=== PATIENT | female | born 1985 | race Caucasian/White ===

== ENCOUNTER 2017-09-06 09:52 | Emergency (ER) | payer MEDICAID, SELFPAY | END 2017-09-06 12:12 | disposition home or self-care (01) | PROVIDERS: Emergency Provider Emergency Medicine; Family Provider Family Medicine; Visit Provider Emergency Medicine | DX: O20.9 Hemorrhage in early pregnancy, unspecified (principal); Z3A.00 Weeks of gestation of pregnancy not specified; O99.330 Smoking (tobacco) complicating pregnancy, unspecified trimester; F17.210 Nicotine dependence, cigarettes, uncomplicated | CPT/HCPCS: 76830; 81001; 84702; 84703; 85025; 87086; 99283 ==

== ENCOUNTER → 2017-11-26 16:13 | Outpatient (CLI) | payer MEDICAID, SELFPAY ==
[2017-11-26 16:40] LABS: Basophils % 0.2 % (0.1-2.0); Eosinophils % 0.2 % (0.1-12.0); Hematocrit 43.4 % (37.0-47.0); Hemoglobin 14.2 g/dL (12.2-16.2); Lymphocytes # 3.7 K/mm3 (0.7-4.5); Lymphocytes % 37.9 K/mm3 (10-50); Mean Corpuscular HGB Conc 32.6 g/dL (31.8-35.4); Mean Corpuscular Hemoglobin 33.1 pg (27.0-31.2); Mean Corpuscular Volume 101.5 fl (81-99); Mean Platelet Volume 7.9 fl (7.4-10.4); Monocytes # 0.4 K/mm3 (0.1-1.0); Monocytes % 3.8 % (1.7-9.3); Neutrophils # 5.7 K/mm3 (1.8-7.8); Neutrophils % 57.8 % (37.0-80.0); Platelet Count 247 K/mm3 (142-424); Red Blood Count 4.28 M/mm3 (4.20-5.40); Red Cell Distribution Width 11.9 % (11.5-17.5); White Blood Count 9.9 K/mm3 (4.8-10.8)
[2017-11-26 17:52] LABS: Alanine Aminotransferase 24 U/L (12-78); Albumin Level 3.9 gm/dL (3.4-5.0); Alkaline Phosphatase 76 U/L (46-116); Aspartate Amino Transferase 12 U/L (15-37); Bilirubin,Direct 0.1 mg/dL (0.0-0.2); Bilirubin,Total 0.2 mg/dL (0.2-1.0); Total Protein,Serum 7.2 gm/dL (6.4-8.2)
[2017-11-28 12:17] LABS: Rapid Plasma Reagin Ab Titer Non Reactive (NonRea<1:1)
[2017-11-28 12:18] LABS: HIV Screen 4th Generation wRfx Non Reactive (Non Reactive); Hepatitis B Surface Antigen Negative (Negative); Hepatitis C Antibody <0.1 s/co ratio (0.0-0.9); Rubella Antibodies, IgG 1.82 index (Immune >0.99)
== END ==
PROVIDERS: Family Provider Family Medicine; PCP Family Medicine; Visit Provider Nurse Practitioner Obstetrics & Gynecology
DX: Z34.90 Encounter for supervision of normal pregnancy, unspecified, unspecified trimester (principal)
CPT/HCPCS: 36415; 80076; 85025; 86592; 86703; 86762; 86850; 87340; 87380; G0432

== ENCOUNTER 2017-12-05 06:30 | Emergency (ER) | payer MEDICAID, SELFPAY ==
[2017-12-05 06:39] VITALS: BP 104/59; PULSE 85; RESP 17; TEMP 36.6; O2SAT 98; BMI 29.7
[2017-12-05 07:02] LABS: Strep Scrn Group A (Rapid) Negative (Negative)
--- NOTE | 2017-12-05 07:30 | HMH.EDEAR ---
ED Disposition Clinical Impression: Otitis media Qualifiers: Otitis media type: unspecified Chronicity: acute Qualified Code(s): H66.90 - Otitis media, unspecified, unspecified ear Qualifiers: Weeks of gestation: less than 8 weeks Qualified Code(s): Z3A.01 - Less than 8 weeks gestation of Disposition: Home, Self-Care Condition on Discharge: Good Instructions: DI for Ear Pain-Adult Additional Instructions: see pcp for meds Prescriptions: cephALEXin [Keflex 500mg Cap] 500 mg PO TID #21 cap Referrals: Abilio Muniz [Primary Care Provider] - - Critical Care Critical Care Time: No Attestation: On 12/05/17, the high probability of a clinically significant, sudden or life threatening deterioration of the following system(s) required my full and direct attention, intervention and personal management. The time I documented below is in addition to time spent performing reported procedures but includes the following listed in this critical care notation. Medical Decision Making - Medical Records Medical records reviewed: Yes: I reviewed the patient's medical records. - Ron Inquiry Pt receiving controlled substance: No Vital Signs: 12/05/17 06:39 Temperature 98 F Temperature Source Oral Pulse Rate [Right Brachial] 85 Respiratory Rate 17 Blood Pressure [Right Arm] 104/59 Blood Pressure Mean [Right Arm] 74 Blood Pressure Source [Right Arm] Automatic Cuff Blood Pressure Position [Right Arm] Sitting 02 Sat by Pulse Oximetry 98 Oxygen Delivery Method Room Air - Lab Data Lab Results 12/05/17 06:45: Influenza Type A Ag Negative, Influenza Type B Ag Negative, Group A Strep Rapid Negative Orders (Tests/Meds): ORDERS Category Date Time Status Strep Screen Confirmation Stat Micro 12/05/17 06:45 Received Ear HPI - General Chief complaint: Ear Stated complaint: Pain in both ears Time Seen by Provider: 12/05/17 07:30 Mode of Arrival: Ambulatory Source of Information: Patient, Spouse, Medical Record Limitations: No Limitations Description of Symptoms (Recalled from ER Triage Doc. by RN): reports bilateral ear pain, throat pain, and neck pain. denies any fevers or vomiting. - History of Present Illness HPI Narrative: rt sided ear pain with sore throat - no rash or other c/o MD Complaint: ear pain Location: right ear Duration: intermittent Severity: moderate Discharge from ear: no Treatment prior to arrival: none - Related Data Home Medications Medication Instructions Recorded Confirmed 1 tab PO QHS 10/07/17 12/05/17 vitamin,calcium,xofzfwnb-onvf-jjefd acid tablet Previous Rx's Medication Instructions Recorded cephALEXin [Keflex 500mg Cap] 500 mg PO TID #21 cap 12/05/17 Allergies Allergy/AdvReac Type Severity Reaction Status Date / Time No Known Allergies Allergy Verified 11/26/17 15:31 [facility] History I have reviewed the patient's past medical history: Yes Medical History: Denies:: Cancer, Diabetes Mellitus Type 1, Diabetes Mellitus Type 2, MRSA Laterality Cases: Bilateral: Tonsillectomy, Other Other Surgeries: Yes: Amputation: No Fractures: Yes (right wrist) - Social History Educational Level: Completed High School Smoking Status: Current every day smoker Tobacco Type: cigarettes Alcohol Intake: never - Psychiatric History Expresses thoughts of harming self/others: None Suicide Plan Description: No Plan Family Hx:: Asthma, Heart Attack, Hypertension 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 #2-Oligo. #3-Miscarriage 09/09/17 ROS Obtained: Yes All systems reviewed & no additional complaints - Constitutional Constitutional: Denies fever(s) - Eyes Eyes: Denies change in vision - ENT Ears, Nose, Mouth, and Throat: Reports as per HPI, Denies ear discharge, Reports otalgia, Reports sore throat - [facility]
--- NOTE | 2017-12-05 07:34 | ED_ITS ---
ED Disposition Clinical Impression: Otitis media Qualifiers: Otitis media type: unspecified Chronicity: acute Qualified Code(s): H66.90 - Otitis media, unspecified, unspecified ear Qualifiers: Weeks of gestation: less than 8 weeks Qualified Code(s): Z3A.01 - Less than 8 weeks gestation of Disposition: Home, Self-Care Condition on Discharge: Good Instructions: DI for Ear Pain-Adult Additional Instructions: see pcp for meds Prescriptions: cephALEXin [Keflex 500mg Cap] 500 mg PO TID #21 cap Referrals: Abilio Muniz [Primary Care Provider] - - Critical Care Critical Care Time: No Attestation: On 12/05/17, the high probability of a clinically significant, sudden or life threatening deterioration of the following system(s) required my full and direct attention, intervention and personal management. The time I documented below is in addition to time spent performing reported procedures but includes the following listed in this critical care notation. Medical Decision Making - Medical Records Medical records reviewed: Yes: I reviewed the patient's medical records. - Ron Inquiry Pt receiving controlled substance: No Vital Signs: 12/05/17 06:39 Temperature 98 F Temperature Source Oral Pulse Rate [Right Brachial] 85 Respiratory Rate 17 Blood Pressure [Right Arm] 104/59 Blood Pressure Mean [Right Arm] 74 Blood Pressure Source [Right Arm] Automatic Cuff Blood Pressure Position [Right Arm] Sitting 02 Sat by Pulse Oximetry 98 Oxygen Delivery Method Room Air - Lab Data Lab Results 12/05/17 06:45: Influenza Type A Ag Negative, Influenza Type B Ag Negative, Group A Strep Rapid Negative Orders (Tests/Meds): ORDERS Category Date Time Status Strep Screen Confirmation Stat Micro 12/05/17 06:45 Received Ear HPI - General Chief complaint: Ear Stated complaint: Pain in both ears Time Seen by Provider: 12/05/17 07:30 Mode of Arrival: Ambulatory Source of Information: Patient, Spouse, Medical Record Limitations: No Limitations Description of Symptoms (Recalled from ER Triage Doc. by RN): reports bilateral ear pain, throat pain, and neck pain. denies any fevers or vomiting. - History of Present Illness HPI Narrative: rt sided ear pain with sore throat - no rash or other c/o MD Complaint: ear pain Location: right ear Duration: intermittent Severity: moderate Discharge from ear: no Treatment prior to arrival: none - Related Data Home Medications Medication Instructions Recorded Confirmed 1 tab PO QHS 10/07/17 12/05/17 vitamin,calcium,hukuqqed-nvxp-qymal acid tablet Previous Rx's Medication Instructions Recorded cephALEXin [Keflex 500mg Cap] 500 mg PO TID #21 cap 12/05/17 Allergies Allergy/AdvReac Type Severity Reaction Status Date / Time No Known Allergies Allergy Verified 11/26/17 15:31 [facility] History I have reviewed the patient's past medical history: Yes Medical History: Denies:: Cancer, Diabetes Mellitus Type 1, Diabetes Mellitus Type 2, MRSA Laterality Cases: Bilateral: Tonsillectomy, Other Other Surgeries: Yes: Amputation: No Fractures: Yes (right wrist) - 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
[2017-12-05 07:45] VITALS: BP 99/70; PULSE 82; RESP 18; TEMP 36.9; O2SAT 97
== END 2017-12-05 07:46 | disposition home or self-care (01) ==
PROVIDERS: Emergency Provider Emergency Medicine; Family Provider Family Medicine; PCP Family Medicine
DX: H66.93 Otitis media, unspecified, bilateral (principal); Z3A.01 Less than 8 weeks gestation of pregnancy; F17.210 Nicotine dependence, cigarettes, uncomplicated
CPT/HCPCS: 87275; 87276; 87430; 99282

== ENCOUNTER → 2017-12-06 14:49 | Outpatient (CLI) | payer MEDICAID, SELFPAY ==
--- NOTE | 2017-12-06 14:50 | US_ITS ---
US OB transvaginal COMPARISON: Transvaginal ultrasound pelvis 09/06/2017 HISTORY: Suspected early evaluation for dates TECHNIQUE: Transvaginal imaging FINDINGS: There is a gestational sac present. The yolk sac is identified. The crown-rump length is 0.29 cm equaling 6 weeks 0 days. No cardiac flicker is identified. The size of the gestational sac is somewhat out of proportion to the size of the echoes. There is a small amount of fluid adjacent to the uterus. There is a small corpus luteum cyst left ovary, the right ovary appears normal. IMPRESSION: Possible very early intrauterine gestation too early to characterize and to assess viability, consider follow-up study in 7-9 days for continuing evaluation
== END ==
PROVIDERS: Family Provider Family Medicine; PCP Family Medicine; Visit Provider Nurse Practitioner Obstetrics & Gynecology
DX: O26.841 Uterine size-date discrepancy, first trimester (principal)
CPT/HCPCS: 76830

== ENCOUNTER → 2017-12-13 15:23 | Outpatient (CLI) | payer MEDICAID, SELFPAY ==
--- NOTE | 2017-12-13 15:25 | US_ITS ---
US OB transvaginal HISTORY: ITS.REASON: US OB- Dates ORDERING PHYSICIAN: Jayson Mckay MD PATIENT AGE: 32 years COMPARISON: 12/06/2017 FINDINGS: An intrauterine gestational sac is once again noted. The yolk sac appears thicker with some increased echoes centrally. No obvious pole. No heart flicker. There is some fluid developing within the endometrium subchorionic area. There remains a 1.7 cm corpus luteum on the left. IMPRESSION: Apparent regression of the yolk sac with no obvious pole and small amount of fluid now within the endometrial area. These findings are concerning for nonviability.
[2017-12-13 18:14] LABS: HCG Qualitative, Serum Positive (Negative)
== END ==
PROVIDERS: Family Provider Family Medicine; PCP Family Medicine; Visit Provider Nurse Practitioner Obstetrics & Gynecology
DX: O26.841 Uterine size-date discrepancy, first trimester (principal)
CPT/HCPCS: 36415; 76830; 84703

== ENCOUNTER → 2017-12-16 10:10 | Outpatient (CLI) | payer MEDICAID, SELFPAY | PROVIDERS: Visit Provider Nurse Practitioner Obstetrics & Gynecology | DX: Z34.90 Encounter for supervision of normal pregnancy, unspecified, unspecified trimester (principal) ==

== ENCOUNTER 2017-12-18 09:22 | Day surgery (SDC) | payer MEDICAID, SELFPAY ==
[2017-12-18] VITALS (10 sets, daily range): BP systolic 91–109; BP diastolic 52–70; PULSE 62–92; RESP 16–18; TEMP 36.4–43; O2SAT 95–100
[2017-12-18 11:27] LABS: Urine Pregnancy, HCG Qual. Positive (Negative)
[2017-12-18 11:50] LABS: Anion Gap 13.8 mEq/L (5-15); Blood Urea Nitrogen 11 mg/dL (7-18); Carbon Dioxide 20 mmol/L (21.0-32.0); Chloride 104 mmol/L (98-107); Creatinine Clearance Estimated 227 mL/min (0-300); Creatinine,Serum 0.49 mg/dL (0.55-1.02); Estimated Glomerular Filt Rate 146 ml/min (>60); GFR (African American) 177 ML/MIN (>60); Glucose 77 mg/dL (74-106); Sodium 133 mmol/L (136-145)
[2017-12-18 11:57] LABS: Potassium 4.8 mmoL/L (3.5-5.1)
--- NOTE | 2017-12-18 12:55 | P.PN_ITS ---
[facility] Anesthesia Checklist - Structural Data Admitted From: Home Planned Operative Procedure/s: d/e Consent for Planned Operative Procedure(s) Verified: Yes Verified Documents: Surgical Consent - Airway Assessment C-Spine Mobility Assessed: Yes TMJ Mobility Assessed: Yes Dentition: Good Dentition - Neurological Assessment Level of Consciousness: Awake, Alert - Anesthesia Plan Anesthesia Risk discussed: Yes Anesthesia Plan: Verified ASA Class: II Anesthesia Type: General [facility] Anesthesia HX I have reviewed the patient's past medical history: Yes Medical History: Denies:: Cancer, Diabetes Mellitus Type 1, Diabetes Mellitus Type 2, MRSA, Seizures Other Medical History: Denies: Blood Transfusion Reaction Laterality Cases: Bilateral: Tonsillectomy, Other Other Surgeries: Yes: Amputation: No Fractures: Yes (right wrist) *Family Hx:: Asthma, Heart Attack, Hypertension
--- NOTE | 2017-12-18 15:57 | HMH.ANESI ---
[facility] Anesthesia Record Part I Intake, IV Amount: 800 Estimated blood loss (mL): 100 Urine output (mL): 100 Blood Pressure: 108/70 SaO2: 95 Pulse Rate: 92 Respiratory Rate: 16 Temperature: 98.5 F Patient is:: Drowsy, Stable Stable to PACU at:: 15:50
--- NOTE | 2017-12-18 15:58 | P.PN_ITS ---
[facility] Anesthesia Record Part II Discharge Time: 16:20 Destination: [facility] PACU nurse assessment reviewed?: Yes Patient Condition:: Good Anesthesia Complications:: None
--- NOTE | 2017-12-18 15:58 | HMH.ANESII ---
[facility] Anesthesia Record Part II Discharge Time: 16:20 Destination: [facility] PACU nurse assessment reviewed?: Yes Patient Condition:: Good Anesthesia Complications:: None
--- NOTE | 2017-12-18 16:39 | P.OP_ITS ---
Date of procedure: 12/18/17 Pre-op Diagnosis:: Missed Post-op Diagnosis:: Missed Procedure performed:: Dilation and evacuation with [place] suction Surgeon:: Jayson Mckay MD CYBER SECURITY MANAGER:: Odell Caro Anesthesia: LMA Estimated blood loss (mL): 100 Clinical Note:: The 32-year-old lady who has been followed with serial beta hCGs and ultrasounds. Beta hCGs have been dropping and serial ultrasounds showed no fetus within the uterine cavity but a gestational sac. As result of that she was offered dilation and evacuation. Operative findings:: She had an anteverted bulky uterus that was approximately 8 weeks in size. Operative note:: She was taken to the operating room where LMA anesthesia was found to be adequate. She was prepped and draped in the normal sterile fashion in the lithotomy position. A weighted speculum was placed in the vagina and the anterior lip of the cervix was grasped with a tenaculum. Mckee dilators were then used to dilate the cervix to approximately 9 mm. Using a 9 mL curved Bobby suction curette I evacuated the uterine contents. This is followed by a gentle curettage. She tolerated the procedure well and was taken to the recovery room in excellent condition. All sponge and instrument counts were correct. The estimated blood loss was approximately 100 cc. Condition: stable Disposition: PACU Specimens:: Products of conception Complications:: None
--- NOTE | 2017-12-18 17:00 | PC.NURSE ---
1557-oral airway removed at this time
--- NOTE | 2017-12-18 17:02 | PC.NURSE ---
1610-pt drinking ice water at this time w/out difficulty
--- NOTE | 2017-12-18 17:04 | PC.NURSE ---
1618-detailed report called to BEAR Bermudez 1620-Pt transported to post op via stretcher w/rails up and left in care of BEAR Mccollum w/bed locked in lowest position. Detailed report given to BEAR Mccollum at bedside. VSS. Pt stable.
== END 2017-12-18 16:51 | disposition home or self-care (01) ==
LOC: OR 09:23
PROVIDERS: Family Provider Family Medicine; PCP Family Medicine; Visit Provider Nurse Practitioner Obstetrics & Gynecology
PROC: (CPT 59820; principal; 2017-12-18 11:45)
DX: O02.1 Missed abortion (principal)
CPT/HCPCS: 59820; 80048; 81025; 96374; J0131; J2405

== ENCOUNTER → 2018-04-03 11:04 | Outpatient (CLI) | payer MEDICAID, SELFPAY ==
[2018-04-03 11:29] LABS: Basophils % 0.3 % (0.1-2.0); Eosinophils # 0.1 K/mm3 (0.0-0.4); Eosinophils % 0.5 % (0.1-12.0); Hematocrit 46.7 % (37.0-47.0); Hemoglobin 15.1 g/dL (12.2-16.2); Lymphocytes % 20.3 K/mm3 (10-50); Mean Corpuscular HGB Conc 32.3 g/dL (31.8-35.4); Mean Corpuscular Hemoglobin 32.5 pg (27.0-31.2); Mean Corpuscular Volume 100.6 fl (81-99); Mean Platelet Volume 7.7 fl (7.4-10.4); Monocytes # 0.6 K/mm3 (0.1-1.0); Monocytes % 4.2 % (1.7-9.3); Neutrophils # 11.2 K/mm3 (1.8-7.8); Neutrophils % 74.7 % (37.0-80.0); Platelet Count 269 K/mm3 (142-424); Red Blood Count 4.65 M/mm3 (4.20-5.40); White Blood Count 14.9 K/mm3 (4.8-10.8)
[2018-04-04 17:59] LABS: HIV Screen 4th Generation wRfx Non Reactive (Non Reactive)
[2018-04-04 18:00] LABS: Hepatitis B Surface Antigen Negative (Negative); Hepatitis C Antibody <0.1 s/co ratio (0.0-0.9); Rapid Plasma Reagin Ab Titer Non Reactive (NonRea<1:1); Rubella Antibodies, IgG 1.69 index (Immune >0.99)
== END ==
PROVIDERS: Family Provider Family Medicine; PCP Family Medicine; Visit Provider Obstetrics & Gynecology
DX: Z34.90 Encounter for supervision of normal pregnancy, unspecified, unspecified trimester (principal)
CPT/HCPCS: 36415; 85025; 86592; 86703; 86762; 86850; 87340; 87380; G0432

== ENCOUNTER → 2018-07-10 09:42 | Outpatient (CLI) | payer MEDICAID, SELFPAY ==
--- NOTE | 2018-07-10 09:43 | US_ITS ---
US OB /maternal detail: INDICATION: ITS.REASON: US OB Complete ORDERING PHYSICIAN: Jayson Mckay MD PATIENT AGE: 33 years TECHNIQUE: ultrasound transabdominal scanning. COMPARISON: No previous relevant studies. FINDINGS: Single viable intrauterine gestation. Cephalic position. Placenta: Posterior placenta grade 1. There is average amount fluid. The cervix appears satisfactory. Closed and measuring 4 cm in length. Complete survey performed and was unremarkable on the submitted images as in PACS. No discrete anomalies identified on survey imaging by technologist. Active fetus. Three-vessel cord with satisfactory umbilical cord insertion. 4- chamber heart noted. Survey of brain & ventricles unremarkable. Face and neck survey unremarkable. Diaphragm and chest views unremarkable. Abdomen: Both kidneys noted and unremarkable. Stomach noted and satisfactory. Spine: Survey of the spine satisfactory with no anomalies identified nor imaged. Both arms and legs noted. Amniotic Fluid: Adequate. Maternal adnexa: No significant findings. Measurements: Average ultrasound age 21w1d. Gestational Age 21w0d. Estimated due date by ultrasound age 0211/19/2017. Estimated weight 399 grams. BPD = 21w1d OFD = 21w2d HC = 20w4d AC = 21w1d FL = 21w3d Growth Percentile= 50% Heart Rate = 153 Cerebellum = 21w2d Humerus = 21w4d HC/AC is 1.13 (1.06-1.25). CI is 78% (70-86%). FL/BPD is 71%. FL/AC is 22% (20-24%). IMPRESSION: There is a single live intrauterine gestation which is in cephalic presentation with an average ultrasound age 21 weeks 1 day. No obvious anomalies. Posterior grade 1 placenta. Please see above for detail.
== END ==
PROVIDERS: Family Provider Family Medicine; PCP Family Medicine; Visit Provider Nurse Practitioner Obstetrics & Gynecology
DX: Z36.0 Encounter for antenatal screening for chromosomal anomalies (principal)
CPT/HCPCS: 76811

== ENCOUNTER → 2018-08-29 09:31 | Outpatient (CLI) | payer MEDICAID, SELFPAY ==
[2018-08-29 10:20] LABS: Glucose,Fasting 74 mg/dL (60-105)
[2018-08-29 11:12] LABS: Glucose 1 Hour 116 mg/dL (74-106)
== END ==
PROVIDERS: Visit Provider Nurse Practitioner Obstetrics & Gynecology
DX: Z34.90 Encounter for supervision of normal pregnancy, unspecified, unspecified trimester (principal)
CPT/HCPCS: 36415; 82951

== ENCOUNTER 2018-09-02 18:34 | Outpatient (CLI) | payer MEDICAID, SELFPAY ==
[2018-09-02 19:05] VITALS: BMI 32.8
[2018-09-02 19:06] VITALS: BP 148/86; PULSE 91; RESP 20; O2SAT 99; BMI 32.8
[2018-09-02 19:30] LABS: Fetal Membrane Rupture (Rapid) Negative (Negative)
[2018-09-02 20:02] LABS: Fetal Fibronectin (Rapid) Negative (Negative)
== END 2018-09-02 19:51 | disposition home or self-care (01) ==
LOC: OBOUT 18:36 → OB 18:36
PROVIDERS: Visit Provider Obstetrics & Gynecology
DX: O26.892 Other specified pregnancy related conditions, second trimester (principal); Z3A.28 28 weeks gestation of pregnancy
CPT/HCPCS: 59025; 82731; 84112

== ENCOUNTER → 2018-10-22 17:37 | Outpatient (CLI) | payer MEDICAID, SELFPAY | LOC: LAB 17:38 → LAB.DROPOF 17:38 | PROVIDERS: Visit Provider Nurse Practitioner Obstetrics & Gynecology | DX: Z34.90 Encounter for supervision of normal pregnancy, unspecified, unspecified trimester (principal) | CPT/HCPCS: 86403 ==

== ENCOUNTER → 2018-10-24 12:46 | Outpatient (CLI) | payer MEDICAID, SELFPAY ==
--- NOTE | 2018-10-24 12:49 | US_ITS ---
US OB BPP w/Fet-Mat S/D: INDICATION: Large for gestational age ITS.REASON: US OB- BPP Growth- LGA ORDERING PHYSICIAN: Jayson Mckay MD PATIENT AGE: 33 years TECHNIQUE: ultrasound transabdominal scanning. COMPARISON: No previous relevant studies. FINDINGS: Single viable intrauterine gestation. Cephalic position. Placenta: Lat/Post placenta grade 2-3. There is average amount fluid. The cervix appears satisfactory. Closed and measuring 3 cm in length. Measurements: Average ultrasound age 34w6d. Gestational Age 36w2d. Estimated due date by ultrasound age 0311/29/2018. Estimated weight 2545 grams. BPD = 33w6d OFD = HC = 35w6d AC = 35w4d FL = 33w5d Growth Percentile= 18th percentile Heart Rate = 125 HC/AC is 1.01 (0.93-1.11). CI is 72% (70-86%). FL/BPD is 78% (71-87%). FL/AC is 21% (20-24%). Average amniotic fluid volume with an NANCY of 15 cm. Biophysical profile is 8 of 8. SD ratio is 3.8 and resistive index of the umbilical artery 0.73. Both of these are above 95th percentile. IMPRESSION: IMPRESSION: 1. Live IUP with an average ultrasound age of 34 weeks and 6 days. All parameters correlate. Estimated weight is 2545 g which is 18th percentile. 2. Grade 2-3 placenta with elevated SD ratio and resistive index of an umbilical artery suggesting placental insufficiency
== END ==
PROVIDERS: PCP Family Medicine; Visit Provider Nurse Practitioner Obstetrics & Gynecology
DX: O36.60X0 Maternal care for excessive fetal growth, unspecified trimester, not applicable or unspecified (principal)
CPT/HCPCS: 76811; 76819; 76820

== ENCOUNTER → 2018-10-29 16:53 | Outpatient (CLI) | payer MEDICAID, SELFPAY ==
[2018-10-29 17:34] LABS: Fibrinogen 442 mg/dL (204-500); Prothrombin Time 9.3 seconds (9.4-11.8)
[2018-10-29 17:35] LABS: Basophils % 0.2 % (0.1-2.0); Eosinophils # 0.1 K/mm3 (0.0-0.4); Eosinophils % 0.6 % (0.1-12.0); Hematocrit 36.4 % (37.0-47.0); Lymphocytes # 3.8 K/mm3 (0.7-4.5); Lymphocytes % 28.2 % (10-50); Mean Corpuscular Hemoglobin 32.8 pg (27.0-31.2); Mean Corpuscular Volume 99.4 fl (81-99); Mean Platelet Volume 8.3 fl (7.4-10.4); Monocytes # 0.7 K/mm3 (0.1-1.0); Monocytes % 4.8 % (1.7-9.3); Neutrophils % 66.2 % (37.0-80.0); Platelet Count 210 K/mm3 (142-424); Red Blood Count 3.67 M/mm3 (4.20-5.40); White Blood Count 13.5 K/mm3 (4.8-10.8)
[2018-10-29 18:14] LABS: D-Dimer 1550 ng/mL (0-400)
[2018-10-29 19:12] LABS: Alanine Aminotransferase 20 U/L (12-78); Anion Gap 13.6 mEq/L (5-15); Aspartate Amino Transferase 9 U/L (15-37); Blood Urea Nitrogen 12 mg/dL (7-18); Calcium 9.4 mg/dL (8.5-10.1); Carbon Dioxide 24 mmol/L (21.0-32.0); Chloride 103 mmol/L (98-107); Creatinine,Serum 0.59 mg/dL (0.55-1.02); Estimated Glomerular Filt Rate 117 ml/min (>60); GFR (African American) 142 ML/MIN (>60); Glucose 84 mg/dL (74-106); Potassium 3.6 mmoL/L (3.5-5.1); Sodium 137 mmol/L (136-145); Uric Acid 4.3 mg/dL (2.6-7.2)
== END ==
PROVIDERS: Visit Provider Nurse Practitioner Obstetrics & Gynecology
DX: Z34.90 Encounter for supervision of normal pregnancy, unspecified, unspecified trimester (principal); Z3A.36 36 weeks gestation of pregnancy
CPT/HCPCS: 36415; 80048; 84450; 84460; 84550; 85025; 85378; 85384; 85610; 85730

== ENCOUNTER 2018-10-30 17:21 | Outpatient (CLI) | payer MEDICAID, SELFPAY ==
[2018-10-30 17:32] VITALS: BMI 33.5
[2018-10-30 17:41] LABS: Microscopic, Urine URINE MICROSCOPIC (MICROSCOPIC)
[2018-10-30 17:43] VITALS: BP 121/87; PULSE 92; RESP 20; TEMP 36.8; O2SAT 99; BMI 33.5
[2018-10-30 17:52] LABS: Appearance,Urine SL CLOUDY (Clear); Bilirubin,Urine Negative (Negative); Blood, Urine 2+ (Negative); Color,Urine YELLOW (Yellow); Glucose,Urine (UA) Negative (Negative); Ketones,Urine Negative (Negative); Leukocyte Esterase,Urine TRACE (Negative); Nitrate,Urine Negative (Negative); Protein,Urine 2+ (Negative); Urobilinogen,Urine 0.2 EU/dl (0.2)
[2018-10-30 18:18] LABS: Bacteria,Urine Trace /lpf; RBC,Urine Occasional #/hpf (0-3)
== END 2018-10-30 18:41 | disposition home or self-care (01) ==
LOC: OBOUT 17:24 → OB 17:25
PROVIDERS: PCP Nurse Practitioner Obstetrics & Gynecology; Visit Provider Obstetrics & Gynecology
DX: O13.3 Gestational [pregnancy-induced] hypertension without significant proteinuria, third trimester (principal); Z3A.37 37 weeks gestation of pregnancy
CPT/HCPCS: 59025; 81001

== ENCOUNTER → 2018-10-31 09:21 | Outpatient (CLI) | payer MEDICAID, SELFPAY ==
[2018-10-31 11:30] LABS: Creatinine,Urine Random 100 mg/dL (20-320); Total Protein,Urine Random 84.5 mg/dL (0.0-11.9)
[2018-10-31 11:34] LABS: Collection Time,Urine 24 hours; Creatinine 24 Hour,Urine 1350 mg/24hr (630-2500); Total Protein 24 Hour,Urine 1141 mg/24 hr (40-90); Total Volume,Urine 1350 mL (600-1600)
== END ==
PROVIDERS: Visit Provider Nurse Practitioner Obstetrics & Gynecology
DX: Z34.90 Encounter for supervision of normal pregnancy, unspecified, unspecified trimester (principal); Z3A.36 36 weeks gestation of pregnancy
CPT/HCPCS: 82570; 84155

== ENCOUNTER 2018-11-01 13:45 | Outpatient (CLI) | payer MEDICAID, SELFPAY ==
[2018-11-01 14:00] VITALS: BP 138/78; PULSE 90; RESP 20; TEMP 36.6; O2SAT 100; BMI 34.1; BMI 34.2
[2018-11-01 14:10] LABS: Microscopic, Urine URINE MICROSCOPIC (MICROSCOPIC)
[2018-11-01 14:12] LABS: Appearance,Urine CLEAR (Clear); Bilirubin,Urine Negative (Negative); Blood, Urine 3+ (Negative); Color,Urine YELLOW (Yellow); Glucose,Urine (UA) Negative (Negative); Ketones,Urine Negative (Negative); Leukocyte Esterase,Urine Negative (Negative); Nitrate,Urine Negative (Negative); PH,Urine 6.5 (5.0-8.5); Protein,Urine 2+ (Negative); Specific Gravity, Urine >= 1.030 (1.005-1.030)
[2018-11-01 14:27] LABS: Bacteria,Urine Trace /lpf
== END 2018-11-01 14:55 | disposition home or self-care (01) ==
LOC: OBOUT 13:47 → OB 13:48
PROVIDERS: PCP Family Medicine; Visit Provider Obstetrics & Gynecology
DX: O13.3 Gestational [pregnancy-induced] hypertension without significant proteinuria, third trimester (principal); Z3A.37 37 weeks gestation of pregnancy
CPT/HCPCS: 59025; 81001

== ENCOUNTER 2018-11-02 11:22 | Outpatient (CLI) | payer MEDICAID, SELFPAY ==
[2018-11-02 11:28] VITALS: BP 119/86; PULSE 103; RESP 18; TEMP 36.7; O2SAT 98; BMI 34.1
== END 2018-11-02 12:15 | disposition home or self-care (01) ==
LOC: OBOUT 11:23 → OB 11:24
PROVIDERS: PCP Family Medicine; Visit Provider Obstetrics & Gynecology
DX: O13.3 Gestational [pregnancy-induced] hypertension without significant proteinuria, third trimester (principal); Z3A.37 37 weeks gestation of pregnancy
CPT/HCPCS: 59025

== ENCOUNTER 2018-11-04 05:30 | Inpatient (IN) ==
[2018-11-04 06:05] LABS: Basophils % 0.2 % (0.1-2.0); Eosinophils # 0.1 K/mm3 (0.0-0.4); Eosinophils % 0.6 % (0.1-12.0); Hematocrit 37.9 % (37.0-47.0); Hemoglobin 12.8 g/dL (12.2-16.2); Lymphocytes # 3.4 K/mm3 (0.7-4.5); Lymphocytes % 22.9 % (10-50); Mean Corpuscular HGB Conc 33.7 g/dL (31.8-35.4); Mean Corpuscular Hemoglobin 33.4 pg (27.0-31.2); Mean Corpuscular Volume 99.1 fl (81-99); Mean Platelet Volume 8.4 fl (7.4-10.4); Monocytes # 0.6 K/mm3 (0.1-1.0); Monocytes % 4.3 % (1.7-9.3); Neutrophils # 10.6 K/mm3 (1.8-7.8); Platelet Count 215 K/mm3 (142-424); Red Blood Count 3.82 M/mm3 (4.20-5.40); White Blood Count 14.7 K/mm3 (4.8-10.8)
[2018-11-04 06:15] LABS: Anion Gap 15.4 mEq/L (5-15); Calcium 8.8 mg/dL (8.5-10.1); Potassium 3.4 mmoL/L (3.5-5.1)
[2018-11-04 06:52] LABS: Microscopic, Urine URINE MICROSCOPIC (MICROSCOPIC)
[2018-11-04 06:54] LABS: Appearance,Urine SL CLOUDY (Clear); Bilirubin,Urine Negative (Negative); Blood, Urine 2+ (Negative); Color,Urine YELLOW (Yellow); Glucose,Urine (UA) Negative (Negative); Ketones,Urine Negative (Negative); Leukocyte Esterase,Urine TRACE (Negative); PH,Urine 6.5 (5.0-8.5); Protein,Urine 1+ (Negative); Specific Gravity, Urine 1.025 (1.005-1.030); Urobilinogen,Urine 0.2 EU/dl (0.2)
[2018-11-04 07:08] LABS: Bacteria,Urine 1+ /lpf; Squamous Epithelial Cell,Urine 50-100 #/hpf (0-5); WBC,Urine Occasional #/hpf (0-3)
--- NOTE | 2018-11-04 08:32 | Progress Note ---
[facility] Anesthesia Checklist - Patient Identification Patient Identification: Arm Band - Structural Data Admitted From: Home Planned Operative Procedure/s: repeat c/s, btl Consent for Planned Operative Procedure(s) Verified: Yes Verified Documents: Surgical Consent, History and Physical - NPO Status Verified Time NPO: 00:00 - Additional verifications Anesthesia Reactions: No - Airway Assessment C-Spine Mobility Assessed: Yes (mp2) TMJ Mobility Assessed: Yes Dentition: Good Dentition - Neurological Assessment Level of Consciousness: Awake, Alert - Anesthesia Plan Anesthesia Risk discussed: Yes Anesthesia Plan: Verified ASA Class: II Anesthesia Type: Spinal [facility] History I have reviewed the patient's past medical history: Yes Medical History: Reports:: Gastroesophageal Reflux Disease(GERD), Hypertension ( induced) Denies:: Cancer, Diabetes Mellitus Type 1, Diabetes Mellitus Type 2, MRSA, Seizures Have you ever received a pneumonia vaccine?: No Have you received a flu vaccine this season?: Yes Other Medical History: Denies: Blood Transfusion Reaction Laterality Cases: Bilateral: Tonsillectomy, Other Other Surgeries: Yes: (x2) Amputation: No Fractures: Yes (right wrist) - *Social History Smoking Status: Current every day smoker Tobacco Type: cigarettes # Packs/Day (cigarettes): 1 Alcohol Intake: never Substance Use Type: denies use Occupational Status: employed Housing: house Household Members: spouse, family Family Hx:: Asthma, Heart Attack, Hypertension 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
--- NOTE | 2018-11-04 08:32 | Operative Note ---
Date of procedure: 11/04/18 Pre-op Diagnosis:: Term , previous section, -induced hypertension, proteinuria, desire for sterilization Post-op Diagnosis:: Term , previous section, -induced hypertension, proteinuria, desire for sterilization Procedure performed:: Repeat lower segment transverse section, bilateral salpingectomy Surgeon:: Jayson Mckay MD Transport Engineer(s):: Lisa Baxter BAGGAGE HANDLING SUPERVISOR:: Odell Caro Anesthesia: spinal Estimated blood loss (mL): 600 Clinical Note:: She is a 33-year-old 3 para 2 at 37 and 6 weeks gestational age. She began having increased blood pressure over the last couple of weeks and was started on labetalol. Her blood pressure stabilized on the labetalol and we did a 24-hour urine that showed 1100 mg of protein. As result of the proteinuria and increased blood pressure we elected to perform a repeat lower segment quevedo sverse section about 10 days early. She also expressed desire for sterilization. Operative findings:: She delivered a liveborn female child at 7:43 AM on the morning of November 04, 2018. The baby had Apgars of 9 at 1 minute and 10 at 5 minutes. Ovaries and tubes appeared normal. PH was 7.36. Operative note:: She was taken to the operating room where spinal anesthesia was found be adequate. She was prepped and draped in normal sterile fashion in the supine position with a leftward tilt. A Bravo catheter was in the bladder. A Pfannenstiel skin incision was made with knife then carried through to the underlying layer of fascia with cautery. The fascia was opened in the midline with cautery and extended laterally using Segura scissors. Cast[place] clamps were applied to the superior aspect of the fascial incision which was tented up and the underlying rectus muscles dissected off using cautery. The [place] clamps were then applied to the inferior aspect of the fascial incision which in a similar fashion was tented up and the underlying rectus muscles dissected off using cautery. The rectus muscles were then in the midline, the peritoneum identified, and entered sharply with Metzenbaum scissors. This incision was then extended superiorly and inferiorly with cautery. We had good visualization of the bladder inferiorly. The Awais device was then placed within the abdominal cavity. The bladder peritoneum was then opened in the midline and extended laterally using Metzenbaum scissors. A bladder flap was created digitally. Transverse incision was made through the uterine muscle to the amnion. This incision was then extended laterally using fingers traction. The amnion was entered sharply with knife. There was clear amniotic fluid. The 's head was then delivered atraumatically. This was followed by the anterior shoulder and the rest of the 's body atraumatically. The oropharynx and nasopharynx were bulb suctioned. We allowed the cord to continue to pulsate for approximately 1 minute. The cord was then doubly clamped and cut. The infant was then handed off to Dr. Johnson who assigned Apgars of 9 at 1 minute and 10 at 5 minutes. We then obtained cord blood as well as cord pH. The pH was 7.36. Using gentle traction on the cord and countertraction on the fundus I was able to easily deliver the placenta intact. It had a normal three-vessel cord. The uterus was then cleared of clots and debris . The uterine incision was then closed using running 0 Vicryl suture in a locked fashion. A second layer of the same suture was used to imbricate the first layer. There was an area of bleeding in the medial aspect of the incision and uxgqfw-ce-lantc sutures were used here to obtain excellent hemostasis. The bladder peritoneum was then closed using running 2-0 Vicryl suture in a locked fashion. Before completely closing the bladder peritoneum I elected to place a large piece of Surgicel underneath the bladder peritoneum. The gutters and cul-de-sac were then cleared of clots and debris . Once again hemostasis was assured. I then performed a bilateral salpingectomy by first exteriorizing the uterus from the abdominal cavity. The distal end of the right tube was grasped with a Jacky and using cautery along the mesosalpinx I dissected the tube off. At the proximal end of the tube I cauterized across the tube near the cornua. There was a small amount of bleeding on the right side and I grasped the bleeder with a hemostat and placed a surgical tie here. On the left side I similarly removed the left tube. There were 2 areas were applied hemostats 2 small bleeders and these were tied off with 2-0 Vicryl suture. Once again assured hemostasis. The uterus was returned to the abdominal cavity. The Awais device was then removed from the abdominal cavity. The peritoneum was grasped with Hyun clamps and closed using running 2-0 Vicryl suture. The rectus muscles were then reapproximated using running 0 Vicryl suture. The fascia was closed using running #1 Vicryl suture. The subcutaneous tissues were then irrigated with warm water followed by closure Adrian's fascia using running 2-0 Monocryl suture. The skin was closed with amarjit. I then cleaned the skin with Hibiclens. Sterile dressings were applied. She tolerated the procedure well and was taken to the recovery room in excellent condition. All sponges minute and needle counts were correct. Estimate a blood loss was approximately 600 mL. Condition: stable Disposition: PACU Specimens:: Products of conception and bilateral fallopian tubes. Complications:: None
--- NOTE | 2018-11-04 08:33 | Progress Note ---
[facility] Anesthesia Record Part I Intake, IV Amount: 1,000 Estimated blood loss (mL): 600 Urine output (mL): 300 Blood Pressure: 123/73 SaO2: 100 Pulse Rate: 72 Respiratory Rate: 16 Temperature: 97 F Patient is:: Awake, Stable Stable to PACU at:: 08:30
--- NOTE | 2018-11-04 08:34 | Progress Note ---
[facility] Anesthesia Record Part II Discharge Time: 09:00 Destination: Obstetric PACU nurse assessment reviewed?: Yes Patient Condition:: Good Anesthesia Complications:: None Swallowing reflex intact?: Yes Cyanosis?: No
[2018-11-05 07:22] LABS: Basophils % 0.2 % (0.1-2.0); Eosinophils # 0.1 K/mm3 (0.0-0.4); Eosinophils % 0.5 % (0.1-12.0); Hemoglobin 10.8 g/dL (12.2-16.2); Lymphocytes # 3.8 K/mm3 (0.7-4.5); Lymphocytes % 25.8 % (10-50); Mean Corpuscular HGB Conc 33.6 g/dL (31.8-35.4); Mean Corpuscular Hemoglobin 34.1 pg (27.0-31.2); Mean Corpuscular Volume 101.3 fl (81-99); Mean Platelet Volume 8.3 fl (7.4-10.4); Monocytes # 0.7 K/mm3 (0.1-1.0); Neutrophils # 10.1 K/mm3 (1.8-7.8); Neutrophils % 68.5 % (37.0-80.0); Platelet Count 210 K/mm3 (142-424); Red Blood Count 3.16 M/mm3 (4.20-5.40); Red Cell Distribution Width 14.3 % (11.5-17.5); White Blood Count 14.8 K/mm3 (4.8-10.8)
--- NOTE | 2018-11-05 10:12 | Progress Note ---
Internal Medicine - PN: Subj *Date: 11/05/18 *Time: 10:11 Interval history: She continues to do well. Her pain is well controlled. Her lochia is normal. She is bottlefeeding. Exam Vital signs and Labs for Last 24 Hours: Temp Pulse Resp BP Pulse Ox 97.8 F 86 18 126/75 96 11/04/18 20:07 11/04/18 20:07 11/04/18 20:07 11/04/18 20:07 11/04/18 20:07 Laboratory Results - last 24 hr 11/05/18 06:18: WBC 14.8 H, RBC 3.16 L, Hgb 10.8 L, Hct 32.0 L, MCV 101.3 H, MCH 34.1 H, MCHC 33.6, RDW 14.3, Plt Count 210, MPV 8.3, Neut % (Auto) 68.5, Lymph % (Auto) 25.8, Catron % (Auto) 5.0, Eos % (Auto) 0.5, Baso % (Auto) 0.2, Neut # (Auto) 10.1 H, Lymph # (Auto) 3.8, Catron # (Auto) 0.7, Eos # (Auto) 0.1, Baso # (Auto) 0.0 I & O for Last 24 hours: Intake & Output 11/02/18 11/03/18 11/04/18 11/05/18 11:59 11:59 11:59 11:59 Intake Total 1000 / 1000 321 / 321 Output Total 550 / 550 Balance 1000 / 1000 -229 / -229 Weight 214 lb - Constitutional no acute distress Assessment and Plan (1) delivery delivered Current visit: Yes Status: Acute Category: Medical Code(s): O82 - Encounter for delivery without indication - Assessment and plan all Dx Assessment and Plan for all problems:: She can use to do well. We will plan to send her home in 48 hours.
--- NOTE | 2018-11-05 10:38 | Pharmacy Consult Notes ---
[facility] Pharmacy VTE Monitoring - Patient Demographics Admission date: 11/04/18 Report Date: 11/05/18 Time: 10:37 Allergies/Adverse Reactions: Patient Allergies No Known Allergies Allergy (Verified 11/03/18 10:16) Height: 1.7 m Weight: 97.069 kg Patient Problems: Current Active Problems delivery delivered (Acute) - VTE Risk Labs: VTE Related Lab Results Hgb 10.8 g/dL (12.2-16.2) L 11/05/18 06:18 Hct 32.0 % (37.0-47.0) L 11/05/18 06:18 Plt Count 210 K/mm3 (142-424) 11/05/18 06:18 BUN 10 mg/dL (7-18) 11/04/18 05:50 Creatinine 0.70 mg/dL (0.55-1.02) 11/04/18 05:50 Estimated Creat Clear 175 mL/min (50-200) 11/04/18 05:50 - Prophylaxis VTE Prophylaxis Ordered?: Yes Types of VTE Prophylaxis: IPCS Thigh High Location of Applied Device: Bilateral Lower Extremeties - VTE Diagnosis Confirmed Treatment or plan recommended: Continue Current Treatment
--- NOTE | 2018-11-06 08:18 | Progress Note ---
Internal Medicine - PN: Subj *Date: 11/06/18 *Time: 08:16 Interval history: She continues to do well. She is bottlefeeding. Her lochia is normal. Her pain is well controlled. Exam Vital signs and Labs for Last 24 Hours: Temp Pulse Resp BP Pulse Ox 98.1 F 95 H 18 145/65 H 98 11/05/18 20:08 11/05/18 20:08 11/05/18 20:08 11/05/18 20:08 11/05/18 20:08 I & O for Last 24 hours: Intake & Output 11/03/18 11/04/18 11/05/18 11/06/18 11:59 11:59 11:59 11:59 Intake Total 1000 / 1000 321 / 321 Output Total 550 / 550 Balance 1000 / 1000 -229 / -229 Weight 214 lb 214 lb - Constitutional no acute distress - *Routine Abdominal Exam Present: soft, normoactive bowel sounds. Absent: tenderness, rebound, guarding, mass Comments: Her incision is clean and dry. Assessment and Plan (1) delivery delivered Current visit: Yes Status: Acute Category: Medical Code(s): O82 - Encounter for delivery without indication (2) Sterilization Current visit: Yes Status: Acute Category: Medical Code(s): Z30.2 - Encou nter for sterilization - Assessment and plan all Dx Assessment and Plan for all problems:: She continues to do well. We will plan to send her home tomorrow.
[2018-11-06 20:07] VITALS: BP 132/78
--- NOTE | 2018-11-07 09:29 | Discharge Summary ---
General - General Admission date:: 11/04/18 Discharge date: 11/07/18 HPI HPI: She is a 33-year-old 5 now para 3 aborta 2 who was 37 and 5 weeks gestational age. She had increase in her blood pressure and as a result of that we elected to perform her repeat early. She also had over thousand milligrams of protein in her urine. She also expressed desire for sterilization. Hospital Course Hospital Course: On October to repeat lower segment transverse section and bilateral salpingectomy. She has done well postoperatively and has remained afebrile throughout her hospitalization. She delivered a liveborn female child at 7:43 AM. Apgars of 9 at 1 and 10 at 5 minutes. She has a positive blood, she is rubella immune and was group B strep negative. She is bottlefeeding. Her director of publications is Dr. Johnson. She is discharged home to follow-up with me in approximately 2 weeks time.. She will continue with her vitamins and iron. She was given a prescription for Percocet 5/325, 30 tablets as well as ibuprofen 400 mg. Her condition on discharge is stable. Objective Vital signs: Temp Pulse Resp BP Pulse Ox 97.9 F 80 16 132/78 96 11/06/18 19:48 11/06/18 19:48 11/06/18 19:48 11/06/18 19:48 11/06/18 19:48 no acute distress DS: Diagnosis - Discharge Diagnosis (1) delivery delivered Status: Acute (2) Sterilization Status: Acute Discharge Plan - Patient Discharge Instructions ACTIVITY: No heavy lifting DIET: continue same diet Patient Instructions: How to Care for a Surgical Wound, Depression, DI for , [facility] Post Discharge Instructions - Follow up Plan Disposition: Home, Self-[facility] Medications: Home Medications Medication Instructions Recorded Confirmed Type 1 tab PO HS 04/03/18 11/04/18 History vitamin,calcium,wisuaaet-favt-btzdl acid tablet Labetalol HCl 200 mg PO BID 11/01/18 11/04/18 History Ibuprofen [Motrin 400mg 400 mg PO Q4HP PRN #40 tab 11/07/18 Rx tablet] Oxycodone HCl/Acetaminophen 1 - 2 tab PO Q4-6H PRN #30 tab 11/07/18 Rx [Percocet 5/325mg tablet] Prescriptions/Medication Reconciliation: New Oxycodone HCl/Acetaminophen [Percocet 5/325mg tablet] 1 - 2 tab PO Q4-6H PRN #30 tab PRN Reason: Severe Pain Ibuprofen [Motrin 400mg tablet] 400 mg PO Q4HP PRN #40 tab PRN Reason: Moderate Pain Continue vitamin,calcium,qylikxrc-ssuy-hpxve acid tablet 1 tab PO HS Labetalol HCl 200 mg PO BID
== END 2018-11-07 10:19 | disposition home or self-care (01) | DRG 785 ==
LOC: OB 05:30
PROVIDERS: ADMIT Obstetrics & Gynecology; ATTEND Nurse Practitioner Obstetrics & Gynecology
CPT/HCPCS: J2405

== ENCOUNTER → 2021-04-03 15:50 | Outpatient (CLI) | payer OTHER, SELFPAY ==
[2021-04-03 16:11] LABS: Basophils % 0.6 % (0.1-2.0); Eosinophils # 0.1 K/mm3 (0.0-0.4); Eosinophils % 1.1 % (0.1-12.0); Lymphocytes # 2.9 K/mm3 (0.7-4.5); Mean Corpuscular HGB Conc 34.8 g/dL (31.8-35.4); Mean Corpuscular Hemoglobin 34.6 pg (27.0-31.2); Mean Corpuscular Volume 99.4 fl (81-99); Mean Platelet Volume 8.2 fl (7.4-10.4); Monocytes # 0.4 K/mm3 (0.1-1.0); Monocytes % 5.1 % (1.7-9.3); Neutrophils # 4.2 K/mm3 (1.8-7.8); Neutrophils % 55.3 % (37.0-80.0); Platelet Count 196 K/mm3 (142-424); Red Blood Count 4.33 M/mm3 (4.20-5.40); White Blood Count 7.6 K/mm3 (4.8-10.8)
[2021-04-03 17:42] LABS: Alanine Aminotransferase 13 U/L (12-78); Albumin Level 4.3 g/dl (3.5-5.0); Albumin/Globulin Ratio 1.6 (1.1-1.8); Alkaline Phosphatase 64 U/L (38-126); Anion Gap 15.3 mEq/L (5-15); Aspartate Amino Transferase 21 U/L (14-36); Bilirubin,Total 0.3 mg/dl (0.2-1.3); Blood Urea Nitrogen 17 mg/dl (7-17); Calcium 9.1 mg/dl (8.4-10.2); Carbon Dioxide 23 mmol/L (22.0-30.0); Chloride 106 mmol/L (98-107); Estimated Glomerular Filt Rate 63 ml/min (>60); GFR (African American) 76 ML/MIN (>60); Globulin 2.7 g/dL (1.3-3.2); Glucose 87 mg/dl (74-100); Potassium 4.3 mmoL/L (3.5-5.1); Sodium 140 mmol/L (136-145)
== END ==
PROVIDERS: Visit Provider Nurse Practitioner Family
DX: R10.32 Left lower quadrant pain (principal); R35.0 Frequency of micturition
CPT/HCPCS: 36415; 80053; 85025

== ENCOUNTER → 2021-04-06 08:44 | Outpatient (CLI) | payer OTHER, SELFPAY ==
--- NOTE | 2021-04-06 08:49 | CT_ITS ---
PROCEDURE: CT ABDOMEN PELVIS W CON CLINICAL INDICATION: LLQ ABD PAIN, URINARY FREQUENCY COMPARISON: US PTV US PELVIS-TRANSVAGINAL ONLY from 09/06/2017 US OBTV US OB transvaginal from 12/06/2017 TECHNIQUE: IV Contrast: 75ML Isovue 370 Oral Contrast 450ml Redicat Axial images obtained with sagittal and coronal reformats. All CT scans at the facility use one or more dose reduction, viz: automated exposure control, ma/kV adjustment per patient size (including targeted exams where dose is matched to indication, i.e. head), or iterative reconstruction technique. FINDINGS: LOWER THORAX: No acute finding ABDOMEN & PELVIS: Incidental 4 mm hypodensity right hepatic lobe posteriorly at the hepatic dome, segment 7 too small to categorize. The spleen, adrenal glands, pancreas, and kidneys have an unremarkable appearance. No intestinal obstruction or free air is evident. There is a moderate amount of retained colonic feces throughout the colon. Unremarkable appearing appendix. There are few colonic diverticula but no evidence of diverticulitis. The uterus is canted toward the right. There is some asymmetric slight increased density along the anterior aspect of the body of the uterus. The uterus is anteflexed. The hypodense endometrium appears slightly prominent. Ultrasound of the pelvis is suggested for further evaluation. There may be a uterine fibroid inferiorly. Left ovary cystic lesion is present with some irregular peripheral enhancement suggesting a corpus luteum cyst. This measures 2 cm. No acute bony anomalies. There is a tiny umbilical hernia containing fat IMPRESSION: 1. Moderate amount of retained colonic feces throughout the colon. There is mild colonic diverticulosis but no evidence of diverticulitis. 2. Uterus is canted toward the right and is anteflexed with some fullness along the anterior body of the uterus. There is a 2 cm left corpus luteum cyst. Pelvic ultrasound may provide further evaluation for further evaluation for possible fibroid involvement of the uterus. Dictated by: Ko Luna MD 04/06/2021 10:14 Ko Luna MD in [place] 04/06/2021 10:14
== END ==
PROVIDERS: PCP Nurse Practitioner Family; Visit Provider Nurse Practitioner Family
DX: R10.32 Left lower quadrant pain (principal); R35.0 Frequency of micturition
CPT/HCPCS: 74177; Q9967

== ENCOUNTER → 2021-04-21 15:26 | Outpatient (CLI) | payer OTHER, SELFPAY ==
[2021-04-21 17:31] LABS: HCG Qualitative, Serum Negative (Negative)
== END ==
PROVIDERS: Visit Provider Internal Medicine Gastroenterology
DX: Z01.812 Encounter for preprocedural laboratory examination (principal); Z11.52 Encounter for screening for COVID-19; Z13.810 Encounter for screening for upper gastrointestinal disorder
CPT/HCPCS: 36415; 84703; U0003

== ENCOUNTER 2021-04-24 10:20 | Day surgery (SDC) | payer OTHER, SELFPAY ==
[2021-04-20 12:59] VITALS: BMI 28.2
[2021-04-24] VITALS (7 sets, daily range): BP systolic 109–137; BP diastolic 67–86; PULSE 57–80; RESP 18; TEMP 36.5–36.6; O2SAT 69–100
--- NOTE | 2021-04-24 12:18 | HMH.PROC ---
[facility] Procedure Note Procedure Note:: Upper Endoscopy Procedure Report: Esophagogastroduodenoscopy with cold biopsies Endoscopost: Howard Mcdaniel II, MD Referring Physician: FRANC Jackson Date of Procedure: April 24, 2021 Equipment: Olympus GIF 190 standard upper endoscope Sedation: MAC sedation Indications: Mrs. Herrera is a 36-year-old female who is here for diagnostic upper endoscopy secondary to a prior stomach infection. She states that she was diagnosed with a gastric infection in [place] (? H. pylori). She states that when this was treated her fatigue and malaise improved. She reports no abdominal pain, weight loss, epigastric discomfort, dyspepsia, heartburn, reflux or dysphagia. She has had no melena or hematochezia. She reports no nausea or early satiety. Procedure: Prior to the procedure, a history and physical exam was performed, and patient's medications and allergies were reviewed. The risks, benefits and alternatives of the sedation and procedure were discussed with the patient. All questions were answered and informed consent was obtained. The patient was brought to the procedure room. Patient identification and proposed procedure were verified by the physician and the nurse. The patient was placed in a left lateral decubitus position and the scope was passed under direct vision. Throughout the procedure, the patient's blood pressure, pulse, and oxygen saturations were monitored continuously. The upper GI endoscopy was accomplished without difficulty. The patient tolerated the procedure well. Findings: The scope was passed directly into the upper esophagus and advanced to the third portion of the duodenum. The post bulbar duodenum and duodenal bulb were normal with normal mucosa and conniventes. Cold biopsies were taken from the duodenum to rule out celiac disease. The scope was withdrawn through a normal duodenal bulb and pylorus into the stomach. The antrum, body and fundus of the stomach are grossly normal. Upon retroflexion there was no hiatal hernia. 2 biopsies were taken in the antrum and along the lesser curvature for histology to rule out gastritis and/or H pylori. The scope was then withdrawn into the esophagus. There was no evidence of reflux esophagitis or Chi's. The remainder of the esophageal mucosa was normal. Impression: 1. Normal upper endoscopy Plan: Next time, would not recommend open ended endoscopy but rather H. pylori stool panel or PCR or gastrointestinal stool panel. I do not see any clear cause of her fatigue and malaise. I will check the biopsies.
--- NOTE | 2021-04-24 12:38 | HMH.ANESCL ---
[facility] Anesthesia Checklist - Structural Data Admitted From: Home Planned Operative Procedure/s: egd Consent for Planned Operative Procedure(s) Verified: Yes - Additional verifications Anesthesia Reactions: No Hx Blood Transfusions: No Blood Transfusion Reaction: No - Airway Assessment C-Spine Mobility Assessed: Yes TMJ Mobility Assessed: Yes Dentition: Good Dentition - Neurological Assessment Level of Consciousness: Awake, Alert, Appropriate - Anesthesia Plan Anesthesia Risk discussed: Yes Anesthesia Plan: Verified ASA Class: III Anesthesia Type: MAC [facility] History Medical History: Reports:: Gastroesophageal Reflux Disease(GERD), Hypertension Denies:: Anxiety, Asthma, Cancer, Depression, Diabetes Mellitus Type 1, Diabetes Mellitus Type 2, Hyperlipidemia, Internal Pacemaker, Migraine, MRSA, Seizures *Have you ever received a pneumonia vaccine?: No *Have you received a flu vaccine this season?: Yes Other Medical History: Denies: Blood Transfusion Reaction Anesthesia experience/problems:: none Laterality Cases: Bilateral: Tonsillectomy, Other Other Surgeries: Yes: , Tubal Ligation. No: Pacemaker Amputation: No Fractures: Yes (right wrist) - *Social History Last grade of school completed: High school graduate Smoking Status: Current every day smoker Tobacco Type: cigarettes # Packs/Day (cigarettes): 1 Alcohol Intake: never Substance Use Type: denies use *Occupational Status:: employed Housing: house Household Members: spouse, family *Travel in the last 8 weeks: None - Psychiatric History Pschychiatric History:: Denies:: Anxiety, Depression Family Hx:: Cancer, Diabetes, Heart Attack, Hypertension [employer] history: Spontaneous
[2021-04-24 13:50] LABS: Iron 93 ug/dL (37-170)
[2021-04-24 13:51] LABS: Basophils # 0.1 K/mm3 (0-0.2); Basophils % 0.8 % (0.1-2.0); Eosinophils # 0.1 K/mm3 (0.0-0.4); Eosinophils % 0.5 % (0.1-12.0); Hematocrit 43.7 % (37.0-47.0); Hemoglobin 14.5 g/dL (12.2-16.2); Lymphocytes # 3.3 K/mm3 (0.7-4.5); Lymphocytes % 37.4 % (10-50); Mean Corpuscular HGB Conc 33.2 g/dL (31.8-35.4); Mean Corpuscular Hemoglobin 33.3 pg (27.0-31.2); Mean Corpuscular Volume 100.4 fl (81-99); Mean Platelet Volume 8.2 fl (7.4-10.4); Monocytes # 0.3 K/mm3 (0.1-1.0); Monocytes % 3.8 % (1.7-9.3); Neutrophils # 5.1 K/mm3 (1.8-7.8); Neutrophils % 57.5 % (37.0-80.0); Platelet Count 188 K/mm3 (142-424); Red Blood Count 4.35 M/mm3 (4.20-5.40); Red Cell Distribution Width 13.2 % (11.5-17.5); White Blood Count 8.9 K/mm3 (4.8-10.8)
[2021-04-24 13:59] LABS: Total Iron Binding Capacity 263 ug/dL (265-497)
[2021-04-24 14:22] LABS: Thyroid Stimulating Hormone 1.06 uIU/mL (0.465-4.68)
[2021-04-24 14:27] LABS: Ferritin 29.7 ng/ml (6.24-137)
[2021-04-24 14:40] LABS: Vitamin B12 239 pg/mL (239-931)
== END 2021-04-24 13:45 | disposition home or self-care (01) ==
LOC: OUTP 10:22
PROVIDERS: PCP Nurse Practitioner Family; Visit Provider Internal Medicine Gastroenterology
PROC: 0DJ08ZZ Inspection of Upper Intestinal Tract, Via Natural or Artificial Opening Endoscopic (ICD-10-PCS; CPT 43235; principal; 2021-04-24 11:30)
DX: Z09 Encounter for follow-up examination after completed treatment for conditions other than malignant neoplasm (principal); A09 Infectious gastroenteritis and colitis, unspecified; G43.909 Migraine, unspecified, not intractable, without status migrainosus; F41.9 Anxiety disorder, unspecified; Z72.0 Tobacco use; Z79.899 Other long term (current) drug therapy
CPT/HCPCS: 43235; 36415; 82607; 82728; 83540; 83550; 84443; 85025

== ENCOUNTER → 2021-04-26 14:43 | Outpatient (CLI) | payer OTHER, SELFPAY ==
--- NOTE | 2021-04-26 14:56 | US_ITS ---
PROCEDURE: US TRANSVAGINAL CLINICAL INDICATION: CYST OF OVARY, UNSPECIFIED LATERALITY COMPARISON: US OBTV US OB transvaginal from 12/13/[address] ABDOMEN PELVIS W CON from 04/06/2021 FINDINGS: UTERUS: 8cm x 5cmx 4cm with a combined endometrial thickness of 10.3mm LEFT OVARY: [id number] with a volume of 13.7ml. RIGHT OVARY: [id number] with a volume of 8.4ml. 1.5 cm left ovarian cyst. There is a 2.3 cm right ovarian cyst. Both have benign features IMPRESSION: Small bilateral ovarian cyst. The uterus has an unremarkable appearance. No fibroid involvement apparent. Endometrial thickness is upper limits of normal Dictated by: Ko Luna MD 04/26/2021 16:35 Ko Luna MD in [place] 04/26/2021 16:35
== END ==
PROVIDERS: PCP Nurse Practitioner Family; Visit Provider Nurse Practitioner Family
DX: N83.209 Unspecified ovarian cyst, unspecified side (principal)
CPT/HCPCS: 76830

== ENCOUNTER → 2021-06-09 15:29 | Outpatient (CLI) | payer OTHER, SELFPAY ==
[2021-06-09 20:29] LABS: Vitamin B12 633 pg/mL (239-931)
== END ==
PROVIDERS: Visit Provider Nurse Practitioner Family
DX: E53.8 Deficiency of other specified B group vitamins (principal)
CPT/HCPCS: 36415; 82607

== ENCOUNTER → 2022-02-13 15:31 | Outpatient (CLI) | payer OTHER, SELFPAY | PROVIDERS: PCP Nurse Practitioner Family; Visit Provider Nurse Practitioner Family | DX: G47.33 Obstructive sleep apnea (adult) (pediatric) (principal); R06.83 Snoring; R53.83 Other fatigue | CPT/HCPCS: 95806 ==

== ENCOUNTER 2023-05-29 21:09 | Emergency (ER) | payer OTHER, SELFPAY ==
--- NOTE | 2023-05-29 21:11 | ECG_ITS ---
APPROVED REPORT Exam: Resting ECG HR:84 bpm ECG Measurements Heart Rate 84 AXES DC 155 P 64 QRSd 96 QRS 49 QT 355 T 39 QTc 395 Conclusion SINUS RHYTHM NONSPECIFIC T-WAVE ABNORMALITY BORDERLINE ECG UNCONFIRMED REPORT Electronically signed by : Triston Garcia MD 05/30/2023 19:57:47
[2023-05-29 21:12] VITALS: BP 116/75; PULSE 87; RESP 21; TEMP 36.8; O2SAT 100; BMI 30.7
--- NOTE | 2023-05-29 21:19 | XR_ITS ---
PROCEDURE INFORMATION: Exam: XR Chest Exam date and time: 05/29/2023 9:27 PM Age: 38 years old Clinical indication: Pain; Chest pressure; Patient HX: Covid exposure; Additional info: Inspiratory cp TECHNIQUE: Imaging protocol: Radiologic exam of the chest. Views: 2 views. COMPARISON: CT ABDOMEN PELVIS W CON 04/06/2021 9:31 AM FINDINGS: Lungs: Unremarkable. No consolidation. Pleural spaces: Unremarkable. No pleural effusion. No pneumothorax. Heart/Mediastinum: Unremarkable. No cardiomegaly. Bones/joints: Unremarkable. IMPRESSION: No acute pulmonary findings.
[2023-05-29 21:29] LABS: Influenza A, PCR Not Detected (NotDetected); Influenza B, PCR Not Detected (NotDetected)
[2023-05-29 21:30] VITALS: BP 111/63; PULSE 84; RESP 16; O2SAT 98
[2023-05-29 21:36] LABS: Basophils # 0.1 K/mm3 (0-0.2); Basophils % 0.6 % (0.1-2.0); Chloride 105 mmol/L (98-107); Eosinophils # 0.1 K/mm3 (0.0-0.4); Hematocrit 47.4 % (37.0-47.0); Hemoglobin 15.7 g/dL (12.2-16.2); Lymphocytes # 2.5 K/mm3 (0.7-4.5); Lymphocytes % 30.5 % (10-50); Mean Corpuscular HGB Conc 33.2 g/dL (31.8-35.4); Mean Corpuscular Hemoglobin 34.2 pg (27.0-31.2); Mean Platelet Volume 7.9 fl (7.4-10.4); Monocytes # 0.5 K/mm3 (0.1-1.0); Monocytes % 5.6 % (1.7-9.3); Neutrophils # 5.1 K/mm3 (1.8-7.8); Neutrophils % 62.3 % (37.0-80.0); Platelet Count 182 K/mm3 (142-424); Red Blood Count 4.61 M/mm3 (4.20-5.40); Red Cell Distribution Width 12.8 % (11.5-17.5); Sodium 139 mmol/L (136-145); White Blood Count 8.2 K/mm3 (4.8-10.8)
[2023-05-29 21:37] LABS: Potassium 3.9 mmoL/L (3.5-5.1)
[2023-05-29 21:39] LABS: Alanine Aminotransferase 29 U/L (12-78); Albumin Level 3.7 g/dl (3.5-5.0); Albumin/Globulin Ratio 1.1 (1.1-1.8); Alkaline Phosphatase 52 U/L (38-126); Anion Gap 11.9 mEq/L (5-15); Aspartate Amino Transferase 40 U/L (14-36); Bilirubin,Total 0.5 mg/dl (0.2-1.3); Blood Urea Nitrogen 18 mg/dl (7-17); Carbon Dioxide 26 mmol/L (22.0-30.0); Creatinine Clearance Estimated 148 mL/min (50-200); Estimated Glomerular Filt Rate 94 ml/min (>60); GFR (African American) 113 ML/MIN (>60); Globulin 3.5 g/dL (1.3-3.2); Total Protein,Serum 7.2 g/dl (6.3-8.2)
[2023-05-29 21:40] LABS: Calcium 9.1 mg/dl (8.4-10.2); Glucose 99 mg/dl (74-100)
--- NOTE | 2023-05-29 21:58 | PC.NURSE ---
pt resting quietly and continued to monitor, awaiting covid test results
--- NOTE | 2023-05-29 22:00 | HMH.EDGENADL ---
Discharge Plan Disposition Patient Disposition: Home, Self-Care Prescriptions Prescriptions: New doxycycline hyclate 100 mg capsule 100 mg PO BID 10 Days Qty: 20 0RF albuterol sulfate 90 mcg/actuation HFA aerosol inhaler 4 inh inhalation Q4H PRN (Reason: shortness of breath or wheezing) Qty: 8.5 0RF Rx Instructions: 4 puffs every 4 hours for 48 hours then as needed for shortness of breath or wheezing following Paxlovid 300 mg (150 mg x 2)-100 mg tablets,dose pack See Rx Instructions .ROUTE .COMPLEX Qty: 30 0RF Rx Instructions: take TWO 150 mg tablets of nirmatrelvir with ONE 100 mg tablet of ritonavir twice daily for 5 days No Action clonazepam 0.5 MG tablet 0.5 mg PO DAILY Referrals Follow up/Referrals: Delaney Ochoa APRN [Primary Care Provider] - See instructions Activity Restrictions/Add. Instructions Additional Instructions/Restrictions: Return with worsening symptoms. Please smoking Clinical Impressions Clinical Impression: COVID-19, URI (upper respiratory infection), Reactive airway disease, Encounter for smoking cessation counseling Discharge ED Provider: Aiden Mack General Adult HPI General Chief complaint: Chest Pain Stated complaint: chest pain Time Seen by Provider: 05/29/23 21:47 Mode of Arrival: Family Vehicle Source of Information: Patient Limitations: No Limitations Description of Symptoms (Recalled from ER Triage Doc. by RN): 38 yo female presents with CC of midsternal chest discomfort that worsens with inspiration and began after awakening this morning. According to the patient she felt fatigued 48 hours ago, and began having some bilateral ear pressure. Denies dyspnea, denies nasal congestion, denies cough/congestion. Smoke 1 ppd cigs. PMH: negative per her report. NKA. Patient states her niece had COVID+ 2 weeks ago, but denies other positive contacts. Afebrile at time of presentation. History of Present Illness HPI narrative: Patient is a 38-year-old female who has been smoking for 23 years presenting today with several days of cough and chest tightness. Does not have a known diagnosis of asthma or COPD. She also states has been very fatigued and has some positive COVID contacts recently. She states she has been having wheezing for last few days as well. Has had multiple episodes of viral infection in the past with wheezing. She continues to smoke. Denies any significant chest pain no radiation no diaphoresis no history of pulmonary embolism or DVT no asymmetric lower extremity swelling no hemoptysis. Related Data Home Medications Medication Instructions Recorded Confirmed clonazepam 0.5 mg tablet 0.5 mg PO DAILY anxiety 04/20/21 04/20/21 Previous Rx's Medication Instructions Recorded albuterol sulfate 90 mcg/actuation 4 inh inhalation Q4H PRN shortness 05/29/23 aerosol inhaler of breath or wheezing #8.5 grams doxycycline hyclate 100 mg capsule 100 mg PO BID 10 days #20 caps 05/29/23 nirmatrelvir 300 mg (150 mg See Rx Instructions PO .COMPLEX 05/29/23 x2)-ritonavir 100 mg tablet,dose #30 tabs pack (Paxlovid) Allergies Allergy/AdvReac Type Severity Reaction Status Date / Time No Known Allergies Allergy Verified 04/20/21 13:00 [facility] Disclaimer: The information contained in this section may have been updated after the patient was seen, as this information can be updated by other users. 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
[2023-05-29 22:10] LABS: Troponin I < 0.01 ng/ml (0.00-0.034)
[2023-05-29 22:29] LABS: Coronavirus 19, PCR Detected (NotDetected)
[2023-05-29 23:00] VITALS: BP 106/61; PULSE 87; RESP 17; TEMP 36.6; O2SAT 97
[2023-05-29 23:01] VITALS: PULSE 85
== END 2023-05-29 23:02 | disposition home or self-care (01) ==
PROVIDERS: Emergency Provider Student in an Organized Health Care Education/Training Program; PCP Nurse Practitioner Family
DX: R07.89 Other chest pain (principal); U07.1 COVID-19; J45.909 Unspecified asthma, uncomplicated; F17.210 Nicotine dependence, cigarettes, uncomplicated
CPT/HCPCS: 71046; 80053; 84484; 85025; 87636; 93005; 96374; 99285

== ENCOUNTER → 2023-08-20 12:08 | Outpatient (CLI) | payer OTHER, SELFPAY ==
--- NOTE | 2023-08-20 12:11 | XR_ITS ---
FINAL REPORT CLINICAL HISTORY: right foot pain COMPARISON: None FINDINGS: RIGHT FOOT: Three views show no evidence of acute displaced fracture or dislocation of the visualized bony architecture. The joint spaces appear normal. Minimal calcaneal spurring is present. IMPRESSION: Unremarkable exam. Reviewed, Interpreted and Dictated by Bradley Chávez MD Transcribed by Tisha Flores Authenticated and [facility]
== END ==
PROVIDERS: PCP Nurse Practitioner Family; Visit Provider Nurse Practitioner Family
DX: M79.671 Pain in right foot (principal)
CPT/HCPCS: 73630

== ENCOUNTER 2023-08-23 15:44 | Outpatient (RCR) | payer OTHER, SELFPAY | END 2023-08-23 16:45 | disposition home or self-care (01) | LOC: PT 15:44 | PROVIDERS: Visit Provider Nurse Practitioner Family | DX: M79.671 Pain in right foot (principal); M77.31 Calcaneal spur, right foot; M72.2 Plantar fascial fibromatosis | CPT/HCPCS: 97760 ==

== ENCOUNTER → 2023-09-02 15:24 | Outpatient (CLI) | payer OTHER, SELFPAY ==
--- NOTE | 2023-09-02 15:29 | XR_ITS ---
FINAL REPORT CLINICAL HISTORY: Right foot Pain COMPARISON: None FINDINGS: RIGHT FOOT 3 views of the right foot were obtained. There is no acute fracture or dislocation. Visualized joint spaces are normally aligned. There is a small plantar spur best seen on the lateral view. Soft tissues are unremarkable. IMPRESSION: No acute bony abnormality. Small plantar spur. Reviewed, Interpreted and Dictated by Bora Goldstein MD Transcribed by Erika Avila Authenticated and [facility]
--- NOTE | 2023-09-02 15:29 | XR_ITS ---
FINAL REPORT CLINICAL HISTORY: Left foot pain COMPARISON: None FINDINGS: LEFT FOOT Three views of the left foot demonstrate no acute fracture or dislocation. The visualized joint spaces are normally aligned. There is a small to moderate plantar spur. The soft tissues are unremarkable. IMPRESSION: No acute bony abnormality. Small to moderate plantar spur. Reviewed, Interpreted and Dictated by Bora Goldstein MD Transcribed by Erika Avila Authenticated and [facility]
== END ==
PROVIDERS: PCP Nurse Practitioner Family; Visit Provider Podiatrist
DX: M79.671 Pain in right foot (principal); M79.672 Pain in left foot
CPT/HCPCS: 73630

== ENCOUNTER 2023-09-25 16:00 | Outpatient (RCR) | payer OTHER, SELFPAY ==
--- NOTE | 2023-09-09 09:51 | HMH.PTOPEV ---
PT Outpatient Evaluation Rehab PT Outpatient Evaluation Start: 09/09/23 09:37 Freq: Status: Active Protocol: Document 09/09/23 09:38 MARICHUY (Rec: 09/09/23 09:50 MARICHUY [id number]) E-signed By Kaz Mckeon, PT Outpatient Therapy Subjective History Subjective History Pt reports h/o chronic right heel pain beginning w/ insidious onset ~6 weeks. Pt reports recent Xray of right foot has revealed calcaneal bone spur, and reports recent diagnosis of plantar fasciitis as well. Pt reports localized medial aspect right heel pain and medial arch pain, irvin. w/ wt. bearing activities. Pt reports recent cortizone injection of the right heel ' didn't help, and my toes have been numb too since that injection'. New diagnosis of cancer in past 12 No months? Chief Complaint Pain,Swelling,Paresthesia, Weakness Symptom Type Ache,Throb,Dull,Stabbing, Numbness Symptoms Relieved By Rest/Positioning,Heat Symptoms Aggravated By Standing,Walking Prior Functional Limitations None Current Functional Limitations Housework,Standing,Walking Symptom Description Constant but Variable Level of pain today (0-10) 6 Pain scale - at its best (0-10) 5 Pain scale - at its worst (0-10) 10 Ankle/Foot Eval Gait Observation General Gait Pattern Observation Antalgic Gait Palpation Tenderness left Ankle/Foot Palpation Findings Tenderness Ankle/Foot Palpation Overall Comment 3/4 calcaneal insertion of plantar fascia, 3/4 plantar fascia ROM right Ankle/Foot Dorsiflexion w/Knee Extended 0-2 Active Range Motion (degrees) Ankle/Foot Plantar Flexion Active Range 0-40 of Motion (degrees) Ankle/Foot Eversion Active Range of 0-27 Motion (degrees) Ankle/Foot Inversion Active Range of 0-50 Motion (degrees) MMT Ankle Dorsiflexion Strength Grade 4 Good Ankle Plantarflexion Strength Grade 4 Good Foot Eversion Strength Grade 4 Good Foot Inversion Strength Grade 4 Good Special Tests Talar Tilt Test Negative Right Ankle Inversion (supination) Test Negative Right Ankle Posterior Drawer Test Negative Right Foot Compression Test Negative Right Foot/Heel Tap/Percussion Test Positive Right Lower Extremity Functional Index Activities Today, do you or would you have any difficulty at all with: a.Any of your usual work, housework or A little bit of difficulty school activities b. Your usual hobbies, recreational or A little bit of difficulty sporting activities c. Getting into or out of the bath A little bit of difficulty d. Walking between rooms No difficulty e. Putting on your shoes or socks A little bit of difficulty f. Squatting No difficulty g. Lifting an object, like a bag of No difficulty groceries from the floor h. Performing light activities around A little bit of difficulty your home i. Performing heavy activities around No difficulty your home j. Getting into or out of a car No difficulty k. Walking 2 blocks Quite a bit of difficulty l. Walking a mile Quite a bit of difficulty m. Going up or down 10 stairs (about 1 Quite a bit of difficulty flight of stairs) n. Standing for 1 hour Quite a bit of difficulty o. Sitting for 1 hour No difficulty p. Running on even ground A little bit of difficulty q. Running on uneven ground A little bit of difficulty r. Making sharp turns while running fast No difficulty s. Hopping A little bit of difficulty t. Rolling over in bed No difficulty LEFI Score Lower Extremity Functional Index Score 60 Outpatient Therapy Assessment Impairments Problems/Impairmments Palpation Tenderness,Impaired Range of Motion,Impaired Strength,Impaired Gait Pattern ,Impaired Walking,Impaired Standing,Impaired Household Care,Subjective C/O Pain, Impaired Self Care/Self Management Prognosis Rehab Potential Good Clinical Impression Consistent with Diagnosis Yes Consistent with plantar fasciitis Short Term Goals Number of Weeks 4 Decreased Palpation Tenderness Yes: 1-2/4 right heel/plantar fascia Increase Range of Motion Yes: RIGHT DF 0-5 Increase Strength Yes: 4+/5 RIGHT FOOT/ANKLE Improve Gait Pattern with Assistive Yes: WFL W/WALKING BOOT Device Increase Ability to Walk Yes: 30MIN Increase Ability to Stand Yes: 30MIN Improve Ability For Household Care Yes: 30MIN Decrease Subjective C/O Pain Yes: 3-4/10 W/ABOVE ACTIVITIES Patient to be Ind w/ HEP Yes Snf Goals Number of Weeks 6-8 Decreased Palpation Tenderness Yes: 0-1/4 RIGHT HEEL/PLANTAR FASCIA Increase Range of Motion Yes: R DF 0-10 AROM Increase Strength Yes: 5/5 RIGHT FOOT/ANKLE Improve Gait Pattern without Assistive Yes: WFL Device Increase Ability to Walk Yes: 60MIN Increase Ability to Stand Yes: 60MIN Improve Ability For Household Care Yes: 60MIN Improve LEFI Score Yes: 70-75 Decrease Subjective C/O Pain Yes: 0-2/10 W/ABOVE ACTIVITIES Patient to be Ind w/ Advanced HEP Yes Outpatient Therapy Plan of Care Treatment Plan May Include Therapeutic Exercise Including Home Yes Exercise Program Manual Therapy Techniques Yes Neuromuscular Re-education Yes Therapeutic Activities to Return to Yes Previous Functional/Work Level Gait Training Yes ADL/Self Care Education Yes Dry Needling Yes Thermal Modalities Yes Electrical Stimulation Yes Ultrasound/Phonophoresis Yes Iontophoresis Yes Orthotics/Bracing/Splinting Yes Vasopneumatic Compression Pump Yes Eval/Re-Eval Yes Frequency Times per week 2-3 Duration Number of Weeks 6-8 Addendums This patient is a candidate for social No or vocational rehab? Patient/Guardian verbally acknowledges Yes understanding of treatment program and consents to further treatment? Patient/Guardian verbally acknowledges Yes understanding of diagnosis, prognosis and goals for treatment? Eval Complexity PT Charges 25108 - Low Complexity Shoulder/Elbow Eval Shoulder Objective Measurements Elbow Objective Measurements PHYSICIAN CERTIFICATION: I certify the specified therapy services for Laila Herrera are required, authorized, and reviewed every 30 days.
== END 2023-09-25 17:00 | disposition home or self-care (01) ==
LOC: PT 16:00
PROVIDERS: PCP Nurse Practitioner Family; Visit Provider Nurse Practitioner Family
DX: M79.671 Pain in right foot (principal); M77.31 Calcaneal spur, right foot; M72.2 Plantar fascial fibromatosis
CPT/HCPCS: 97010; 97014; 97035; 97110; 97140; 97163; G0283

== ENCOUNTER 2023-12-30 10:56 | Outpatient (CLI) | payer OTHER, SELFPAY ==
--- NOTE | 2023-12-30 11:36 | XR_ITS ---
FINAL REPORT CLINICAL HISTORY: SURGERY preop right knee 01/10/24 FINDINGS: Two views of the chest were obtained. The heart size and pulmonary vascularity are within normal limits. The mediastinum is normal. No acute pulmonary abnormality is identified. There is no pneumothorax. The bony thorax is intact. IMPRESSION: No active cardiopulmonary disease. Reviewed, Interpreted and Dictated by Jose Murillo III, MD Transcribed by Angelica Rodriges Authenticated and [facility]
--- NOTE | 2023-12-30 12:42 | ECG_ITS ---
APPROVED REPORT Exam: Resting ECG HR:74 bpm ECG Measurements Heart Rate 74 AXES VA 157 P 55 QRSd 93 QRS 16 QT 374 T 3 QTc 401 Conclusion SINUS RHYTHM POSSIBLE RIGHT VENTRICULAR CONDUCTION DELAY [RSR (QR) IN V1/V2] NONSPECIFIC T-WAVE ABNORMALITY BORDERLINE ECG UNCONFIRMED REPORT Electronically signed by : Triston Garcia MD 12/30/2023 14:06:25
[2023-12-30 12:58] LABS: Basophils # 0.1 K/mm3 (0-0.2); Basophils % 0.7 % (0.1-2.0); Eosinophils # 0.1 K/mm3 (0.0-0.4); Eosinophils % 0.7 % (0.1-12.0); Hematocrit 44.7 % (37.0-47.0); Hemoglobin 14.8 g/dL (12.2-16.2); Lymphocytes # 3.3 K/mm3 (0.7-4.5); Lymphocytes % 28.9 % (10-50); Mean Corpuscular Hemoglobin 35.2 pg (27.0-31.2); Mean Corpuscular Volume 106.4 fl (81-99); Mean Platelet Volume 8.6 fl (7.4-10.4); Monocytes # 0.5 K/mm3 (0.1-1.0); Monocytes % 4.5 % (1.7-9.3); Neutrophils # 7.4 K/mm3 (1.8-7.8); Neutrophils % 65.2 % (37.0-80.0); Platelet Count 200 K/mm3 (142-424); Red Cell Distribution Width 13.1 % (11.5-17.5); White Blood Count 11.3 K/mm3 (4.8-10.8)
[2023-12-30 13:26] LABS: Chloride 108 mmol/L (98-107); Potassium 4.2 mmoL/L (3.5-5.1); Sodium 138 mmol/L (136-145)
[2023-12-30 13:29] LABS: Alanine Aminotransferase 23 U/L (12-78); Albumin Level 3.7 g/dl (3.5-5.0); Albumin/Globulin Ratio 1.5 (1.1-1.8); Alkaline Phosphatase 68 U/L (38-126); Anion Gap 8.2 mEq/L (5-15); Aspartate Amino Transferase 25 U/L (14-36); Bilirubin,Total 0.3 mg/dl (0.2-1.3); Blood Urea Nitrogen 13 mg/dl (7-17); Calcium 9.3 mg/dl (8.4-10.2); Carbon Dioxide 26 mmol/L (22.0-30.0); Estimated Glomerular Filt Rate 80 ml/min (>60); GFR (African American) 97 ML/MIN (>60); Globulin 2.4 g/dL (1.3-3.2); Glucose 95 mg/dl (74-100); Total Protein,Serum 6.1 g/dl (6.3-8.2)
--- NOTE | 2023-12-30 13:30 | US_ITS ---
PROCEDURE: US TRANSVAGINAL CLINICAL INDICATION: abnormal uterine bleeding and heavy periods COMPARISON: No exams were available for comparison FINDINGS: Transvaginal sonographic images of the pelvis were obtained. UTERUS: 8.9 cm x 5.0cmx 4.2cm anteverted with a combined endometrial thickness of 11mm. There is a small amount of fluid within the endometrium. There are multiple small calcifications within the myometrium of the anterior uterus near the lower uterine segment. LEFT OVARY: 5.9 cmx3.8 cmx2.2cm with a volume of 26.2ml. There are 2 follicles in the left ovary. The largest follicle measures 3.8 cm x 2.0 cm x 3.5 cm RIGHT OVARY: 3.9 cmx 3.7 cmx4.4cm with a volume of 33.4ml. There is a follicle in the right ovary measuring 3.8 cm x 4.2 cm x 3.4 cm. Both ovaries are seen and appear normal. Doppler flow to both ovaries are seen. There is no fluid in the cul-de-sac. IMPRESSION: 1. Anteverted uterus normal in shape and size. The endometrium appears normal. There is trace fluid within the endometrium. 2. Both left and right ovaries are somewhat enlarged. Within the left ovary there is a follicle measuring 3.8 cm. The right ovary is enlarged with a follicle measuring 4.2 cm. 3. No fluid in the cul-de-sac. Dictated by: Jayson Mckay MD 12/30/2023 15:03 Jayson Mckay MD in [place] 12/30/2023 15:03
== END 2023-12-30 23:59 ==
PROVIDERS: Podiatrist; PCP Nurse Practitioner Family; Visit Provider Nurse Practitioner Obstetrics & Gynecology
DX: N93.9 Abnormal uterine and vaginal bleeding, unspecified (principal); Z87.42 Personal history of other diseases of the female genital tract
CPT/HCPCS: 36415; 71046; 76830; 80053; 85025; 93005

== ENCOUNTER 2024-01-10 05:57 | Day surgery (SDC) | payer OTHER, SELFPAY ==
[2024-01-08 12:34] VITALS: BMI 30.7
[2024-01-10] VITALS (10 sets, daily range): BP systolic 109–141; BP diastolic 62–89; PULSE 83–102; RESP 16–21; TEMP 36.1–36.6; O2SAT 96–100
[2024-01-10] MEDS: LACTATED RINGERS 1000ML 1,000 ML 25 ML IV (06:42)
[2024-01-10 07:00] LABS: Urine Pregnancy, HCG Qual. Negative (Negative)
--- NOTE | 2024-01-10 07:05 | P.PNANES_ITS ---
[facility] Disclaimer: The information contained in this section may have been updated after the patient was seen, as this information can be updated by other users. Medical History Sleep apnea No significant past medical history Surgical History Hx of dilation and curettage Hx of tonsillectomy Previous section Family History Father No problems noted. 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 current occupational exposures/hazards: No caffeine: Yes [facility] Anesthesia Checklist Patient Identification Patient Identification: Arm Band and Family Structural Data Admitted From: Home Planned Operative Procedure/s: Plantar fascia release/4th metatarsal osteotomy Consent for Planned Operative Procedure(s) Verified: Yes Verified Documents: Surgical Consent NPO Status Verified Time NPO: 00:00 Additional verifications Patient : No Anesthesia Reactions: No Hx Blood Transfusions: No Blood Transfusion Reaction: No Cephalosporin Allergy: No Previous Colonoscopy: Yes Airway Assessment Mallampati Score:: Class I C-Spine Mobility Assessed: Yes TMJ Mobility Assessed: Yes Dentition: Good Dentition Neurological Assessment Level of Consciousness: Awake, Alert, Appropriate and Follows Commands Anesthesia Plan Anesthesia Risk discussed: Yes ASA Class: II Anesthesia Type: General w/block
--- NOTE | 2024-01-10 09:25 | P.OP_ITS ---
Date of procedure: 01/10/24 Pre-op Diagnosis:: Right foot plantar fasciitis Right foot fourth metatarsalgia/prominent Post-op Diagnosis:: Same Procedure performed:: Right foot plantar fascia release; Right foot fourth metatarsal osteotomy and fixation with cannulated screw 2.0x10mm Surgeon:: Alli Flynn DPM HANDBAG OPERATOR:: Kiran Berry Anesthesia: GETA Estimated blood loss (mL): 2 Operative findings:: Expected Operative note:: Patient seen in preoperative area, accompanied by her mother, who has been with her during appointments. Consent is reviewed and signed again, as is patient's surgical foot right side. All questions and concerns are answered to patient understanding and satisfaction. No guarantees were given; and risks were explained and understood. Patient elects to proceed with planned procedures. Refreshed H&P; no changes noted. Anesthesia performs popliteal nerve block. Patient wheeled to operating room and transferred to OR Table; general anesthesia is administered. Foot is scrubbed, prepped, draped in usual aseptic manner. Attention directed to patient's right foot. Esmarch bandage used to exsanguinate the foot; tourniquet above malleoli 250mmHg inflated. Incision made medial foot in line with plantar fascia at heel attachment; cautery as needed. Disected blunt and sharp to identify and free medial and central bands of plantar fascia from calcaneus; resected with scissors; then filed spurring with bone spur. Irrigated with saline; closed layers with 2-0 vicry, 2-0 and 3-0 nylon suture. Attention then to fourth metatarsal head region of foot. Plantar callus debrided with scalpel. Linear incision made with scalpel to dorsal fourth metatarsal head. Disected blunt and sharp, with care taken to preserve vital structures and tendons. Head of fourth metatarsal freed with McGlamry elevator; then sagittal bone saw to perform osteotomy and head of fourth metatarsal floats into more proximal position and is secured with 2-0 x 10mm cannulated screw system [employer]. Irrigated with saline; then sutured with 3-0 vicryl, 3-0 nylon. Dressed wounds with Xeroform, gauze, ABD, Kerlix. Tourniquet released; and hyperemic response noted to all digits right foot. Well padded posterior splint then applied. Patient wheeled to Recovery with vital signs stable. Understands four weeks Non weight bearing Right foot, unless to preserve herself from a Fall/injury. Prescriptions are sent to clinic pharmacy. Will follow in my office within 5-7 days. RTC sooner; or call as needed. Has access to my cell [phone] as well. Tourniquet time (min): 60 Condition: stable Disposition: PACU Complications:: Negative
--- NOTE | 2024-01-10 09:25 | EXP.ANES.I ---
[facility] Anesthesia Record Part I Anesthesia Record I Intake, IV Amount: 1,700 Hydration: Adequate Estimated blood loss (mL): 0 Urine output (mL): 0 Blood Products used (#): none Blood Pressure: 141/77 SaO2: 97 Pulse Rate: 102 Airway Patency: Patent Respiratory Rate: 21 Temperature: 97.3 F Patient is:: Drowsy and Stable Stable to PACU at:: 09:14
--- NOTE | 2024-01-10 10:49 | P.PNANES_ITS ---
[facility] Anesthesia Record Part II Anesthesia Record Part II Discharge Time: 09:44 Destination: Surgical Day Care (OP Surgery) PACU nurse assessment reviewed?: Yes Patient Condition:: Good Anesthesia Complications:: None Swallowing reflex intact?: Yes Airway Patency: Patent Cyanosis?: No Blood Pressure: 128/76 SaO2: 100 Respiratory Rate: 19 Pulse Rate: 100 Temperature: 97.8 F Mental Status: Alert & Oriented Pain level:: 0 Nausea and/or vomitting:: None Intake, IV Amount: 0 Hydration: Adequate
== END 2024-01-10 10:15 | disposition home or self-care (01) ==
PROVIDERS: PCP Nurse Practitioner Family; Visit Provider Podiatrist
PROC: (CPT 28119; principal; 2024-01-10 07:30)
DX: M79.671 Pain in right foot (principal); M72.2 Plantar fascial fibromatosis; M77.41 Metatarsalgia, right foot; M77.31 Calcaneal spur, right foot; Z79.899 Other long term (current) drug therapy; F17.210 Nicotine dependence, cigarettes, uncomplicated
CPT/HCPCS: 28119; 28308; 81025; C1713; J2405

== ENCOUNTER 2024-06-22 17:35 | Emergency (ER) | payer OTHER, SELFPAY ==
[2024-06-22 17:36] VITALS: BP 110/54; PULSE 82; RESP 20; TEMP 36.9; O2SAT 100; BMI 32.8
[2024-06-22 17:45] VITALS: BP 110/54; PULSE 84; RESP 18; O2SAT 99
[2024-06-22 17:54] LABS: Microscopic, Urine URINE MICROSCOPIC (MICROSCOPIC)
[2024-06-22] MEDS: ACETAMINOPHEN 500MG TAB 1000 MG PO (17:57)
[2024-06-22] MEDS: KETOROLAC 30MG/ML VIAL 15 MG IV (17:58)
[2024-06-22 18:01] VITALS: BP 119/76; PULSE 82; RESP 20; O2SAT 99
[2024-06-22 18:02] LABS: Appearance,Urine CLEAR (Clear); Bilirubin,Urine Negative (Negative); Blood, Urine 2+ (Negative); Color,Urine YELLOW (Yellow); Glucose,Urine (UA) Negative (Negative); Ketones,Urine Negative (Negative); Leukocyte Esterase,Urine Negative (Negative); Nitrate,Urine Negative (Negative); Protein,Urine Negative (Negative); Specific Gravity, Urine 1.015 (1.005-1.030); Urobilinogen,Urine 0.2 EU/dl (0.2)
--- NOTE | 2024-06-22 18:05 | HMH.EDGENADL ---
Discharge Plan Disposition Patient Disposition: Home, Self-Care Prescriptions Prescriptions: New amoxicillin-pot clavulanate 875-125 mg tablet 1 tab PO BID 10 Days Qty: 20 0RF No Action clonazepam 0.5 MG tablet 0.5 mg PO DAILY albuterol sulfate 90 mcg/actuation HFA aerosol inhaler 4 inh inhalation Q4H PRN (Reason: shortness of breath or wheezing) Qty: 8.5 0RF Rx Instructions: 4 puffs every 4 hours for 48 hours then as needed for shortness of breath or wheezing following Referrals Follow up/Referrals: Adrien Machado APRN [Primary Care Provider] - See instructions Activity Restrictions/Add. Instructions Additional Instructions/Restrictions: Call your family doctor to establish care for this visit to the emergency department and schedule follow-up within 48 hours to ensure improvement. If you have any worsening of your condition or any other concerning signs or symptoms, return to the emergency department or your primary care doctor for further evaluation. Augmentin twice daily for 10 days Clinical Impressions Clinical Impression: Diverticulitis Instructions Patient Instructions: DI for Acute Abdominal Pain Print Language Print Language: Tamazight Discharge ED Provider: [facility] HPI General Chief complaint: Abdominal Pain Stated complaint: Left side pain,? kidney stone Time Seen by Provider: 06/22/24 17:41 Mode of Arrival: Ambulatory Source of Information: Patient Limitations: No Limitations Description of Symptoms (Recalled from ER Triage Doc. by RN): pt was sent by pcp due to left flank pain since yesterday at 1600 that is sharp, stabbing, spasms in nature. per office patient has blood in urine but no infection, pt has no hx of kidney stones denies any burning or odors History of Present Illness HPI narrative: Please note that above description of symptoms, in this electronic medical record under categorization of recalled from ER triage doctor by RN are reflective of an initial nursing assessment, however, is not reflective of my full history and physical exam that was personally taken and clarified. Consequentially, this preceding description of symptoms, which may include the patient's categorized chief complaint in the EMR, do not reflect my personal clinical impression, and the ultimate description of history of present illness and patient stated complaints should be deferred to this section of the note. Unless stated otherwise or congruent with this section of the note, additional signs, symptoms, or incongruence should be interpreted as inaccurate with my clinical impression. Related Data Home Medications ?Medication ?Instructions ?Recorded ?Confirmed clonazepam 0.5 mg tablet 0.5 mg PO DAILY anxiety 04/20/21 06/19/24 Previous Rx's ?Medication ?Instructions ?Recorded albuterol sulfate 90 mcg/actuation 4 inh inhalation Q4H PRN shortness 05/29/23 aerosol inhaler of breath or wheezing #8.5 grams amoxicillin 875 mg-potassium 1 tab PO BID 10 days #20 tabs 06/22/24 clavulanate 125 mg tablet Allergies Allergy/AdvReac Type Severity Reaction Status Date / Time No Known Allergies Allergy Verified 06/19/24 10:32 [facility] Disclaimer: The information contained in this section may have been updated after the patient was seen, as this information can be updated by other users. Medical History Sleep apnea No significant past medical history Surgical History Hx of dilation and curettage Hx of tonsillectomy Previous section Family History Father No problems noted. 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 current occupational exposures/hazards: No caffeine: Yes ROS Obtained: Yes All systems reviewed & no additional complaints except as documented Physical Exam General General appearance: alert Head Head exam: atraumatic and normocephalic Eye Eye exam: Present normal appearance, PERRL and EOMI Neck Neck exam: Present normal inspection, full ROM and trachea midline Respiratory Respiratory exam: Absent respiratory distress, wheezes, stridor, accessory muscle use or prolonged expiratory phase Cardiovascular Cardiovascular exam: Present other (Pulses equal symmetric in upper and lower extremities) Abdominal Exam Abdominal exam: Present soft; Absent distention, tenderness or pulsatile mass Extremities Exam Extremities exam: Absent edema Neurological Exam Neurological exam: Present alert, oriented X3 and CN II-XII intact; Absent motor sensory deficit Skin Skin exam: Present warm and dry; Absent diaphoresis or erythema Medical Decision Making Medical Records Medical records reviewed: Yes I reviewed the patient's medical records. Screening: Per USPSTF and CDC recommendations, given the prevalence of disease in our region, it is our hospital?s policy to screen for HIV and viral Hepatitis for all patients aged 18 and over and those with ongoing risk factors. Ron Inquiry Pt receiving controlled substance: No Ron was queried for this patient: No Vital Signs: 06/22/24 17:36 06/22/24 17:45 06/22/24 18:01 Temperature 98.4 F Temperature Source Oral Pulse Rate 84 82 Pulse Rate [Right Radial] 82 Respiratory Rate 20 18 20 Blood Pressure 110/54 L 119/76 Blood Pressure [Right Arm] 110/54 L Blood Pressure Mean 86 Blood Pressure Mean [Right Arm] 72 02 Sat by Pulse Oximetry 100 99 99 Oxygen Delivery Method Room Air Room Air Room Air 06/22/24 18:30 06/22/24 19:00 Temperature Temperature Source Pulse Rate 79 70 Pulse Rate [Right Radial] Respiratory Rate 18 20 Blood Pressure 120/81 118/66 Blood Pressure [Right Arm] Blood Pressure Mean Blood Pressure Mean [Right Arm] 02 Sat by Pulse Oximetry 99 100 Oxygen Delivery Method Room Air Room Air Lab Data Lab Results 06/22/24 17:44: WBC 10.0, RBC 4.47, Hgb 15.8, Hct 47.3 H, MCV 105.9 H, MCH 35.4 H, MCHC 33.4, RDW 13.5, Plt Count 245, MPV 8.9, Neut % (Auto) 58.6, Lymph % (Auto) 31.1, [facility] % (Auto) 7.2, Eos % (Auto) 0.9, Baso % (Auto) 0.9, Neut # (Auto) 5.9, Lymph # (Auto) 3.1, [facility] # (Auto) 0.7, Eos # (Auto) 0.1, Baso # (Auto) 0.1, Sodium 137, Potassium 4.2, Chloride 102, Carbon Dioxide 27, Anion Gap 12.2, BUN 11, Creatinine 0.70, Estimated Creat Clear 162, Estimated GFR 93, Est GFR ( Amer) 113, Glucose 87, Calcium 9.6, Total Bilirubin 0.6, AST 34, ALT 34, Alkaline Phosphatase 68, Total Protein 7.7 D, Albumin 4.5, Globulin 3.2, Albumin/Globulin Ratio 1.4, Urine Color Yellow, Urine Appearance Clear, Urine pH 6.0, Ur Specific [place] 1.015, Urine Protein Negative, Urine Glucose (UA) Negative, Urine Ketones Negative, Urine Blood 2+ A, Urine Nitrate Negative, Urine Bilirubin Negative, Urine Urobilinogen 0.2, Ur Leukocyte Esterase Negative, Urine RBC 5-10, Urine WBC None, Ur Squamous Epith Cells 10-20, Urine Bacteria Trace, Urine HCG, Qual Negative, HIV 1&2 Antibody Rapid Nonreactive 06/22/24 17:44 06/22/24 17:44 Orders (Tests/Meds): ED MEDICATIONS Discontinued Medications Generic Name Dose Route Start Last Admin Trade Name Freq PRN Reason Stop Dose Admin Acetaminophen 1,000 mg 06/22/24 17:44 06/22/24 17:57 Acetaminophen 500mg Tab PO 06/22/24 17:45 1,000 mg ONCE ONE Administration Ampicillin Sodium/Sulbactam 100 mls @ 200 mls/hr 06/22/24 18:56 06/22/24 19:58 Sodium 3 gm/ Sodium Chloride IV 06/22/24 18:57 Not Given ONCE ONE Ampicillin Sodium/Sulbactam 100 mls @ 200 mls/hr 06/22/24 19:57 06/22/24 19:58 Sodium 3 gm/ Sodium Chloride IV 06/22/24 19:58 200 mls/hr ONCE ONE Administration Iopamidol 75 ml 06/22/24 18:37 06/22/24 18:38 Iopamidol-370 (76%);100ml Bottle IV 06/22/24 18:38 75 ml ONCE ONE Administration Ketorolac Tromethamine 15 mg 06/22/24 17:44 06/22/24 17:58 Ketorolac 30mg/Ml Vial IV 06/22/24 17:45 15 mg ONCE ONE Administration Sodium Chloride 10 ml 06/22/24 18:37 06/22/24 18:38 Sodium Chloride 0.9% 10ml Syr (Rad Only) IV 06/22/24 18:38 10 ml ONCE ONE Administration ORDERS Category Date Time Status CT abdomen pelvis w con Stat Cat Scan 06/22/24 18:10 Completed CBC w/Auto Diff [Complete Blood Count Auto Diff] Stat Lab 06/22/24 17:44 Completed CMP [Comprehensive Metabolic Panel] Stat Lab 06/22/24 17:44 Completed HIV (1&2) Antibody Rapid Stat Lab 06/22/24 17:44 Completed Hep C Ab with Reflex to RNA Stat Lab 06/22/24 17:44 Received UA [Urinalysis and Microscopic] Stat Lab 06/22/24 17:44 Completed Urine , HCG Qual. Stat Lab 06/22/24 17:44 Completed Medical Decision Narrative: 39-year-old female no relevant medical history presenting left flank pain and hematuria. Patient states that she was seen by her family physician today for flank pain and urinalysis showed blood without infection. Patient was sent to the emergency department for further evaluation for kidney stone. States she is never had a kidney stone in the past. Left flank pain is 8 out of 10, does not radiate. No gross hematuria. Denies fevers or chills, dysuria, changes in bowel, vomiting, or any other concerns. History was obtained via conversation with patient. On arrival, patient hemodynamically stable, alert, oriented x4, appropriate, GCS 15, moving all extremities spontaneously, pupils equal and reactive to light. Full physical exam performed and significant for very well-appearing female who is in no acute distress. Abdomen soft, nontender, nondistended. No flank tenderness on my exam. No obvious ecchymoses. Differential includes pyelonephritis, UTI, nephrolithiasis, perinephric abscess, among others. Patient placed on continuous cardiac monitoring and continuous pulse ox with initial blood pressure 110/54, heart rate 82, saturation 100% on room air. Independent interpretation of workup demonstrates nonactionable CBC or chemistry. Negative urine other than hematuria. CT abdomen pelvis was ordered with contrast, patient has uncomplicated sigmoid diverticulitis on independent interpretation. Patient was given 3 g of Unasyn. Because patient at baseline without signs or symptoms of clinical decompensation, deemed appropriate for discharge. Results were relayed to patient who voiced understanding and were agreeable to outpatient management and follow up. I discussed my clinical impression with patient and answered all questions. At this time, the evidence for any other entities in the differential is insufficient to warrant any further testing or ED observation. This was explained as well. Advisory was given that persistent or worsening symptoms require further evaluation. I confirmed the understanding of this discussion. Barrel Turner disclaimer Much of this encounter note is an electronic production assembly supervisor spoken language to printed text. Electronic production assembly supervisor of the spoken language may permit errors. Although I have reviewed the note, some errors may still exist. Critical Care Critical Care Time Critical Care Time: No
--- NOTE | 2024-06-22 18:10 | CT_ITS ---
PROCEDURE INFORMATION: Exam: CT Abdomen And Pelvis With Contrast Exam date and time: 06/22/2024 6:38 PM Age: 39 years old Clinical indication: Abdominal pain; Flank; Left; Additional info: L flank pain and hematuria, rule out stone vs mass TECHNIQUE: Imaging protocol: Computed tomography of the abdomen and pelvis with contrast. Radiation optimization: All CT scans at this facility use at least one of these dose optimization techniques: automated exposure control; mA and/or kV adjustment per patient size (includes targeted exams where dose is matched to clinical indication); or iterative reconstruction. Contrast material: ISOVUE; Contrast volume: 75 ml; Contrast route: IV; COMPARISON: CT ABDOMEN PELVIS W CON 06/04/2021 09:31 FINDINGS: Liver: Hepatic steatosis. Gallbladder and biliary ducts: Normal. No calcified stones. No ductal dilation. Pancreas: Normal. No ductal dilation. Spleen: Normal. No splenomegaly. Adrenal glands: Normal. No mass. Kidneys and ureters: Normal. No hydronephrosis. Stomach and bowel: Moderate sigmoid diverticulosis. There is a diverticulum with surrounding edema. Appendix: Unremarkable appendix. Intraperitoneal space: Trace free fluid in the pelvis. Vasculature: The arteries demonstrate mild atherosclerotic disease. Lymph nodes: Unremarkable. No enlarged lymph nodes. Urinary bladder: Unremarkable as visualized. Reproductive: Unremarkable as visualized. Bones/joints: Unremarkable. No acute fracture. Soft tissues: Tiny fat containing umbilical hernia. IMPRESSION: 1. Acute sigmoid diverticulitis without abscess. 2. Hepatic steatosis.
[2024-06-22 18:26] LABS: Albumin Level 4.5 g/dl (3.5-5.0); Chloride 102 mmol/L (98-107); Potassium 4.2 mmoL/L (3.5-5.1); Sodium 137 mmol/L (136-145)
[2024-06-22 18:29] LABS: Alanine Aminotransferase 34 U/L (12-78); Albumin/Globulin Ratio 1.4 (1.1-1.8); Alkaline Phosphatase 68 U/L (38-126); Anion Gap 12.2 mEq/L (5-15); Aspartate Amino Transferase 34 U/L (14-36); Bilirubin,Total 0.6 mg/dl (0.2-1.3); Blood Urea Nitrogen 11 mg/dl (7-17); Calcium 9.6 mg/dl (8.4-10.2); Carbon Dioxide 27 mmol/L (22.0-30.0); Creatinine Clearance Estimated 162 mL/min (50-200); Estimated Glomerular Filt Rate 93 ml/min (>60); GFR (African American) 113 ML/MIN (>60); Globulin 3.2 g/dL (1.3-3.2); Glucose 87 mg/dl (74-100); Total Protein,Serum 7.7 g/dl (6.3-8.2); Urine Pregnancy, HCG Qual. Negative (Negative)
[2024-06-22 18:30] VITALS: BP 120/81; PULSE 79; RESP 18; O2SAT 99
[2024-06-22 18:32] LABS: Bacteria,Urine Trace /lpf
[2024-06-22] MEDS: IOPAMIDOL-370 (76%);100ML BOTTLE 75 ML IV (18:38)
[2024-06-22] MEDS: SODIUM CHLORIDE 0.9% 10ML SYR (RAD ONLY) 10 ML IV (18:38)
[2024-06-22 18:44] LABS: Hematocrit 47.3 % (37.0-47.0); Hemoglobin 15.8 g/dL (12.2-16.2); Lymphocytes % 31.1 % (10-50); Mean Corpuscular HGB Conc 33.4 g/dL (31.8-35.4); Mean Corpuscular Hemoglobin 35.4 pg (27.0-31.2); Mean Corpuscular Volume 105.9 fl (81-99); Mean Platelet Volume 8.9 fl (7.4-10.4); Monocytes % 7.2 % (1.7-9.3); Neutrophils % 58.6 % (37.0-80.0); Platelet Count 245 K/mm3 (142-424); Red Blood Count 4.47 M/mm3 (4.20-5.40); Red Cell Distribution Width 13.5 % (11.5-17.5)
[2024-06-22 18:45] LABS: Basophils # 0.1 K/mm3 (0-0.2); Basophils % 0.9 % (0.1-2.0); Eosinophils # 0.1 K/mm3 (0.0-0.4); Eosinophils % 0.9 % (0.1-12.0); Lymphocytes # 3.1 K/mm3 (0.7-4.5); Monocytes # 0.7 K/mm3 (0.1-1.0); Neutrophils # 5.9 K/mm3 (1.8-7.8)
[2024-06-22 19:00] VITALS: BP 118/66; PULSE 70; RESP 20; O2SAT 100
[2024-06-22 19:31] LABS: HIV (1&2) Antibody Rapid NONREACTIVE (NONREACTIVE)
[2024-06-22] MEDS: AMPICILLIN SODIUM/SULBACTAM 3 GM in 0.9 % SODIUM CHLORIDE 100 ML IV (19:58)
[2024-06-22 20:36] VITALS: BP 118/66; PULSE 81; RESP 16; TEMP 36.6; O2SAT 99
[2024-06-24 08:22] LABS: HCV Ab Non Reactive (Non Reactive)
== END 2024-06-22 20:38 | disposition home or self-care (01) ==
PROVIDERS: Emergency Provider Emergency Medicine; PCP Nurse Practitioner Family
DX: R10.32 Left lower quadrant pain (principal); K57.32 Diverticulitis of large intestine without perforation or abscess without bleeding; M54.59 Other low back pain
CPT/HCPCS: 74177; 80053; 81001; 81025; 85025; 86803; 87389; 96374; 96375; 99284; J0295; J1885; Q9967

== ENCOUNTER 2024-06-29 14:33 | Outpatient (CLI) | payer OTHER, SELFPAY ==
[2024-06-29 12:53] LABS: Basophils # 0.1 K/mm3 (0-0.2); Basophils % 0.9 % (0.1-2.0); Eosinophils # 0.1 K/mm3 (0.0-0.4); Eosinophils % 1.3 % (0.1-12.0); Hematocrit 48.7 % (37.0-47.0); Hemoglobin 16.4 g/dL (12.2-16.2); Lymphocytes # 2.4 K/mm3 (0.7-4.5); Lymphocytes % 33.4 % (10-50); Mean Corpuscular HGB Conc 33.7 g/dL (31.8-35.4); Mean Corpuscular Hemoglobin 34.8 pg (27.0-31.2); Mean Corpuscular Volume 103.2 fl (81-99); Mean Platelet Volume 9.1 fl (7.4-10.4); Monocytes # 0.5 K/mm3 (0.1-1.0); Monocytes % 7.4 % (1.7-9.3); Neutrophils # 4.2 K/mm3 (1.8-7.8); Platelet Count 223 K/mm3 (142-424); Red Blood Count 4.72 M/mm3 (4.20-5.40); Red Cell Distribution Width 13.1 % (11.5-17.5); White Blood Count 7.3 K/mm3 (4.8-10.8)
[2024-06-29 13:34] LABS: Chloride 104 mmol/L (98-107)
[2024-06-29 13:35] LABS: Albumin Level 4.6 g/dl (3.5-5.0); Potassium 4.7 mmoL/L (3.5-5.1); Sodium 136 mmol/L (136-145)
[2024-06-29 13:37] LABS: Blood Urea Nitrogen 12 mg/dl (7-17); Estimated Glomerular Filt Rate 93 ml/min (>60); GFR (African American) 113 ML/MIN (>60)
[2024-06-29 13:38] LABS: Alanine Aminotransferase 41 U/L (12-78); Albumin/Globulin Ratio 1.5 (1.1-1.8); Alkaline Phosphatase 70 U/L (38-126); Anion Gap 12.7 mEq/L (5-15); Aspartate Amino Transferase 41 U/L (14-36); Bilirubin,Total 0.5 mg/dl (0.2-1.3); Calcium 9.7 mg/dl (8.4-10.2); Carbon Dioxide 24 mmol/L (22.0-30.0); Globulin 3.1 g/dL (1.3-3.2); Glucose 77 mg/dl (74-100); Total Protein,Serum 7.7 g/dl (6.3-8.2)
== END 2024-06-29 23:59 | disposition home or self-care (01) ==
LOC: LAB.DROPOF 14:33
PROVIDERS: PCP Nurse Practitioner Family; Visit Provider Nurse Practitioner Family
DX: R10.32 Left lower quadrant pain (principal); K57.92 Diverticulitis of intestine, part unspecified, without perforation or abscess without bleeding
CPT/HCPCS: 80053; 85025; 87086; 87088; 87186

== ENCOUNTER 2024-07-02 08:23 | Outpatient (CLI) | payer OTHER, SELFPAY ==
--- NOTE | 2024-07-02 08:23 | CT_ITS ---
FINAL REPORT CLINICAL HISTORY: left lower abd pain worsening over past 1 week COMPARISON: 06/22/2024 FINDINGS: CT OF THE ABDOMEN AND PELVIS WITH CONTRAST Axial CT images of the abdomen and pelvis were obtained after the administration of IV contrast. Coronal and sagittal reformatted images were also obtained and reviewed. This study was performed with techniques to keep radiation doses as low as reasonably achievable (ALARA). Individualized dose reduction techniques using automated exposure control or adjustment of mA and/or kV according to the patient's size were employed. Abdomen: The lung bases are clear. The heart is normal in size. There is a small hypodense focus in the liver dome, most compatible in appearance with a hepatic cyst. The spleen is unremarkable. No adrenal mass is present. The pancreas has an unremarkable appearance. The kidneys are normal, without evidence of mass or hydronephrosis. The aorta is normal in caliber. Mild vascular calcifications are noted. There is no free fluid or adenopathy. No mass or abnormal fluid collection is seen. Note is made of a small umbilical hernia containing fat. Pelvis: Multiple diverticula of the descending and sigmoid colon again noted. There has been interval improvement since the prior exam of June 22 and the distal descending and the proximal sigmoid diverticulitis. No evidence of bowel obstruction or abscess is seen. The appendix is not well-visualized. The urinary bladder is unremarkable. There are small hemorrhagic cyst versus corpus luteum cysts in the ovaries bilaterally. There is a 27 mm left ovarian cyst. There is no evidence of bowel obstruction. IMPRESSION: There has been interval improvement in the distal descending and sigmoid diverticulitis compared to the prior exam of June 22. No evidence of bowel obstruction or abscess is seen. There are small hemorrhagic cysts versus corpus luteum cysts in the ovaries bilaterally, with a separate 27 mm left ovarian cyst. Reviewed, Interpreted and Dictated by Jose Murillo III, MD Transcribed by Tisha Flores Authenticated and [facility][1]
[2024-07-02] MEDS: SODIUM CHLORIDE 0.9% 10ML SYR (RAD ONLY) 10 ML IV (08:44)
[2024-07-02] MEDS: IOPAMIDOL-370 (76%);100ML BOTTLE 75 ML IV (08:44)
== END 2024-07-02 23:59 | disposition home or self-care (01) ==
LOC: RAD 08:23
PROVIDERS: PCP Nurse Practitioner Family; Visit Provider Nurse Practitioner Family
DX: R10.32 Left lower quadrant pain (principal); K57.92 Diverticulitis of intestine, part unspecified, without perforation or abscess without bleeding
CPT/HCPCS: 74177; Q9967

== ENCOUNTER 2024-07-10 10:57 | Outpatient (CLI) | payer OTHER, SELFPAY ==
[2024-07-10 11:28] LABS: Basophils # 0.1 K/mm3 (0-0.2); Eosinophils # 0.1 K/mm3 (0.0-0.4); Eosinophils % 1.7 % (0.1-12.0); Hematocrit 44.9 % (37.0-47.0); Hemoglobin 15.2 g/dL (12.2-16.2); Lymphocytes # 2.7 K/mm3 (0.7-4.5); Mean Corpuscular HGB Conc 33.9 g/dL (31.8-35.4); Mean Corpuscular Hemoglobin 34.3 pg (27.0-31.2); Mean Corpuscular Volume 101.3 fl (81-99); Mean Platelet Volume 8.1 fl (7.4-10.4); Monocytes # 0.4 K/mm3 (0.1-1.0); Monocytes % 5.6 % (1.7-9.3); Neutrophils # 3.6 K/mm3 (1.8-7.8); Neutrophils % 52.7 % (37.0-80.0); Platelet Count 216 K/mm3 (142-424); Red Blood Count 4.44 M/mm3 (4.20-5.40); Red Cell Distribution Width 13.2 % (11.5-17.5); White Blood Count 6.9 K/mm3 (4.8-10.8)
[2024-07-10 11:36] LABS: Alanine Aminotransferase 42 U/L (12-78); Albumin Level 3.8 g/dl (3.5-5.0); Albumin/Globulin Ratio 1.4 (1.1-1.8); Alkaline Phosphatase 53 U/L (38-126); Anion Gap 6.8 mEq/L (5-15); Aspartate Amino Transferase 36 U/L (14-36); Bilirubin,Total 0.5 mg/dl (0.2-1.3); Blood Urea Nitrogen 12 mg/dl (7-17); Calcium 9.3 mg/dl (8.4-10.2); Carbon Dioxide 28 mmol/L (22.0-30.0); Chloride 109 mmol/L (98-107); Estimated Glomerular Filt Rate 93 ml/min (>60); GFR (African American) 113 ML/MIN (>60); Globulin 2.7 g/dL (1.3-3.2); Glucose 107 mg/dl (74-100); Potassium 3.8 mmoL/L (3.5-5.1); Sodium 140 mmol/L (136-145); Total Protein,Serum 6.5 g/dl (6.3-8.2)
[2024-07-10 12:24] LABS: Vitamin B12 317 pg/mL (239-931)
== END 2024-07-10 23:59 | disposition home or self-care (01) ==
LOC: LAB 10:58
PROVIDERS: PCP Nurse Practitioner Family; Visit Provider Nurse Practitioner Family
DX: R10.32 Left lower quadrant pain (principal); K57.92 Diverticulitis of intestine, part unspecified, without perforation or abscess without bleeding; E53.8 Deficiency of other specified B group vitamins
CPT/HCPCS: 36415; 80053; 82607; 85025; 86340

== ENCOUNTER 2024-07-15 11:09 | Outpatient (CLI) | payer OTHER, SELFPAY | END 2024-07-15 23:59 | disposition home or self-care (01) | LOC: PREOP 11:10 | PROVIDERS: PCP Nurse Practitioner Family; Visit Provider Nurse Practitioner Obstetrics & Gynecology | DX: R69 Illness, unspecified (principal) ==

== ENCOUNTER 2024-07-16 06:50 | Outpatient (CLI) | payer OTHER, SELFPAY ==
--- NOTE | 2024-07-16 | CA_ITS ---
APPROVED REPORT Exam: Pharmacologic Technologist: Toshia Palomino, Ht: 5 ft 7 in Wt: 210 lbs BSA: 2.07 m2 HR: 78 bpm BP: 135/81 mmHg Rhythm: NSR, nonspecific T wave abns Medical History Medications: ClonAZEPAM,,,,, Albuterol,,,,, MiraLAX,,,,, Cardiac Risk Factors: FHX of CAD, Smoking Stress Test Details Test: LEXISCAN HR Resting HR: 77 bpm Max Heart Rate (APMHR): 181 bpm Max HR Achieved: 113 bpm Target HR (85% APMHR): 154 bpm % of APMHR: 62 Recovery HR: 95 bpm BP Resting BP: 135.0/81.0 mmHg Max BP: 135.0/81.0 mmHg Recovery BP: 132.0/66.0 mmHg ECG Resting ECG: NSR, nonspecific T wave abns Stress ECG: No significant ST changes Arrhythmia: None Clinical Exercise duration: 04:00 min Highest Stage Achieved: Exercise capacity: 1.0 METs Stress ECG Conclusion During lexiscan pt experinced brief chest pressure, mild SOA. No arrhythmias noted. No signficant ST changes noted. Conclusion: Unremarkable lexiscan stress. Myoview images are reported separately. Test Summary REST . . . . . . . Sitting REST 03:56 . . 77 . 135/ 81 . . Stage 1 01:00 . . 102 . . . . Stage 2 01:00 . . 109 . 121/ 81 . . Stage 3 01:00 . . 96 . 121/ 71 . . Stage 4 01:00 . . 95 . 127/ 71 . Stop exercise at 04:00 RECOVERY 01:00 . . 99 . . . . RECOVERY 02:00 . . 88 . . . . RECOVERY 02:26 . . 90 . 132/ 66 . . Electronically signed by : Sandra Frausto MD 07/16/2024 12:31:54
--- NOTE | 2024-07-16 07:02 | NM_ITS ---
APPROVED REPORT Exam: Nuclear Stress Test Indication: chest pain..fatigue Patient Location: Outpatient Stress Tech: Toshia ROWLAND Tech:LIANA Modi RT(R)(N) Ht: 5 ft 6 in Wt: 211 lbs Bra Size: 42dd HR: 77 bpm BP: 135/81 mmHg BSA: 2.05 m2 TID: 1.22 BMI: 34.0 History: chest pain..fatigue Procedure: Patient received 0.4 mg of intravenous Lexiscan, resting heart rate 77 bpm, resting blood pressure 135/81 mmHg, with Lexiscan maximum heart rate achieved was 113 bpm which is 85 % of the maximum predicted heart rate and blood pressure was 135/81 mmHg. With Lexiscan, patient denied any complaint of chest pain. Cardiac Stress and Resting SPECT Images: Cardiac Stress and Resting SPECT images were obtained using technetium 99m Myoview 25.8 mCi stress and 7.95 mCi at rest. Raw images demonstrate significant soft tissue overlap with the cardiac borders. This may affect the diagnostic interpretation of the study findings. Resting and stress imaging in supine and prone positions demonstrate a medium sized, moderate, partially reversible perfusion in the mid to distal anterior LV wall. There is increase in transit ischemic dilatation ratio (TID 1.22), suggestive of possible multivessel disease or balanced ischemia. Gated imaging demonstrates normal global and regional LV systolic function. LVEF is calculated at 53%. Conclusion: Technically difficult study due to significant soft tissue overlap with the cardiac borders. This may affect the diagnostic interpretation of the study findings. Medium sized, moderate, partially reversible perfusion in the mid to distal anterior LV wall. Findings are suggestive of partial reversible ischemia. There is increase in transit ischemic dilatation ratio (TID 1.22), suggestive of possible multivessel disease or balanced ischemia. Gated imaging demonstrates normal global and regional LV systolic function. LVEF is calculated at 53%. In the setting of technically difficult study, young age, normal LV systolic function, and presence of TID 1.22, further evaluation noninvasively with CCTA suggested prior to proceeding with invasive coronary angiography. Electronically signed by : Sandra Frausto MD 07/16/2024 12:34:43
--- NOTE | 2024-07-16 07:56 | CA_ITS ---
APPROVED REPORT EXAM: Comprehensive 2D, Doppler, and color-flow Echocardiogram Processing Analyst: Sandra Hodges, RT(R) Ht: 5 ft 7 in Wt: 211lbs BSA: 2.07 BP: 111/61 mmHg Indications: fatigue, CP, smoker, family history HD, cardiomegaly Echo Enhancing Agent Indication: Rule out Shunt Agent(s) / Amount(s) Used: Agitated Saline 10 cc 2D Dimensions Left Atrium 2.33 cm F: 2.7 - 3.8 LVEF (Mobley's) 44.00 % F: 54 - 74 LVOT 2.00 cm (M/F) 1.5-2.5 LV Volume 89.70 mL F: 46 - 106 LV Volume Index 43.3 mL/m2 F: 29 - 61 LA Volume 25.40 mL LA Volume Index 12.27 mL/m2 (M/F) 16-34 EF AP4 54.10 % EF AP2 27.8 % EF BP 44.0 % GL Strain -15.4 % M-Mode Dimensions RVDd 2.50 cm (0.9-2.6) LVDd 4.76 cm (3.5-5.7) Ao Diam 2.30 cm (2.0-3.7) LVDs 3.54 cm (3.5-5.7) IVSd 0.82 cm (0.6-1.1) PWd 0.75 cm (0.6-1.1) EF (Teich) 50.40% FS 25.60% EDV (Teich) 105.40 mL ESV (Teich) 52.30 mL LV Diastology E Decel Time 231 (160-240 msec) E/A Ratio 1.4 MED E' 6.5 (>= 7 cm/sec) E'/MED E' Ratio 11.55 (<= 14) LAT E' 10.2 (>= 10 cm/sec) E/LAT E' Ratio 7.36 (<= 14) Mitral Valve MV E Max Kayden. 75.0 (40-130 cm/s) MV A Velocity 55.0 (40-130 cm/s) E/A Ratio 1.37 MV Decel. Time 231 (160-240 ms) Tricuspid Valve TR P. Velocity 234.00 cm/s RAP Estimate 10.00 mmHg RVSP 32.00 mmHg Left Ventricle The left ventricle is normal size. The left ventricular systolic function is normal. The left ventricular ejection fraction is within the normal range. There is normal left ventricular wall thickness. There is normal LV segmental wall motion. The left ventricular diastolic function is normal. LVEF is 55%. Right Ventricle The right ventricle is normal size. The right ventricular systolic function is normal. Atria The left atrium size is normal. The right atrium size is normal. Agitated saline administration is positive for the presence of interatrial shunt. Aortic Valve The aortic valve opens well. There is no aortic valvular stenosis. Trace aortic regurgitation. Mitral Valve The mitral valve is normal in structure. No evidence of mitral valve stenosis. Trace mitral regurgitation. Tricuspid Valve The tricuspid valve leaflets are thin and pliable. Mild tricuspid regurgitation. RVSP is normal. Pulmonic Valve The pulmonary valve is normal in structure. Mild pulmonic regurgitation. Great Vessels The aortic root is normal in size. The ascending aorta is not well-visualized. IVC is normal in size and collapses >50% with inspiration. Pericardium There is no pericardial effusion. Other Information Study Quality: Fair Conclusion Normal biventricular size and systolic function. Mild TR, mild PI. Agitated saline administration is positive for the presence of interatrial shunt. In the setting of presence of symptoms and interatrial shunt, further evaluation with cardiac MRI to evaluate QP: QS ratio is suggested, if clinically feasible. SANDRA may also be considered for evaluation of location and sizing of the interatrial shunt. Electronically signed by : Sandra Frausto MD 07/19/2024 00:42:05
[2024-07-16] MEDS: ISOTOPE MYOVIEW (PER STUDY) 1 DOSE IV (10:06)
[2024-07-16] MEDS: REGADENOSON 0.4MG/5ML SYRINGE 0.4 MG IV (10:06)
[2024-07-16] MEDS: SODIUM CHLORIDE 0.9% 10ML SYR (RAD ONLY) 10 ML IV ×2 (10:06)
== END 2024-07-16 23:59 | disposition home or self-care (01) ==
LOC: RAD 06:50
PROVIDERS: PCP Nurse Practitioner Family; Visit Provider Physician Assistant
DX: R07.9 Chest pain, unspecified (principal); R53.83 Other fatigue; Z82.49 Family history of ischemic heart disease and other diseases of the circulatory system
CPT/HCPCS: 78452; 93017; 93018; 93306; A9502; J2785

== ENCOUNTER 2024-07-17 16:47 | Outpatient (CLI) | payer OTHER, SELFPAY ==
[2024-07-17 16:45] LABS: Microscopic, Urine URINE MICROSCOPIC (MICROSCOPIC)
[2024-07-17 17:05] LABS: Appearance,Urine CLEAR (Clear); Bilirubin,Urine Negative (Negative); Blood, Urine 3+ (Negative); Color,Urine YELLOW (Yellow); Glucose,Urine (UA) Negative (Negative); Ketones,Urine Negative (Negative); Leukocyte Esterase,Urine Negative (Negative); Nitrate,Urine Negative (Negative); Protein,Urine Negative (Negative); Specific Gravity, Urine >= 1.030 (1.005-1.030); Urobilinogen,Urine 0.2 EU/dl (0.2)
[2024-07-17 17:23] LABS: RBC,Urine 20-50 #/hpf (0-3); WBC,Urine 50-100 #/hpf (0-3)
[2024-07-17 17:24] LABS: Bacteria,Urine 4+ /lpf
== END 2024-07-17 23:59 | disposition home or self-care (01) ==
LOC: LAB.DROPOF 16:47
PROVIDERS: PCP Nurse Practitioner Family; Visit Provider Nurse Practitioner Family
DX: N13.9 Obstructive and reflux uropathy, unspecified (principal); N39.0 Urinary tract infection, site not specified
CPT/HCPCS: 81001; 87086

== ENCOUNTER 2024-07-21 06:38 | Day surgery (SDC) | payer OTHER, SELFPAY ==
[2024-07-15 11:27] VITALS: BMI 34.0
[2024-07-21] VITALS (10 sets, daily range): BP systolic 118–149; BP diastolic 69–102; PULSE 68–78; RESP 17–20; TEMP 36.2–36.5; O2SAT 96–100
[2024-07-21 07:35] LABS: Urine Pregnancy, HCG Qual. Negative (Negative)
[2024-07-21] MEDS: 0.9 % SODIUM CHLORIDE 1000ML 1,000 ML 25 ML IV (07:47)
[2024-07-21] MEDS: CEFAZOLIN SODIUM 2 GM in 0.9 % SODIUM CHLORIDE 100 ML IV (08:24)
[2024-07-21] MEDS: ROPIVACAINE 0.5% 30ML VIAL 150 MG (08:41)
[2024-07-21] MEDS: SODIUM CHLORIDE IRRIG SOLUTION 3,000 ML 200 ML IR (08:42)
--- NOTE | 2024-07-21 09:02 | P.PNANES_ITS ---
[facility] Disclaimer: The information contained in this section may have been updated after the patient was seen, as this information can be updated by other users. Medical History (Updated 07/21/24 @ 07:39 by Krystyna Conley RN) History of COVID-19 Family history of early CAD Fatigue Chest pain Sleep apnea Surgical History (Updated 07/21/24 @ 07:39 by Krystyna Conley RN) Hx of foot surgery Hx of dilation and curettage Hx of tonsillectomy Previous section Family History Father No problems noted. 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 Myosure. Hysteroscopy. Consent for Planned Operative Procedure(s) Verified: Yes Verified Documents: Surgical Consent and History and Physical NPO Status Verified Time NPO: 00:00 Additional verifications Patient : No Anesthesia Reactions: No Hx Blood Transfusions: No Blood Transfusion Reaction: No Cephalosporin Allergy: No Previous Colonoscopy: No Airway Assessment Mallampati Score:: Class II C-Spine Mobility Assessed: Yes TMJ Mobility Assessed: Yes Dentition: Good Dentition Neurological Assessment Level of Consciousness: Awake, Alert, Appropriate and Follows Commands Hx Seizures: No Numbness or tingling in extremities: No Anesthesia Plan Anesthesia Risk discussed: Yes ASA Class: I Anesthesia Type: General
--- NOTE | 2024-07-21 09:05 | P.PNANES_ITS ---
[facility] Anesthesia Record Part I Anesthesia Record I Intake, IV Amount: 800 Hydration: Adequate Estimated blood loss (mL): 49 Urine output (mL): 0 Blood Pressure: 128/100 SaO2: 96 Pulse Rate: 78 Airway Patency: Patent Respiratory Rate: 20 Temperature: 97.2 F Patient is:: Drowsy and Stable Stable to PACU at:: 09:00
--- NOTE | 2024-07-21 09:17 | PC.NURSE ---
oral airway removed @ 0912. Pt spo2 is 98% on room air
--- NOTE | 2024-07-21 10:10 | EXP.OP.NOTE ---
Date of procedure: 07/21/24 Pre-op Diagnosis:: Menorrhagia Post-op Diagnosis:: Menorrhagia Procedure performed:: Hysteroscopy, dilation curettage, NovaSure Surgeon:: Jayson Mckay MD COST CONTROL SUPERVISOR:: Kiran Berry Anesthesia: LMA Estimated blood loss (mL): 50 Clinical Note:: She is a 39-year-old lady who complains of extremely heavy periods. Ultrasound was essentially normal. After having discussed the risks and benefits she elected to have a hysteroscopy, D&C and ablation. Operative findings:: She had an anteverted bulky uterus that sounded to 9 cm. The endometrium appeared lush but otherwise normal in Operative note:: She was taken to the operating room where LMA anesthesia was found be adequate. She was prepped and draped in the normal sterile fashion in the lithotomy position. A weighted speculum was placed in the vagina and the anterior lip of the cervix was grasped with a tenaculum. The cervix was then dilated to approximately 6 mm. I then inserted a hysteroscope into the uterine cavity and the findings were as previously dictated. I then performed a gentle curettage with a medium curette. I then sounded the uterus and determine the length of the uterus. I then inserted the NovaSure device and determine the width of the endometrial cavity. The length was 6.5 cm and the width was 4.4 cm. This was placed into the NovaSure device. I then ran the device through its program. I further inspected the endometrial cavity and was found to be completely charred. I then injected 30 cc of 0.5% ropivacaine at the 3:00, 5:00, 7:00, and 9:00 positions of the cervix. There was a small tear on the anterior cervix and I placed a [id number] 3-0 Vicryl suture here. She tolerated procedure well and was taken to the recovery room in excellent condition. All sponge and instrument counts were correct. The estimated blood loss was less than 50 cc. Condition: stable Disposition: PACU Specimens:: Endometrial curettings Complications:: None
--- NOTE | 2024-07-21 14:38 | P.PNANES_ITS ---
[facility] Anesthesia Record Part II Anesthesia Record Part II Discharge Time: 09:30 Destination: Surgical Day Care (OP Surgery) PACU nurse assessment reviewed?: Yes Patient Condition:: Good Anesthesia Complications:: None Swallowing reflex intact?: Yes Airway Patency: Patent Cyanosis?: No Blood Pressure: 149/69 SaO2: 100 Respiratory Rate: 17 Pulse Rate: 72 Temperature: 97.2 F Mental Status: Alert & Oriented Pain level:: 0 Nausea and/or vomitting:: None Intake, IV Amount: 0 Hydration: Adequate
== END 2024-07-21 10:04 | disposition home or self-care (01) ==
PROVIDERS: PCP Nurse Practitioner Family; Visit Provider Nurse Practitioner Obstetrics & Gynecology
PROC: 0U5B8ZZ Destruction of Endometrium, Via Natural or Artificial Opening Endoscopic (ICD-10-PCS; CPT 58563; principal; 2024-07-21 08:15)
DX: N92.0 Excessive and frequent menstruation with regular cycle (principal)
CPT/HCPCS: 58563; 81025; 96374; J0690; J1100; J2250; J2405; J3010; J7030

== ENCOUNTER 2024-07-28 11:28 | Outpatient (CLI) | payer OTHER, SELFPAY ==
--- NOTE | 2024-07-28 11:30 | CT_ITS ---
APPROVED REPORT Bladder Blower: CLINICAL INDICATION Chest Pain TECHNIQUE Image Acquisition: A 128 slice MDCT scanner ([employer] Profite[employer] View) was used for data acquisition. A noncontrast coronary calcium scan was performed. A CT attenuation threshold of 130 Hounsfield units (HU) was used for the detection of calcium in contiguous voxels of 1 sq mm in area to be counted as individual lesions. Bolus tracking in the ascending aorta with a threshold of 180 HU was performed. Immediately afterwards, ECG synchronized cardiac CT was then performed from the cardiac base to apex using retrospective gating with ECG tube current modulation. A total of 85 mL of Isovue 370 mg/mL contrast medium was administered at 5 mL/sec followed by a saline flush using a biphasic injection protocol. A tube voltage of 120 KVp was used. The patient received the following medications prior to the cardiac CT. 150 mg of oral metoprolol 15 mg of oral ivabradine The average heart rate at the time of acquisition was 66 bpm and regular. Image Reconstruction Transaxial images were reconstructed at 0.67 mm slide thickness. Data was reviewed interactively on an advanced workstation capable of 2 and 3-dimensional displays in all conventional reconstruction formats, including multiplanar reformations, maximum intensity projections, curved multiplanar reformations, and volume rendered reconstructions. When applicable, selected routine images describing the relevant coronary anatomy and pathology were saved and sent to PACS. Complications None Technical Quality Overall image quality was good. Coronary artery opacification was adequate. Total DLP (Dose-Length Product) is 1506.8 mGy-cm. The reported value represents the total of one or more individual components during the CT acquisition of this date and at this time, and as such, the same value may appear in more than one CT report depending on the interpreting/reporting physicians. COMPARISON None FINDINGS CT Coronary Calcium Scoring LMA (Left Main Artery) = 0 LAD (Left Anterior Descending) = 0 LCX (Left Coronary Circumflex) = 0 RCA (Right Coronary Artery) = 0 Total Calcium Score = 0 using the AJ-130 method. The interpretation of the calcium heart score is based on the following continuum*: 0 = no calcified plaque detected (risk of coronary artery disease is very low ??? less than 5%) 1-10 = calcium detected in extremely minimal levels (risk of coronary diseases is still low ??? less than 10%) 11-100 = mild levels of plaque detected with certainty (mild or minimal narrowing of heart arteries is likely) 101-400 = definite,at least moderate levels of plaque detected (relatively high risk of a heart attack within 3-5 years) >401-999 = extensive levels of plaque detected (high risk of heart attack, high levels of vascular disease are present, high likelihood of at least one significant coronary narrowing) *The calcium heart score quantifies the burden of coronary calcification/plaque in the coronary arteries. The calcium heart score is not able to evaluate the presence or burden of non-calcified (i.e. soft) plaque. There is no identifiable calcification in the aortic valve, mitral annulus or mitral valve, pericardium, or myocardium. Coronary CT Angiography The coronary arterial system is right dominant. Quantitative Stenosis Grading: Left Main (LM): The left main originates normally from the left sinus of Valsalva. The LM bifurcates into the left anterior descending artery and left circumflex artery. The LM is patent with no evidence of atherosclerosis. Left Anterior Descending (LAD) and Diagonal Branches: The LAD gives off 2 diagonal branch(es). The LAD and its branches are patent with no evidence of atherosclerosis. There is no evidence of LAD-myocardial bridge. Left Circumflex (LCX) and Obtuse Marginals (OM): The LCX gives off 1 Obtuse Marginal (OM) branch(es). The LCX and its branches are patent with no evidence of atherosclerosis. Right Coronary Artery (RCA): The RCA originates normally from the right sinus of Valsalva. The RCA gives off a posterior descending artery (PDA) and posterolateral (PL) branches. The RCA and its branches are patent with no evidence of atherosclerosis. Non-Coronary Cardiac Findings: Analysis of the left ventricular (LV) structure and function was performed after 3-D reconstruction of the LV from axial images, with user-corrected automatic contouring for assessment of LV volumes and user-defined reconstruction from oblique planes for measurement of 3-D cardiac structure and function. -The left ventricle systolic function is normal. -There is incomplete opacification of the distal LA appendage. This most likely represents early image acquisition after IV contrast administration, but true perfusion defect cannot be entirely ruled out. Two right pulmonary veins and two left pulmonary veins drain normally into the left atrium. -No pericardial thickening or calcification. -Central and branch pulmonary arteries in the uayce-fo-laeh are unremarkable. -Thoracic aorta within the visualized thoracic aortic-branches in the yjvss-br-aohc is unremarkable. Extracardiac Structures No significant extra-cardiac findings. Note, however, that this study is focused on the cardiac findings. IMPRESSION -Absence of coronary calcification with an Agatston score = 0 using the AJ-130 method. -No evidence of significant flow-limiting atherosclerosis of the coronary arteries. -No evidence of coronary anomalies or myocardial bridges. -CAD-RADS 0. Management recommendations per ACC/AHA guidelines*, as clinically appropriate. *Recommendations: CAD RADS 0: Reassurance. Consider non-atherosclerotic causes of chest pain. CAD RADS 1: Consider non-atherosclerotic causes of chest pain. Consider preventive therapy and risk factor modification. CAD RADS 2: Consider non-atherosclerotic causes of chest pain. Consider preventive therapy and risk factor modification, particularly for patients with nonobstructive plaque in multiple segments. CAD RADS 3: Consider further functional testing. Consider symptom-guided anti-ischemic and preventive pharmacotherapy as well as risk factor modification per published guideline statements. CAD RADS 4A: Consider further functional testing or invasive coronary angiography with revascularization per published guideline statements. Consider symptom-guided anti-ischemic and preventive pharmacotherapy as well as risk factor modification per published guideline statements. CAD RADS 4B: Invasive coronary angiography recommended with revascularization per published guideline statements. Consider symptom-guided anti-ischemic and preventive pharmacotherapy as well as risk factor modification per published guideline statements. CAD RADS 5: Consider invasive angiography and/or viability assessment with revascularization per published guideline statements. Consider symptom-guided anti-ischemic and preventive pharmacotherapy as well as risk factor modification per published guideline statements. CRITICAL RESULT None COMMUNICATION Per this written report The coronary and cardiac findings of this CCTA were reviewed, reported, and signed by Lukas Frausto MD (Application Architect) Conclusion Electronically signed by : Sandra Frausto MD 07/30/2024 10:05:59
[2024-07-28 11:47] VITALS: BMI 33.0
[2024-07-28 11:54] VITALS: BP 107/67; PULSE 98; RESP 18; O2SAT 98
[2024-07-28] MEDS: IVABRADINE HCL 7.5MG TABLET PO (12:03)
[2024-07-28] MEDS: METOPROLOL TARTRATE 50MG TABLET PO ×2 (12:03→12:48)
[2024-07-28 13:55] VITALS: BP 112/59; PULSE 75; RESP 18; O2SAT 98
[2024-07-28 13:58] VITALS: BP 101/50; PULSE 69; RESP 18; O2SAT 99
[2024-07-28 14:02] VITALS: BP 92/59; PULSE 67; RESP 18; O2SAT 99
[2024-07-28] MEDS: SODIUM CHLORIDE 0.9% 10ML SYR (RAD ONLY) 10 ML IV (14:05)
[2024-07-28] MEDS: IOPAMIDOL-370 (76%);100ML BOTTLE 85 ML IV (14:05)
[2024-07-28] MEDS: 0.9 % SODIUM CHLORIDE 50 ML VIAL IV (14:05)
[2024-07-28 14:12] VITALS: BP 124/77; PULSE 77; RESP 18; O2SAT 100
== END 2024-07-28 14:12 | disposition home or self-care (01) ==
PROVIDERS: PCP Nurse Practitioner Family; Visit Provider Physician Assistant
DX: R94.39 Abnormal result of other cardiovascular function study (principal); Q21.12 Patent foramen ovale
CPT/HCPCS: 75574; Q9967

== ENCOUNTER 2024-08-06 09:47 | Outpatient (CLI) | payer OTHER, SELFPAY ==
--- NOTE | 2024-08-06 09:47 | MR_ITS ---
APPROVED REPORT Wool Buyer: CLINICAL INDICATION Evaluation for interatrial shunt TECHNIQUE Image Acquisition: Cardiac magnetic resonance (CMR) was performed on Siemens Espree MRI 1.5T scanner. Software platform sequences were performed using the Siemens IMRSV MR B19 platform. A set of three-plane, low-resolution, large jcxjz-lz-rohr localizers were initially acquired. Then axial, coronal, sagittal TrueFISP, as well as axial HASTE images, were obtained. These were followed by gated TrueFISP breathold cinematic sequences obtained in the short axis with 8 mm slices and 2 mm gaps, 2-chamber (vertical long axis), 3-chamber, 4-chamber (horizontal long axis). A bolus of contrast was injected intravenously with first-pass sequences obtained in the short axis and four-chamber planes. After approximately 10 minutes, a TI desizing machine operator head end sequence was performed to determine the optimal TI time. Using the optimized TI time, delayed contrast enhancement segmented inversion???recovery TurboFLASH sequences were obtained in the short axis, 2-chamber, 3-chamber, and 4-chamber projections. 2D-velocity phase mapping was performed. Functional parameters were calculated by offline analysis on an independent workstation ([employer] Platform, [employer]). Contrast: ProHance??? (Gadoteridol) FINDINGS MORPHOLOGY AND FUNCTION Left ventricle: The left ventricle is normal in size. The indexed left ventricular end-diastolic volume (LVEDVi) is 58 ml/m2 (reference range 57-105 ml/m2 in males, 56-96 ml/m2 in females). Low-normal lleft ventricular systolic function is present. There is normal left ventricular wall thickness. There are no regional wall motion abnormalities noted. LVEF is calculated at 54.0% (reference range 57-77%). Right ventricle: The right ventricle is normal in size. The indexed right ventricular end-diastolic volume (RVEDVi) is 61 ml/m2 (reference range 61-121 ml/m2 in males, 48-112 ml/m2 in females). Normal right ventricular systolic function is present. RVEF is calculated at 51.6% (reference range 52-72% in males, 51-71% in females). Atria: The left atrium is normal in size. The maximum indexed left atrial volume is 26 ml/m2 (reference range 26-52 ml/m2 in males, 27-53 ml/m2 in females). The right atrium is normal in size. The maximum indexed right atrial volume is 18 ml/m2 (reference range 18-90 ml/m2). Aorta: The diameter of the aortic annulus is normal, measuring 19 mm (coronal view reference range 21-30 mm in males, 19-27 mm in females). The diameter of the aortic sinus is normal, measuring 26 mm (coronal view reference range 25-42 mm in males, 24-36 mm in females). The diameter of the sinotubular junction is normal, measuring 20 mm (coronal view reference range 18-32 mm in males, 18-28 mm in females). The diameters of the ascending and descending thoracic aorta are normal. Main pulmonary artery: The main pulmonary artery diameter is normal. Pericardium: The pericardial thickness is normal. The pericardial thickness measures 1.7 mm (normal < 4.0 mm). There is no pericardial effusion. VALVES The valvular morphologies in the visualized sequences appear normal. There is no significant valvular stenosis or regurgitation of the mitral, aortic, tricuspid, or pulmonic valve noted visually. Systolic anterior motion of the mitral valve is not visualized. Ratio of pulmonary to systemic flow, Qp:Qs ratio = 1.27 (normal < or = 1.2, hemodynamically significant shunt > 1.5), demonstrating no evidence of hemodynamically significant shunt. TISSUE CHARACTERIZATION Resting Perfusion: Normal myocardial blood flow at rest. No evidence of resting hypoperfusion. Myocardial Fibrosis and/or edema: Normal gadolinium kinetics are present. No evidence of late gadolinium enhancement is noted, consistent with absence of myocardial scarring, infarction, or necrosis. T2-weighted imaging demonstrates no evidence of myocardial edema or inflammation. OTHER No other significant findings are noted. However, this exam is focused on the cardiac structure and function. IMPRESSION Normal LV size with normal LV systolic function. LVEDVi= 58 ml/m2 and LVEF= 54.0%. Normal RV size with normal RV systolic function. RVEDVi= 61 ml/m2 and RVEF= 51.6%. No atrial enlargement. No CMR evidence of myocardial scarring, infarction, or necrosis. No evidence of myocardial edema or inflammation. Perfusion analysis demonstrates normal blood flow at rest with no evidence of resting hypoperfusion. Ratio of pulmonary to systemic flow, Qp:Qs ratio = 1.27 (normal < or = 1.2, hemodynamically significant shunt > 1.5), demonstrating no evidence of hemodynamically significant shunt. This CMR demonstrates normal biventricular size and systolic function with no evidence of RV dysfunction or dilation. The Qp/Qs ratio of < 1.5 suggests the absence of a hemodynamically significant interatrial shunt. Serial follow-up is recommended. Clinical correlation is suggested. COMPARISON None CRITICAL RESULT None COMMUNICATION The above findings were communicated with the patient at the time of her routine outpatient cardiology clinic visit prior to dictation of this report. The findings of this cardiac MR were reviewed, reported, and signed by Lukas Frausto MD (Gas Roller Operator). Conclusion Electronically signed by : Sandra Frausto MD 08/18/2024 12:47:08
[2024-08-06] MEDS: 0.9 % SODIUM CHLORIDE 50 ML VIAL IV (10:55)
[2024-08-06] MEDS: GADOTERIDOL INJ 20ML SYRINGE 20 ML IV (10:55)
[2024-08-06] MEDS: SODIUM CHLORIDE 0.9% 10ML SYR (RAD ONLY) 10 ML IV (10:55)
== END 2024-08-06 23:59 | disposition home or self-care (01) ==
LOC: RAD 09:47
PROVIDERS: PCP Nurse Practitioner Family; Visit Provider Physician Assistant
DX: R94.30 Abnormal result of cardiovascular function study, unspecified (principal); Q21.12 Patent foramen ovale
CPT/HCPCS: 75561; A9576

== ENCOUNTER 2024-08-17 09:03 | Outpatient (CLI) | payer OTHER, SELFPAY ==
--- NOTE | 2024-08-17 09:06 | XR_ITS ---
FINAL REPORT CLINICAL HISTORY: cough, shortness of breath on exertion COMPARISON: 12/30/2023 FINDINGS: PA and lateral views of the chest were obtained. The cardiac and mediastinal silhouettes are within normal limits. The lungs are clear. There is no pleural effusion or pneumothorax. No acute osseous abnormality is identified. IMPRESSION: No radiographic evidence of acute cardiac or pulmonary disease. Reviewed, Interpreted and Dictated by Kathleen Jara MD Transcribed by Erika Avila Authenticated and . [facility]
== END 2024-08-17 23:59 | disposition home or self-care (01) ==
LOC: RAD 09:04
PROVIDERS: PCP Nurse Practitioner Family; Visit Provider Nurse Practitioner Family
DX: J20.9 Acute bronchitis, unspecified (principal); R06.09 Other forms of dyspnea
CPT/HCPCS: 71046

== ENCOUNTER 2024-08-24 15:00 | Outpatient (CLI) | payer OTHER, SELFPAY ==
[2024-08-24] MEDS: ALBUTEROL 0.083% 2.5 MG/3 ML NEB IH (15:20)
--- NOTE | 2024-08-24 15:20 | PC.NURSE ---
Pre and Post Spirometry completed without incident. Albuterol 0.083% given via HHN, per written protocol, Pt tolerated tx well.
== END 2024-08-24 23:59 | disposition home or self-care (01) ==
LOC: RT 15:01
PROVIDERS: PCP Nurse Practitioner Family; Visit Provider Nurse Practitioner Family
DX: R06.09 Other forms of dyspnea (principal)
CPT/HCPCS: 94060; J7613

== ENCOUNTER 2024-09-03 09:18 | Outpatient (CLI) | payer OTHER, SELFPAY ==
[2024-09-03 10:30] LABS: Alanine Aminotransferase 54 U/L (12-78); Albumin Level 3.9 g/dl (3.5-5.0); Alkaline Phosphatase 60 U/L (38-126); Aspartate Amino Transferase 44 U/L (14-36); Bilirubin,Direct 0.4 mg/dl (0.0-0.4); Bilirubin,Total 0.4 mg/dl (0.2-1.3); Total Protein,Serum 6.4 g/dl (6.3-8.2)
[2024-09-08 06:10] LABS: ALT (SGPT) P5P 50 IU/L (0-40); AST (SGOT) P5P 38 IU/L (0-40); Alpha 2-Macroglobulins, Qn 227 mg/dL (110-276); Apolipoprotein A-1 95 mg/dL (116-209); Bilirubin, Total 0.1 mg/dL (0.0-1.2); Cholesterol, Total 205 mg/dL (100-199); Fibrosis Score 0.07 (0.00-0.21); GGT 19 IU/L (0-60); Glucose 85 mg/dL (70-99); Haptoglobin 165 mg/dL (33-278); NASH Score 0.32 (0.00-0.25); Steatosis Score 0.57 (0.00-0.40); Triglycerides 238 mg/dL (0-149)
== END 2024-09-03 23:59 | disposition home or self-care (01) ==
LOC: LAB 09:19
PROVIDERS: PCP Nurse Practitioner Family; Visit Provider Nurse Practitioner
DX: K76.0 Fatty (change of) liver, not elsewhere classified (principal)
CPT/HCPCS: 36415; 80076

== ENCOUNTER 2024-10-15 20:12 | Emergency (ER) | payer OTHER, SELFPAY ==
[2024-10-15 20:13] VITALS: BP 140/77; PULSE 55; RESP 20; TEMP 36.8; O2SAT 98; BMI 34.3
--- NOTE | 2024-10-15 20:28 | ED_ITS ---
Discharge Plan Disposition Patient Disposition: Home, Self-Care Prescriptions Prescriptions: New ibuprofen 600 mg tablet 600 mg PO Q8H Qty: 20 0RF No Action calcium polycarbophil [Fiber-Tabs] 625 mg tablet 625 mg PO BID Patient Comments: TAKE TWO TABLETS BY MOUTH EVERY DAY DIRECTED FOR constipation Linzess 145 mcg capsule 145 mcg PO ONCE Patient Comments: TAKE ONE CAPSULE BY MOUTH EVERY DAY BEFORE MEAL FOR CONSTIPATION Airsupra 90-80 mcg/actuation HFA aerosol inhaler 2 inh inhalation 6XD PRN (Reason: wheezing, cough) Qty: 10.7 0RF levofloxacin 500 mg tablet 500 mg PO DAILY 10 Days Qty: 10 0RF methylprednisolone [Medrol (Shorty)] 4 mg tablets,dose pack See Rx Instructions PO PER PKG DIR Qty: 21 0RF Rx Instructions: PO PER PKG DIR for 6 days clonazepam [Klonopin] 0.5 MG tablet 0.5 mg PO DAILY dicyclomine 10 mg Capsule 10 mg PO QID Citrucel Fiber Laxative Powder In Packet 1 ea PO DAILY albuterol sulfate 90 mcg/actuation HFA aerosol inhaler 4 inh inhalation Q4H PRN (Reason: shortness of breath or wheezing) Qty: 8.5 0RF Rx Instructions: 4 puffs every 4 hours for 48 hours then as needed for shortness of breath or wheezing following vitamin [id number] acid 0.5-1 mg Tablet 0 tab PO DAILY Rx Instructions: UNKNOWN DOSE Referrals Follow up/Referrals: Delaney Ochoa APRN [Primary Care Provider] - See instructions Activity Restrictions/Add. Instructions Additional Instructions/Restrictions: Call your family doctor to establish care for this visit to the emergency department and schedule follow-up within 48 hours to ensure improvement. If you have any worsening of your condition or any other concerning signs or symptoms, return to the emergency department or your primary care doctor for further evaluation. Take Tylenol 1000 mg every 6 hours (4 times daily) and ibuprofen 400 mg every 6 hours (4 times daily) as needed with food and water to prevent GI upset and kidney damage. Talk to family doctor about following up with nephrology regarding the blood in your urine. Clinical Impressions Clinical Impression: Epiploic appendagitis, Cyst of left ovary Instructions Patient Instructions: DI for Acute Abdominal Pain Print Language Print Language: Ukrainian Discharge ED Provider: Adan Bay [facility] Adult HPI <SHEFALI Amin - Last Filed: 10/15/24 21:16> General Chief complaint: Abdominal Pain Stated complaint: Abdominal Pain Time Seen by Provider: 10/15/24 20:28 History of Present Illness HPI narrative: Patient presents for evaluation of left-sided abdominal pain. Patient states that she had a outpatient colonoscopy on Saturday in [place]. Patient began having left-sided abdominal pain after the procedure and has since. She says that she was told come the Emergency Department for evaluation. It was not completed as she had an inadequate prep and this is the second time that she has had an adequate prep. Patient currently denies fever chills hemoptysis hematochezia melena hematemesis hematuria. Patient is having bowel movements and passing flatus and can tolerate oral intake however it makes her pain increase. Related Data Home Medications ?Medication ?Instructions ?Recorded ?Confirmed clonazepam 0.5 mg tablet (Klonopin) 0.5 mg PO DAILY anxiety 04/20/21 08/17/24 vitamin B12 0.5 mg-folic acid 1 mg 0 tab PO DAILY 07/21/24 08/17/24 tablet dicyclomine 10 mg capsule 10 mg PO QID 07/28/24 08/17/24 methylcellulose (with sugar) oral 1 ea PO DAILY 07/28/24 08/17/24 powder packet calcium polycarbophil 625 mg 625 mg PO BID 08/04/24 08/17/24 tablet (Fiber-Tabs) linaclotide 145 mcg capsule 145 mcg PO ONCE 08/04/24 08/17/24 (Linzess) Previous Rx's ?Medication ?Instructions ?Recorded albuterol sulfate 90 mcg/actuation 4 inh inhalation Q4H PRN shortness 05/29/23 aerosol inhaler of breath or wheezing #8.5 grams albuterol 90 mcg-budesonide 80 2 inh inhalation 6XD PRN wheezing, 08/17/24 mcg/actuation HFA aerosol inhaler cough #10.7 grams (Airsupra) levofloxacin 500 mg tablet 500 mg PO DAILY 10 days #10 tabs 08/17/24 methylprednisolone 4 mg tablets in See Rx Instructions PO PER PKG DIR 08/17/24 a dose pack (Medrol (Shorty)) #21 tabs ibuprofen 600 mg tablet 600 mg PO Q8H #20 tabs 10/15/24 Allergies Allergy/AdvReac Type Severity Reaction Status Date / Time No Known Allergies Allergy Verified 08/17/24 08:25 [facility] <SHEFALI Amin - Last Filed: 10/15/24 21:16> [facility] Disclaimer: The information contained in this section may have been updated after the patient was seen, as this information can be updated by other users. Medical History (Updated 10/15/24 @ 23:05 by Adan Bay MD) Shortness of breath History of COVID-19 Family history of early CAD Fatigue Chest pain Sleep apnea Surgical History History of hysteroscopy Hx of foot surgery Hx of dilation and curettage Hx of tonsillectomy Previous section Family History Father No problems noted. 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 current occupational exposures/hazards: No caffeine: Yes Have you lived/traveled outside [place] in past 30 days?: No Contact w/someone who lives/traveled outside US past 30 days?: No Exposure to someone with infectious disease in past 14 days?: No Do you have a fever (greater than 100.4 F or 38 C)?: No Have you tested positive for COVID-19: No Exposed to someone with COVID-19 in past 14 days?: No Do you have a sore throat?: No Do you have a cough?: No Do you have any weakness?: No Do you have any diarrhea?: No Are you experiencing any unusual bleeding?: No Do you have any muscle aches/pain?: No Do you have any abdominal pain?: Yes Are you experiencing loss of taste or smell?: No Other Medical History Have you received the Flu Vaccine for this season: No Have you received the Pneumonia Vaccine: No <SHEFALI Amin - Last Filed: 10/15/24 21:16> ROS Obtained: Yes Systems reviewed as appropriate & no additional complaints except as documented Physical Exam <SHEFALI Amin - Last Filed: 10/15/24 21:16> General General appearance: alert Respiratory Respiratory exam: Present normal lung sounds bilaterally Cardiovascular Cardiovascular exam: Present regular rate Neurological Exam Neurological exam: Present alert and oriented X3 Medical Decision Making <SHEFALI Amin - Last Filed: 10/15/24 21:16> Medical Records Medical records reviewed: Yes I reviewed the patient's medical records. Screening: Per USPSTF and CDC recommendations, given the prevalence of disease in our region, it is our hospital?s policy to screen for HIV and viral Hepatitis for all patients aged 18 and over and those with ongoing risk factors. Ron Inquiry Pt receiving controlled substance: No Vital Signs: 10/15/24 20:13 Temperature 98.3 F Temperature Source Oral Pulse Rate [Right] 55 L Respiratory Rate 20 Blood Pressure [Right Arm] 140/77 Blood Pressure Mean [Right Arm] 98 02 Sat by Pulse Oximetry 98 Oxygen Delivery Method Room Air Lab Data Lab results reviewed: Yes I reviewed the patient's lab results. Lab Results 10/15/24 20:23: WBC 10.4, RBC 4.34, Hgb 14.9, Hct 43.5, MCV 100.2 H, MCH 34.3 H, MCHC 34.3, RDW 11.9, Plt Count 221, MPV 9.8, Neut % (Auto) 53.6, Lymph % (Auto) 37.7, Grimes % (Auto) 7.2, Eos % (Auto) 0.8, Baso % (Auto) 0.4, Neut # (Auto) 5.6, Lymph # (Auto) 3.9, Grimes # (Auto) 0.8, Eos # (Auto) 0.1, Baso # (Auto) 0.0, Sodium 139, Potassium 3.5, Chloride 104, Carbon Dioxide 26, Anion Gap 12.5, BUN 13, Creatinine 0.70, Estimated Creat Clear 165, Estimated GFR 93, Est GFR ( Amer) 113, Glucose 117 H, Calcium 9.4, Total Bilirubin 0.3, AST 47 H, ALT 59, Alkaline Phosphatase 76, Total Protein 7.0, Albumin 4.1, Globulin 2.9, Albumin/Globulin Ratio 1.4, Procalcitonin 0.060, Serum HCG, Qual Negative, Urine Color Yellow, Urine Appearance Clear, Urine pH 6.0, Ur Specific [place] >= 1.030, Urine Protein Negative, Urine Glucose (UA) Negative, Urine Ketones Negative, Urine Blood 2+ A, Urine Nitrate Negative, Urine Bilirubin Negative, Urine Urobilinogen 1.0, Ur Leukocyte Esterase Trace, Urine RBC Tntc, Urine WBC 20-50, Ur Squamous Epith Cells 20-50, Urine Bacteria 2+ 10/15/24 20:23 10/15/24 20:23 Orders (Tests/Meds): ED MEDICATIONS Generic Name Dose Route Start Last Admin Trade Name Freq PRN Reason Stop Dose Admin Sodium Chloride 10 ml 10/15/24 21:20 10/15/24 21:23 Sodium Chloride 0.9% 10ml Syr (Rad Only) IV 11/14/24 21:19 10 ml NEEDED PRN Administration Maintain IV Site Discontinued Medications Generic Name Dose Route Start Last Admin Trade Name Freq PRN Reason Stop Dose Admin Acetaminophen 1,000 mg 10/15/24 20:28 10/15/24 20:40 Acetaminophen 1,000mg/100ml Vial IV 10/15/24 20:29 1,000 mg ONCE ONE Administration Lactated Ringer's 1,000 mls @ 999 mls/hr 10/15/24 20:28 10/15/24 20:40 Lactated Ringer's 1000 Ml Bag IV 10/15/24 21:28 999 mls/hr .Q1H1M ONE Administration Iopamidol 75 ml 10/15/24 21:20 10/15/24 21:24 Iopamidol-370 (76%);100ml Bottle IV 10/15/24 21:21 75 ml ONCE ONE Administration Ondansetron HCl 4 mg 10/15/24 20:28 10/15/24 20:40 Ondansetron 4mg/2ml Vial IV 10/15/24 20:29 4 mg ONCE ONE Administration ORDERS Category Date Time Status CT abdomen pelvis w con Stat Cat Scan 10/15/24 20:29 Completed CBC w/Auto Diff [Complete Blood Count Auto Diff] Stat Lab 10/15/24 20:23 Completed CMP [Comprehensive Metabolic Panel] Stat Lab 10/15/24 20:23 Completed HCG Qualitative, Serum Stat Lab 10/15/24 20:23 Completed HIV Combo Stat Lab 10/15/24 20:23 Received Hepatitis C Ab Qual. W/ RFX Stat Lab 10/15/24 20:23 Received Procalcitonin Stat Lab 10/15/24 20:23 Completed UA [Urinalysis and Microscopic] Stat Lab 10/15/24 20:23 Completed Urine Culture Stat Micro 10/15/24 20:23 Received Medical Decision Narrative: In summary patient is a 39-year-old female who presents to the emergency department for evaluation of sided abdominal pain. Patient is hemodynamically stable upon arrival, febrile. Physical exam is remarkable for mild left-sided abdominal tenderness but no rebound no guarding or rigidity. Abdomen is soft normal bowel sounds. Differential diagnosis includes constipation versus diverticulitis versus urinary tract infection versus kidney stone etc. Initial workup will be conducted with hematologic labs urinalysis CT scan abdomen pelvis. Initial interventions include Toradol Tylenol crystalloid bolus. Initial workup ordered and pending at the time of handoff to Dr. Bay at 2100 hrs. <Adan Bay MD - Last Filed: 10/15/24 23:05> Vital Signs: 10/15/24 20:13 Temperature 98.3 F Temperature Source Oral Pulse Rate [Right] 55 L Respiratory Rate 20 Blood Pressure [Right Arm] 140/77 Blood Pressure Mean [Right Arm] 98 02 Sat by Pulse Oximetry 98 Oxygen Delivery Method Room Air Lab Data Lab Results 10/15/24 20:23: WBC 10.4, RBC 4.34, Hgb 14.9, Hct 43.5, MCV 100.2 H, MCH 34.3 H, MCHC 34.3, RDW 11.9, Plt Count 221, MPV 9.8, Neut % (Auto) 53.6, Lymph % (Auto) 37.7, Grimes % (Auto) 7.2, Eos % (Auto) 0.8, Baso % (Auto) 0.4, Neut # (Auto) 5.6, Lymph # (Auto) 3.9, [place] # (Auto) 0.8, Eos # (Auto) 0.1, Baso # (Auto) 0.0, Sodium 139, Potassium 3.5, Chloride 104, Carbon Dioxide 26, Anion Gap 12.5, BUN 13, Creatinine 0.70, Estimated Creat Clear 165, Estimated GFR 93, Est GFR ( Amer) 113, Glucose 117 H, Calcium 9.4, Total Bilirubin 0.3, AST 47 H, ALT 59, Alkaline Phosphatase 76, Total Protein 7.0, Albumin 4.1, Globulin 2.9, Albumin/Globulin Ratio 1.4, Procalcitonin 0.060, Serum HCG, Qual Negative, Urine Color Yellow, Urine Appearance Clear, Urine pH 6.0, Ur Specific [place] >= 1.030, Urine Protein Negative, Urine Glucose (UA) Negative, Urine Ketones Negative, Urine Blood 2+ A, Urine Nitrate Negative, Urine Bilirubin Negative, Urine Urobilinogen 1.0, Ur Leukocyte Esterase Trace, Urine RBC Tntc, Urine WBC 20-50, Ur Squamous Epith Cells 20-50, Urine Bacteria 2+ Orders (Tests/Meds): ED MEDICATIONS Generic Name Dose Route Start Last Admin Trade Name Freq PRN Reason Stop Dose Admin Sodium Chloride 10 ml 10/15/24 21:20 10/15/24 21:23 Sodium Chloride 0.9% 10ml Syr (Rad Only) IV 11/14/24 21:19 10 ml NEEDED PRN Administration Maintain IV Site Discontinued Medications Generic Name Dose Route Start Last Admin Trade Name Freq PRN Reason Stop Dose Admin Acetaminophen 1,000 mg 10/15/24 20:28 10/15/24 20:40 Acetaminophen 1,000mg/100ml Vial IV 10/15/24 20:29 1,000 mg ONCE ONE Administration Lactated Ringer's 1,000 mls @ 999 mls/hr 10/15/24 20:28 10/15/24 20:40 Lactated Ringer's 1000 Ml Bag IV 10/15/24 21:28 999 mls/hr .Q1H1M ONE Administration Iopamidol 75 ml 10/15/24 21:20 10/15/24 21:24 Iopamidol-370 (76%);100ml Bottle IV 10/15/24 21:21 75 ml ONCE ONE Administration Ondansetron HCl 4 mg 10/15/24 20:28 10/15/24 20:40 Ondansetron 4mg/2ml Vial IV 10/15/24 20:29 4 mg ONCE ONE Administration ORDERS Category Date Time Status CT abdomen pelvis w con Stat Cat Scan 10/15/24 20:29 Completed CBC w/Auto Diff [Complete Blood Count Auto Diff] Stat Lab 10/15/24 20:23 Completed CMP [Comprehensive Metabolic Panel] Stat Lab 10/15/24 20:23 Completed HCG Qualitative, Serum Stat Lab 10/15/24 20:23 Completed HIV Combo Stat Lab 10/15/24 20:23 Received Hepatitis C Ab Qual. W/ RFX Stat Lab 10/15/24 20:23 Received Procalcitonin Stat Lab 10/15/24 20:23 Completed UA [Urinalysis and Microscopic] Stat Lab 10/15/24 20:23 Completed Urine Culture Stat Micro 10/15/24 20:23 Received Medical Decision Narrative: In summary patient is a 39-year-old female who presents to the emergency department for evaluation of sided abdominal pain. Patient is hemodynamically stable upon arrival, febrile. Physical exam is remarkable for mild left-sided abdominal tenderness but no rebound no guarding or rigidity. Abdomen is soft normal bowel sounds. Differential diagnosis includes constipation versus diverticulitis versus urinary tract infection versus kidney stone etc. Initial workup will be conducted with hematologic labs urinalysis CT scan abdomen pelvis. Initial interventions include Toradol Tylenol crystalloid bolus. Initial workup ordered and pending at the time of handoff to Dr. Bay at 2100 hrs. Phu: I assumed primary responsibility for this patient after signout from SKYLER. On my evaluation, patient very well-appearing. She states that her pain is still moderate in intensity. I pressed on her abdomen, she does have tenderness in left lower quadrant, but she is not rebound, rigidity or guarding. Nondistended. No overlying skin changes. Dependent interpretation of workup with nonactionable CBC or chemistry, kidney function normal. CT scan with free fluid in the left lower quadrant with edema. Left ovarian cyst. I feel this is consistent with epiploic appendagitis versus recently ruptured ovarian cyst. Regarding urine, patient has red blood cells without protein. She states that she has had blood in her urine for as long as she can remember, showed evidence from previous labs regarding this. I recommended she follow-up with her family doctor regarding this visit to the emergency department, consistent hematuria, and nephrology follow-up. She voiced her understanding. Ibuprofen sent into pharmacy. Because patient at baseline without signs or symptoms of clinical decompensation, deemed appropriate for discharge. Results were relayed to patient who voiced understanding and were agreeable to outpatient management and follow up. I discussed my clinical impression with patient and answered all questions. At this time, the evidence for any other entities in the differential is insufficient to warrant any further testing or ED observation. This was explained as well. Advisory was given that persistent or worsening symptoms require further evaluation. I confirmed the understanding of this discussion. Critical Care <SHEFALI Amin - Last Filed: 10/15/24 21:16> Critical Care Time Critical Care Time: No
--- NOTE | 2024-10-15 20:29 | CT_ITS ---
PROCEDURE INFORMATION: Exam: CT Abdomen And Pelvis With Contrast Exam date and time: 10/15/2024 9:22 PM Age: 39 years old Clinical indication: Abdominal pain; Additional info: Left-sided abdominal pain, recent colonoscopy TECHNIQUE: Imaging protocol: Computed tomography of the abdomen and pelvis with contrast. Radiation optimization: All CT scans at this facility use at least one of these dose optimization techniques: automated exposure control; mA and/or kV adjustment per patient size (includes targeted exams where dose is matched to clinical indication); or iterative reconstruction. Contrast material: ISOVUE; Contrast volume: 75 ml; Contrast route: IV; COMPARISON: CT ABDOMEN PELVIS W CON 07/02/2024 8:32 AM FINDINGS: Liver: Mild hepatic steatosis with mild hepatomegaly. No liver lesions. Gallbladder and biliary ducts: Decompressed gallbladder. No biliary ductal dilatation. Pancreas: Normal. No ductal dilation. Spleen: Normal. No splenomegaly. Adrenal glands: Normal. No mass. Kidneys and ureters: Normal. No hydronephrosis. Stomach and bowel: Distal colonic diverticulosis without diverticulitis. No dilated or thickened bowel loops. Appendix: No evidence of appendicitis. Intraperitoneal space: Unremarkable. No free air. No significant fluid collection. Vasculature: Mild abdominal aortic atherosclerotic disease. No aneurysm or dissection. Lymph nodes: Unremarkable. No enlarged lymph nodes. Urinary bladder: Unremarkable as visualized. Reproductive: 3.1 cm left ovarian cyst with mild adjacent free fluid. Edematous appearing fat density structure at the inferior aspect of the sigmoid colon adjacent to the left ovary. Bones/joints: Unremarkable. No acute fracture. Soft tissues: Unremarkable. IMPRESSION: 1. 3.1 cm left ovarian cyst with mild adjacent free fluid. 2. Edematous appearing fat density structure at the inferior aspect of the sigmoid colon adjacent to the left ovary. This could represent reactive change in an epiploic appendage from the adjacent ovarian cyst and free fluid or this could represent epiploic appendagitis.
[2024-10-15 20:33] LABS: Microscopic, Urine URINE MICROSCOPIC (MICROSCOPIC)
[2024-10-15 20:35] LABS: Appearance,Urine CLEAR (Clear); Bilirubin,Urine Negative (Negative); Blood, Urine 2+ (Negative); Color,Urine YELLOW (Yellow); Glucose,Urine (UA) Negative (Negative); Ketones,Urine Negative (Negative); Leukocyte Esterase,Urine TRACE (Negative); Nitrate,Urine Negative (Negative); Protein,Urine Negative (Negative); Specific Gravity, Urine >= 1.030 (1.005-1.030)
[2024-10-15 20:37] LABS: Basophils % 0.4 % (0.1-2.0); Eosinophils # 0.1 K/mm3 (0.0-0.4); Eosinophils % 0.8 % (0.1-12.0); Hematocrit 43.5 % (37.0-47.0); Hemoglobin 14.9 g/dL (12.2-16.2); Lymphocytes # 3.9 K/mm3 (0.7-4.5); Lymphocytes % 37.7 % (10-50); Mean Corpuscular HGB Conc 34.3 g/dL (31.8-35.4); Mean Corpuscular Hemoglobin 34.3 pg (27.0-31.2); Mean Corpuscular Volume 100.2 fl (81-99); Mean Platelet Volume 9.8 fl (7.4-10.4); Monocytes # 0.8 K/mm3 (0.1-1.0); Monocytes % 7.2 % (1.7-9.3); Neutrophils # 5.6 K/mm3 (1.8-7.8); Neutrophils % 53.6 % (37.0-80.0); Platelet Count 221 K/mm3 (142-424); Red Blood Count 4.34 M/mm3 (4.20-5.40); Red Cell Distribution Width 11.9 % (11.5-17.5); White Blood Count 10.4 K/mm3 (4.8-10.8)
[2024-10-15 20:39] LABS: Chloride 104 mmol/L (98-107)
[2024-10-15 20:40] LABS: Albumin Level 4.1 g/dl (3.5-5.0); Potassium 3.5 mmoL/L (3.5-5.1); Sodium 139 mmol/L (136-145)
[2024-10-15] MEDS: ONDANSETRON 4MG/2ML VIAL 4 MG IV (20:40)
[2024-10-15] MEDS: LACTATED RINGERS 1000ML 1,000 ML 999 ML IV (20:40)
[2024-10-15] MEDS: ACETAMINOPHEN 1,000MG/100ML VIAL 1000 MG IV (20:40)
[2024-10-15 20:42] LABS: Blood Urea Nitrogen 13 mg/dl (7-17); Creatinine Clearance Estimated 165 mL/min (50-200); Estimated Glomerular Filt Rate 93 ml/min (>60); GFR (African American) 113 ML/MIN (>60)
[2024-10-15 20:43] LABS: Alanine Aminotransferase 59 U/L (12-78); Albumin/Globulin Ratio 1.4 (1.1-1.8); Alkaline Phosphatase 76 U/L (38-126); Anion Gap 12.5 mEq/L (5-15); Aspartate Amino Transferase 47 U/L (14-36); Bilirubin,Total 0.3 mg/dl (0.2-1.3); Calcium 9.4 mg/dl (8.4-10.2); Carbon Dioxide 26 mmol/L (22.0-30.0); Globulin 2.9 g/dL (1.3-3.2); Glucose 117 mg/dl (74-100)
[2024-10-15 20:50] LABS: Bacteria,Urine 2+ /lpf; RBC,Urine TNTC #/hpf (0-3); Squamous Epithelial Cell,Urine 20-50 #/hpf (0-5); WBC,Urine 20-50 #/hpf (0-3)
[2024-10-15 20:59] LABS: HCG Qualitative, Serum Negative (Negative)
[2024-10-15] MEDS: SODIUM CHLORIDE 0.9% 10ML SYR (RAD ONLY) 10 ML IV (21:23)
[2024-10-15] MEDS: IOPAMIDOL-370 (76%);100ML BOTTLE 75 ML IV (21:24)
[2024-10-15 23:05] VITALS: BP 121/84; PULSE 84; RESP 16; TEMP 36.6; O2SAT 98
--- NOTE | 2024-10-15 23:07 | PC.NURSE ---
IV removed. Catheter tip intact. Bleeding controlled.
[2024-10-16 00:17] LABS: HIV Combo NEGATIVE (Negative); Hepatitis C Ab Qual. W/ RFX NEGATIVE (Negative)
== END 2024-10-15 23:10 | disposition home or self-care (01) ==
PROVIDERS: Physician Assistant; Emergency Provider Emergency Medicine; PCP Nurse Practitioner Family
DX: N83.202 Unspecified ovarian cyst, left side (principal); K63.89 Other specified diseases of intestine; R10.32 Left lower quadrant pain
CPT/HCPCS: 74177; 80053; 81001; 84145; 84703; 85025; 86803; 87086; 87389; 96361; 96374; 96375; 99285; J0131; J2405; J7120; Q9967

== ENCOUNTER 2024-10-23 13:33 | Outpatient (CLI) | payer OTHER, SELFPAY ==
--- NOTE | 2024-10-23 13:33 | US_ITS ---
PROCEDURE: US TRANSVAGINAL CLINICAL INDICATION: hemorrhagic cyst of left ovary COMPARISON: CT CT ABDOMEN PELVIS W CON from 10/15/2024 FINDINGS: Transvaginal sonographic images of the pelvis were obtained. UTERUS: 8.3cm x 4.4cmx 3.9 anteverted with a combined endometrial thickness of 8.7mm. LEFT OVARY: 4.2cmx3.3cmx3.6cm with a volume of 25.2ml. There is a follicle in the left ovary measuring 2.5 cm x 2.7 cm x 2.5 cm RIGHT OVARY: 3.0cmx 2.8 cmx2.6 cm with a volume of 11.2ml. There are several small follicles in the right ovary. Both ovaries are seen and appear normal. Doppler flow to both ovaries are seen. There is no fluid in the cul-de-sac. IMPRESSION: 1. Anteverted uterus normal in shape and size. The endometrium measures 8.7 mm. 2. Both ovaries are seen and appear normal. The left ovary has a 2.7 cm simple appearing follicle and there are several small follicles in the right ovary. 3. No fluid in the cul-de-sac. Dictated by: Jayson Mckay MD 10/23/2024 17:25 Jayson Mckay MD in [facility] 10/23/2024 17:25
== END 2024-10-23 23:59 | disposition home or self-care (01) ==
LOC: RAD 13:33
PROVIDERS: PCP Nurse Practitioner Family; Visit Provider Nurse Practitioner Obstetrics & Gynecology
DX: N83.202 Unspecified ovarian cyst, left side (principal)
CPT/HCPCS: 76830

== ENCOUNTER 2024-10-28 14:32 | Outpatient (CLI) | payer OTHER, SELFPAY ==
[2024-10-28] MEDS: ALBUTEROL 0.083% 2.5 MG/3 ML NEB IH (15:14)
--- NOTE | 2024-10-28 15:43 | PC.NURSE ---
PFT and 6 Minute Walk Test completed on Pt without incident. Pt given Albuterol 0.083%, via HHN, per written protocol, Pt tolerated tx well. Pt instructed and encouraged to give good strong effort on PFT maneuvers, Pt did not give a strong effort.
== END 2024-10-28 23:59 | disposition home or self-care (01) ==
LOC: RT 14:32
PROVIDERS: PCP Nurse Practitioner Family; Visit Provider Internal Medicine Pulmonary Disease
DX: R06.09 Other forms of dyspnea (principal)
CPT/HCPCS: 94060; 94618; 94726; 94729; J7613

== ENCOUNTER 2024-11-02 13:00 | Outpatient (CLI) | payer OTHER, SELFPAY ==
[2024-11-02 15:12] LABS: Microscopic,Cath URINE MICROSCOPIC (MICROSCOPIC)
[2024-11-02 15:28] LABS: Appearance,Urine/Cath CLEAR (Clear); Bilirubin,Cath Negative (Negative); Blood, Urine/Cath 2+ (Negative); Color,Urine/Cath YELLOW (Yellow); Glucose,Urine/Cath (UA) Negative (Negative); Ketones,Urine/Cath Negative (Negative); Leukocyte Esterase,Cath Negative (Negative); Nitrate,Cath Negative (Negative); Protein,Urine/Cath Negative (Negative); Specific Gravity, Urine/Cath >= 1.030 (1.005-1.030)
[2024-11-02 16:39] LABS: Bacteria,Urine/Cath 1+ /lpf; CA Oxalate Crystals,Ur/Cath Trace /lpf; WBC,Urine/Cath Occasional #/hpf (0-3)
[2024-11-02 16:40] LABS: Mucus,Urine/Cath 1+ /lpf
== END 2024-11-02 23:59 | disposition home or self-care (01) ==
LOC: LAB.DROPOF 11-03 10:33
PROVIDERS: PCP Urology; Visit Provider Urology
DX: R31.9 Hematuria, unspecified (principal)
CPT/HCPCS: 81001; 87086

== ENCOUNTER 2024-11-08 19:41 | Emergency (ER) | payer OTHER, SELFPAY ==
[2024-11-08 19:42] VITALS: BP 129/78; PULSE 64; RESP 20; TEMP 36.8; O2SAT 100; BMI 33.9
--- NOTE | 2024-11-08 19:45 | XR_ITS ---
PROCEDURE INFORMATION: Exam: XR Chest Exam date and time: 11/08/2024 7:57 PM Age: 39 years old Clinical indication: Pain; Chest pressure; Additional info: Cp SOA TECHNIQUE: Imaging protocol: Radiologic exam of the chest. Views: 1 view. COMPARISON: CR XR CHEST 2V 08/17/2024 9:10 AM FINDINGS: Lungs: Normal. Pleural spaces: Normal. No pleural effusion. No pneumothorax. Heart/Mediastinum: Normal. No cardiomegaly. Bones/joints: Unremarkable. IMPRESSION: No acute findings.
--- NOTE | 2024-11-08 19:46 | ED_ITS ---
Discharge Plan Disposition Patient Disposition: Home, Self-Care Prescriptions Prescriptions: No Action calcium polycarbophil [Fiber-Tabs] 625 mg tablet 625 mg PO BID Patient Comments: TAKE TWO TABLETS BY MOUTH EVERY DAY DIRECTED FOR constipation Linzess 145 mcg capsule 145 mcg PO ONCE Patient Comments: TAKE ONE CAPSULE BY MOUTH EVERY DAY BEFORE MEAL FOR CONSTIPATION Airsupra 90-80 mcg/actuation HFA aerosol inhaler 2 inh inhalation 6XD PRN (Reason: wheezing, cough) Qty: 10.7 0RF budesonide-formoterol [Symbicort] 160-4.5 mcg/actuation HFA aerosol inhaler 2 puff inhalation BID 90 Days Qty: 10.2 2RF oxybutynin chloride 10 mg tablet extended release 24hr 10 mg PO DAILY 30 Days Qty: 30 3RF estradiol [Estrace] 0.01 % (0.1 mg/gram) cream 1 appful vaginal DAILY Qty: 42.5 2RF Rx Instructions: Finger technique for 14 days and thereafter 3 times weekly clonazepam [Klonopin] 0.5 MG tablet 0.5 mg PO DAILY dicyclomine 10 mg Capsule 10 mg PO QID ibuprofen 600 mg tablet 600 mg PO Q8H Qty: 20 0RF albuterol sulfate 90 mcg/actuation HFA aerosol inhaler 4 inh inhalation Q4H PRN (Reason: shortness of breath or wheezing) Qty: 8.5 0RF Rx Instructions: 4 puffs every 4 hours for 48 hours then as needed for shortness of breath or wheezing following vitamin [id number] acid 0.5-1 mg Tablet 0 tab PO DAILY Rx Instructions: UNKNOWN DOSE Referrals Follow up/Referrals: Otis Torres MD [Staff Physician] - See instructions Provider,MD Mirtha [Primary Care Provider] - See instructions Activity Restrictions/Add. Instructions Additional Instructions/Restrictions: At this time it was felt you are safe to be discharged home. If new or worsening symptoms please do not hesitate to return the emergency department. Please follow-up with Dr. Torres soon as you are able. Clinical Impressions Clinical Impression: Chest pain Print Language Print Language: Telugu Discharge ED Provider: Gage Montgomery [facility] <Shey Saleem APRN - Last Filed: 11/08/24 22:00> General Chief Complaint: Chest Pain Stated Complaint: Chest Pain Time Seen by Provider: 11/08/24 19:45 History of Present Illness HPI narrative: Patient is a 39-year-old female who presents to the ED for complaints of centrally located chest pressure that started yesterday. She denies any radiation of pain. She denies any history of NH. She states that her father of a heart attack under the age of 50. She has not taken any medication prior to arrival. She denies fever, chills, headache, visual disturbances, shortness of breath, abdominal pain, nausea, vomiting, dysuria. Upon initial evaluation she is alert, oriented and cooperative. She is hemodynamically stable. Her physical exam is remarkable for chest wall tenderness. Differential diagnosis include ACS, dissection, pulmonary embolism, pneumonia, pneumothorax, infectious process, cardiac arrhythmia, among others Initial workup will be conducted with hematologic labs, imaging, EKG, chest x- ray. Initial workup reviewed by me. Hematologic labs remarkable for I considered additional testing but deferred due to I informally interpreted the imaging as Upon repeat evaluation, patient had an acceptable resolution of symptoms. They were ambulatory in the ED. Able to tolerate p.o. Given this [patient is appropriate for discharge at this time will be discharged with a prescription for? The case was discussed with hospital medicine regarding management and they will admit the patient to their service for continued evaluation at this time? Etc.] Related Data Home Medications ?Medication ?Instructions ?Recorded ?Confirmed clonazepam 0.5 mg tablet (Klonopin) 0.5 mg PO DAILY anxiety 04/20/21 11/02/24 vitamin B12 0.5 mg-folic acid 1 mg 0 tab PO DAILY 07/21/24 11/02/24 tablet dicyclomine 10 mg capsule 10 mg PO QID 07/28/24 11/02/24 calcium polycarbophil 625 mg 625 mg PO BID 08/04/24 11/02/24 tablet (Fiber-Tabs) linaclotide 145 mcg capsule 145 mcg PO ONCE 08/04/24 11/02/24 (Linzess) Previous Rx's ?Medication ?Instructions ?Recorded albuterol sulfate 90 mcg/actuation 4 inh inhalation Q4H PRN shortness 05/29/23 aerosol inhaler of breath or wheezing #8.5 grams albuterol 90 mcg-budesonide 80 2 inh inhalation 6XD PRN wheezing, 08/17/24 mcg/actuation HFA aerosol inhaler cough #10.7 grams (Airsupra) ibuprofen 600 mg tablet 600 mg PO Q8H #20 tabs 10/15/24 budesonide-formoterol HFA 160 2 puff inhalation BID 90 days 10/21/24 mcg-4.5 mcg/actuation aerosol #10.2 grams inhaler (Symbicort) estradiol 0.01% (0.1 mg/gram) 1 appful vaginal DAILY #42.5 grams 11/02/24 vaginal cream (Estrace) oxybutynin chloride 10 mg 10 mg PO DAILY 30 days #30 tabs 11/02/24 tablet,extended release 24 hr Allergies Allergy/AdvReac Type Severity Reaction Status Date / Time No Known Allergies Allergy Verified 11/02/24 13:14 [facility] <Shey Saleem APRN - Last Filed: 11/08/24 22:00> [facility] Disclaimer: The information contained in this section may have been updated after the patient was seen, as this information can be updated by other users. Medical History History of smoking 10-25 pack years Dyspnea on exertion Asthma Shortness of breath History of COVID-19 Family history of early CAD Fatigue Chest pain Sleep apnea Surgical History History of hysteroscopy Hx of foot surgery RIGHT Hx of dilation and curettage Hx of tonsillectomy Previous section x3 Family History Father No problems noted. 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 current occupational exposures/hazards: No caffeine: Yes Have you lived/traveled outside [place] in past 30 days?: No Contact w/someone who lives/traveled outside [place] past 30 days?: No Exposure to someone with infectious disease in past 14 days?: No Do you have a fever (greater than 100.4 F or 38 C)?: No Have you tested positive for COVID-19: No Exposed to someone with COVID-19 in past 14 days?: No Do you have a sore throat?: No Do you have a cough?: No Do you have any weakness?: No Do you have any diarrhea?: No Are you experiencing any unusual bleeding?: No Do you have any muscle aches/pain?: No Do you have any abdominal pain?: No Are you experiencing loss of taste or smell?: No Other Medical History Have you received the Flu Vaccine for this season: No Have you received the Pneumonia Vaccine: No <Shey Saleem APRN - Last Filed: 11/08/24 22:00> ROS Obtained: Yes Systems reviewed as appropriate & no additional complaints except as documented Physical Exam <Shey Saleem APRN - Last Filed: 11/08/24 22:00> General General appearance: alert and in no apparent distress Head Head exam: atraumatic and normocephalic Eye Eye exam: Present normal appearance and PERRL; Absent nystagmus ENT ENT exam: Present normal exam Neck Neck exam: Present normal inspection Chest Chest inspection: Present normal inspection, symmetric chest wall rise and tenderness (Centrally located) Respiratory Respiratory exam: Present normal lung sounds bilaterally; Absent respiratory distress Cardiovascular Cardiovascular exam: Present regular rate Abdominal Exam Abdominal exam: Present soft and normal bowel sounds; Absent tenderness Extremities Exam Extremities exam: Present normal inspection and full ROM Back Exam Back exam: Present normal inspection and full ROM; Absent tenderness Neurological Exam Neurological exam: Present alert and oriented X3 Psychiatric Psychiatric exam: Present normal affect and normal mood Skin Skin exam: Present warm and dry HEART Score <Shey Saleem APRN - Last Filed: 11/08/24 22:00> HEART Score HEART Score assessment performed?: Yes History (anamnesis): Slightly suspicious ECG: Normal Age: <45 years Risk factors: No known risk factors Troponin: </= normal limit HEART Score: 0 <Gage Montgomery MD - Last Filed: 11/08/24 22:31> HEART Score HEART Score: 0 Critical Care <Shey Saleem APRN - Last Filed: 11/08/24 22:00> Critical Care Time Critical Care Time: No Medical Decision Making <Shey Saleem APRN - Last Filed: 11/08/24 22:00> Ron Inquiry Pt receiving controlled substance: No Ron was queried for this patient: No Vital Signs Vital Signs: 11/08/24 19:42 11/08/24 20:08 Temperature 98.2 F Temperature Source Oral Pulse Rate 52 L Pulse Rate [Left] 64 Respiratory Rate 20 14 Blood Pressure 124/84 Blood Pressure [Right Arm] 129/78 Blood Pressure Mean [Right Arm] 95 02 Sat by Pulse Oximetry 100 100 Oxygen Delivery Method Room Air Room Air Lab Data Labs: Lab Results 11/08/24 19:47: WBC 7.8, RBC 4.18 L, Hgb 14.3, Hct 43.3, MCV 103.6 H, MCH 34.2 H , MCHC 33.0, RDW 12.4, Plt Count 189, MPV 9.8, Neut % (Auto) 46.3, Lymph % (Auto) 44.2, Mckinley % (Auto) 7.7, Eos % (Auto) 1.2, Baso % (Auto) 0.5, Neut # (Auto) 3.6, Lymph # (Auto) 3.4, Mckinley # (Auto) 0.6, Eos # (Auto) 0.1, Baso # (Auto) 0.0, Sodium 137, Potassium 3.4 L, Chloride 108 H, Carbon Dioxide 24, Anion Gap 8.4, BUN 14, Creatinine 0.70, Estimated GFR 93, Est GFR ( Amer) 113, Glucose 109 H, Calcium 9.1, Total Bilirubin 0.2, AST 52 H, ALT 68, Alkaline Phosphatase 70, Troponin I < 0.01, Total Protein 6.9, Albumin 4.1, Globulin 2.8, Albumin/Globulin Ratio 1.5, Lipase 98 11/08/24 21:45: Troponin I < 0.01 11/08/24 19:47 11/08/24 19:47 Response Orders (Tests/Meds): ED MEDICATIONS Discontinued Medications Generic Name Dose Route Start Last Admin Trade Name Freq PRN Reason Stop Dose Admin Aspirin 324 mg 11/08/24 19:48 11/08/24 19:55 Aspirin 81mg Chewable Tablet PO 11/08/24 19:49 324 mg ONCE ONE Administration Morphine Sulfate 4 mg 11/08/24 21:13 11/08/24 21:30 Morphine 4mg/Ml Syringe IV 11/08/24 21:14 4 mg ONCE ONE Administration ORDERS Category Date Time Status CXR --portable [XR chest portable] Stat Exams 11/08/24 19:45 Completed POCUS Point of Care (ER Only) Stat Exams 11/08/24 21:15 Ordered CBC w/Auto Diff [Complete Blood Count Auto Diff] Stat Lab 11/08/24 19:47 Completed CMP [Comprehensive Metabolic Panel] Stat Lab 11/08/24 19:47 Completed Lipase Stat Lab 11/08/24 19:47 Completed Trop I [Troponin I] Stat Lab 11/08/24 19:47 Completed Troponin I Q3H Lab 11/08/24 21:45 Completed Troponin I Q3H Lab 11/09/24 01:45 Ordered EKG Request [ECG Request] Stat Y 11/08/24 19:45 Ordered MDM Narrative Medical Decision Narrative: In summary, patient is a 39-year-old female PMHx PFO who presents to the ED for centrally located chest pressure that started last night. She states she has had chest pain in the past, unsure of the cause. Patient states she has been evaluated for chest pain in the past. She has not taken any medication for symptomatic relief. Upon initial exam, patient is alert, oriented and cooperative. Patient is hemodynamically stable. Physical exam remarkable for centrally located chest wall tenderness. Denies fever, chills, body aches, headache, visual disturbances, posterior neck pain, shortness of breath, abdominal pain, nausea, vomiting, dysuria. Differential diagnosis includes ACS, dissection, pneumonia, pneumothorax, infectious process, musculoskeletal chest pain, among others Initial workup will be conducted with hematologic labs, EKG, chest x-ray imaging. Initial inventions include aspirin administration. Records reviewed, patient had a CT of the abdomen and pelvis which was unremarkable for any acute changes other than ovarian cyst. She had a chest x- ray on 08/17/2024 that was unremarkable for any acute cardiac or pulmonary disease. Reviewed cardiac MRI from 08/06/2024 which shows a normal LV, normal RV LVEF of 54%. No atrial enlargement. Coronary angiography CT from 07/28/2024 shows a total calcium score of 0. Initial workup reviewed by me. Hematologic labs remarkable for CBC unremarkable for any leukocytosis, stable H&H. CMP overall unremarkable for any actual abnormalities. First troponin <0.01. I informally interpreted the imaging as no acute cardiopulmonary findings. See final read. Upon repeat evaluation, patient had an acceptable resolution of symptoms. They were ambulatory in the ED. Able to tolerate p.o. Pending second troponin. Chest pain has resolved. She remains hemodynamically stable. Care transferred to David Montgomery MD. Procedure: Procedure performed was cardiac ultrasound. Procedure performed by Gage Montgomery. Using the phased array probe parasternal long and parasternal short axis were obtained. Views were technically adequate. Images were saved to permanent archive. Patient has a grossly normal ejection fraction, no large pericardial effusion. Normal EPSS. This did not necessitate further imaging. <Gage Montgomery MD - Last Filed: 11/08/24 22:31> Vital Signs Vital Signs: 11/08/24 19:42 11/08/24 20:08 Temperature 98.2 F Temperature Source Oral Pulse Rate 52 L Pulse Rate [Left] 64 Respiratory Rate 20 14 Blood Pressure 124/84 Blood Pressure [Right Arm] 129/78 Blood Pressure Mean [Right Arm] 95 02 Sat by Pulse Oximetry 100 100 Oxygen Delivery Method Room Air Room Air Lab Data Labs: Lab Results 11/08/24 19:47: WBC 7.8, RBC 4.18 L, Hgb 14.3, Hct 43.3, MCV 103.6 H, MCH 34.2 H , MCHC 33.0, RDW 12.4, Plt Count 189, MPV 9.8, Neut % (Auto) 46.3, Lymph % (Auto) 44.2, Mckinley % (Auto) 7.7, Eos % (Auto) 1.2, Baso % (Auto) 0.5, Neut # (Auto) 3.6, Lymph # (Auto) 3.4, Mckinley # (Auto) 0.6, Eos # (Auto) 0.1, Baso # (Auto) 0.0, Sodium 137, Potassium 3.4 L, Chloride 108 H, Carbon Dioxide 24, Anion Gap 8.4, BUN 14, Creatinine 0.70, Estimated GFR 93, Est GFR ( Amer) 113, Glucose 109 H, Calcium 9.1, Total Bilirubin 0.2, AST 52 H, ALT 68, Alkaline Phosphatase 70, Troponin I < 0.01, Total Protein 6.9, Albumin 4.1, Globulin 2.8, Albumin/Globulin Ratio 1.5, Lipase 98 11/08/24 21:45: Troponin I < 0.01 Response Orders (Tests/Meds): ED MEDICATIONS Discontinued Medications Generic Name Dose Route Start Last Admin Trade Name Gregory PRN Reason Stop Dose Admin Aspirin 324 mg 11/08/24 19:48 11/08/24 19:55 Aspirin 81mg Chewable Tablet PO 11/08/24 19:49 324 mg ONCE ONE Administration Morphine Sulfate 4 mg 11/08/24 21:13 11/08/24 21:30 Morphine 4mg/Ml Syringe IV 11/08/24 21:14 4 mg ONCE ONE Administration ORDERS Category Date Time Status CXR --portable [XR chest portable] Stat Exams 11/08/24 19:45 Completed POCUS Point of Care (ER Only) Stat Exams 11/08/24 21:15 Ordered CBC w/Auto Diff [Complete Blood Count Auto Diff] Stat Lab 11/08/24 19:47 Completed CMP [Comprehensive Metabolic Panel] Stat Lab 11/08/24 19:47 Completed Lipase Stat Lab 11/08/24 19:47 Completed Trop I [Troponin I] Stat Lab 11/08/24 19:47 Completed Troponin I Q3H Lab 11/08/24 21:45 Completed Troponin I Q3H Lab 11/09/24 01:45 Ordered EKG Request [ECG Request] Stat Y 11/08/24 19:45 Ordered ECG Data Tracing #1: ECG Narrative: Independently interpreted by me rate is 61, rhythm is regular, axis is normal, no ST elevation in anatomical contiguous leads, QTc 398. MDM Narrative Medical Decision Narrative: In summary, patient is a 39-year-old female PMHx PFO who presents to the ED for centrally located chest pressure that started last night. She states she has had chest pain in the past, unsure of the cause. Patient states she has been evaluated for chest pain in the past. She has not taken any medication for symptomatic relief. Upon initial exam, patient is alert, oriented and cooperative. Patient is hemodynamically stable. Physical exam remarkable for centrally located chest wall tenderness. Denies fever, chills, body aches, headache, visual disturbances, posterior neck pain, shortness of breath, abdominal pain, nausea, vomiting, dysuria. Differential diagnosis includes ACS, dissection, pneumonia, pneumothorax, infectious process, musculoskeletal chest pain, among others Initial workup will be conducted with hematologic labs, EKG, chest x-ray imaging. Initial inventions include aspirin administration. Records reviewed, patient had a CT of the abdomen and pelvis which was unremarkable for any acute changes other than ovarian cyst. She had a chest x- ray on 08/17/2024 that was unremarkable for any acute cardiac or pulmonary disease. Reviewed cardiac MRI from 08/06/2024 which shows a normal LV, normal RV LVEF of 54%. No atrial enlargement. Coronary angiography CT from 07/28/2024 shows a total calcium score of 0. Initial workup reviewed by me. Hematologic labs remarkable for CBC unremarkable for any leukocytosis, stable H&H. CMP overall unremarkable for any actual abnormalities. First troponin <0.01. I informally interpreted the imaging as no acute cardiopulmonary findings. See final read. Upon repeat evaluation, patient had an acceptable resolution of symptoms. They were ambulatory in the ED. Able to tolerate p.o. Pending second troponin. Chest pain has resolved. She remains hemodynamically stable. Care transferred to David Montgomery MD. Gage Montgomery: Upon assumption of care patient was hemodynamically stable. Workup reviewed by me, hematologic labs are nonactionable, no significant leukocytosis, no anemia. No HOWARD or critical electrolyte abnormality. Serial troponins undetectably low. Patient is not on estrogen containing oral contraceptives and is PERC negative. Upon repeat evaluation patient continued to be well-appearing resting bed. Given this patient is appropriate for outpatient management at this time we will follow-up with Dr. Torres later this week was given return precautions. Procedure: Procedure performed was cardiac ultrasound. Procedure performed by Gage Montgomery. Using the phased array probe parasternal long and parasternal short axis were obtained. Views were technically adequate. Images were saved to permanent archive. Patient has a grossly normal ejection fraction, no large pericardial effusion. Normal EPSS. This did not necessitate further imaging.
[2024-11-08 19:55] LABS: Basophils % 0.5 % (0.1-2.0); Eosinophils # 0.1 K/mm3 (0.0-0.4); Eosinophils % 1.2 % (0.1-12.0); Hematocrit 43.3 % (37.0-47.0); Hemoglobin 14.3 g/dL (12.2-16.2); Lymphocytes # 3.4 K/mm3 (0.7-4.5); Lymphocytes % 44.2 % (10-50); Mean Corpuscular Hemoglobin 34.2 pg (27.0-31.2); Mean Corpuscular Volume 103.6 fl (81-99); Mean Platelet Volume 9.8 fl (7.4-10.4); Monocytes # 0.6 K/mm3 (0.1-1.0); Monocytes % 7.7 % (1.7-9.3); Neutrophils # 3.6 K/mm3 (1.8-7.8); Neutrophils % 46.3 % (37.0-80.0); Platelet Count 189 K/mm3 (142-424); Red Blood Count 4.18 M/mm3 (4.20-5.40); Red Cell Distribution Width 12.4 % (11.5-17.5); White Blood Count 7.8 K/mm3 (4.8-10.8)
[2024-11-08] MEDS: ASPIRIN 81MG CHEWABLE TABLET 324 MG PO (19:55)
[2024-11-08 20:00] LABS: Chloride 108 mmol/L (98-107)
--- NOTE | 2024-11-08 20:00 | ECG_ITS ---
APPROVED REPORT Exam: Resting ECG HR:61 bpm ECG Measurements Heart Rate 61 AXES NM 150 P 45 QRSd 91 QRS 29 QT 396 T 0 QTc 398 Conclusion SINUS RHYTHM WITH SINUS ARRHYTHMIA NONSPECIFIC T-WAVE ABNORMALITY BORDERLINE ECG UNCONFIRMED REPORT Electronically signed by : SHIRLENE DRAKE, 11/13/2024 00:01:55
[2024-11-08 20:01] LABS: Albumin Level 4.1 g/dl (3.5-5.0); Potassium 3.4 mmoL/L (3.5-5.1); Sodium 137 mmol/L (136-145)
[2024-11-08 20:04] LABS: Alanine Aminotransferase 68 U/L (12-78); Albumin/Globulin Ratio 1.5 (1.1-1.8); Alkaline Phosphatase 70 U/L (38-126); Anion Gap 8.4 mEq/L (5-15); Aspartate Amino Transferase 52 U/L (14-36); Bilirubin,Total 0.2 mg/dl (0.2-1.3); Blood Urea Nitrogen 14 mg/dl (7-17); Calcium 9.1 mg/dl (8.4-10.2); Carbon Dioxide 24 mmol/L (22.0-30.0); Estimated Glomerular Filt Rate 93 ml/min (>60); GFR (African American) 113 ML/MIN (>60); Globulin 2.8 g/dL (1.3-3.2); Glucose 109 mg/dl (74-100); Lipase 98 U/L (23-300); Total Protein,Serum 6.9 g/dl (6.3-8.2)
[2024-11-08 20:08] VITALS: BP 124/84; PULSE 52; RESP 14; O2SAT 100
[2024-11-08 20:19] LABS: Troponin I < 0.01 ng/ml (0.00-0.034)
[2024-11-08] MEDS: MORPHINE 4MG/ML SYRINGE 4 MG IV (21:30)
[2024-11-08 22:20] LABS: Troponin I < 0.01 ng/ml (0.00-0.034)
--- NOTE | 2024-11-08 22:22 | PC.NURSE ---
provider at the bedside updating pt on POC
[2024-11-08 22:37] VITALS: BP 124/84; PULSE 58; RESP 14; TEMP 36.6; O2SAT 100
== END 2024-11-08 22:38 | disposition home or self-care (01) ==
PROVIDERS: Nurse Practitioner; Emergency Provider Emergency Medicine
DX: R07.9 Chest pain, unspecified (principal); F17.210 Nicotine dependence, cigarettes, uncomplicated
CPT/HCPCS: 71045; 80053; 83690; 84484; 85025; 93005; 96374; 99283; J2270

== ENCOUNTER 2024-11-28 14:42 | Emergency (ER) | payer OTHER, SELFPAY ==
[2024-11-28 14:43] VITALS: BP 129/95; PULSE 96; RESP 18; TEMP 37.3; O2SAT 98; BMI 33.9
--- NOTE | 2024-11-28 14:57 | ED_ITS ---
Discharge Plan Disposition Patient Disposition: Home, Self-Care Prescriptions Prescriptions: New methocarbamol 750 mg tablet 1,500 mg PO TID Qty: 90 0RF lidocaine 5 % adhesive patch,medicated 1 patch topical DAILY Qty: 15 0RF Rx Instructions: leave on most painful area for up to 12 hrs No Action clotrimazole 10 mg danny 10 mg mucous membrane 5XD 14 Days Qty: 70 0RF fluconazole 100 mg tablet 100 mg PO DAILY 14 Days Qty: 14 0RF calcium polycarbophil [Fiber-Tabs] 625 mg tablet 625 mg PO BID Patient Comments: TAKE TWO TABLETS BY MOUTH EVERY DAY DIRECTED FOR constipation Linzess 145 mcg capsule 145 mcg PO ONCE Patient Comments: TAKE ONE CAPSULE BY MOUTH EVERY DAY BEFORE MEAL FOR CONSTIPATION Airsupra 90-80 mcg/actuation HFA aerosol inhaler 2 inh inhalation 6XD PRN (Reason: wheezing, cough) Qty: 10.7 0RF budesonide-formoterol [Symbicort] 160-4.5 mcg/actuation HFA aerosol inhaler 2 puff inhalation BID 90 Days Qty: 10.2 2RF oxybutynin chloride 10 mg tablet extended release 24hr 10 mg PO DAILY 30 Days Qty: 30 3RF estradiol [Estrace] 0.01 % (0.1 mg/gram) cream 1 appful vaginal DAILY Qty: 42.5 2RF Rx Instructions: Finger technique for 14 days and thereafter 3 times weekly clonazepam [Klonopin] 0.5 MG tablet 0.5 mg PO DAILY dicyclomine 10 mg Capsule 10 mg PO QID ibuprofen 600 mg tablet 600 mg PO Q8H Qty: 20 0RF albuterol sulfate 90 mcg/actuation HFA aerosol inhaler 4 inh inhalation Q4H PRN (Reason: shortness of breath or wheezing) Qty: 8.5 0RF Rx Instructions: 4 puffs every 4 hours for 48 hours then as needed for shortness of breath or wheezing following vitamin [id number] acid 0.5-1 mg tablet 1 tab PO BID Referrals Follow up/Referrals: Delaney Ochoa APRN [Primary Care Provider] - See instructions Activity Restrictions/Add. Instructions Additional Instructions/Restrictions: Take Tylenol 1000 mg and ibuprofen 400 mg every 6 hours as needed for pain. Use lidocaine patches and Robaxin as needed as well. Follow-up with primary care doctor. Recommend asking about physical therapy. Please return the emerged part with any new, concerning, worsening symptoms including but not limited to intolerable pain, inability to walk, numbness in your groin, difficulty going to the bathroom. Clinical Impressions Clinical Impression: Low back pain radiating to left leg Instructions Patient Instructions: DI for Low Back Pain Print Language Print Language: Vietnamese Discharge ED Provider: Jose Obando General Adult HPI General Chief complaint: Back Pain/Injury Stated complaint: back pain-no accident Time Seen by Provider: 11/28/24 14:57 Mode of Arrival: Ambulatory Source of Information: Patient Description of Symptoms (Recalled from ER Triage Doc. by RN): Patient presents ambulatory to triage. Reports back pain. States that 30 minutes prior to arrival, she stood up from the couch and her back started hurting. Denies hearing or feeling a pop. Denies any trauma to her back. States it is hurting in her lower back and radiates down her left leg. States she took 600mg of Motrin prior to arrival. History of Present Illness HPI narrative: This is a 39-year-old female with a history of obstructive sleep apnea, UTIs who presents with left lower back pain shooting down her left lower extremity. Patient provides history. States that about 30 minutes prior to arrival, she stood up from her couch and began to experience this pain. States that she has had similar pain before in the past whenever she had a UTI, however she also had suprapubic pain at that time. States that it is a shooting pain down her knee. Denies any numbness/tingling of her left lower extremity otherwise. Has been ambulatory. Denies IV drug use or fever. Denies any saddle anesthesia, urinary retention or incontinence, or fecal incontinence. Related Data Home Medications ?Medication ?Instructions ?Recorded ?Confirmed clonazepam 0.5 mg tablet (Klonopin) 0.5 mg PO DAILY anxiety 04/20/21 11/13/24 dicyclomine 10 mg capsule 10 mg PO QID 07/28/24 11/13/24 calcium polycarbophil 625 mg 625 mg PO BID 08/04/24 11/13/24 tablet (Fiber-Tabs) linaclotide 145 mcg capsule 145 mcg PO ONCE 08/04/24 11/13/24 (Linzess) vitamin B12 0.5 mg-folic acid 1 mg 1 tab PO BID 11/13/24 11/13/24 tablet Previous Rx's ?Medication ?Instructions ?Recorded albuterol sulfate 90 mcg/actuation 4 inh inhalation Q4H PRN shortness 05/29/23 aerosol inhaler of breath or wheezing #8.5 grams albuterol 90 mcg-budesonide 80 2 inh inhalation 6XD PRN wheezing, 08/17/24 mcg/actuation HFA aerosol inhaler cough #10.7 grams (Airsupra) ibuprofen 600 mg tablet 600 mg PO Q8H #20 tabs 10/15/24 budesonide-formoterol HFA 160 2 puff inhalation BID 90 days 10/21/24 mcg-4.5 mcg/actuation aerosol #10.2 grams inhaler (Symbicort) estradiol 0.01% (0.1 mg/gram) 1 appful vaginal DAILY #42.5 grams 11/02/24 vaginal cream (Estrace) oxybutynin chloride 10 mg 10 mg PO DAILY 30 days #30 tabs 11/02/24 tablet,extended release 24 hr clotrimazole 10 mg danny 10 mg mucous membrane 5XD 14 days 11/13/24 #70 tabs fluconazole 100 mg tablet 100 mg PO DAILY 14 days #14 tabs 11/13/24 lidocaine 5 % topical patch 1 patch topical DAILY #15 ea 11/28/24 methocarbamol 750 mg tablet 1,500 mg (2 x 750 mg) PO TID #90 11/28/24 tabs Allergies Allergy/AdvReac Type Severity Reaction Status Date / Time No Known Allergies Allergy Verified 11/28/24 14:49 [facility] Disclaimer: The information contained in this section may have been updated after the patient was seen, as this information can be updated by other users. Medical History History of smoking 10-25 pack years Dyspnea on exertion Asthma Shortness of breath History of COVID-19 Family history of early CAD Fatigue Chest pain Sleep apnea Surgical History History of hysteroscopy Hx of foot surgery RIGHT Hx of dilation and curettage Hx of tonsillectomy Previous section x3 Family History Father No problems noted. 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 current occupational exposures/hazards: No caffeine: Yes Have you lived/traveled outside [place] in past 30 days?: No Contact w/someone who lives/traveled outside [place] past 30 days?: No Exposure to someone with infectious disease in past 14 days?: No Do you have a fever (greater than 100.4 F or 38 C)?: No Have you tested positive for COVID-19: No Exposed to someone with COVID-19 in past 14 days?: No Do you have a sore throat?: No Do you have a cough?: No Do you have any weakness?: No Do you have any diarrhea?: No Are you experiencing any unusual bleeding?: No Do you have any muscle aches/pain?: Yes Do you have any abdominal pain?: No Are you experiencing loss of taste or smell?: No Other Medical History Have you received the Flu Vaccine for this season: No Have you received the Pneumonia Vaccine: No ROS Obtained: Yes All systems reviewed & no additional complaints except as documented Physical Exam General General appearance: alert and in no apparent distress Eye Eye exam: Present normal appearance, PERRL and EOMI Respiratory Respiratory exam: Present normal lung sounds bilaterally; Absent respiratory distress Cardiovascular Cardiovascular exam: Present regular rate and normal rhythm Abdominal Exam Abdominal exam: Present soft and distention; Absent tenderness, guarding or rebound Extremities Exam Extremities exam: Present normal inspection Back Exam Back exam: Present normal inspection Comment: No midline tenderness. Tenderness to the left lower paraspinal lumbar muscles. Neurological Exam Neurological exam: Present alert, oriented X3 and normal gait; Absent motor sensory deficit (Full strength and sensation intact in bilateral lower extremities.) Skin Skin exam: Present warm and dry Medical Decision Making Medical Records Medical records reviewed: Yes I reviewed the patient's medical records. Screening: Per USPSTF and CDC recommendations, given the prevalence of disease in our region, it is our hospital?s policy to screen for HIV and viral Hepatitis for all patients aged 18 and over and those with ongoing risk factors. Ron Inquiry Pt receiving controlled substance: No Vital Signs: 11/28/24 14:43 11/28/24 16:19 Temperature 99.2 F 99.2 F Temperature Source Oral Oral Pulse Rate 90 Pulse Rate [Radial] 96 H Respiratory Rate 18 18 Blood Pressure 130/65 Blood Pressure [R Arm] 129/95 H Blood Pressure Mean [R Arm] 106 Blood Pressure Source Automatic Cuff Blood Pressure Source [R Arm] Automatic Cuff Blood Pressure Position Sitting 02 Sat by Pulse Oximetry 98 Oxygen Delivery Method Room Air Room Air Lab Data Lab Results 11/28/24 15:12: Urine Color Yellow, Urine Appearance Clear, Urine pH 6.0, Ur Specific [place] >= 1.030, Urine Protein Negative, Urine Glucose (UA) Negative, Urine Ketones Negative, Urine Blood 2+ A, Urine Nitrate Negative, Urine Bilirubin Negative, Urine Urobilinogen 0.2, Ur Leukocyte Esterase Negative, Urine RBC 5-10, Urine WBC 5-10, Ur Squamous Epith Cells 10-20, Urine Bacteria 2+, Urine HCG, Qual Negative Orders (Tests/Meds): ED MEDICATIONS Discontinued Medications Generic Name Dose Route Start Last Admin Trade Name Freq PRN Reason Stop Dose Admin Acetaminophen 1,000 mg 11/28/24 15:04 11/28/24 15:14 Acetaminophen 500mg Tab PO 11/28/24 15:05 1,000 mg ONCE ONE Administration Ibuprofen 400 mg 11/28/24 15:04 11/28/24 15:13 Ibuprofen 400 Mg Tablet PO 11/28/24 15:05 400 mg ONCE ONE Administration Methocarbamol 1,500 mg 11/28/24 15:06 11/28/24 15:14 Methocarbamol 500mg Tablet PO 11/28/24 15:07 1,500 mg ONCE ONE Administration ORDERS Category Date Time Status Urinalysis and Microscopic Stat Lab 11/28/24 15:12 Completed Urine , HCG Qual. Stat Lab 11/28/24 15:12 Completed Urine Culture Stat Micro 11/28/24 15:12 Received Medical Decision Narrative: In summary, this 39-year-old female with a history of obstructive sleep apnea and UTIs presents to the emergency department today with left lower back pain shooting down her left lower extremity. On initial evaluation patient is afebrile, hemodynamically stable, nontoxic-appearing, neurologically intact with no other red flag symptoms for cord compression syndrome. Differential diagnosis includes but is not limited to degenerative disc disease, sciatica, disc herniation, cord compression syndrome, UTI, pyelonephritis. Based on these concerns, I ordered urinalysis. Suspect sciatica is the primary etiology of patient's symptoms. She may also have a herniated disc, however is neurologically intact with no indication for CT imaging at this time, though was considered. Patient received Tylenol, ibuprofen, Robaxin for treatment. Labs personally reviewed demonstrate negative and UA for UTI. On reassessment in stable condition and remains neurologically intact and ambulatory. She has to follow-up with primary care physician and pursue physical therapy. If symptoms persist after several weeks of physical therapy, she can consider MRI imaging however is not indicated at this time. Ultimately discharged in stable condition. Critical Care Critical Care Time Critical Care Time: No
--- NOTE | 2024-11-28 14:59 | PC.NURSE ---
DR GUZMÁN AT BEDSIDE
[2024-11-28] MEDS: IBUPROFEN 400 MG TABLET PO (15:13)
[2024-11-28] MEDS: METHOCARBAMOL 500MG TABLET 1500 MG PO (15:14)
[2024-11-28] MEDS: ACETAMINOPHEN 500MG TAB 1000 MG PO (15:14)
[2024-11-28 15:24] LABS: Microscopic, Urine URINE MICROSCOPIC (MICROSCOPIC)
[2024-11-28 15:32] LABS: Appearance,Urine CLEAR (Clear); Bilirubin,Urine Negative (Negative); Blood, Urine 2+ (Negative); Color,Urine YELLOW (Yellow); Glucose,Urine (UA) Negative (Negative); Ketones,Urine Negative (Negative); Leukocyte Esterase,Urine Negative (Negative); Nitrate,Urine Negative (Negative); Protein,Urine Negative (Negative); Specific Gravity, Urine >= 1.030 (1.005-1.030); Urobilinogen,Urine 0.2 EU/dl (0.2)
[2024-11-28 15:33] LABS: Urine Pregnancy, HCG Qual. Negative (Negative)
[2024-11-28 16:09] LABS: Bacteria,Urine 2+ /lpf
[2024-11-28 16:19] VITALS: BP 130/65; PULSE 90; RESP 18; TEMP 37.3; O2SAT 99
== END 2024-11-28 16:21 | disposition home or self-care (01) ==
PROVIDERS: Emergency Provider Student in an Organized Health Care Education/Training Program; PCP Nurse Practitioner Family
DX: M54.50 Low back pain, unspecified (principal); M79.605 Pain in left leg; R10.2 Pelvic and perineal pain; F17.210 Nicotine dependence, cigarettes, uncomplicated
CPT/HCPCS: 81001; 81025; 87086; 99283

== ENCOUNTER 2024-12-08 16:07 | Outpatient (CLI) | payer OTHER, SELFPAY ==
--- NOTE | 2024-12-08 16:10 | XR_ITS ---
FINAL REPORT TECHNIQUE: Lumbar spine 3 views CLINICAL HISTORY: scoliosis COMPARISON: None FINDINGS: LUMBAR SPINE: No fracture is identified. Minimal levoscoliosis is present. There is mild degenerative narrowing of the L4-5 disc space. IMPRESSION: Mild degenerative change without acute bony abnormality.. Reviewed, Interpreted and Dictated by Bradley Chávez MD Transcribed by Tisha Flores Authenticated and [facility]
[2024-12-08 19:01] LABS: Microscopic, Urine URINE MICROSCOPIC (MICROSCOPIC)
[2024-12-08 19:49] LABS: Appearance,Urine CLEAR (Clear); Bilirubin,Urine Negative (Negative); Blood, Urine MODERATE (Negative); Color,Urine YELLOW (Yellow); Glucose,Urine (UA) Negative (Negative); Ketones,Urine TRACE (Negative); Leukocyte Esterase,Urine Negative (Negative); Nitrate,Urine Negative (Negative); PH,Urine 6.5 (5.0-8.5); Protein,Urine Negative (Negative); Specific Gravity, Urine 1.025 (1.005-1.030); Urobilinogen,Urine 0.2 EU/dl (0.2)
[2024-12-08 19:57] LABS: Basophils % 0.3 % (0.1-2.0); Eosinophils # 0.1 K/mm3 (0.0-0.4); Hematocrit 42.9 % (37.0-47.0); Hemoglobin 14.7 g/dL (12.2-16.2); Lymphocytes # 3.2 K/mm3 (0.7-4.5); Lymphocytes % 36.8 % (10-50); Mean Corpuscular HGB Conc 34.3 g/dL (31.8-35.4); Mean Corpuscular Hemoglobin 34.9 pg (27.0-31.2); Mean Corpuscular Volume 101.9 fl (81-99); Mean Platelet Volume 10.8 fl (7.4-10.4); Monocytes # 0.6 K/mm3 (0.1-1.0); Monocytes % 6.6 % (1.7-9.3); Neutrophils # 4.7 K/mm3 (1.8-7.8); Neutrophils % 55.1 % (37.0-80.0); Platelet Count 216 K/mm3 (142-424); Red Blood Count 4.21 M/mm3 (4.20-5.40); Red Cell Distribution Width 12.3 % (11.5-17.5); White Blood Count 8.6 K/mm3 (4.8-10.8)
[2024-12-08 20:50] LABS: Bacteria,Urine 1+ /lpf
[2024-12-08 22:18] LABS: Vitamin B12 371 pg/mL (239-931)
== END 2024-12-08 23:59 | disposition home or self-care (01) ==
LOC: RAD 16:08
PROVIDERS: PCP Nurse Practitioner Family; Visit Provider Nurse Practitioner Family
DX: M41.9 Scoliosis, unspecified (principal); M54.50 Low back pain, unspecified; M79.605 Pain in left leg; E53.8 Deficiency of other specified B group vitamins; R31.9 Hematuria, unspecified
CPT/HCPCS: 72100; 81001; 82607; 85025; 86340; 87086

== ENCOUNTER 2024-12-11 08:37 | Day surgery (SDC) | payer OTHER, SELFPAY ==
[2024-12-10 14:42] VITALS: BMI 35.5
[2024-12-11 08:45] VITALS: BP 128/72; PULSE 72; RESP 16; TEMP 36.1; O2SAT 97
--- NOTE | 2024-12-11 09:05 | P.PCN_ITS ---
[facility] Procedure Note Date: 12/11/24 Time: 09:05 Procedure Note:: Chart review: The patient is here to be evaluated for 5-10 red cells per high- powered field. She has symptoms of urge incontinence and stress urinary incontinence the patient CT scan with infusion the urologic was negative on 10/17. The patient had to stop Ditropan because of mouth issues. However, Ditropan did show efficacy with her overactive bladder. She has been on Estrace vaginal cream. Preop diagnosis: Hematuria Postop diagnosis: Hematuria; urethritis Cystoscopy: The patient was brought to the cystoscopy suite. She is prepped and draped in the standard fashion. She underwent catheterized urine for urinalysis and urine culture. Patient then underwent flexible cystoscopy. The patient has significant urethritis. This very well may be the source of the hematuria. She also has some pseudomembranous trigonitis noted. The bladder itself is free of stone tumor hemorrhage or infection. The ureteral orifice ease are normal bilaterally with clear E flux of urine. The patient tolerated the procedure wel pauly
[2024-12-11] MEDS: 0.9 % SODIUM CHLORIDE 500 ML 25 ML IV (09:13)
[2024-12-11 09:16] VITALS: BP 115/78; PULSE 70; RESP 16; TEMP 36.5; O2SAT 97
[2024-12-11 13:39] LABS: Microscopic,Cath URINE MICROSCOPIC (MICROSCOPIC)
[2024-12-11 14:15] LABS: Appearance,Urine/Cath CLEAR (Clear); Bilirubin,Cath Negative (Negative); Blood, Urine/Cath MODERATE (Negative); Color,Urine/Cath YELLOW (Yellow); Glucose,Urine/Cath (UA) Negative (Negative); Ketones,Urine/Cath Negative (Negative); Leukocyte Esterase,Cath Negative (Negative); Nitrate,Cath Negative (Negative); Protein,Urine/Cath Negative (Negative); Specific Gravity, Urine/Cath 1.025 (1.005-1.030); Urobilinogen,Cath 0.2 EU/dl (0.2)
[2024-12-11 14:30] LABS: Squamous Epithelial Ur./Cath Occasional #/hpf (0-5)
== END 2024-12-11 09:30 | disposition home or self-care (01) ==
PROVIDERS: PCP Nurse Practitioner Family; Visit Provider Urology
PROC: 0TJB8ZZ Inspection of Bladder, Via Natural or Artificial Opening Endoscopic (ICD-10-PCS; CPT 52000; principal; 2024-12-11 09:45)
DX: N34.2 Other urethritis (principal); N30.31 Trigonitis with hematuria; R31.9 Hematuria, unspecified; N39.46 Mixed incontinence; N32.81 Overactive bladder
CPT/HCPCS: 52000; 81001

== ENCOUNTER 2024-12-22 09:33 | Outpatient (CLI) | payer OTHER, SELFPAY ==
--- NOTE | 2024-12-22 09:45 | MR_ITS ---
FINAL REPORT TECHNIQUE: Multiplanar MR without contrast CLINICAL HISTORY: lower back pain WORSE ON LEFT SIDE. LEFT LEG PAIN, NUMBNESS AND TINGLING. NO INJURY OR TRAUMA FINDINGS: Sagittal images show normal vertebral height. Alignment is normal. Marrow signal pattern is unremarkable. T12-L1: Unremarkable. L1-2: No disc protrusion or canal stenosis. 2 cysts are seen within the right paraspinal musculature which could represent synovial cyst from the right facet joint. There is no involvement of the spinal canal or nerve root compression. L2-3: Unremarkable L3-4: Unremarkable L4-5: Minimal annular disc bulge with mild facet arthropathy. L5-S1: Mild annular disc bulge with mild facet arthropathy. IMPRESSION: Mild degenerative changes without canal stenosis or nerve root compression. Reviewed, Interpreted and Dictated by Bradley Chávez MD Transcribed by Ladan Hooks Authenticated and [facility]
== END 2024-12-22 23:59 | disposition home or self-care (01) ==
LOC: RAD 09:34
PROVIDERS: PCP Nurse Practitioner Family; Visit Provider Nurse Practitioner Family
DX: M41.9 Scoliosis, unspecified (principal); M54.50 Low back pain, unspecified; M79.605 Pain in left leg
CPT/HCPCS: 72148

== ENCOUNTER 2025-01-11 09:34 | Outpatient (CLI) | payer OTHER, SELFPAY ==
[2025-01-11 15:30] LABS: Microscopic, Urine URINE MICROSCOPIC (MICROSCOPIC)
[2025-01-11 16:05] LABS: Appearance,Urine CLEAR (Clear); Bilirubin,Urine Negative (Negative); Blood, Urine 2+ (Negative); Color,Urine YELLOW (Yellow); Glucose,Urine (UA) Negative (Negative); Ketones,Urine Negative (Negative); Leukocyte Esterase,Urine Negative (Negative); Nitrate,Urine Negative (Negative); Protein,Urine Negative (Negative); Urobilinogen,Urine 0.2 EU/dl (0.2)
[2025-01-11 16:12] LABS: Specific Gravity, Urine 1.025 (1.005-1.030)
[2025-01-11 18:19] LABS: Squamous Epithelial Cell,Urine Occasional #/hpf (0-5)
[2025-01-11 18:20] LABS: Amorphous Sediment,Urine 4+ /lpf
--- OUTSIDE RECORDS SUMMARY | 2025-01-12 14:07 | XMS_ITS | Data Portability ---
Author Organization [facility] [place] [facility] AD[facility] Address [address] [place] [address] Care Team Providers Care Executive Officer Special Warfare Team Name Role Phone CHATO BERMUDEZ Primary Care Provider Assessment Encounter Date Assessment Date Assessment LastModified by Organization Details LastModified Time 07/22/2024 07/22/2024 Ms. Pelletier is a 39-year-old female here for: 1)Left lower quadrant 2)Acute diverticulitis 3)Chronic Idiopathic constipation -Finished Cipro and Flagyl x 10 days -Will schedule colonoscopy in 6 weeks for further evaluation of diverticulitis. -Patient instructed to start fiber supplement once daily such as Metamucil or Citrucel as it has a protective effect to help prevent worsening disease and can reduce recurrent episodes -Patient educated that looser stools are permissive. - Start Linzess 145 mcg (samples given) - Bentyl prescribed for abdominal pain - Recent endometrial ablation could also cause pelvic pain. I instructed patient it was okay to take ibuprofen short term for that pain. I recommended no more than 400 mg every 6 hours for 3 days and then switch to Tylenol if still needed pain relief - work excuse given for the next week off given ongoing symptoms 4)Hepatic Steatosis - counseled on diet and exercise - plan to check LFTs at next visit [email or web address] Not available 07/22/2024 12:57:05 11/18/2024 11/18/2024 Follow up after colonoscopy. Patient to complete extended bowel prep. [email or web address] Not available 11/19/2024 13:13:53 Plan of Treatment Reminders Order Date Submit Date Provider Last Modified By Organization Details Last Modified Time Details Appointments None recorded. Lab nonalcoholi c steatohepat itis + fibrosis panel, serum or plasma 2023 024 [facility] 64 [facility], [address], [address], [place], [address], 5 12:42:21 hepatic function panel, serum 2023 024 [facility], [address], [address], [place], [address], 4 11:06:17 Referral None recorded. Procedures None recorded. Surgeries None recorded. Imaging XR, kidney + ureter + bladder - constipatio n 2024 025 [facility] 64 [facility] (Registration ), [address] [facility], [place], [address], 5 15:02:44 Medication Orders Fiber-Tabs 625 mg tablet 2024 025 [facility], [address] [place] [address] [address], [place], [place], [id number], 5 13:56:27 Linzess 72 mcg capsule 2023 024 [facility], [address] [place] [address] [address], [place], [place], [id number], 4 15:42:23 Linzess 145 mcg capsule 2023 025 [facility], [address] [place] [address] [address], [place], [place], [id number], 5 12:18:11 dicyclomine 10 mg capsule 2023 024 [facility], [address] [place] [address] [address] [place], [place], [id number], 5 15:13:51 methylcellu lose (laxative) 500 mg tablet 2023 024 [facility], [address] [place] [address] [address] [place], [id number], 4 13:08:14 Patient TargetsNo targets recorded. Patient InstructionsNo instructions recorded. Reason for Referral None Reported. Results Created Date Observation Date Name Description Value Unit Range Abnormal Flag Note LastModifiedBy Organization Detail LastModifiedTime 11/18/1911/18/2024 XR, abdom en, [facility] [address] [place] [address] Phone: Fax: Name: ANTONIO Colon MARIE PALOMINO Exam Date: : 985 Age 39 years Gender : F Access ion: [id number] Physic juan manuel: SERENE PATEL Facili ty: [facility] Facili ty HSV: Outpat ient Exam: ABD KUB 1V PROCED URE: XR ABDOME N 1 VIEW (KUB) Techni que: 1 view abdome n Compar lesly: No simila r prior study HX: CHRONI C IDIOPA THIC CONSTI PATION Findin gs:The bowel gas patter n is unrema rkable . Nonspe cific quanti ty of coloni c stool. Grossl y, No free air is identi fied. No bowel obstru ction is seen. This is a limite d single view. IMPRES GIL: Nonspe cific bowel gas patter n. Electr onical ly signed by: Obed Stewart MD 2024 02:40 PM EST RP Workst ation: [id number] Dictat ed By: Obed Stewart Transc ribed By: Transc ribed On: 12:36 PM Electr onical ly signed by: Obed Stewart Thank you for referr edda MARIE RENYA to [facility]. Legall y authen ticate d by ANGEL KHAN 11-18 12:36: 27 CC'ed Logic: Orderi ng Provid er: AMANDA CAST Attend ing Provid er: AMANDA CAST Admitt ing Provid er: AMANDA CAST [id number] [facility] [address], [place], [address], 11/25/2024 14:39:03 Result Notes None recorded. Procedures Surgical History None recorded. Imaging Results Imaging Date Name Status LastModified by Organiz ation Details LastModified Time 11/18/2024 XR, abdomen, 1 view completed [email or web address] [facility] [address] [place] [address], [place], [address], 11/25/2024 14:39:03 Procedure Notes None recorded. Medical Equipment None Reported. Allergies No known drug allergies Medications Name Sig Start Date Stop Date Status Note LastModified by Organization Details LastModified Time fluconazole 100 mg tablet TAKE ONE TABLET BY MOUTH ONCE DAILY FOR FOURTEEN DAYS -- FINISH ALL MEDICINE -- active Not Available Not Available No t Available clotrimazol e 10 mg danny DISSOLVE ONE TABLET in affected AREA of MOUTH FIVE TIMES DAILY FOR FOURTEEN DAYS 11/18 completed Not Available Not Available Not Available oxybutynin chloride ER 10 mg tablet,exte nded release 24 hr TAKE ONE TABLET BY MOUTH EVERY DAY active Not Available Not Available No t Available azithromyci n 250 mg tablet TAKE 2 TABLETS BY MOUTH ON DAY 1, THEN TAKE 1 TABLET DAILY ON DAYS 2-5 active Not Available Not Available No t Available fluconazole 150 mg tablet TAKE ONE TABLET BY MOUTH ONCE DAILY FOR 5 DAYS active Not Available Not Available No t Available clindamycin HCl 150 mg capsule TAKE ONE CAPSULE BY MOUTH THREE TIMES DAILY UNTIL GONE active Not Available Not Available No t Available metronidazo le 500 mg tablet TAKE ONE TABLET BY MOUTH TWICE DAILY FOR 10 DAYS --AVOID ANY PRODUCT(S ) CONTAININ G ALCOHOL WHILE TAKING THIS MEDICATIO N-- active Not Available Not Available No t Available ciprofloxac in 500 mg tablet TAKE ONE TABLET BY MOUTH TWICE DAILY FOR 10 DAYS active Not Available Not Available No t Available tramadol 50 mg tablet TAKE ONE TABLET BY MOUTH EVERY 8 HOURS NEEDED FOR pain MAY CAUSE DROWSINES S 11/18 completed Not Available Not Available Not Available oxycodone-a cetaminophe n 5 mg-325 mg tablet 12/02 /2024 completed Not Available Not Available Not Available methocarbam ol 750 mg tablet TAKE TWO TABLETS BY MOUTH THREE TIMES DAILY MAY CAUSE DROWSINES S active Not Available Not Available No t Available oxycodone-a cetaminophe n 10 mg-325 mg tablet TAKE ONE TABLET BY MOUTH EVERY 8 HOURS NEEDED FOR PAIN MAY CAUSE DROWSINES S 11/18 completed Not Available Not Available Not Available methylcellu lose (laxative) 500 mg tablet Take 2 tablets every day by oral route as directed for 30 days, for constipat ion. 2023 active Not Available Not Available Not Avai lable lidocaine 5 % topical patch APPLY 1 PATCH TOPICALLY TO THE AFFECTED AREA ONCE DAILY AND LEAVE IN PLACE FOR 12 HOURS, THEN REMOVE AND LEAVE OFF FOR 12 HOURS active Not Available Not Available No t Available promethazin e 25 mg tablet TAKE ONE TABLET BY MOUTH EVERY 4 TO 6 HOURS NEEDED FOR NAUSEA active Not Available Not Available No t Available ibuprofen 600 mg tablet TAKE ONE TABLET BY MOUTH EVERY 8 HOURS --TAKE WITH FOOD-- active Not Available Not Available No t Available polyethylen e glycol 3350 17 gram/dose oral powder DISSOLVE 17 GRAMS OF POWDER INTO 4 TO 8 OUNCES OF WATER, JUICE, SODA, COFFEE, OR TEA THEN DRINK TWICE DAILY active Not Available Not Available No t Available levofloxaci n 500 mg tablet active Not Available Not Available Not Available estradiol 0.01% (0.1 mg/gram) vaginal cream USE 1 APPLICATO RFUL VAGINALLY EVERY DAY, USE FINGER TECHNIQUE FOR 14 DAYS AND THEREAFTE R 3 TIMES WEEKLY 11/18 completed Not Available Not Available Not Available methylpredn isolone 4 mg tablets in a dose pack TAKE ACCORDING TO PACKAGE INSTRUCTI ONS --TAKE WITH FOOD-- -- FINISH ALL MEDICINE -- active Not Available Not Available No t Available Fiber-Tabs 625 mg tablet Take 2 tablets every day by oral route as directed for 30 days, for constipat ion. 2024 active Not Available Not Available Not Avai lable doxycycline hyclate 100 mg tablet TAKE ONE TABLET BY MOUTH TWICE DAILY FOR FOURTEEN DAYS -- FINISH ALL MEDICINE -- active Not Available Not Available No t Available dicyclomine 10 mg capsule TAKE ONE CAPSULE BY MOUTH THREE TIMES DAILY NEEDED FOR ABDOMINAL PAIN active Not Available Not Available No t Available amoxicillin 875 mg-potassiu m clavulanate 125 mg tablet TAKE ONE TABLET BY MOUTH TWICE DAILY FOR 10 DAYS -- FINISH ALL MEDICINE -- 11/18 completed Not Available Not Available Not Available Symbicort 160 mcg-4.5 mcg/actuati on HFA aerosol inhaler INHALE TWO PUFFS BY MOUTH TWICE DAILY active Not Available Not Available No t Available sodium,pota ssium,mag sulfates 17.5 gram-3.13 gram-1.6 gram oral soln DILUTE AND USE DIRECTED; DRINK FULL AMOUNT BY MOUTH EARLY EVENING BEFORE AND NEXT MORNING AT LEAST 4-5 HOURS BEFORE PROCEDURE ; FOLLOW WITH 32 OUNCES OF WATER DIRECTED 11/18 completed Not Available Not Available Not Available Linzess 145 mcg capsule TAKE ONE CAPSULE BY MOUTH EVERY DAY BEFORE MEAL FOR CONSTIPAT ION 11/18 completed Not Available Not Available Not Available Linzess 72 mcg capsule Take 1 capsule every day by oral route in the morning for 30 days. active Not Available Not Available No t Available Gemtesa 75 mg tablet TAKE ONE TABLET BY MOUTH EVERY DAY active Not Available Not Available No t Available Airsupra 90 mcg-80 mcg/actuati on HFA aerosol inhaler active Not Available Not Available Not Available Vitals Date Recorded Body weight Body mass index (BMI) Body height Body temperature Heart rate Heart rate Systolic blood pressure Diastolic blood pressure Provider Name and Address Organization Details Last Updated DateTime 4 73692.5 g 34.2 kg/m2 167.64 cm 97.9 [degF] 89 /min 87 /min 123 mm[Hg] 78 mm[Hg] [facility] 4 11:02:16 Date Recorded Body height Body mass index (BMI) Body weight Oxygen saturation Oxygen saturation in Arterial blood by Pulse oximetry Heart rate Heart rate Body temperature Systolic blood pressure Diastolic blood pressure Provider Name and Address Organization Details Last Updated DateTime 4 167.64 cm 34.9 kg/m2 43159.3 1 g 98 % 98 % 92 /min 86 /min 98.1 [degF] 108 mm[Hg] 72 mm[Hg] Letty Mckeon [place] [facility] 4 09:57:28 Date Recorded Body height Body mass index (BMI) Body weight Oxygen saturation Oxygen saturation in Arterial blood by Pulse oximetry Heart rate Body temperature Heart rate Systolic blood pressure Diastolic blood pressure Provider Name and Address Organization Details Last Updated DateTime 167.64 cm 34.8 kg/m2 00071.8 g 98 % 98 % 80 /min 97.8 [degF] 78 /min 110 mm[Hg] 79 mm[Hg] Letty Mckeon [place] - [facility] - [place] & [place] 11:22:19 Social History None recorded. Functional Status None recorded. Mental Status None recorded. Family History Relationship Description Onset Age of this Age Resolved Age Notes LastModified by Organization Details LastModified Time Father Chronic obstructive pulmonary disease pt. added direct ly (07/21) [email or web address] Not available 07/21/2024 17:20:26 Father Anemia pt. added direct ly (07/21) [email or web address] Not available 07/21/2024 17:20:38 Father Myocardial infarction pt. added direct ly (07/21) [email or web address] Not available 07/21/2024 17:20:48 Father Heart disease pt. added direct ly (07/21) [email or web address] Not available 07/21/2024 17:21:05 Mother Cerebrovascu lar accident pt. added direct ly (07/21) [email or web address] Not available 07/21/2024 17:21:22 Medical History No medical history recorded. Gynecological HistoryNo gynecological history recorded. Obstetrics History GPAL:G 0 P 0 0 0 0 Past Encounters Encounter ID Performer Location Encounter Start Date Encounter Closed Date Diagnosis/Indication Diagnosis SNOMED-CT Code Diagnosis ICD10 Code Diagnosis Note [id number] ALEXSANDRA MONGE NP [facility] [address] [address] 07/22/2024 10:55:33 07/22/2024 11:57:15 Chronic idiopathic constipation 79990674 K59.04 Abdominal pain 43882602 R10.9 Diverticul itis of colon 150978378 K57.32 Steatosis of liver 1007 K76.0 [id number] SERENE PATEL NP [facility] [address] [address] 08/27/2024 09:41:08 08/27/2024 10:54:31 Chronic idiopathic constipation 15857598 K59.04 Decrease Linzess dose, advised to take daily.Cont inue 1 capsule Citrucel and discontinu e fiber-tab. Adjust dose as needed. Steatosis of liver 1007 K76.0 History of hepatic steatosis. Labs today. History of diverticulitis 0360475543 06522 Z87.19 Colonoscop y recommende d, schedule today. Abdominal pain 78007933 R10.9 Okay to continue dicyclomin e. Discussed that constipati on is a side effect. [id number] SERENE PATEL NP [facility] [address] [facility] [address] [place] [address] 11/18/2024 11:08:09 11/18/2024 12:07:53 Chronic idiopathic constipation 41112114 K59.04 Advised to take Linzess every day consistent ly. Okay to restart fiber, but dose and frequency can be adjusted if needed. Obtain KUB today to assess for constipati on. Consider motegrity if no improvemen t. Steatosis of liver 1007 K76.0 History of hepatic steatosis. Slight elevation in AST on most recent labs. History of diverticulitis [id number] 76037 Z87.19 Repeat colonoscop y scheduled. Health Concerns Section Related Observation LastModified by Organization Detai ls LastModified Time None Recorded Concern Status LastModified by Organization Details LastModified Time None Recorded Advance Directives Directive None Recorded Payers Encounter Date Sequence Insurance Name Policy Number Policy Garcia Covered Member ID Garcia Member ID Guarantor Name 07/22/2024 1 [employer] [facility] (MEDICAID HMO) Laila Herrera [id number] Laila Headleymarlen 08/27/2024 1 [employer] [facility] (MEDICAID HMO) Laila Sharon [id number] Laila Herrera 11/18/2024 1 [employer] [facility] (MEDICAID HMO) Laila Sharon [id number] Laila Sharon Notes Date Note Type Note Provider Name and Address Organization Details Recorded Time 07/22/2024 text/html Ms. Herrera in h is 39-year-old female referred to us by Chato Bermudez APRN for left lower quadrant pain and recent diverticulitis. a josue was seen at [facility] on July 11 for left upper quadrant pain. CT abdomen at that time showed acute sigmoid diverticulitis and hepatic steatosis. She was treated with metronidazole and ciprofloxacin. Today continues to report left lower quadrant pain. She has been taking MiraLax 3 times a day and reports stools appear softer , but she does not feel like it is truly helping. She does occasionally have to strain or have hard stools. Of note she also had endometrial ablation today and his prescribed narcotics for pain. she denies any unintentional weight loss, nausea / vomiting Or bloody stools. ALEXSANDRA MONGE, ELECTRIC FURNACE OPERATOR [address] [facility], [place], [address], [place] - [place] & [place] 07/22/2024 12:57:49 08/27/2024 text/html PREVIOUS ( Deysi Monge): Ms. Herrera in his 39-year-old female referred to us by Chato Bermudez APRN for left lower quadrant pain and recent diverticulitis. a josue was seen at [facility] on July 11 for left upper quadrant pain. CT abdomen at that time showed acute sigmoid diverticulitis and hepatic steatosis. She was treated with metronidazole and ciprofloxacin. Today continues to report left lower quadrant pain. She has been taking MiraLax 3 times a day and reports stools appear softer , but she does not feel like it is truly helping. She does occasionally have to strain or have hard stools. Of note she also had endometrial ablation today and his prescribed narcotics for pain. she denies any unintentional weight loss, nausea / vomiting Or bloody stools. CURRENT: Ms. Herrera is a 39 yr old female here today for follow up.She has been taking Linzess 145 mcg every 3 days, 1 capsule Citrucel daily, and 1 fiber-tab BID for 6 weeks. Linzess daily causes severe diarrhea. Her bowels are moving more regularly, but evacuation is incomplete. She is also taking dicyclomine BID, which is not very effective for abdominal pain. She continues to complain of LLQ pain. She is due for colonoscopy for follow up of diverticulitis. She says Dr. Darling attempted colonoscopy years ago, but it was incomplete due to poor prep. She was diagnosed with fatty liver disease [address] showed steatosis. SERENE PATEL, COLT [address], [place], [address], [place] - [facility] - [place] & [place] 08/28/2024 14:23:17 11/18/2024 text/html PREVIOUS: Ms. Herrera is a 39 yr old female here today for follow up.She has been taking Linzess 145 mcg every 3 days, 1 capsule Citrucel daily, and 1 fiber-tab BID for 6 weeks. Linzess daily causes severe diarrhea. Her bowels are moving more regularly, but evacuation is incomplete. She is also taking dicyclomine BID, which is not very effective for abdominal pain. She continues to complain of LLQ pain. She is due for colonoscopy for follow up of diverticulitis. She says Dr. Darling attempted colonoscopy years ago, but it was incomplete due to poor prep. She was diagnosed with fatty liver disease [address] showed steatosis. CURRENT: Laila Herrera is a 39-year-old female here today for procedure follow-up.A colonoscopy was performed on 10/13/[address] Darling for follow-up of diverticulitis. The scope was aborted due to findings of stool throughout the colon. She states she completed the split bowel prep and that her stool was clear when she arrived for colonoscopy. This is the second colonoscopy aborted due to poor prep. She is rescheduled for November. She has continued Linzess 72 mcg, but is taking the medication every 3 days. The medication does produce BM, but is generally loose and she goes multiple times that day. She is out of her fiber supplement. Abdominal pain has resolved. SERENE PATEL NP [address], [place], [address], [place] [facility] - [place] 11/19/2024 13:22:20 OBGyn Episode No OBEpisode recorded.
--- OUTSIDE RECORDS SUMMARY | 2025-01-12 14:07 | XMS_ITS ---
Care Plan - [facility], [facility] Created on: January 12, 2025 Laila Herrera : 1985 Sex: Female Author Organization [facility] Address [address] [place] [address] Phone Care Team Providers Care Flotation Operator Name Role Phone Dm LOPEZ, Arnulfo Baker Unavailable [phone]
--- OUTSIDE RECORDS SUMMARY | 2025-01-12 14:07 | XMS_ITS ---
Author Organization [facility] , [facility] Address [address] [place] [address] Phone Care Team Providers Care Biodiesel Plant Superintendent Name Role Phone Dm LOPEZ, Arnulfo Jenkins [phone] Plan of Treatment Future Appointments Date Time Location Provi cleve Physician Specified 01/21/2025 9:30AM [facility] Arnulfo Chaidez MD Last Documented On 9:06AM ; [facility] Assessments Includes: Assessments for all patient encounters No Assessments Recorded Medical Equipment - Implanted Devices Includes: Current and historical Devices No Medical Equipment Recorded Medications Administered Includes: Administered Medications in patient's chart No Administered Medications Recorded Results Includes: Results from 01/13/2024 through 01/12/2025 No Results Recorded For Specified Dates History of Present Illness History of Present Illness not supported for this document type No History of Present Illness Recorded Social History No Social History Recorded - Smoking Status Unknown Medical History Includes: Medical History in patient's chart No Medical History Recorded Family History Includes: Family History in patient's chart No Family History Recorded Review of Systems Review of Systems not supported for this document type No Review of Systems Recorded Mental Status No Mental Status Recorded Functional Status No Functional Status Recorded Physical Exam Physical Exam not supported for this document type No Physical Exam Recorded Insurance Includes: Active Insurance Policies Plan Name Member ID Group # Subscriber Relationship Effect anya Dates 1 - [employer] [facility] [id number] Laila Herrera Self Clinical Notes Includes: Signed Clinical Notes starting from 09/06/2022 No Clinical Notes Recorded
== END 2025-01-11 23:59 | disposition home or self-care (01) ==
LOC: LAB.DROPOF 01-12 14:05
PROVIDERS: PCP Urology; Visit Provider Urology
DX: N39.41 Urge incontinence (principal)
CPT/HCPCS: 81001

== ENCOUNTER 2025-02-01 13:56 | Outpatient (CLI) | payer OTHER, SELFPAY ==
[2025-02-01 17:00] LABS: Coronavirus 19, PCR Not Detected (NotDetected); Influenza A, PCR Not Detected (NotDetected); Influenza B, PCR Not Detected (NotDetected); Respiratory Syncytial Virus Not Detected (NotDetected)
[2025-02-01 20:32] LABS: Human Rhinovirus Detected (NotDetected)
[2025-02-01 20:52] LABS: Vitamin B12 915 pg/mL (239-931)
--- OUTSIDE RECORDS SUMMARY | 2025-02-02 14:10 | XMS_ITS | Data Portability ---
Author Organization [facility] [place] & GUS Roberts ADMIN Address [address] [place] [id number] Care Team Providers Care Routing Equipment Tender Name Role Phone CHATO BERMUDEZ Primary Care [...] colonoscopy. Patient to complete extended bowel prep. [email or web address] Not available 11/19/2024 13:13:53 Plan of Treatment Reminders Order Date Submit Date Provider Last Modified By Organization Details Last Modified Time Details Appointments None recorded. Lab nonalcoholi c steatohepat itis + fibrosis panel, serum or plasma 2023 024 [facility] 64 [facility], [address], [address], [place], [address], 5 12:42:21 hepatic function panel, serum 2023 024 [facility], [address], [address], [place], [address], 4 11:06:17 Referral None recorded. Procedures None recorded. Surgeries None recorded. Imaging XR, kidney + ureter + bladder - constipatio n 2024 025 [facility] 64 [facility] (Registration ), [address] [facility], [place], [address], 5 15:02:44 Medication Orders Fiber-Tabs 625 mg tablet 2024 025 [facility], [address] [place] [address] [address], [place], [place], [id number], 5 08:42:28 Linzess 72 mcg capsule 2023 024 [facility], [address] [place] [address] [address], [place], [place], [id number], 5 08:42:30 Linzess 145 mcg capsule 2023 025 [facility], [address] [place] [address] [address], [place], [place], [id number], 5 12:18:11 dicyclomine 10 mg capsule 2023 024 [facility], [address] [place] [address] [address] [place], [place], [id number], 5 15:13:51 methylcellu lose (laxative) 500 mg tablet 2023 024 [facility], [address] [place] [address] [address] [place], [id number], 4 13:08:14 Patient TargetsNo targets recorded. Patient InstructionsNo instructions recorded. Reason for Referral None Reported. Results Created Date Observation Date Name Description Value Unit Range Abnormal Flag Note LastModifiedBy Organization Detail LastModifiedTime 11/18/1911/18/2024 XR, abdom en, [facility] [address] [place] [address] Phone: Fax: Name: ANTONIO Colon MARIE PALOMINO Exam Date: : 985 Age 39 years Gender : F Access ion: [id number] Physic juan manuel: SERENE PATEL Facili ty: [facility] Facili ty HSV: Outpat ient Exam: ABD [...] Stewart Thank you for referr edda MARIE REYNA to [facility]. Legall y authen ticate d by ANGEL KHAN 11-18 12:36: 27 CC'ed Logic: Orderi ng Provid er: AMANDA CAST Attend ing Provid er: AMANDA CAST Admitt ing Provid er: AMANDA CAST [email or web address] [facility] - Physical Therapy [address], [place], [address], 11/25/2024 14:39:03 Result Notes None recorded. Procedures Surgical History None recorded. Imaging Results Imaging Date Name Status LastModified by Organiz ation Details LastModified Time 11/18/2024 XR, abdomen, 1 view completed [email or web address] [facility] [address] [place], [place], [address], 11/25/2024 14:39:03 Procedure Notes None recorded. Medical [...] Address Organization Details Last Updated DateTime 4 05069.5 g 34.2 kg/m2 167.64 cm 97.9 [degF] 89 /min 87 /min 123 mm[Hg] 78 mm[Hg] [facility] 4 11:02:16 Date Recorded Body height Body mass index (BMI) Body weight Oxygen saturation Oxygen saturation in Arterial blood by Pulse oximetry Heart rate Heart rate Body temperature Systolic blood pressure Diastolic blood pressure Provider Name and Address Organization Details Last Updated DateTime 4 167.64 cm 34.9 kg/m2 72516.3 1 g 98 % 98 % 92 /min 86 /min 98.1 [degF] 108 mm[Hg] 72 mm[Hg] Letty Mckeon [place] - [facility] 4 09:57:28 Date Recorded Body height Body mass index (BMI) Body weight Oxygen saturation Oxygen saturation in Arterial blood by Pulse oximetry Heart rate Body temperature Heart rate Systolic blood pressure Diastolic blood pressure Provider Name and Address Organization Details Last Updated DateTime 167.64 cm 34.8 kg/m2 92645.8 g 98 % 98 % 80 /min 97.8 [degF] 78 /min 110 mm[Hg] 79 mm[Hg] Letty Mckeon [place] - [facility] - [place] & [place] 11:22:19 Social History None recorded. Functional Status [...] SNOMED-CT Code Diagnosis ICD10 Code Diagnosis Note [id number] ALEXSANDRA MONGE NP [facility] [address] [address] 07/22/2024 10:55:33 07/22/2024 11:57:15 Chronic idiopathic constipation 51975496 K59.04 Abdominal pain 94590782 R10.9 Diverticul itis of colon 785196129 K57.32 Steatotic liver disease 629392065 K76.0 [id number] SERENE PATEL NP [facility] [address] [address] 08/27/2024 09:41:08 08/27/2024 10:54:31 Chronic idiopathic constipation 78710958 K59.04 Decrease Linzess dose, advised to take daily.Cont inue 1 capsule Citrucel and discontinu e fiber-tab. Adjust dose as needed. Steatotic liver disease 960682414 K76.0 History of hepatic steatosis. Labs today. History of diverticulitis [id number] 22766 Z87.19 Colonoscop y recommende d, schedule today. Abdominal pain 48302555 R10.9 Okay to continue dicyclomin e. Discussed that constipati on is a side effect. [id number] SERENE PATEL NP [facility] [address] [facility] [address] [place] [address] 11/18/2024 11:08:09 11/18/2024 12:07:53 Chronic idiopathic constipation 98203395 K59.04 Advised to take Linzess every day consistent ly. Okay to restart fiber, but dose and frequency can be adjusted if needed. Obtain KUB today to assess for constipati on. Consider motegrity if no improvemen t. Steatotic liver disease 153674562 K76.0 History of hepatic steatosis. Slight elevation in AST on most recent labs. History of diverticulitis [id number] 75829 Z87.19 Repeat colonoscop y scheduled. Health Concerns Section Related Observation LastModified by Organization Detai ls LastModified Time None Recorded Concern Status LastModified by Organization Details LastModified Time None Recorded Advance Directives Directive None Recorded Payers Insurance Date Sequence Insurance Name Policy Number Policy Garcia Covered Member ID Garcia Member ID Guarantor Name 12/12/[address] [facility] (MEDICAID HMO) Laila Herrera [id number] Laila Herrera Notes Date Note Type Note Provider Name and Address Organization Details Recorded Time 07/22/2024 text/html Ms. Herrera in h is 39-year-old female referred to us by Chato Bermudez APRN for left lower quadrant pain and recent diverticulitis. cortney salas was seen at [facility] on July 11 for left upper [...] nausea / vomiting Or bloody stools. ALEXSANDRA MONGE NP [address], [place], [address], [facility] & [place] 07/22/2024 12:57:49 08/27/2024 text/html PREVIOUS ( Deysi Monge): Ms. Herrera in his 39-year-old female referred to us by Chato Bermudez APRN for left lower quadrant pain and recent diverticulitis. a shell was seen at [facility] on July 11 for left upper [...] years ago. Recent CT showed steatosis. SERENE PATEL NP [address], [place], [address], [facility] & [place] 08/28/2024 14:23:17 11/18/2024 text/html PREVIOUS: Ms. Herrera [...] fiber supplement. Abdominal pain has resolved. SERENE PATEL, COL[address], [place], [address], [facility] - [place] - [place] & [place] 11/19/2024 13:22:20 OBGyn Episode No OBEpisode recorded.
== END 2025-02-01 23:59 | disposition home or self-care (01) ==
LOC: LAB.DROPOF 02-02 14:09
PROVIDERS: PCP Nurse Practitioner Family; Visit Provider Nurse Practitioner Family
DX: E53.8 Deficiency of other specified B group vitamins (principal); R05.9 Cough, unspecified; R52 Pain, unspecified
CPT/HCPCS: 82607; 87631

== ENCOUNTER 2025-04-05 13:30 | Outpatient (CLI) | payer OTHER, SELFPAY ==
[2025-04-05 14:41] LABS: Microscopic, Urine URINE MICROSCOPIC (MICROSCOPIC)
[2025-04-05 15:36] LABS: Bilirubin,Urine Negative (Negative); Color,Urine YELLOW (Yellow); Glucose,Urine (UA) Negative (Negative); Ketones,Urine Negative (Negative); Leukocyte Esterase,Urine Negative (Negative); PH,Urine 6.5 (5.0-8.5); Protein,Urine Negative (Negative); Specific Gravity, Urine 1.020 (1.005-1.030); Urobilinogen,Urine 0.2 EU/dl (0.2)
[2025-04-05 15:53] LABS: Bacteria,Urine 2+ /lpf
--- OUTSIDE RECORDS SUMMARY | 2025-04-06 13:21 | XMS_ITS | Encounter Summary ---
Author Organization Address [address] [place] [address] Care Team Providers Care Print Journalist Name Role Phone Unavailable Primary Care Provider Unavailabl e Reason for Referral * Consultation (Routine) - Authorized Specialty Diagnoses / Procedures Referred By Contac t Referred To Contact Oral Surgery Diagnoses Extraction of tooth needed Prem Hackett DMD [address] [place] [address] Phone: tel: fax: [facility] [address] [facility] [address] [place] [address] Phone: tel: Referral ID Status Reason Start Date Expiration Date Visits Requested Visits Authorized [id number] Authorized Specialty Services Required 12/08/2024 06/09/2026 1 1 Encounter Details Date Type Department Care Team (Late st Contact Info) Description 12/08/2024 [facility] [address] [place] [address] Prem Hackett DMD [address] [place] [address] [address] Extraction of tooth needed (Primary Dx) Social History Tobacco Use Types Packs/Day Years Used Date Smoking Tobacco: Never Assessed Comments Unknown Sex and Gender Information Value Date Recorded Sex Assigned at Not on file Legal Sex Female 8:41 PM EDT Gender Identity Not on file Sexual Orientation Not on file documented as of this encounter Plan of Treatment Scheduled Referrals Name Type Priority Associated Diagnoses Order Schedule Ambulatory referral to Oral Maxillofacial Surgery Outpatient Referral Routine Extraction of tooth needed Ordered: 12/08/2024 documented as of this encounter Visit Diagnoses Diagnosis Extraction of tooth needed- Primary documented in this encounter
--- OUTSIDE RECORDS SUMMARY | 2025-04-06 13:21 | XMS_ITS | Clinical Summary ---
Author Organization [facility] Address [address] [place] [address] Care Team Providers Care Digestion Operator Name Role Phone Unavailable Primary Care Provider Unavailabl e Social History Tobacco Use Types Packs/Day Years Used Date Smoking Tobacco: Never Assessed Comments Unknown Sex and Gender Information Value Date Recorded Sex Assigned at Not on file Legal Sex Female 8:41 PM EDT Gender Identity Not on file Sexual Orientation Not on file Plan of Treatment Not on file
--- OUTSIDE RECORDS SUMMARY | 2025-04-06 13:21 | XMS_ITS | Data Portability ---
Author Organization [facility] Address [address] [place] [address] Assessment No assessment recorded. Plan of Treatment Reminders Order Date Submit Date Provider Last Modified By Organization Details Last Modified Time Details Appointments None recorded. Lab urinalysis , dipstick 2023 024 [facility], [address] [facility], [place], [address], 4 16:34:38 culture, urine 2023 024 [facility], [address], Omar [address], [place], [address], 4 09:47:26 urinalysis , dipstick 2019 020 [email or web address], [address] [place] [address], [place], [address], 0 13:42:28 unlisted lab - compliance drug analysis, ur 2017 018 MAYRA [facility], [address], [address], [place], [address], 8 14:09:[address] referral 2023 024 MAYRA Torres MD, [address] [place] [address] [address], [place], [address], 4 10:58:43 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 Surgeries None recorded. Imaging electrocar diogram 2023 024 [facility], [address] [facility], [place], [address], 4 16:55:26 Medication Orders erythromyc in 5 mg/gram (0.5 %) eye ointment 2019 020 [facility], [address] [place], [address], 4 15:56:23 Macrobid 100 mg capsule 2019 [email or web address], [address], 0 16:23:50 fluconazol e 150 mg tablet 2019 [email or web address], [address], 0 16:23:42 Patient TargetsNo targets recorded. Patient Instructions Encounter Date Encounter Id Patient Instructions Last Modified By Organization Details Last Modified Time 05/04/2019 [id number] hip bursitis: care instructions Not available 05/04/2019 16:36:37 Refer to podiart y for permament toenail removal. Discussed stretching exercises and ice packs for the L GTB, if not improving then may refer to ortho for evaluation and possible injection. Not available 05/04/2019 16:39:39 05/02/2020 [id number] Plan: - RTC if s/sx persist or worsen. [email or web address] Not available 05/02/2020 14:02:09 06/17/2020 [id number] use warm compresses 4 x daily, baby shampoo eye lash wash, ibuprofen for pain, abx ointment. f/u if no improvement [email or web address] Not available 06/17/2020 16:40:53 Reason for Referral [facility]n [facility] Referral for Onyc hogryphosis Referring Physician: Abilio Muniz, Family Medicine, Encounter Date: 05/04/2019 [facility] Referral for Ch est pain Referring Physician: Adrien Machado [facility], Encounter Date: 06/22/2024 Results Created Date Observation Date Name Description Value Unit Range Abnormal Flag Note LastModifiedBy Organization Detail LastModifiedTime 05/02/2005/02/2020 urina lysis , dipst ick Leukocytes Small Not Available [facility] [place] [address] [facility], [place], [address], 05/02/2020 13:41:04 05/02/20 20 05/02/2020 urina lysis , dipst ick Nitrite negati ve Not Available [facility] [place] [address], [place], [address], 05/02/2020 13:41:04 05/02/2005/02/2020 urina lysis , dipst ick Urobilinogen .2 Not Available [facility] [place] [address], [place], [address], 05/02/2020 13:41:04 05/02/20 20 05/02/2020 urina lysis , dipst ick Protein Negati ve Not Available [facility] [place] [address], [place], [address], 05/02/2020 13:41:04 05/02/20 20 05/02/2020 urina lysis , dipst ick pH 7.0 Not Available [facility] [place] [address], [place], [address], 05/02/2020 13:41:04 05/02/20 20 05/02/2020 urina lysis , dipst ick Blood Modera te Not Available [facility] [address], [place], [address], 05/02/2020 13:41:04 05/02/20 20 05/02/2020 urina lysis , dipst ick Specific [place] 1.025 Not Available [facility] [address], [place], [address], 05/02/2020 13:41:04 05/02/20 20 05/02/2020 urina lysis , dipst ick Ketone Negati ve Not Available [facility] [address], [place], [address], 05/02/2020 13:41:04 05/02/20 20 05/02/2020 urina lysis , dipst ick Bilirubin Negati ve Not Available [facility] [address], [place], [address], 05/02/2020 13:41:04 05/02/20 20 05/02/2020 urina lysis , dipst ick Glucose Negati ve Not Available [facility] [address], [place], [address], 05/02/2020 13:41:04 05/02/2005/02/2020 urina lysis , dipst ick Appearance Slight ly Cloudy Not Available [facility] [address], [place], [address], 05/02/2020 13:41:04 05/02/2005/02/2020 urina lysis , dipst ick Color Dark Yellow Not Available [facility] [address], [place], [address], 05/02/2020 13:41:04 05/06/20 18 05/10/2018 drug scree n, urine summary FINAL ===== ===== ===== ===== ===== ===== ===== ===== ===== ===== ===== ===== ===== === TOXAS SURE COMP DRUG SCARLETT SIS,U R ===== ===== ===== ===== ===== ===== ===== ===== ===== ===== ===== ===== ===== === Test Resul t Flag Units NO DRUGS DETEC LUNA. ===== ===== ===== ===== ===== ===== ===== ===== ===== ===== ===== ===== ===== === Test Resul t Flag Units Ref Range Creat inine 95 mg/dL >=20 ===== ===== ===== ===== ===== ===== ===== ===== ===== ===== ===== ===== ===== === Decla red Medic ation s: Medic ation list was not provi ded. ===== ===== ===== ===== ===== ===== ===== ===== ===== ===== ===== ===== ===== === For clini ulysses consu ltati on, pleas e call . ===== ===== ===== ===== ===== ===== ===== ===== ===== ===== ===== ===== ===== === Not Available [facility] [address], [place], [address], 05/10/2018 14:09:31 05/06/20 18 05/10/2018 drug scree n, urine pdf . Not Available [facility] [address], [place], [address], 05/10/2018 14:09:31 06/22/20 24 06/22/2024 urina lysis , dipst ick Leukocytes Negati ve Not Available [address], [address], 06/22/2024 15:57:39 06/22/20 24 06/22/2024 urina lysis , dipst ick Nitrite negati ve Not Available [address], [address], 06/22/2024 15:57:39 06/22/20 24 06/22/2024 urina lysis , dipst ick Urobilinogen .2 Not Available [facility] [address], [address], 06/22/2024 15:57:39 06/22/20 24 06/22/2024 urina lysis , dipst ick Protein Negati ve Not Available [address], [address], 06/22/2024 15:57:39 06/22/20 24 06/22/2024 urina lysis , dipst ick pH 6.5 Not Available [address], [address], 06/22/2024 15:57:39 06/22/20 24 06/22/2024 urina lysis , dipst ick Blood Modera te Not Available [address], [address], 06/22/2024 15:57:39 06/22/20 24 06/22/2024 urina lysis , dipst ick Specific [place] 1.025 Not Available [address], [address], 06/22/2024 15:57:39 06/22/20 24 06/22/2024 urina lysis , dipst ick Ketone Negati ve Not Available [address], [address], 06/22/2024 15:57:39 06/22/20 24 06/22/2024 urina lysis , dipst ick Bilirubin Negati ve Not Available [address], [address], 06/22/2024 15:57:39 06/22/20 24 06/22/2024 urina lysis , dipst ick Glucose Negati ve Not Available [address], [address], 06/22/2024 15:57:39 06/22/20 24 06/22/2024 urina lysis , dipst ick Appearance Clear Not Available [address], [address], 06/22/2024 15:57:39 06/22/20 24 06/22/2024 urina lysis , dipst ick Color Yellow Not Available [address], [address], 06/22/2024 15:57:39 07/11/20 18 07/10/2018 [place], obste tric, 2nd or 3rd trime ster No observ ation record ed. [facility] [address] [facility] [place], [facility] [address], [place], [id number], 07/15/2018 08:45:20 10/25/19 19 10/24/2018 [place], obste tric No observ ation record ed. [email or web address] [facility] [address] [place], [id number], 10/25/2018 11:49:03 04/21/20 19 08/17/2016 pulmo nary funct ion test* No observ ation record ed. [facility] Not Available 2018 12:18:10 06/22/20 24 06/22/2024 elect rocar diogr am No observ ation record ed. [email or web address] [address], [place], [address], 06/22/2024 16:37:23 06/22/20 24 06/22/2024 CT, abdom en + pelvi s, w/ contr ast No observ ation record ed. [email or web address], [place], [address], 06/23/2024 08:31:13 06/23/20 24 06/22/2024 elect sandeep diogr am No observ ation record ed. [email or web address] [address], [place], [address], 07/01/2024 09:00:20 Result Notes None recorded. Problems Name Problem SNOMED Code Status Onset Date Resolution Date Notes Provider Name and Address Organization Details Recorded Time Anxiety 65568540 Active 2015 Michelle Berry null, [place] - [facility] 0 13:22:08 Non-alcoholic fatty liver 883975799 Active 2015 Michelle Berry null, [place] - [facility] 0 13:22:08 Obesity 920258603 Active 2015 Michelle Berry null, [place] - [facility] 0 13:22:08 Onychogryphosi s 83410022 Active 2015 Michelle Berry null, [place] - [facility] 0 13:22:08 Smoker 81223995 Active 2015 [place] - [facility] 0 13:22:08 Problem Notes None recorded. Procedures Surgical History Date Name Laterality Status Provider Name and Address Organization Details Recorded Time 06/17/20 20 Systolic B/P less than 130 mm Hg completed Chantel Emerson [place] - [facility] 06/17/2020 16:24:28 06/17/20 20 Diastolic B/P 80-89 mm Hg completed Chantel Emerson [facility] 06/17/2020 16:24:32 05/02/20 20 Systolic B/P less than 130 mm Hg completed Michelle Berry [facility] 05/02/2020 13:25:09 05/02/20 20 Diastolic B/P 80-89 mm Hg completed Michelle Berry [facility] 05/02/2020 13:25:11 11/04/19 19 delivery completed Shirley Nancy [facility] 05/04/2019 16:09:28 06/20/20 15 Date of Last Pap Smear completed Mercedez Chung [place] - [facility] 02/12/2017 13:24:04 09/23/19 06 delivery completed Enma Fletcher [facility] 08/13/2016 12:51:06 09/23/19 01 delivery completed Enma Fletcher [facility] 08/13/2016 12:51:12 Tonsillectomy completed Enma Fletcher [facility] 08/13/2016 12:51:25 foot repair completed Mis Doll [facility] 06/22/2024 16:05:10 Imaging Results None recorded. Procedure Notes None recorded. Medical Equipment None Reported. Allergies No known drug allergies Medications Name Sig Start Date Stop Date Status Note LastModified by Organization Details LastModified Time cyclobenz aprine 10 mg tablet Take 1 tablet 3 times a day by oral route as needed. 05/06 completed Not Available Not Available Not Available amoxicill in 500 mg capsule Take 1 capsule every 8 hours by oral route. 03/03 completed Not Available Not Available Not Available clindamyc in HCl 300 mg capsule TAKE (1) CAPSULE BY MOUTH THREE TIMES DAILY. 06/17 completed Not Available Not Available Not Available ibuprofen 800 mg tablet 06/17 completed Not Available Not Available Not Available fluconazo le 150 mg tablet take 1 tablet (150 mg) by oral route once, may repeat in 3 days 06/17 completed Not Available Not Available Not Available clarithro mycin 500 mg tablet take 1 tablet (500 mg) by oral route 2 times per day for 10 days 12/28 completed clarithr omycin 500 mg oral tablet;R ecorded Status: Recorded on: 12/19/19 16 4:24PM;U ser: [email or web address] ;Est. Completi on: 12/29/19 16;Print ed: 12/19/19 16 Not Available Not Available Not Available hydrocodo ne 5 mg-acetam inophen 325 mg tablet active Not Available Not Available Not Available phenazopy ridine 200 mg tablet TAKE 1 TABLET BY MOUTH EVERY 8 HOURS FOR 3 DAYS 06/17 completed Not Available Not Available Not Available isosorbid e mononitra te ER 30 mg tablet,ex tended release 24 hr 04/04 completed Not Available Not Available Not Available Prilosec 20 mg capsule,d elayed release Take 1 capsule every day by oral route. 08/13 completed Not Available Not Available Not Available penicilli n V potassium 500 mg tablet TAKE 1 TABLET BY MOUTH 4 TIMES DAILY UNTIL GONE active Not Available Not Available No t Available ciproflox acin 500 mg tablet Take 1 tablet every 12 hours by oral route for 10 days. 10/21 completed Not Available Not Available Not Available tramadol 50 mg tablet TAKE ONE TABLET BY MOUTH EVERY 8 HOURS NEEDED FOR pain MAY CAUSE DROWSINE SS 06/22 completed Not Available Not Available Not Available ketorolac 30 mg/mL (1 mL) injection solution Inject 1 mL every 6 hours by intramus cular route. 10/21 completed Not Available Not Available Not Available ceftriaxo ne 1 gram solution for injection Take 1 g by injectio n route. 03/03 completed Not Available Not Available Not Available Depo-Prov era 150 mg/mL intramusc ular suspensio n inject 1 millilit er (150 mg) by intramus cular route every 3 months 04/09 completed Depo-Pro vera 150 mg/mL intramus cular suspensi on;Recor ded Status: Recorded on: 06/20/20 15 9:23AM;U ser: [email or web address]; Printed: 06/20/20 15 Not Available Not Available Not Available Klonopin 0.5 mg tablet take 1 tablet (0.5 mg) by oral route 2 times per day 04/14 completed Klonopin 0.5 mg oral tablet;R ecorded Status: Recorded on: 04/14/20 13 1:45PM;D iscontin ued Status: Disconti nued on: 04/14/20 13 2:07PM;U ser: [email or web address] [email or web address] Not Available Not Available Not Available oxycodone -acetamin ophen 10 mg-325 mg tablet TAKE ONE TABLET BY MOUTH EVERY 8 HOURS NEEDED FOR PAIN MAY CAUSE DROWSINE SS 06/22 completed Not Available Not Available Not Available Celexa 20 mg tablet take 1 tablet (20 mg) by oral route once daily 06/08 completed Celexa 20 mg oral tablet;R ecorded Status: Recorded on: 04/14/20 13 2:34PM;D iscontin ued Status: Disconti nued on: 06/08/20 14 1:13PM;U ser: [email or web address];P rinted: 04/14/20 13 Not Available Not Available Not Available Flagyl 500 mg tablet take 1 tablet (500 mg) by oral route every 12 hours for 7 days 06/29 completed Flagyl 500 mg oral tablet;P rescribe Status: Prescrib ed on: 06/23/20 15 12:54PM; Disconti nued Status: Disconti nued on: 06/29/20 15 1:06PM;U ser: [email or web address]; Est. Completi on: 06/30/20 15;Pharm acyVerif ied: 06/23/20 15 12:54PM Not Available Not Available Not Available benzonata te 100 mg capsule take 1 capsule (100 mg) by oral route 3 times per day as needed for cough 03/03 completed Not Available Not Available Not Available cephalexi n 500 mg capsule take 1 capsule (500 mg) by oral route every 12 hours for 7 days 02/21 completed Not Available Not Available Not Available pantopraz ole 40 mg tablet,de layed release 04/04 completed Not Available Not Available Not Available erythromy mukul 5 mg/gram (0.5 %) eye ointment APPLY 1 CM RIBBON INTO THE LOWER CONJUNCT IVAL SAC(S) IN THE AFFECTED EYE(S) BY OPHTHALM IC ROUTE 3 TIMES PER DAY 06/22 completed Not Available Not Available Not Available ranitidin e 150 mg tablet take 1 tablet (150 mg) by oral route 2 times per day for 30 days 04/09 completed Not Available Not Available Not Available promethaz ine 25 mg tablet TAKE ONE TABLET BY MOUTH EVERY 4 TO 6 HOURS NEEDED FOR NAUSEA 06/22 completed Not Available Not Available Not Available aspirin 81 mg chewable tablet 04/09 completed Not Available Not Available Not Available diclofena c sodium 50 mg tablet,de layed release take 1 tablet (50 mg) by oral route 3 times per day for 30 days 11/04 completed diclofen ac sodium 50 mg oral tablet,d elayed release (/EC); Prescrib e Status: Prescrib ed on: 08/31/20 14 11:46AM; Disconti nued Status: Disconti nued on: 11/04/19 15 4:31PM;U ser: [email or web address];Est. Completi on: 11/30/19 15;Pharm acyVerif ied: 08/31/20 14 11:46AM Not Available Not Available Not Available metoprolo l succinate ER 25 mg tablet,ex tended release 24 hr 04/09 completed Not Available Not Available Not Available methylpre dnisolone 4 mg tablets in a dose pack TAKE DIRECTED BY MOUTH DAILY FOR 6 DAYS 06/22 completed Not Available Not Available Not Available ketoconaz ole 2 % topical cream 04/04 completed Not Available Not Available Not Available cefdinir 300 mg capsule 05/02 completed Not Available Not Available Not Available dexametha sone sodium phosphate 10 mg/mL injection solution Take 1 mL by injectio n route. 03/03 completed Not Available Not Available Not Available Fioricet 50 mg-325 mg-40 mg tablet take 1 tablet by oral route every 4 hours as needed not to exceed 6 tablets per 24hrs 06/08 completed Fioricet 50-325-4 0 mg oral tablet;R ecorded Status: Recorded on: 04/14/20 13 2:34PM;D iscontin ued Status: Disconti nued on: 06/08/20 14 1:13PM;U ser: [email or web address];P rinted: 04/14/20 13 Not Available Not Available Not Available fluticaso ne propionat e 50 mcg/actua tion nasal spray,ellen pension inhale 1 puff by nasal route daily 05/06 completed Not Available Not Available Not Available doxycycli ne hyclate 100 mg tablet TAKE ONE TABLET BY MOUTH TWICE DAILY FOR FOURTEEN DAYS -- FINISH ALL MEDICINE -- 06/22 completed Not Available Not Available Not Available loratadin e 10 mg tablet Take 1 tablet every day by oral route. 04/09 completed Not Available Not Available Not Available naproxen 500 mg tablet 06/17 completed Not Available Not Available Not Available amoxicill in 875 mg-potass ium clavulana te 125 mg tablet 02/21 completed Not Available Not Available Not Available Ventolin HFA 90 mcg/actua tion aerosol inhaler inhale 1 - 2 puffs (90 - 180 mcg) by inhalati on route every 6 hours as needed 04/09 completed Not Available Not Available Not Available nitrofura ntoin monohydra te/macroc rystals 100 mg capsule Take 1 capsule every 12 hours by oral route for 7 days. 06/17 completed Not Available Not Available Not Available 05/04 completed Not Available Not Available Not Available Depo-Prov era Contracep tive 03/28 completed Depo-Pro vera Contrace ptive Intramus cular;Re corded Status: Recorded on: 04/14/20 13 1:45PM;D iscontin ued Status: Disconti nued on: 03/28/20 15 3:43PM;U ser: [email or web address] [email or web address];Indica tion: - (-5) Not Available Not Available Not Available Calmosept ine 0.44 %-20.6 % topical ointment Apply 1 applicat ion twice a day by topical route. 05/06 completed Not Available Not Available Not Available Afluria Qd (36 mos up)(PF)60 mcg (15 mcg x4)/0.5 mL IM syringe ADM 0.5ML IM UTD active Not Available Not Available No t Available Vitals Date Recorded Body height Body mass index (BMI) Body weight Body temperature Heart rate Oxygen saturation Oxygen saturation in Arterial blood by Pulse oximetry Respiratory rate Systolic And Diastolic Provider Name and Address Organization Details Last Updated DateTime 0 170.18 cm 28.3 kg/m2 90929.7 3 g 98.5 [degF] 74 /min 98 % 98 % 17 /min 124/82 mm[Hg] Michelle Berry [facility] 0 13:25:08 Date Recorded Body height Body mass index (BMI) Body weight Heart rate Oxygen saturation Oxygen saturation in Arterial blood by Pulse oximetry Body temperature Respiratory rate Systolic And Diastolic Provider Name and Address Organization Details Last Updated DateTime 9 170.18 cm 29.4 kg/m2 38449.3 7 g 77 /min 99 % 99 % 98.3 [degF] 17 /min 116/74 mm[Hg] Shirley Nancy [facility] 9 16:10:22 Date Recorded Body height Body mass index (BMI) Body weight Body temperature Heart rate Oxygen saturation Oxygen saturation in Arterial blood by Pulse oximetry Respiratory rate Systolic And Diastolic Provider Name and Address Organization Details Last Updated DateTime 8 170.18 cm 30.5 kg/m2 82753.7 2 g 98.4 [degF] 91 /min 97 % 97 % 16 /min 122/74 mm[Hg] Chantel Emerson [facility] 8 16:41:42 Date Recorded Body height Body mass index (BMI) Body weight Heart rate Oxygen saturation Oxygen saturation in Arterial blood by Pulse oximetry Respiratory rate Systolic And Diastolic Provider Name and Address Organization Details Last Updated DateTime 0 170.18 cm 27.9 kg/m2 43205.5 4 g 76 /min 94 % 94 % 17 /min 124/84 mm[Hg] Chantel Emerson [facility] 0 16:23:21 Date Recorded Body weight Body mass index (BMI) Body height Body temperature Respiratory rate Oxygen saturation Oxygen saturation in Arterial blood by Pulse oximetry Heart rate Systolic And Diastolic Provider Name and Address Organization Details Last Updated DateTime 4 [address]6820.9 9 g 33 kg/m2 170.18 cm 98.4 [degF] 18 /min 96 % 96 % 88 /min 136/84 mm[Hg] Mis Doll [place] - [facility] 4 16:02:12 Social History Question Answer Notes LastModified by Organizat ion Details LastModified Time Tobacco Smoking Status Current Every Day Smoker Not Available [facility] 07/08/2020 03:13:31 Able To Swim? Yes [email or web address] Information not available 04/09/2017 Do You Have An Advance Directive? No [id number] Information not available 07/08/2020 Do You Wear A Helmet When Biking? Yes [id number] Information not available 07/08/2020 Are You Blind Or Do You Have Difficulty Seeing? No [id number] Information not available 07/08/2020 What Is Your Level Of Caffeine Consumption? Moderate Information not available 06/22/2024 How Much Tobacco Do You Chew? None [id number] Information not available 07/08/2020 Are You Deaf Or Do You Have Serious Difficulty Hearing? No [id number] Information not available 07/08/2020 What Type Of Diet Are You Following? REGULAR Information not available 06/22/2024 Which Illicit Or Recreational Drugs Have You Used? None [id number] Information not available 07/08/2020 What Is The Highest Grade Or Level Of School You Have Completed Or The Highest Degree You Have Received? [id number] Information not available 06/22/2024 Swimming/diving Yes [email or web address] Informati on not available 04/09/2017 Have There Been Any Changes To Your Family Or Social Situation? No Information no t available 06/22/2024 What Is The Fluoride Status Of Your Home? Unknown Information not available 06/22/2024 Hard Of Hearing Or Deaf In One Or Both Ears? No [email or web address] Information not available 04/09/2017 Legally Blind In One Or Both Eyes? No [email or web address] Information no t available 04/09/2017 Live Alone Or With Others? With Others Information not available 08/13/2016 Do You Have A Medical Power Of Hand Decorator? No Information not available 06/22/2024 What Was The Date Of Your Most Recent Tobacco Screening? 06/22/2024 Information not available 06/22/2024 How Many Children Do You Have? 3 Information not available 06/22/2024 What Is Your Current Pack Years? 10-19packyear s Information not available 06/22/2024 What Is Your Relationship Status? [id number] Information not available 07/08/2020 Seat Belts Used Routinely Yes [email or web address] Information not available 04/09/2017 Smoke Alarm In Home Yes [email or web address] Information not available 04/09/2017 Do You Have Smoke And Carbon Monoxide Detectors In Your Home? Yes Information not available 06/22/2024 At What Age Did You Start Smoking Tobacco? 13 Information not available 06/22/2024 Are You Passively Exposed To Smoke? Yes [id number] Information no t available 07/08/2020 How Much Tobacco Do You Smoke? 0.5 PPD [id number] Information not available 07/08/2020 General Stress Level Medium [email or web address] Information not available 04/09/2017 Do You Use Sunscreen Routinely? Yes [id number] Information not available 07/08/2020 Has Tobacco Cessation Counseling Been Provided? Yes [id number] Information not available 07/08/2020 On What Date Was Tobacco Cessation Counseling Provided? 06/22/2024 Information not available 06/22/2024 How Many Years Have You Smoked Tobacco? 26 Information not available 06/22/2024 Do You Have Difficulty Walking Or Climbing Stairs? No [id number] Information not available 07/08/2020 Sex: Female Functional Status Question Answer Note LastModified by Organizat ion Details LastModified Time Do you use any illicit or recreational drugs? No Information not available 06/22/2024 Do you or have you ever used any other forms of tobacco or nicotine? No Information not available 06/22/2024 What is your level of alcohol consumption? None [id number] Information not available 07/08/2020 Are you currently employed? Yes Information not available 06/22/2024 Do you have transportation difficulties? No Information not available 06/22/2024 Are you able to walk? YESWOREST [id number] Information not available 07/08/2020 Do you have difficulty doing errands alone? No [id number] Information not available 07/08/2020 Are you able to care for yourself? Yes [id number] Information n ot available 07/08/2020 What is your occupation? [employer] Information not available 06/22/2024 Do you have difficulty dressing or bathing? No [id number] Information not available 07/08/2020 Do you or have you ever used e-cigarettes or vape? Never used electronic cigarettes [id number] Information not available 07/08/2020 What is your exercise level? None [id number] Information not available 07/08/2020 Mental Status Question Answer Note LastModified by Organizat ion Details LastModified Time Do you feel stressed (tense, restless, nervous, or anxious, or unable to sleep at night)? [id number] Information not available 06/22/2024 Do you have difficulty concentrating, remembering or making decisions? No [id number] Information no t available 07/08/2020 Family History Relationship Description Onset Age of this Age Resolved Age Notes LastModified by Organization Details LastModified Time Father Asthma [email or web address] Not available 1 10/13/2015 12:51:59 Father Chronic obstructive pulmonary disease [email or web address] Not available 2015 12:52:06 Father Type 2 diabetes mellitus without complication [email or web address] Not available 12:52:29 Paternal Grandfather Asthma Not available 08/13 12:52:15 Maternal Grandmother Type 2 diabetes mellitus without complication [email or web address] Not available 12:53:06 Unspecified Relation Essential hypertension [email or web address] Not available 12:53:18 Medical History No medical history recorded. Gynecological History Statement/Question Response Last Annual Exam/Provider 06/20/15 w/DT Date of Last Mammogram Date of Last Colonoscopy Date of LMP 06/10/2024 Most Recent Bone Density Sexually Active? Y Menses Monthly N Date of Last Pap Smear 06/20/2015 Sexual Problems? 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 Approximate Obstetrics History GPAL:G 0 P 0 0 0 0 Type Value Living 0 Total 0 Immunizations Vaccine Type Date Status Note Provider Nam e and Address Organization Details Recorded Time influenza, unspecified formulation 5 completed Michelle Berry null, [place] - [facility] 05/02/2020 13:20:36 Tdap 8 completed Not Available [facility] 10/10/2019 03:54:55 Influenza, split virus, quadrivalent, preservative 6 completed Michelle Berry null, [place] - [facility] 05/02/2020 13:20:36 Influenza, split virus, quadrivalent, preservative 9 completed Michelle Berry null, [place] - [facility] 05/02/2020 13:20:36 Influenza, MDCK, quadrivalent, PF 0 completed Mis Stears null, [place] - [facility] 06/22/2024 15:56:08 COVID-19, mRNA, LNP-S, PF, 30 mcg/0.3 mL dose 1 completed Mis Stears null, [place] - [facility] 06/22/2024 15:56:08 COVID-19, mRNA, LNP-S, PF, 30 mcg/0.3 mL dose 1 completed Mis Stears null, [place] - [facility] 06/22/2024 15:56:08 Tdap 2 completed Mis Stears null, [place] - [facility] 06/22/2024 15:56:08 Influenza, split virus, trivalent, PF 7 completed Mis Stears null, [place] - [facility] 06/22/2024 15:56:08 Influenza, split virus, quadrivalent, PF 1 completed Mis Stears null, [place] - [facility] 06/22/2024 15:56:08 Past Encounters Encounter ID Performer Location Encounter Start Date Encounter Closed Date Diagnosis/Indication Diagnosis SNOMED-CT Code Diagnosis ICD10 Code Diagnosis Note [id number] Abilio Marcial [facility] [address] [place] [address] 08/13/2016 16:04:28 08/13/2016 17:51:41 Chest pain 42987057 R07.9 tightness, not pain Gastroesop hageal reflux disease without esophagitis 969877387 K21.9 Cough 93539909 R05 Dyspnea 798066396 R06.02 [id number] Abilio Muniz MD [facility] [address] [place] [address] 11/19/2016 16:23:51 11/19/2016 16:38:05 Uses depot contraception 794314886 Z30.42 Gynecologi c examination 33976815 Z01.394 [id number] Milton Carlson APRN [facility] [place] [address] [place] [address] 11/28/2016 09:59:23 11/28/2016 10:29:59 Acute urinary tract infection 195737905 N39.0 [id number] ADRIANA Zambranoacaciatiara [place] [address] [place] [place] [address] 02/21/2017 15:49:53 02/21/2017 16:46:10 Conjunctivitis 8230052 H10.9 [id number] Jaymie Ledezma APRN [facility] [place] [address] [place] [facility] [place] [address] 04/04/2017 15:46:43 04/04/2017 17:18:08 Body mass index 30+ - obesity 685878535 Z68.30 Tobacco us e cessation education 974623279 Z71.6 Acute urin francisco javier tract infection 194106019 N39.0 [id number] ADRIANA Zambranojamaltiara [place] [address] [place] [facility] [place] [address] 04/09/2017 15:46:13 04/09/2017 17:25:13 Dysuria 12326564 R30.0 Blood in urine 32438052 R31.9 Candidiasis of vagina 72 843404 B37.3 Low back pain 548208671 M54.5 Amenorrhea 14958377 N91. 2 [id number] ADRIANA Zambrano [place] [address] [place], [place] [address] 10/21/2017 08:17:32 10/21/2017 08:43:18 Body mass index 25-29 - overweight 843311320 Z68.29 Sinusitis 92541867 J32.9 [id number] Jaymie Ledezma APRN [facility] [address] [place], [place] [address] 10/25/2017 14:17:23 10/25/2017 15:24:08 Otalgia 03149868 H92.01 [id number] Abilio Ambrocioacaciamalik [facility] [address] [place], [place] [address] 03/03/2018 15:39:07 03/03/2018 17:32:52 Low back pain 708785529 M54.5 [id number] Jaymie Ledezma APRN Aggie [facility] [address] [place], [place] [address] 03/18/2018 16:03:51 03/18/2018 16:44:47 Amenorrhea 43891412 N91.2 Low back pain 411535263 M54.5 Pruritic rash 88122152 L 28.2 Acute urin francisco javier tract infection 718068872 N39.0 [id number] Jaymie Ledezma APRN [facility] [address] [place], [place] [address] 05/06/2018 16:09:09 05/06/2018 17:40:42 History and physical examination, pre-employment 972022020 Z02.1 [id number] Abilio Marcial [facility] [address] [place], [place] [address] 05/04/2019 16:00:38 05/04/2019 16:42:46 Onychogryphosis 73041883 L60.2 Greater tr ochanteric pain syndrome 8336200 M70.62 [id number] Milton Carlson APRN [facility] [address] [place], [place] [address] 05/02/2020 13:13:58 05/02/2020 13:44:45 Left flank pain 803534753 R10.9 [id number] ADRIANA Gonzalez [facility] [address] [place] [address] 06/17/2020 16:10:56 06/17/2020 16:39:05 Hordeolum externum of lower eyelid 663453175 H00.846 [id number] Adrien Machado APRN [facility] [address] [place] [address] 06/22/2024 15:47:20 06/22/2024 16:55:26 Chest pain 69102032 R07.9 Left flank pain 95040546 9 R10.9 sent to ed for eval Health Concerns Section Related Observation LastModified by Organization Detai ls LastModified Time None Recorded Concern Status LastModified by Organization Details LastModified Time None Recorded Advance Directives Directive N: Payers Insurance Date Sequence Insurance Name Policy Number Policy Garcia Covered Member ID Garcia Member ID Guarantor Name 01/11/2017 1 UNSPECIFIED REMIT PAYOR Laila Chad Workman 06/17/2020 MEDICAID-[facility] WRAP BILLING (MEDICAID) Laila Chad Workman [id number] Laila Chad Workman 10/21/2017 1 PASSPORT BY [employer] (MEDICAID REPLACEMENT - HMO) MEDICAID Laila Bonilla Workman [id number] Laila Chad Workman 06/22/2024 1 [facility]) [facility] Laila Bonilla Workman [id number] Laila Bonilla Workman 06/29/2024 1 [facility] (MEDICAID HMO) Laila Chad Workman [id number] Laila Bonilla Workman Notes Date Note Type Note Provider Name and Address Organization Details Recorded Time 05/06/2018 text/html Pt is here for a work physical Jaymie [place] Estrada - [facility] 05/11/2018 21:56:05 05/04/2019 text/html Patient is here today for three ingrown toe nails.Gustavo great toe and and left second toe. Reports she has had the gustavo great toe nails taken off before.x months.Reports they are painful. Occasional low back pain.x a couple of weeks.Left hip and leg pain x a couple of weeks.no injury was noted.some radiation to the left leg to the foot (top of foot), off and on.no weakness or numbness of the leg.some pain in the left lateral hip area (present all the time).No changes in bowel or bladder function.a history of a crooked spine No back surgeryShe has had remote XRs, no MRI. Abilio Muniz MD [address], [place], [address], [facility] 05/04/2019 16:42:13 05/02/2020 text/html Laila Herrera is in the office for ER f/u on 04/27/2020 for UTI s/sx. She went to [facility] ER, where keflex was given. Milton Carlson APRN [address], [place], [address], [facility] 05/02/2020 14:02:24 06/17/2020 text/html Eye PainReported bypatient.Location :right Quality:aching;thr obbing Severity:mild Associated Symptoms:no sensitivity to light; pain is not worse with eye movement; no diplopia; no photophobia; no headache; no blurred vision; no watery discharge; no mucous discharge; not seeing halos; no drooping eyelid(s);redness; itching;swelling around eyes Stacie Lara APRN [address], [place], [address], [facility] - [facility] 06/17/2020 16:41:06 06/22/2024 text/html 39 year old femcortney ling who presents to the office today with concerns ofleft side anterior/pelvic pain, lower back pain, urinary frequency, pain with urination, and pain in chest at night when laying down, after awhile pain stops. Adrien Machado APRN [address], [place], [address], [facility] 06/23/2024 09:34:05 OBGyn Episode No OBEpisode recorded.
--- OUTSIDE RECORDS SUMMARY | 2025-04-06 13:21 | XMS_ITS | Data Portability ---
Author Organization [place] - [facility] - [place] & [place] [facility] ADMIN Address [address] [place] [id number] Care Team Providers Care Senior Analyst Name Role Phone CHATO BERMUDEZ Primary Care [...] colonoscopy. Patient to complete extended bowel prep. [email or web address] Not available 11/19/2024 13:13:53 Plan of Treatment Reminders Order Date Submit Date Provider Last Modified By Organization Details Last Modified Time Details Appointments OV NEW 30 2024 10:45A Lamont Marroquin MD Not available Not available Not available Lab nonalcoho lic steatohep atitis + fibrosis panel, serum or plasma 2023 024 [email or web address] 4 [facility], [address], [address], [place], [address], 09/24/2024 12:42:21 hepatic function panel, serum 2023 024 MAYRA [facility], [address], [address], [place], [address], 09/03/2024 11:06:17 Referral None recorded. Procedures None recorded. Surgeries None recorded. Imaging XR, kidney + ureter + bladder - constipat ion 2024 025 [email or web address] 4 [facility] (Registration ), [address] [facility], [place], [address], 12/04/2024 15:02:44 Medication Orders Fiber-Tab s 625 mg tablet 2024 025 [facility], [address] [place] [address] [address] [place], [place], [id number], 01/22/2025 08:42:28 Linzess 72 mcg capsule 2023 024 [facility], [address] [place] [address] [address] [place], [id number], 01/22/2025 08:42:30 Linzess 145 mcg capsule 2023 025 [facility] [employer] [facility], [address] [place] [address] [address] [place], [place], [id number], 11/18/2024 12:18:11 dicyclomi ne 10 mg capsule 2023 024 [facility], [address] [place] [address] [address] [place], [place], [id number], 11/09/2024 15:13:51 methylcel lulose (laxative ) 500 mg tablet 2023 024 [facility], [facility] [place], [id number], 07/30/2024 13:08:14 Patient TargetsNo targets recorded. Patient InstructionsNo instructions recorded. Reason for Referral None Reported. Results Created Date Observation Date Name Description Value Unit Range Abnormal Flag Note LastModifiedBy Organization Detail LastModifiedTime 11/18/1911/18/2024 XR, abdom en, 1 view [facility] [address] [place] [address] Phone: Fax: Name: MARYMARIE GRECO Exam Date: : 985 Age 39 years Gender : F Access ion: [id number] Physic juan manuel: SERENE PATEL Facili ty: [facility] Facili ty HSV: Outpat ient Exam: [...] by: Obed Stewart Thank you for referr ing MARIE REYNA to [facility]. Legall y authen ticate d by ANGEL KHAN 11-18 12:36: 27 CC'ed Logic: Orderi ng Provid er: AMANDA CAST Attend ing Provid er: AMANDA CAST Admitt ing Provid er: AMANDA CAST [email or web address] [facility] - Physical Therapy [address] [place] [address], [place], [address], 11/25/2024 14:39:03 03/11/20 25 12/08/2024 XR, lumba r spine , 2 view No observ ation record ed. [email or web address] Not Available 2024 16:15:28 03/11/20 25 12/22/2024 MRI, lumba r spine , w/o contr ast No observ ation record ed. [email or web address] Not Available 2024 16:16:19 Result Notes Documentation Provider Name and Address Organization Details Recorded Time Xr, Abdomen, 1 View : [facility] [address] [place] [address] Name: LAILA SHARP Exam Date: 11/18/2024 : 1985 Age 39 years Gender: F Physician: SERENE PATEL Facility: [facility] Facility HSV: Outpatient Exam: ABD KUB 1V PROCEDURE: XR ABDOMEN 1 VIEW (KUB) Technique: 1 view abdomen Comparison: No similar prior study HX: CHRONIC IDIOPATHIC CONSTIPATION Findings:The bowel gas pattern is unremarkable. Nonspecific quantity of colonic stool. Grossly, No free air is identified. No bowel obstruction is seen. This is a limited single view. IMPRESSION: Nonspecific bowel gas pattern. Electronically signed by: Obed Stewart MD 11/18/2024 02:40 PM [facility] Dictated By: Obed Stewart Transcribed By: Transcribed On: 11/18/2024 12:36 PM Electronically signed by: Obed Stewart 11/18/2024 Thank you for referring LAILA SHARP to [facility]. Legally authenticated by ANGEL KHAN 2024-11-18 12:36:27 CC'ed Logic: Ordering Provider: AMANDA CAST Attending Provider: AMANDA CAST Admitting Provider: AMANDA Mckeon [facility], [place] - [facility] - [place] & [place] 11/25/2024 14:39:03 Medical Equipment None Reported. Allergies No known [...] completed Not Available Not Available Not Available promethazin e-DM 6.25 mg-15 mg/5 mL oral syrup TAKE 1 TEASPOONF UL (5 ML) BY MOUTH EVERY 4-6 HOURS NEEDED FOR COUGH active Not Available Not Available No t Available oxybutynin chloride ER 10 mg tablet,exte nded release 24 hr TAKE ONE TABLET BY MOUTH EVERY DAY active Not Available Not Available No t Available azithromyci n 250 mg tablet TAKE 2 TABLETS BY MOUTH ON DAY 1, THEN TAKE 1 TABLET DAILY ON DAYS 2-5 active Not Available Not Available No t Available ibuprofen 800 mg tablet TAKE ONE TABLET BY MOUTH [...] oxycodone-a cetaminophe n 5 mg-325 mg tablet TAKE ONE TABLET BY MOUTH EVERY 4 HOURS NEEDED FOR PAIN MAY CAUSE DROWSINES S active Not Available Not Available No t Available amoxicillin 875 mg tablet TAKE ONE TABLET BY MOUTH TWICE DAILY FOR 10 DAYS -- FINISH ALL MEDICINE -- 04/06 completed Not Available Not Available Not Available methocarbam ol 750 mg tablet TAKE TWO TABLETS BY MOUTH THREE TIMES DAILY MAY CAUSE DROWSINES S active Not Available Not Available No t Available oxycodone-a cetaminophe n 10 mg-325 mg tablet TAKE ONE TABLET BY MOUTH EVERY 8 HOURS NEEDED FOR PAIN MAY CAUSE DROWSINES S 11/18 completed Not Available Not Available Not Available benzonatate 100 mg capsule TAKE ONE CAPSULE BY MOUTH THREE TIMES DAILY NEEDED FOR COUGH -SWALLOW WHOLE. DO NOT CRUSH OR CHEW- active Not Available Not Available No t Available cyanocobala min (vit B-12) 1,000 mcg/mL injection solution INJECT 1000mcg (1ml) INTRAMUSC ULARLY ONCE a MONTH active Not Available Not Available No t Available methylcellu lose (laxative) 500 mg tablet [...] Not Available Not Available No t Available gabapentin 300 mg capsule TAKE ONE CAPSULE BY MOUTH TWICE DAILY active Not Available Not Available No t Available ibuprofen 600 mg tablet TAKE ONE TABLET BY MOUTH EVERY 6 HOURS NEEDED FOR PAIN --TAKE WITH FOOD-- active Not Available Not Available No t Available polyethylen e glycol 3350 17 gram/dose oral powder DISSOLVE 17 GRAMS OF POWDER INTO 4 TO 8 OUNCES OF WATER, JUICE, SODA, COFFEE, OR TEA THEN DRINK TWICE DAILY active Not Available Not Available No t Available levofloxaci n 500 mg tablet TAKE ONE TABLET BY MOUTH ONCE DAILY FOR 10 DAYS -- FINISH ALL MEDICINE -- 04/06 completed Not Available Not Available Not Available estradiol 0.01% (0.1 mg/gram) vaginal cream apply 1 GRAM using finger technique EVERY DAY FOR FOURTEEN DAYS THEN USE three times WEEKLY THEREAFTE R active Not Available Not Available No t Available methylpredn isolone 4 mg tablets in a dose pack TAKE ACCORDING TO PACKAGE INSTRUCTI ONS --TAKE WITH FOOD-- -- FINISH ALL MEDICINE -- active Not Available Not Available No t Available doxycycline hyclate 100 mg tablet TAKE ONE TABLET BY MOUTH TWICE DAILY FOR FOURTEEN DAYS -- FINISH ALL MEDICINE -- active Not Available Not Available No t Available dicyclomine 10 mg capsule TAKE ONE CAPSULE BY MOUTH THREE TIMES DAILY NEEDED FOR ABDOMINAL PAIN 2024 active Not Available Not Available Not Avai labanuradha amoxicillin 875 mg-yamila zafar clavulanate 125 mg tablet TAKE ONE TABLET BY MOUTH TWICE DAILY FOR 10 DAYS -- FINISH ALL MEDICINE -- 11/18 completed Not Available Not Available Not Available Fiber-Lax 625 mg tablet TAKE TWO TABLETS BY MOUTH EVERY DAY DIRECTED FOR constipat ion active Not Available Not Available No t Available Symbicort 160 mcg-4.5 mcg/actuati on HFA [...] Available Not Available Linzess 72 mcg capsule TAKE ONE CAPSULE BY MOUTH EVERY MORNING active Not Available Not Available No t Available Gemtesa 75 mg tablet TAKE ONE TABLET BY MOUTH EVERY DAY active Not Available Not Available No t Available Airsupra 90 mcg-80 mcg/actuati on HFA aerosol inhaler active Not Available Not Available Not Available Vitals Date Recorded Body height Body mass index (BMI) Body weight Oxygen saturation Oxygen saturation in Arterial blood by Pulse oximetry Heart rate Body temperature Heart rate Systolic And Diastolic Provider Name and Address Organization Details Last Updated DateTime 5 167.64 cm 34.8 kg/m2 42814.8 g 98 % 98 % 80 /min 97.8 [degF] 78 /min 110/79 mm[Hg] [facility] & [place] 5 11:22:19 Date Recorded Body weight Body mass index (BMI) Body height Body temperature Heart rate Heart rate Systolic And Diastolic Provider Name and Address Organization Details Last Updated DateTime 4 89079.5 g 34.2 kg/m2 167.64 cm 97.9 [degF] 89 /min 87 /min 123/78 mm[Hg] [facility] & [place] 4 11:02:16 Date Recorded Body height Body mass index (BMI) Body weight Oxygen saturation Oxygen saturation in Arterial blood by Pulse oximetry Heart rate Heart rate Body temperature Systolic And Diastolic Provider Name and Address Organization Details Last Updated DateTime 4 167.64 cm 34.9 kg/m2 13700.3 1 g 98 % 98 % 92 /min 86 /min 98.1 [degF] 108/72 mm[Hg] [facility] & [place] 09:57:28 Social History None recorded. Functional Status None recorded. Mental Status None recorded. Family History Relationship Description Onset Age of this Age Resolved Age Notes LastModified by Organization Details LastModified Time Father Chronic obstructive pulmonary disease pt. added direct ly (07/21) [email or web address] Not available 03/11/2025 16:07:37 Father Anemia pt. added direct ly (07/21) CHART_MERGE Not available 03/11/2025 16:07:37 Father Myocardial infarction pt. added direct ly (07/21) CHART_MERGE Not available 03/11/2025 16:07:37 Father Heart disease pt. added direct ly (07/21) CHART_MERGE Not available 03/11/2025 16:07:37 Mother Cerebrovascu lar accident pt. added direct ly (07/21) CHART_MERGE Not available 03/11/2025 16:07:37 Medical History No medical history recorded. Gynecological HistoryNo gynecological history recorded. Obstetrics History GPAL:G 0 P 0 0 0 0 Past Encounters Encounter ID Performer Location Encounter Start Date Encounter Closed Date Diagnosis/Indication Diagnosis SNOMED-CT Code Diagnosis ICD10 Code Diagnosis Note [id number] ALEXSANDRA MONGE NP [facility] [address] [place] [address] 07/22/2024 10:55:33 07/22/2024 11:57:15 Chronic idiopathic constipation 75191314 K59.04 Abdominal pain 82667630 R10.9 Diverticul itis of colon 633802110 K57.32 Steatotic liver disease 897929073 K76.0 [id number] SERENE PATEL NP [facility] [address] [address] 08/27/2024 09:41:08 08/27/2024 10:54:31 Chronic idiopathic constipation 73562809 K59.04 Decrease Linzess dose, advised to take daily.Cont inue 1 capsule Citrucel and discontinu e fiber-tab. Adjust dose as needed. Steatotic liver disease 523749406 K76.0 History of hepatic steatosis. Labs today. History of diverticulitis 4325742210 Z87.19 Colonoscop y recommende d, schedule today. Abdominal pain 13905519 R10.9 Okay to continue dicyclomin e. Discussed that constipati on is a side effect. [id number] SERENE PATEL NP [facility] [address] [address] 11/18/2024 11:08:09 11/18/2024 12:07:53 Chronic idiopathic constipation 39389132 K59.04 Advised to take Linzess every day consistent ly. Okay to restart fiber, but dose and frequency can be adjusted if needed. Obtain KUB today to assess for constipati on. Consider motegrity if no improvemen t. Steatotic liver disease 846922921 K76.0 History of hepatic steatosis. Slight elevation in AST on most recent labs. History of diverticulitis 2993798490 44169 Z87.19 Repeat colonoscop y scheduled. Health Concerns Section Related Observation LastModified by Organization Detai ls LastModified Time None Recorded Concern Status LastModified by Organization Details LastModified Time None Recorded Advance Directives Directive None Recorded Payers Insurance Date Sequence Insurance Name Policy Number Policy Garcia Covered Member ID Garcia Member ID Guarantor Name 04/06/2025 1 [employer] [facility] (MEDICAID HMO) Laila Sharp [id number] Laila Sharp Notes Date Note Type Note Provider Name and Address Organization Details Recorded Time 07/22/2024 text/html Ms. Sharp in h is 39-year-old female referred to us by Chato Bermudez APRN for left lower quadrant pain and recent diverticulitis. a josue was seen at [facility] on July 11 for left upper quadrant [...] / vomiting Or bloody stools. ALEXSANDRA MONGE, BANDSAW OPERATOR [address] [facility], [place], [address], [place] - [facility] - [place] & [place] 07/22/2024 12:57:49 08/27/2024 text/html PREVIOUS ( Deysi Monge): Ms. Sharp in his 39-year-old female referred to us by Chato Bermudez APRN for left lower quadrant pain and recent diverticulitis. a josue was seen at [facility] on July 11 for left upper quadrant [...] / vomiting Or bloody stools. CURRENT: Ms. Sharp is a 39 yr old female here [...] Recent CT showed steatosis. SERENE PATEL NP [address], [place], [address], [facility] & [place] 08/28/2024 14:23:17 11/18/2024 text/html PREVIOUS: Ms. Sharp is a 39 yr old female here [...] ago. Recent CT showed steatosis. CURRENT: Laila Sharp is a 39-year-old female here today for [...] Abdominal pain has resolved. SERENE PATEL NP [address], [place], [address], [place] - [facility] & [place] 11/19/2024 13:22:20 OBGyn Episode No OBEpisode recorded.
== END 2025-04-05 23:59 | disposition home or self-care (01) ==
LOC: LAB.DROPOF 04-06 13:11
PROVIDERS: PCP Urology; Visit Provider Urology
DX: N39.41 Urge incontinence (principal); R31.9 Hematuria, unspecified; N95.2 Postmenopausal atrophic vaginitis
CPT/HCPCS: 81001; 87086

== ENCOUNTER 2025-04-19 12:00 | Outpatient (CLI) | payer OTHER, SELFPAY ==
--- OUTSIDE RECORDS SUMMARY | 2025-03-10 12:45 | XMS_ITS | Encounter Summary ---
Author Organization [facility] Address [address] [place] [address] Care Team Providers Care Front End Architect Name Role Phone Delaney Ochoa APRN Primary Care Provider + [phone] Reason for Referral * Pain Management (Routine) - Pending Review Specialty Diagnoses / Procedures Referred By Ariane t Referred To Contact Pain Medicine Diagnoses Degeneration of intervertebral disc of lumbar region with discogenic back pain and lower extremity pain Synovial cyst of lumbar facet joint Procedures GA OFFICE/OUTPATIENT NEW MODERATE MDM 45 MINUTES Mendy Chaidez PA-C [address] [id number] Phone: tel: fax: [place] [address] Phone: tel: Referral ID Status Reason Start Date Expiration Date Visits Requested Visits Authorized [id number] Pending Review Patient Preference 03/10/2025 06/09/2026 1 1 Reason for Visit * Reason Comments Back Pain Leg Pain RLE Tingling RLE Numbness RLE Encounter Details Date Type Department Care Team (Late st Contact Info) Description 03/10/2025 12:45 PM EDT Office Visit [facility] [address] [phone] Mendy Chaidez PA-C [address] [place] [address] Degeneration of intervertebral disc of lumbar region with discogenic back pain and lower extremity pain (Primary Dx); Synovial cyst of lumbar facet joint Social History Tobacco Use Types Packs/Day Years Used Date Smoking Tobacco: Every Day Cigarettes Started: 2001 Smokeless Tobacco: Never Tobacco Cessation:Ready to Q uit: No; Counseling Given: Yes Alcohol Use Standard Drinks/Week Comments Never 0 (1 standard drink = 0.6 oz pur e alcohol) Comments Unknown Sex and Gender Information Value Date Recorded Sex Assigned at Not on file Legal Sex Female 12:37 PM EDT Gender Identity Not on file Sexual Orientation Not on file documented as of this encounter Last Filed Vital Signs Vital Sign Reading Time Taken Comments Blood Pressure - - Pulse - - Temperature 36.3 C (97.3 F) 03/10/2025 12:38 PM EDT Respiratory Rate - - Oxygen Saturation - - Inhaled Oxygen Concentration - - Weight 92.3 kg (203 lb 6.4 oz) 03/10/2025 12:38 PM EDT Height 167.6 cm (5' 6 ) 03/10/2025 12:38 PM EDT Body Mass Index 32.83 03/10/2025 12:38 PM EDT documented in this encounter Progress Notes * Mendy Chaidez PA-C - 03/10/2025 12:45 PM EDT Subjective Chief Complaint: back pain Right leg pain with sensory alteration Patient ID: Laila Herrera is a 39 y.o. female seen for consultation today at the request of Delaney Ochoa APRN Back Pain Associated symptoms: leg pain and numbness Associated symptoms: no abdominal pain, no chest pain, no dysuria, no fever, no headaches, no pelvic pain and no weakness Leg Pain Associated symptoms include numbness. History of Present Illness Ms Herrera is a39yo F with a 1 year history of back pain radiating into her right hip and posterolateral thigh. The pain typically stops at the knee the pain is worse in certain positions without anynoticeable pattern. It is consistently worse when riding in a car or getting out of bed. It tends to be slightly better when she is up and moving. Though any straining or lifting >10- 15lbs also makes it worse. She describes this as a burning/aching pain. She did go to physical therapy at [facility] in December/January of this year, but PT made it worse. She uses heat and ice with some relief. She is also taking ibuprofen 800mg up to 3x/day, and methocarbamol 750 BID. She has not had weakness or falls. She does not have saddle anesthesia or bowel/bladder dysfunction. She is here today with an MRI of the lumbar spine for our review She had been evaluated by Dr Chaidez and he did not recommend any surgery. They are here for a second opinion. The following portions of the patient's history were reviewed and updated as appropriate: allergies, current medications, past family history, past medical history, past social history, past surgicalhistory and problem list. No past medical history on file. No past surgical history on file. Family history: No family history on file. Social history: Social History Socioeconomic History Marital status: Tobacco Use Smoking status: Every Day Types: Cigarettes Start date: 2001 Smokeless tobacco: Never Vaping Use Vaping status: Never Used Substance and Sexual Activity Alcohol use: Never Drug use: Never Sexual activity: Defer Review of Systems Constitutional: Positive for activity change. Negative for appetite change, chills, diaphoresis, fatigue, fever and unexpected weight change. HENT: Negative for congestion, dental problem, drooling, ear discharge, ear pain, facial swelling, hearing loss, mouth sores, nosebleeds, postnasal drip, rhinorrhea, sinus pressure, sinus pain, sneezing, sore throat, tinnitus, trouble swallowing and voice change. Eyes: Negative for photophobia, pain, discharge, redness, itching and visual disturbance. Respiratory: Negative for apnea, cough, choking, chest tightness, shortness of breath, wheezing andstridor. Cardiovascular: Negative for chest pain, palpitations and leg swelling. Gastrointestinal: Negative for abdominal distention, abdominal pain, anal bleeding, blood in stool,constipation, diarrhea, nausea, rectal pain and vomiting. Endocrine: Negative for cold intolerance, heat intolerance, polydipsia, polyphagia and polyuria. Genitourinary: Negative for decreased urine volume, difficulty urinating, dyspareunia, dysuria, enuresis, flank pain, frequency, genital sores, hematuria, menstrual problem, pelvic pain, urgency, vaginal bleeding, vaginal discharge and vaginal pain. Musculoskeletal: Positive for back pain and myalgias. Negative for arthralgias, gait problem, jointswelling, neck pain and neck stiffness. Skin: Negative for color change, pallor, rash and wound. Allergic/Immunologic: Negative for environmental allergies, food allergies and immunocompromised state. Neurological: Positive for numbness. Negative for dizziness, tremors, seizures, syncope, facial asymmetry, speech difficulty, weakness, light-headedness and headaches. Hematological: Negative for adenopathy. Does not bruise/bleed easily. Psychiatric/Behavioral: Positive for sleep disturbance. Negative for agitation, behavioral problems, confusion, decreased concentration, dysphoric mood, hallucinations, self-injury and suicidal ideas. The patient is not nervous/anxious and is not hyperactive. Objective Temperature 97.3 ??F (36.3 ??C), temperature source Infrared, height 167.6 cm (66 ), weight 92.3 kg(203 lb 6.4 oz). Body mass index is 32.83 kg/m??. Physical Exam CONSTITUTIONAL: - Patient is well-nourished - Pleasant and appears stated age. PSYCHIATRIC: - Normal mood and affect - Behavior is normal. HENT: Head: Normocephalic and Atraumatic. Eyes: - Pupils are equal, round, and reactive to light. - EOM are normal. CV: - Regular rate and rhythm on palpable radial pulse PULMONARY: - Speaking in full sentences, breathing non labored - No wheezing SKIN: - Clean, dry and intact MUSCULOSKELETAL: - Neck/Back tenderness to palpation is not observed. - Strength is intact in the upper and lower extremities to direct testing. - Muscle tone is generally deconditioned throughout. - Station and gait are mildly antalgic - ROM in neck/back is normal. - Straight leg raise is negative NEUROLOGICAL: - A&Ox3 - Attention span, language function, and cognition are intact. - Sensation is intact to light touch testing throughout. - Deep tendon reflexes are 1+ and symmetrical. - Whitney's Sign is negative bilaterally. - Coordination is intact. Patient's Body mass index is 32.83 kg/m??. indicating that she meets the BMI criteria for obesity Assessment & Plan Independent Review of Radiographic Studies: MRI of the lumbar spine dated 12/22/2024 was reviewed. This shows moderate degenerative disc disease most advanced at L4-5 and L5-S1. There are disc bulges at these levels. At L4-5, disc is eccentric to the left without significant central or foraminal stenosis. There is a small disc bulge centrally at L5-S1 also without central or foraminal stenosis. There are joint effusions with synovial cysts which extend dorsally into the paraspinal muscles at L2-3 on the right, and at L3-4 and L4-5 on the left. These do not extend into the neuroforaminal space AP and lateral x-rays of the lumbar spine were also reviewed which shows very mild levoscoliosis Medical Decision Making: The MRI and x-rays were reviewed in detail with the patient. A lumbar spinal model was employed to help explain the findings. She does have degenerative changes, small disc bulges, and synovial cystsbut there does not appear to be any involvement of the spinal cord or nerve roots that would necessitate surgery.. . She has some radicular nerve pain and it would be reasonable to try some gabapentin 300 mg twice a day for this. I think most of her back pain is mechanical however and have referredher to pain management. She would prefer to be seen in [facility] where she lives. Will follow upwith her on an as-needed basis going forward Diagnoses and all orders for this visit: 1. Degeneration of intervertebral disc of lumbar region with discogenic back pain and lower extremity pain (Primary) - Ambulatory Referral to Pain Management - gabapentin (NEURONTIN) 300 MG capsule; Take 1 capsule by mouth 2 (Two) Times a Day. Dispense: 40 capsule; Refill: 0 2. Synovial cyst of lumbar facet joint - Ambulatory Referral to Pain Management Return if symptoms worsen or fail to improve. This document signed by Mendy Chaidez PA-C March 10, 2025 16:25 EDT documented in this encounter Plan of Treatment Scheduled Referrals Name Type Priority Associated Diagnoses Orde r Schedule Ambulatory Referral to Pain Management Outpatient Referral Routine Degeneration of intervertebral disc of lumbar region with discogenic back pain and lower extremity pain Synovial cyst of lumbar facet joint Ordered: 03/10/2025 documented as of this encounter Visit Diagnoses Diagnosis Degeneration of intervertebral disc of lumbar region with discogenic back pain and lower extremity pain- Primary Synovial cyst of lumbar facet joint documented in this encounter Care Teams Front End Architect Relationship Specialty Start Date End Date Delaney Ochoa APRN [address] [place] [address] [place] [address] PCP - General Internal Medicine 02/22/25 documented as of this encounter
[2025-04-19 14:47] LABS: Microscopic, Urine URINE MICROSCOPIC (MICROSCOPIC)
[2025-04-19 16:30] LABS: Bilirubin,Urine Negative (Negative); Color,Urine YELLOW (Yellow); Glucose,Urine (UA) Negative (Negative); Ketones,Urine Negative (Negative); Leukocyte Esterase,Urine Negative (Negative); PH,Urine 6.0 (5.0-8.5); Protein,Urine Negative (Negative); Specific Gravity, Urine 1.025 (1.005-1.030); Urobilinogen,Urine 1.0 EU/dl (0.2)
[2025-04-19 18:19] LABS: Bacteria,Urine Trace /lpf; Calcium Oxalate Crystals,Urine Trace /lpf; WBC,Urine Occasional #/hpf (0-3)
--- OUTSIDE RECORDS SUMMARY | 2025-04-20 14:43 | XMS_ITS | Clinical Summary ---
Author Organization [facility] Address [address] [place] [address] Care Team Providers Care Educational Resource Center Teacher Name Role Phone OchoaDelaney ADRIANA Primary Care Provider + [phone] Allergies Active Allergy Reactions Criticality Noted Date Comments Oxybutynin Other (See Comments) 03/10/2025 Thrush Medications Symbicort 160-4.5 MCG/ACT inhaler Inhale 2 puffs 2 (Two) Times a Day. 01/20/20 25 Active polycarbophil 625 MG tablet tablet Take 2 tablets every day by oral route as directed for 30 days, for constipation. 11/18/19 25 Active cyanocobalamin 1000 MCG/ML injection INJECT 1000mcg (1ml) INTRAMUSCULARLY ONCE a MONTH 02/10/20 25 Active dicyclomine (BENTYL) 10 MG capsule TAKE ONE CAPSULE BY MOUTH THREE TIMES DAILY NEEDED FOR ABDOMINAL PAIN 02/23/20 25 Active estradiol (ESTRACE) 0.1 MG/GM vaginal cream apply 1 GRAM using finger technique EVERY DAY FOR FOURTEEN DAYS THEN USE three times WEEKLY THEREAFTER 01/16/20 25 Active ibuprofen (ADVIL,MOTRIN) 800 MG tablet TAKE ONE TABLET BY MOUTH EVERY 8 HOURS --TAKE WITH FOOD-- 12/30/19 25 Active lidocaine (LIDODERM) 5 % APPLY 1 PATCH TOPICALLY TO THE AFFECTED AREA ONCE DAILY AND LEAVE IN PLACE FOR 12 HOURS, THEN REMOVE AND LEAVE OFF FOR 12 HOURS Active Linzess 72 MCG capsule capsule Take 1 capsule every day by oral route in the morning for 30 days. Active methocarbamol (ROBAXIN) 750 MG tablet TAKE TWO TABLETS BY MOUTH THREE TIMES DAILY MAY CAUSE DROWSINESS Active Gemtesa 75 MG tablet Take 1 tablet by mouth Daily. Active promethazine (PHENERGAN) 25 MG tablet TAKE ONE TABLET BY MOUTH EVERY 4 TO 6 HOURS NEEDED FOR NAUSEA Active gabapentin (NEURONTIN) 300 MG capsuleIndication s:Degeneration of intervertebral disc of lumbar region with discogenic back pain and lower extremity pain Take 1 capsule by mouth 2 (Two) Times a Day. 40 capsule 03/10/20 Active Active Problems Problem Noted Date Diagnosed Date Synovial cyst of lumbar facet joint 03/10/2025 Degeneration of intervertebr al disc of lumbar region with discogenic back pain and lower extremity pain 03/10/2025 Encounters Date Type Department Care Team Description 03/10/2025 12:45 PM EDT Office Visit [facility] [address] [facility] [address] [place] [address] Mendy Chaidez, OSIRIS Degeneration of intervertebral disc of lumbar region with discogenic back pain and lower extremity pain (Primary Dx); Synovial cyst of lumbar facet joint 03/10/2025 Travel from Last 3 Months Social History Tobacco Use Types Packs/Day Years [...] on file Sexual Orientation Not on file Last Filed Vital Signs Vital Sign Reading [...] Mass Index 32.83 03/10/2025 12:38 PM EDT Plan of Treatment Health Maintenance Due Date Last Done Comments Annual Gynecologic Pelvic an d Breast Exam 1985 Pneumococcal Vaccine 0-49 (1 of 2 - PCV) 2004 PAP SMEAR 2006 COVID-19 Vaccine (2023-2 5 season) 2024 02/11/2021, 01/20/2021 ANNUAL PHYSICAL 03/10/2025 HEPATITIS C SCREENING 03/10/2025 MAMMOGRAM 2025 INFLUENZA VACCINE 06/23/2025 07/20/2021, , 07/31/2019, Additional history exists TDAP/TD VACCINES (3 - Td or Tdap) 10/21/2027 018, 02/04/2012 Insurance [facility] Care Teams Educational Resource Center Teacher Relationship Specialty Start Date End Date Delaney Ochoa APRN [address] [place] [address] [facility] [id number] PCP - General Internal Medicine 02/22/25
--- OUTSIDE RECORDS SUMMARY | 2025-04-20 14:44 | XMS_ITS | Clinical Summary ---
Author Organization [facility] Address [address] [place] [address] Care Team Providers Care Wire Tinner Name Role Phone Unavailable Primary Care Provider [...]
--- OUTSIDE RECORDS SUMMARY | 2025-04-20 14:44 | XMS_ITS | Continuity of Care Document ---
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 Plan of Treatment Reminders Order Date Submit Date Provider Last Modified By Organization Details Last Modified Time Details Appointments OV EST 15 2024 11:15A Lamont Mckenzie MD Not available Not available Not available Lab CBC 2024 025 [facility] (Lab Registration) , [address] [place] [address] [place], [address], 04/09/2025 14:49:51 BMP, blood 2024 025 [email or web address] [facility] (Lab Registration) , [address] [place] [address] [place], [address], 04/09/2025 13:56:19 hepatic function panel, serum [email or web address] [facility] [address] [facility] (Lab Registration) , [address] [place] [address] [place], [address], 04/09/2025 13:56:19 ANDREY + rf (antinucl ear antibodie s + rheumatoi d factor), quantitat anya, serum 2024 025 tito [facility] (Lab Registration) , [address] [place] [address] [place], [address], 04/13/2025 08:28:15 C-reactiv e protein, quantitat anya, serum or plasma 2024 025 [facility] (Lab Registration) , [address] [place] [address] [place], [address], 04/09/2025 14:49:52 ESR (erythroc yte sedimenta tion rate), blood 2024 025 [facility] (Lab Registration) , [address] [place] [address] [place], [address], 04/09/2025 15:07:26 drug confirmat ion, urine 2024 025 [facility] (Lab Registration) , [address] [place] [address] [place], [address], 04/19/2025 10:02:30 Referral None recorded. Procedures None recorded. Surgeries None recorded. Imaging XR, sacroilia c joint(s) 2024 025 [facility] (Lab Registration) , [address] [place] [address] [place], [address], 04/12/2025 09:02:58 Medication Orders None recorded. Patient TargetsNo targets recorded. Patient InstructionsNo instructions recorded. Reason for Referral None Reported. Results Created Date Observation Date Name Description Value Unit Range Abnormal Flag Note LastModifiedBy Organization Detail LastModifiedTime 04/09/2004/09/2025 CBC NO DIFF (HEMO GRAM) WBC 7.00 K/uL 4.5-11 .5 Not Available [facility] (Pre-Op Clinic) [address] [place] [address] [place], [address], 04/09/2025 13:04:45 04/09/2004/09/2025 CBC NO DIFF (HEMO GRAM) RBC 4.39 M/uL 4.0-5. 4 Not Available [facility] (Pre-Op Clinic) [address] [place] [address] [place], [address], 04/09/2025 13:04:45 04/09/20 25 04/09/2025 CBC NO DIFF (HEMO GRAM) HGB 15.5 g/dL 12.0-1 5.0 high Not Available [facility] (Pre-Op Clinic) [address] [place] [address] [place], [address], 04/09/2025 13:04:45 04/09/20 25 04/09/2025 CBC NO DIFF (HEMO GRAM) HCT 45.0 % 35-49 Not Available [facility] (Pre-Op Clinic) [address] [place] [address] [place], [address], 04/09/2025 13:04:45 04/09/20 25 04/09/2025 CBC NO DIFF (HEMO GRAM) MCV 102.5 fL 80.0-1 00.0 high Not Available [facility] (Pre-Op Clinic) [address] [place] [address] [place], [address], 04/09/2025 13:04:45 04/09/20 25 04/09/2025 CBC NO DIFF (HEMO GRAM) MCH 35.3 pg 26.0-3 2.0 high Not Available [facility] (Pre-Op Clinic) [address] [place] [address] [place], [address], 04/09/2025 13:04:45 04/09/20 25 04/09/2025 CBC NO DIFF (HEMO GRAM) MCHC 34.4 g/dL 32.0-3 6.0 Not Available [facility] (Pre-Op Clinic) [address] [place] [address] [place], [address], 04/09/2025 13:04:45 04/09/20 25 04/09/2025 CBC NO DIFF (HEMO GRAM) RDW 12.0 % 11.5-1 4.5 Not Available [facility] (Pre-Op Clinic) [address] [place] [address] [place], [address], 04/09/2025 13:04:45 04/09/20 25 04/09/2025 CBC NO DIFF (HEMO GRAM) platelet count 163 K/uL 142-42 4 Not Available [facility] (Pre-Op Clinic) [address] [place] [address] [place], [address], 04/09/2025 13:04:45 04/09/20 25 04/09/2025 CBC NO DIFF (HEMO GRAM) MPV 9.5 fL 6.8-10 .2 Not Available [facility] (Pre-Op Clinic) [address] [place] [address] [place], [address], 04/09/2025 13:04:45 04/09/20 25 04/09/2025 CBC NO DIFF (HEMO GRAM) note Unles s other torres noted testi ng perfo [facility]med at: [facility] [address] [place] [address] Chino souza MD Not Available [facility] (Pre-Op Clinic) [address] [place] [address] [place], [address], 04/09/2025 13:04:45 04/09/20 25 04/09/2025 BASIC METAB OLIC PANEL sodium 137 mmol/ L 137-14 7 Not Available [facility] (Pre-Op Clinic) [address] [place] [address] [place], [address], 04/09/2025 13:31:06 04/09/20 25 04/09/2025 BASIC METAB OLIC PANEL potassium 4.2 mmol/ L 3.5-5. 1 Not Available [facility] (Pre-Op Clinic) [address] [place] [address] [place], [address], 04/09/2025 13:31:06 04/09/20 25 04/09/2025 BASIC METAB OLIC PANEL chloride 104 mmol/ L 98-110 Not Available [facility] (Pre-Op Clinic) [address] [place] [address] [place], [address], 04/09/2025 13:31:06 04/09/20 25 04/09/2025 BASIC METAB OLIC PANEL carbon dioxide 27 mmol/ L 21-30 Not Available [facility] (Pre-Op Clinic) [address] [facility] [place], [address], 04/09/2025 13:31:06 04/09/20 25 04/09/2025 BASIC METAB OLIC PANEL anion gap 6 mmol/ L 6-14 Not Available [facility] (Pre-Op Clinic) [address] [place] [address] [place], [address], 04/09/2025 13:31:06 04/09/20 25 04/09/2025 BASIC METAB OLIC PANEL glucose 78 mg/dL 70-115 Not Available [facility] (Pre-Op Clinic) [address] [place] [address] [place], [address], 04/09/2025 13:31:06 04/09/20 25 04/09/2025 BASIC METAB OLIC PANEL BUN 14 mg/dL 7-17 Not Available [facility] (Pre-Op Clinic) [address] [place] [address] [place], [address], 04/09/2025 13:31:06 04/09/20 25 04/09/2025 BASIC METAB OLIC PANEL creatinine 0.6 mg/dL 0.5-1. 5 Not Available [facility] (Pre-Op Clinic) [address] [place] [address] [place], [address], 04/09/2025 13:31:06 04/09/20 25 04/09/2025 BASIC METAB OLIC PANEL BUN/creatini ne ratio 23 10-20 high Not Available [facility] (Pre-Op Clinic) [address] [place] [address] [place], [address], 04/09/2025 13:31:06 04/09/20 25 04/09/2025 BASIC METAB OLIC PANEL glom filtration rate 116 mL/mi n >60- GFR LIMIT ATION : The eGFR equat ion CKD-E PI 2020 is not appli cable for pedia tric patie nts or great er than 90 years of age. The follo wing condi tions may alter the GFR resul t: extre mes in body size, malnu triti on or obesi ty, skele mary muscl e disea se, parap legia or quadr ipleg ia, veget debi diet or rapid ly frankel ing kiney funct ion. Not Available [facility] (Pre-Op Clinic) [address] [place] [address] [place], [address], 04/09/2025 13:31:06 04/09/20 25 04/09/2025 BASIC METAB OLIC PANEL osmolality (calculated) 284 mosmo l/kg 275-30 1 OSMOL ALITY IS A CALCU LATIO N UTILI ZING THE SERUM /PLAS MA SODIU M, GLUCO SE AND UREA NITRO GEN (BUN) LEVEL S. FOR THE MOST ACCUR ATE RESUL T A MEASU RED SERUM OSMOL ALITY IS SUGGE STED. Not Available [facility] (Pre-Op Clinic) [address] [place] [address] [place], [address], 04/09/2025 13:31:06 04/09/20 25 04/09/2025 BASIC METAB OLIC PANEL calcium 9.4 mg/dL 8.5-10 .8 Not Available [facility] (Pre-Op Clinic) [address] [place] [address] [place], [address], 04/09/2025 13:31:06 04/09/20 25 04/09/2025 BASIC METAB OLIC PANEL note Unles s other torres noted testi ng perfo rmed at: [facility] [address] [place] [address] Chino souza MD Not Available [facility] (Pre-Op Clinic) [address] [place] [address] [place], [address], 04/09/2025 13:31:06 04/09/20 25 04/09/2025 HEPAT IC FUNCT ION PANEL total protein 6.8 g/dL 6.2-8. 2 Not Available [facility] (Pre-Op Clinic) [address] [place] [address] [place], [address], 04/09/2025 13:32:15 04/09/20 25 04/09/2025 HEPAT IC FUNCT ION PANEL albumin 4.1 g/dL 3.5-5. 0 Not Available [facility] (Pre-Op Clinic) [address] [place] [address] [place], [address], 04/09/2025 13:32:15 04/09/20 25 04/09/2025 HEPAT IC FUNCT ION PANEL bilirubin total 0.6 mg/dL 0.2-1. 3 Not Available [facility] (Pre-Op Clinic) [address] [place] [address] [place], [address], 04/09/2025 13:32:15 04/09/20 25 04/09/2025 HEPAT IC FUNCT ION PANEL bilirubin direct 0.20 mg/dL 0.0-0. 3 Not Available [facility] (Pre-Op Clinic) [address] [place] [address] [place], [address], 04/09/2025 13:32:15 04/09/20 25 04/09/2025 HEPAT IC FUNCT ION PANEL bilirubin indirect 0.40 Not Available [facility] (Pre-Op Clinic) [address] [place] [address] [place], [address], 04/09/2025 13:32:15 04/09/20 25 04/09/2025 HEPAT IC FUNCT ION PANEL AST (SGOT) 67 IU/L 14-36 high Not Available [facility] (Pre-Op Clinic) [address] [place] [address] [place], [address], 04/09/2025 13:32:15 04/09/20 25 04/09/2025 HEPAT IC FUNCT ION PANEL ALT (SGPT) 104 IU/L 0-35 high Pleas e note new refer ence inter pradeep for ALT. Due to a recen t manuf actur er metho dolog y frankel e, the refer ence inter pradeep for ALT is lower effec tive January 12, 2021. Not Available [facility] (Pre-Op Clinic) [address] [place] [address] [place], [address], 04/09/2025 13:32:15 04/09/20 25 04/09/2025 HEPAT IC FUNCT ION PANEL alk phosphatase 79 IU/L 38-126 Not Available [facility] (Pre-Op Clinic) [address] [place] [address] [place], [address], 04/09/2025 13:32:15 04/09/20 25 04/09/2025 HEPAT IC FUNCT ION PANEL note Unles s other torres noted testi ng perfo rmed at: [facility] [address] [place] [address] Chino souza MD Not Available [facility] (Pre-Op Clinic) [address] [place] [address] [place], [address], 04/09/2025 13:32:15 04/09/20 25 04/09/2025 C-ALLI CTIVE PROTE IN (CRP) C-reactive protein <5.0 mg/L -10 Not Available [facility] (Pre-Op Clinic) [address] [place] [address] [place], [address], 04/09/2025 13:38:42 04/09/20 25 04/09/2025 C-ALLI CTIVE PROTE IN (CRP) note Unles s other torres noted testi ng perfo rmed at: [facility] [address] [place] [address] Chino souza MD Not Available [facility] (Pre-Op Clinic) [address] [place] [address] [place], [address], 04/09/2025 13:38:42 04/09/20 25 04/09/2025 SED RATE WESTE RGREN sed rate westergren 5 mm/HR 0-15 Not Available [facility] (Pre-Op Clinic) [address] [place] [address] [place], [address], 04/09/2025 13:56:12 04/09/20 25 04/09/2025 SED RATE WESTE RGREN note Unles s other torres noted testi ng perfo rmed at: [facility] [address] [facility] [place] [address] Chino souza MD Not Available [facility] (Pre-Op Clinic) [address] [facility] [place], [address], 04/09/2025 13:56:12 04/09/20 25 04/09/2025 RHEUM ATOID ARTHR ITIS FACTO R-RA note Unles s other torres noted testi ng perfo rmed at: [facility] [address] [place] [address] Chino souza MD Not Available [facility] (Pre-Op Clinic) [address] [place] [address] [place], [address], 04/10/2025 09:12:41 04/09/20 25 04/10/2025 RHEUM ATOID ARTHR ITIS FACTO R-RA RA latex turbid. <10.0 IU/mL <14.0 Perfo rmed at: [facility] [address] [place] [address] 1265 Lab Direc tor: Redd price PhD, Phone : [phone] Not Available [facility] (Pre-Op Clinic) [address] [place] [address] [place], [address], 04/10/2025 09:12:41 04/09/20 25 04/09/2025 ANDREY SCREE N W REFLE X note Unles s other torres noted testi ng perfo rmed at: [facility] [address] [place] [address] Chino souza MD Not Available [facility] (Pre-Op Clinic) [address] [place] [address] [place], [address], 04/12/2025 14:16:00 04/09/2004/12/2025 ANDREY SCREE N W REFLE X ANDREY direct Negati ve negati ve Perfo rmed at: [facility] [address] [facility], [place] [address] 1264 Lab Direc tor: Redd price PhD, Phone : [phone] Not Available [facility] (Pre-Op Clinic) [address] [facility] [place], [address], 04/12/2025 14:16:00 04/09/20 25 04/09/2025 COMPL IANCE DRUG SCARLETT SIS, UR note Unles s other torres noted testi ng perfo rmed at: [facility] [address] [place] [address] Chino souza MD Not Available [facility] (Pre-Op Clinic) [address] [place] [address] [place], [address], 04/18/2025 16:15:51 04/09/2004/18/2025 COMPL IANCE DRUG SCARLETT SIS, UR summary FINAL ===== ===== ===== ===== ===== ===== ===== ===== ===== ===== ===== ===== ===== === TOXAS SURE COMP DRUG SACRLETT SIS,U R ===== ===== ===== ===== ===== ===== ===== ===== ===== ===== ===== ===== ===== === Test Resul t Flag Uni ts NO DRUGS DETEC LUNA. ===== ===== ===== ===== ===== ===== ===== ===== ===== ===== ===== ===== ===== === Test Resul t Flag Units Ref Ra nge Creat inine 102 mg/dL >=20 ===== ===== ===== ===== ===== [...] ===== ===== ===== ===== === Not Available [facility] (Pre-Op Clinic) [address] [place] [address] [place], [address], 04/18/2025 16:15:51 04/09/20 25 04/18/2025 COMPL IANCE DRUG SCARLETT SIS, UR pdf . Perfo rmed at: [facility] [address] [place] [address] 804 Lab Direc tor: Lorena vogt [facility] , Phone : [phone] Not Available [facility] (Pre-Op Clinic) [address] [place] [address] [place], [address], 04/18/2025 16:15:51 03/11/20 25 12/08/2024 XR, lumba r spine , 2 view No observ ation record ed. [email or web address] Not Available 2024 16:15:28 03/11/20 25 12/22/2024 MRI, lumba r spine , w/o contr ast No observ ation record ed. [email or web address] Not Available 2024 16:16:19 04/09/20 25 04/09/2025 XR, sacro iliac joint (s), 3 or more view [facility] [address] [place] [address] [phone] (Phone ) KALYANI Parrish REPORT Name: MARIE REYNA : 1984 Accoun t #: [id number] Age: 40 Years Patien t Type: Outpat ient Sex: F Access ion#: [id number] Exam Descri ption: SACROI LIAC JOINTS 3V Exam Reason : M53.3 SACROC OCCYGE AL DISORD ERS NOT ELSEWH ERE CLASSI FIED Order Date/T tanner: 2024 12:34: 57 PM Dictat ed By: Ciaran Roberson MD Orderi ng Physic juan manuel: MICHELLE VILLAGOMEZ Attend ing Physic juan manuel: YAMINI KELLER MICHELLE Sacroi liac joints HISTOR Y: Chroni c pain TECHNI QUE: 3 views perfor med. FINDIN GS: Views of the sacroi liac joints are no fractu re or disloc ation. No signif icant arthri tic change s. No diasta ses or asymme try. No signif icant soft tissue calcif icatio ns. IMPRES GIL: Unrema rkable radiog raphs of the sacroi liac joints . Electr onical ly signed by: Ciaran Roberson MD 2024 04:55 PM EDT RP Workst ation: [id number] Princi pal Interp reter Name: Ciaran Roberson [facility] er ID: [id number] PAGE 1 OF 1 CC'ed Logic: Orderi ng Provid er: YAMINI BALDERASND CC Provid er: CAM REIS Attend ing Provid er: MODADNilam KELLER MICHELLE Referr ing Provid er: MODADU MICHELLE Admitt ing Provid er: YAMINI MARTINEZ [facility]cullip [facility] (Central Scheduling) [address] [place], [place] [address], [address], 04/12/2025 09:02:53 Result Notes Documentation Provider Name and Address Organization Details Recorded Time Xr, Sacroiliac Joint(s), 3 Or More View : [address] [place] [address] (Phone) IMAGING REPORT ___ Name: FEDERICO SHARP : 1985 Age: 40 Years Patient Type: Outpatient Sex: F Exam Description: SACROILIAC JOINTS 3V Exam Reason: M53.3 SACROCOCCYGEAL DISORDERS NOT ELSEWHERE CLASSIFIED Order Date/Time: 04/09/2025 12:34:57 PM Dictated By: Ciaran Roberson MD Ordering Physician: MICHELLE MCKENZIE Attending Physician: MICHELLE MCKENZIE ___ Sacroiliac joints HISTORY: Chronic pain TECHNIQUE: 3 views performed. FINDINGS: Views of the sacroiliac joints are no fracture or dislocation. No significant arthritic changes. No diastases or asymmetry. No significant soft tissue calcifications. IMPRESSION: Unremarkable radiographs of the sacroiliac joints. Electronically signed by: Ciaran Roberson MD 04/09/2025 04:55 PM EDT Principal Manager Scheduling Name: Ciaran Roberson Provider ID: [id number] PAGE 1 OF 1 CC'ed Logic: Ordering Provider: MAAGLY MARTINEZ CC Provider: LARA REIS Attending Provider: MAGALY MARTINEZ Referring Provider: MAGALY MARTINEZ Admitting Provider: MAGALY [place], [place] - [facility] - [place] & [place] 04/12/2025 09:02:53 Problems Name Problem SNOMED Code Status Onset Date Resolution Date Notes Provider Name and Address Organization Details Recorded Time Fibromyalgia 699216675 Active 2024 Michelle Mckenzie MD [address], [address], [place], [place], [address], [place] [facility] - [place] 5 11:41:42 Pain of sacroiliac joint 670737773 Active 2024 Michelle Mckenzie MD [address], [address], [place], [address], [place] - [facility] [place] 11:42:21 Problem Notes None recorded. 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 Procedure Notes None recorded. Medical Equipment None Reported. Allergies No known drug allergies Medications Name Sig Start Date Stop Date Status Note LastModified by Organization Details LastModified Time fluconazole 100 mg tablet TAKE ONE TABLET BY MOUTH ONCE DAILY FOR FOURTEEN DAYS -- FINISH ALL MEDICINE -- 04/09 completed Not Available Not Available Not Available clotrimazol e 10 mg danny DISSOLVE ONE TABLET in affected AREA of MOUTH FIVE TIMES DAILY FOR FOURTEEN DAYS 11/18 completed Not Available Not Available Not Available promethazin e-DM 6.25 mg-15 mg/5 mL oral syrup TAKE 1 TEASPOONF UL (5 ML) BY MOUTH EVERY 4-6 HOURS NEEDED FOR COUGH 04/09 completed Not Available Not Available Not Available oxybutynin chloride ER 10 mg tablet,exte nded release 24 hr TAKE ONE TABLET BY MOUTH EVERY DAY 04/09 completed Not Available Not Available Not Available azithromyci n 250 mg tablet TAKE 2 TABLETS BY MOUTH ON DAY 1, THEN TAKE 1 TABLET DAILY ON DAYS 2-5 04/08 completed Not Available Not Available Not Available ibuprofen 800 mg tablet TAKE ONE TABLET BY MOUTH EVERY 8 HOURS --TAKE WITH FOOD-- active Not Available Not Available No t Available fluconazole 150 mg tablet TAKE ONE TABLET BY MOUTH ONCE DAILY FOR 5 DAYS 04/09 completed Not Available Not Available Not Available clindamycin HCl 150 mg capsule TAKE ONE CAPSULE BY MOUTH THREE TIMES DAILY UNTIL GONE 04/08 completed Not Available Not Available Not Available metronidazo le 500 mg tablet TAKE ONE TABLET BY MOUTH TWICE DAILY FOR 10 DAYS --AVOID ANY PRODUCT(S ) CONTAININ G ALCOHOL WHILE TAKING THIS MEDICATIO N-- 04/09 completed Not Available Not Available Not Available ciprofloxac in 500 mg tablet TAKE ONE TABLET BY MOUTH TWICE DAILY FOR 10 DAYS 04/09 completed Not Available Not Available Not Available tramadol 50 mg tablet TAKE ONE TABLET BY MOUTH EVERY 8 HOURS NEEDED FOR pain MAY CAUSE DROWSINES S 11/18 completed Not Available Not Available Not Available oxycodone-a cetaminophe n 5 mg-325 mg tablet TAKE ONE TABLET BY MOUTH EVERY 4 HOURS NEEDED FOR PAIN MAY CAUSE DROWSINES S 04/09 completed Not Available Not Available Not Available amoxicillin 875 mg tablet TAKE ONE [...] -SWALLOW WHOLE. DO NOT CRUSH OR CHEW- 04/09 completed Not Available Not Available Not Available cyanocobala min (vit B-12) 1,000 mcg/mL injection solution INJECT 1000mcg (1ml) INTRAMUSC ULARLY ONCE a MONTH active Not Available Not Available No t Available methylcellu lose (laxative) 500 mg tablet Take 2 tablets every day by oral route as directed for 30 days, for constipat ion. 04/09 completed Not Available Not Available Not Available lidocaine 5 % topical patch APPLY 1 PATCH TOPICALLY TO THE AFFECTED AREA ONCE DAILY AND LEAVE IN PLACE FOR 12 HOURS, THEN REMOVE AND LEAVE OFF FOR 12 HOURS active Not Available Not Available No t Available promethazin e 25 mg tablet TAKE ONE TABLET BY MOUTH EVERY 4 TO 6 HOURS NEEDED FOR NAUSEA 04/09 completed Not Available Not Available Not Available gabapentin 300 mg capsule TAKE ONE CAPSULE BY MOUTH TWICE DAILY 04/09 completed Not Available Not Available Not Available ibuprofen 600 mg tablet TAKE ONE TABLET BY MOUTH EVERY 6 HOURS NEEDED FOR PAIN --TAKE WITH FOOD-- 04/09 completed Not Available Not Available Not Available polyethylen e glycol 3350 17 gram/dose oral powder DISSOLVE 17 GRAMS OF POWDER INTO 4 TO 8 OUNCES OF WATER, JUICE, SODA, COFFEE, OR TEA THEN DRINK TWICE DAILY 04/09 completed Not Available Not Available Not Available levofloxaci n 500 mg tablet TAKE [...] WITH FOOD-- -- FINISH ALL MEDICINE -- 04/09 completed Not Available Not Available Not Available doxycycline hyclate 100 mg tablet TAKE ONE TABLET BY MOUTH TWICE DAILY FOR FOURTEEN DAYS -- FINISH ALL MEDICINE -- 04/08 completed Not Available Not Available Not Available dicyclomine 10 mg capsule TAKE ONE CAPSULE BY MOUTH THREE TIMES DAILY NEEDED FOR ABDOMINAL PAIN 2024 active Not Available Not Available Not Avai lable amoxicillin 875 mg-potassiu m clavulanate 125 mg [...] TAKE ONE CAPSULE BY MOUTH EVERY MORNING 04/09 completed Not Available Not Available Not Available Gemtesa 75 mg tablet TAKE ONE TABLET BY MOUTH EVERY DAY active Not Available Not Available No t Available Airsupra 90 mcg-80 mcg/actuati on HFA aerosol inhaler active Not Available Not Available Not Available Vitals Date Recorded Body height Body mass index (BMI) Body weight Body temperature Oxygen saturation Oxygen saturation in Arterial blood by Pulse oximetry Heart rate Systolic And Diastolic Provider Name and Address Organization Details Last Updated DateTime 167.64 cm 32.3 kg/m2 33948.9 1 g 97.3 [degF] 97 % 97 % 69 /min 101/74 mm[Hg] Scarlett Da FISHER [facility] & [place] 11:14:47 Social History Question Answer Notes LastModified by Organizat ion Details LastModified Time Tobacco Smoking Status Current Every Day Smoker Scarlett Roberson [facility] & [place] 04/08/2025 11:58:19 What Was The Date Of Your Most Recent Tobacco Screening? 07/21/2024 Information not available 04/08/2025 How Much Tobacco Do You Smoke? 0.5 PPD Information not available 04/08/2025 How Many Years Have You Smoked Tobacco? 15 Information not available 04/08/2025 Sex: Unknown Functional Status None recorded. Mental Status None [...] GPAL:G 0 P 0 0 0 0 Immunizations Vaccine Type Date Status Note Provider Nam e and Address Organization Details Recorded Time Influenza, MDCK, quadrivalent, PF 07/22/2020 completed Scarlett [place], [place] - [facility] - [place] [facility] [place] 04/09/2025 11:15:04 COVID-19, mRNA, LNP-S, PF, 30 mcg/0.3 mL dose 01/20/2021 completed Scar[place], [place] - [facility] [place] 04/09/2025 11:15:04 COVID-19, mRNA, LNP-S, PF, 30 mcg/0.3 mL dose 02/11/2021 completed Scarlett Roberson null, [place] - [facility] - [place] [facility] [place] 04/09/2025 11:15:04 Tdap 10/21/2017 completed Scarlett Roberson null, [place] [facility] [place] [facility] [place] 04/09/2025 11:15:04 Tdap 02/04/2012 completed Scar[place], [place] - [facility] [place] [facility] [place] 04/09/2025 11:15:04 Influenza, split virus, trivalent, PF 08/12/2017 completed Scarlett Roberson null, [place] [facility] [place] [facility] [place] 04/09/2025 11:15:04 Influenza, split virus, quadrivalent, PF 07/20/2021 completed Scarlett Roberson null, [place] [facility] [place] 04/09/2025 11:15:04 Past Encounters Encounter ID Performer Location Encounter Start Date Encounter Closed Date Diagnosis/Indication Diagnosis SNOMED-CT Code Diagnosis ICD10 Code Diagnosis Note [id number] Michelle Mckenzie MD [facility] - [address] [place] [address] [facility] [place] [id number] 04/09/2025 10:35:34 04/09/2025 11:45:22 Long-term drug therapy [id number] Z79.891 Will start the patient on NSAIDS. NSAIDs are very commonly used pain medication for symptom control. Common complicati ons of the medication including upper GI bleed, anaphylaxi s, acute kidney injury, acute coronary syndrome was explained at length to the patient. Patient has been taking multiple other medication s which can interact with these medication s. Patient encouraged to take the medication only with food or milk. Patient was reassured about dyspepsia. Patient was encouraged to call us back if any questions or concerns. Very clearly explain given her age she has not a candidate for oral opiates. Pain of sa croiliac joint [id number] M53.3 Bilateral sacroiliit isGreater trochanter ic bursitisPa marli has significan t pain in the low back.Signi ficant tenderness on the sacroiliac joint bilaterall yNo radicular signs.+ve FABERS testExamin ation, history consistent with bilateral sacroiliit isLeft leg is 1-1/2 inch shorter than right likely contributi ng to the sacroiliit is.Encoura ged her to consider heel lift. Low back pain exercisesL ow back pain exercises were suggested to the patient. Instructio n were given to the patient in writing. Patient was clearly educated about importance of back exercises. Patient was suggested the following1 ) bridge exercises2 ) seated lower back rotational stretch3) knee to chest stretch4) standing hamstring stretch5) Quadraped arm and leg raise6) pelvic tilt7) extension exercises for low back8) Side PlankPatie nt was asked to start with 5 repetition each day and gradually work up to 30Patient agreed to follow the instructio ns and and agreed to call us back if any questions or concerns Fibromyalgia M 79.7 Examinatio n history is consistent with fibromyalg ia.Tender points could be due to underlying sleep apnea.Woul d like to rule out sleep apnea or other autoimmune disease.Stan calles however does not have any clinical evidence of autoimmune disease.Wi ll consider autoantibo dy panel next visit. For ANDREY Rh factor SclAnti Ro Anti Centromere antibody Anti mitochondr ial antibody ESRCRP.The disease pathology course was explained to the patient in detail.Enc ouraged the patient to lose weight. Encouraged the patient toconsider low impact exercises like swimming elliptical sPatient has been taking prescribed oral opioids and membraness tabilizers quite regularly Health Concerns Section Related Observation LastModified by Organization Detai ls LastModified Time None Recorded Concern Status LastModified by Organization Details LastModified Time None Recorded Payers Encounter Date Sequence Insurance Name Policy Number Policy Garcia Covered Member ID Garcia Member ID Guarantor Name 04/09/2025 1 [employer] [facility] (MEDICAID HMO) Federico Sharp [id number] Federico Sharp OBGyn Episode No OBEpisode recorded.
--- OUTSIDE RECORDS SUMMARY | 2025-04-20 14:44 | XMS_ITS | Data Portability ---
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 Patient to complete extended bowel prep. Not available 11/19/2024 13:13:53 Plan of Treatment Reminders Order Date Submit Date Provider Last Modified By Organization Details Last Modified Time Details Appointments OV EST 15 2024 11:15A Lamont Mckenzie MD Not available Not available Not available Lab CBC 2024 025 [facility] (Lab Registration) , [address] [facility] [place], [address], 04/09/2025 14:49:51 BMP, blood [address] [facility] [address] [facility] (Lab Registration) , [address] [facility] [place], [address], 04/09/2025 13:56:19 hepatic function panel, serum [address] [facility] (Lab Registration) , [address] [facility] [place], [address], 04/09/2025 13:56:19 ANDREY + rf (antinucl ear antibodie s + rheumatoi d factor), quantitat anya, serum 2024 025 [facility] (Lab Registration) , [address] [facility] [place], [address], 04/13/2025 08:28:15 C-reactiv e protein, quantitat anya, serum or plasma 2024 025 [facility] (Lab Registration) , [address] [facility] [place], [address], 04/09/2025 14:49:52 ESR (erythroc yte sedimenta tion rate), blood 2024 025 [facility] (Lab Registration) , [address] [facility] [place], [address], 04/09/2025 15:07:26 drug confirmat ion, urine 2024 025 [facility] (Lab Registration) , [address] [facility] [place], [address], 04/19/2025 10:02:30 nonalcoho lic steatohep atitis + fibrosis panel, serum or plasma 2023 024 [email or web address] 4 [facility], [address], [address], [place], [address], 09/24/2024 12:42:21 hepatic function panel, serum 2023 024 MAYRA [facility], [address], [address], [place], [address], 09/03/2024 11:06:17 Referral None recorded. Procedures None recorded. Surgeries None recorded. Imaging XR, sacroilia c joint(s) 2024 025 [facility] (Lab Registration) , [address] [place] [address] [place], [address], 04/12/2025 09:02:58 XR, kidney + ureter + bladder - constipat ion 2024 025 [email or web address] 4 [facility] (Registration ), [address] [place] [address], [place], [address], 12/04/2024 15:02:44 Medication Orders Fiber-Tab s 625 mg tablet [address] [facility], [address] [place] [address] [address], [place], [place], [id number], 01/22/2025 08:42:28 Linzess 72 mcg capsule [address] [facility], [address] [place] [address] [address], [place], [place], [id number], 04/09/2025 13:48:08 Linzess 145 mcg capsule 2023 025 [facility], [address] [place] [address] [address], [place], [place], [id number], 11/18/2024 12:18:11 dicyclomi ne 10 mg capsule 2023 024 [facility], [address] [place] [address] [address] [place], [id number], 11/09/2024 15:13:51 methylcel lulose (laxative ) 500 mg tablet [address] [facility], [address] [place] [address] [address] [place], [id number], 04/09/2025 13:48:07 Patient TargetsNo targets recorded. Patient InstructionsNo instructions recorded. Reason for Referral None Reported. Results Created Date Observation Date Name Description Value Unit Range Abnormal Flag Note LastModifiedBy Organization Detail LastModifiedTime 04/09/2004/09/2025 CBC NO DIFF (HEMO GRAM) WBC 7.00 K/uL 4.5-11 .5 Not Available [facility] (Pre-Op Clinic) [address] [place] [address] [place], [address], 04/09/2025 13:04:45 04/09/20 25 04/09/2025 CBC NO DIFF (HEMO GRAM) RBC 4.39 M/uL 4.0-5. 4 Not Available [facility] (Pre-Op Clinic) [address] [place] [address] [place], [address], 04/09/2025 13:04:45 04/09/20 25 04/09/2025 CBC NO DIFF (HEMO GRAM) HGB 15.5 g/dL 12.0-1 5.0 high Not Available [facility] (Pre-Op Clinic) [address] [place] [address] [place], [address], 04/09/2025 13:04:45 04/09/20 25 04/09/2025 CBC NO DIFF (HEMO GRAM) HCT 45.0 % 35-49 Not Available [facility] (Pre-Op Clinic) [address] [place] [address] [place], [address], 04/09/2025 13:04:45 04/09/20 25 04/09/2025 CBC NO DIFF (HEMO GRAM) MCV 102.5 fL 80.0-1 00.0 high Not Available [facility] (Pre-Op Clinic) [address] [place] [address] [place], [address], 04/09/2025 13:04:45 04/09/20 25 04/09/2025 CBC NO DIFF (HEMO GRAM) MCH 35.3 pg 26.0-3 2.0 high Not Available [facility] (Pre-Op Clinic) [address] [place] [address] [place], [address], 04/09/2025 13:04:45 04/09/20 25 04/09/2025 CBC NO DIFF (HEMO GRAM) MCHC 34.4 g/dL 32.0-3 6.0 Not Available [facility] (Pre-Op Clinic) [address] [place] [address] [place], [address], 04/09/2025 13:04:45 04/09/20 25 04/09/2025 CBC NO DIFF (HEMO GRAM) RDW 12.0 % 11.5-1 4.5 Not Available [facility] (Pre-Op Clinic) [address] [place] [address] [place], [address], 04/09/2025 13:04:45 04/09/20 25 04/09/2025 CBC NO DIFF (HEMO GRAM) platelet count 163 K/uL 142-42 4 Not Available [facility] (Pre-Op Clinic) [address] [place] [address] [place], [address], 04/09/2025 13:04:45 04/09/20 25 04/09/2025 CBC NO DIFF (HEMO GRAM) MPV 9.5 fL 6.8-10 .2 Not Available [facility] (Pre-Op Clinic) [address] [place] [address] [place], [address], 04/09/2025 13:04:45 04/09/20 25 04/09/2025 CBC NO DIFF (HEMO GRAM) note Unles s other torres noted testi ng perfo [facility]med at: [facility] [address] [place] [address] Chino souza MD Not Available [facility] (Pre-Op Clinic) [address] [place] [address] [place], [address], 04/09/2025 13:04:45 04/09/20 25 04/09/2025 BASIC METAB OLIC PANEL sodium 137 mmol/ L 137-14 7 Not Available [facility] (Pre-Op Clinic) [address] [place] [address] [place], [address], 04/09/2025 13:31:06 04/09/20 25 04/09/2025 BASIC METAB OLIC PANEL potassium 4.2 mmol/ L 3.5-5. 1 Not Available [facility] (Pre-Op Clinic) [address] [place] [address] [place], [address], 04/09/2025 13:31:06 04/09/20 25 04/09/2025 BASIC METAB OLIC PANEL chloride 104 mmol/ L 98-110 Not Available [facility] (Pre-Op Clinic) [address] [place] [address] [place], [address], 04/09/2025 13:31:06 04/09/20 25 04/09/2025 BASIC METAB OLIC PANEL carbon dioxide 27 mmol/ L 21-30 Not Available [facility] (Pre-Op Clinic) [address] [place] [address] [place], [address], 04/09/2025 13:31:06 04/09/20 25 04/09/2025 BASIC METAB OLIC PANEL anion gap 6 mmol/ L 6-14 Not Available [facility] (Pre-Op Clinic) [address] [place] [address] [place], [address], 04/09/2025 13:31:06 04/09/20 25 04/09/2025 BASIC METAB OLIC PANEL glucose 78 mg/dL 70-115 Not Available [facility] (Pre-Op Clinic) [address] [place] [address] [place], [address], 04/09/2025 13:31:06 04/09/20 25 04/09/2025 BASIC METAB OLIC PANEL BUN 14 mg/dL 7-17 Not Available [facility] (Pre-Op Clinic) [address] [place] [address] [place], [address], 04/09/2025 13:31:06 04/09/20 25 04/09/2025 BASIC METAB OLIC PANEL creatinine 0.6 mg/dL 0.5-1. 5 Not Available [facility] (Pre-Op Clinic) [address] [place] [address] [place], [address], 04/09/2025 13:31:06 04/09/20 25 04/09/2025 BASIC METAB OLIC PANEL BUN/creatini ne ratio 23 10-20 high Not Available [facility] (Pre-Op Clinic) [address] [place] [address] [place], [address], 04/09/2025 13:31:06 04/09/20 25 04/09/2025 BASIC METAB [...] frankel ing kiney funct ion. Not Available [facility] (Pre-Op Clinic) [address] [place] [address] [place], [address], 04/09/2025 13:31:06 04/09/20 25 04/09/2025 BASIC METAB OLIC PANEL osmolality (calculated) 284 mosmo l/kg 275-30 1 OSMOL ALITY IS A CALCU LATIO N UTILI ZING THE SERUM /PLAS MA SODIU M, GLUCO SE AND UREA NITRO GEN (BUN) LEVEL S. FOR THE MOST ACCUR ATE RESUL T A MEASU RED SERUM OSMOL ALITY IS SUGGE STED. Not Available [facility] (Pre-Op Clinic) [address] [facility] [place], [address], 04/09/2025 13:31:06 04/09/20 25 04/09/2025 BASIC METAB OLIC PANEL calcium 9.4 mg/dL 8.5-10 .8 Not Available [facility] (Pre-Op Clinic) [address] [place] [address] [place], [address], 04/09/2025 13:31:06 04/09/20 25 04/09/2025 BASIC METAB OLIC PANEL note Unles s other torres noted testi ng perfo rmed at: [facility] [address] [facility] [place] [address] Chino souza MD Not Available [facility] (Pre-Op Clinic) [address] [place] [address] [place], [address], 04/09/2025 13:31:06 04/09/20 25 04/09/2025 HEPAT IC FUNCT ION PANEL total protein 6.8 g/dL 6.2-8. 2 Not Available [facility] (Pre-Op Clinic) [address] [place] [address] [place], [address], 04/09/2025 13:32:15 04/09/20 25 04/09/2025 HEPAT IC FUNCT ION PANEL albumin 4.1 g/dL 3.5-5. 0 Not Available [facility] (Pre-Op Clinic) [address] [place] [address] [place], [address], 04/09/2025 13:32:15 04/09/20 25 04/09/2025 HEPAT IC FUNCT ION PANEL bilirubin total 0.6 mg/dL 0.2-1. 3 Not Available [facility] (Pre-Op Clinic) [address] [place] [address] [place], [address], 04/09/2025 13:32:15 04/09/20 25 04/09/2025 HEPAT IC FUNCT ION PANEL bilirubin direct 0.20 mg/dL 0.0-0. 3 Not Available [facility] (Pre-Op Clinic) [address] [facility] [place], [address], 04/09/2025 13:32:15 04/09/20 25 04/09/2025 HEPAT IC FUNCT ION PANEL bilirubin indirect 0.40 Not Available [facility] (Pre-Op Clinic) [address] [place] [address] [place], [address], 04/09/2025 13:32:15 04/09/20 25 04/09/2025 HEPAT IC FUNCT ION PANEL AST (SGOT) 67 IU/L 14-36 high Not Available [facility] (Pre-Op Clinic) [address] [place] [address] [place], [address], 04/09/2025 13:32:15 04/09/20 25 04/09/2025 HEPAT IC FUNCT ION PANEL ALT (SGPT) 104 IU/L 0-35 high Pleas e note new refer ence inter pradeep for ALT. Due to a recen t manuf actur er metho dolog y frankel e, the refer ence inter pradeep for ALT is lower effec tive January 12, 2021. Not Available [facility] (Pre-Op Clinic) [address] [place] [address] [place], [address], 04/09/2025 13:32:15 04/09/20 25 04/09/2025 HEPAT IC FUNCT ION PANEL alk phosphatase 79 IU/L 38-126 Not Available [facility] (Pre-Op Clinic) [address] [place] [address] [place], [address], 04/09/2025 13:32:15 04/09/20 25 04/09/2025 HEPAT IC FUNCT ION PANEL note Unles s other torres noted testi ng perfo rmed at: [facility] [address] [place] [address] Chino souza MD Not Available [facility] (Pre-Op Clinic) [address] [place] [address] [place], [address], 04/09/2025 13:32:15 04/09/20 25 04/09/2025 C-ALLI CTIVE PROTE IN (CRP) C-reactive protein <5.0 mg/L -10 Not Available [facility] (Pre-Op Clinic) [address] [place] [address] [place], [address], 04/09/2025 13:38:42 04/09/20 25 04/09/2025 C-ALLI CTIVE PROTE IN (CRP) note Unles s other torres noted testi ng perfo rmed at: [facility] [address] [place] [address] Chino souza MD Not Available [facility] (Pre-Op Clinic) [address] [place] [address] [place], [address], 04/09/2025 13:38:42 04/09/20 25 04/09/2025 SED RATE WESTE RGREN sed rate westergren 5 mm/HR 0-15 Not Available [facility] (Pre-Op Clinic) [address] [place] [address] [place], [address], 04/09/2025 13:56:12 04/09/20 25 04/09/2025 SED RATE WESTE RGREN note Unles s other torres noted testi ng perfo rmed at: [facility] [address] [place] [address] Chino souza MD Not Available [facility] (Pre-Op Clinic) [address] [place] [address] [place], [address], 04/09/2025 13:56:12 04/09/20 25 04/09/2025 RHEUM ATOID ARTHR ITIS FACTO R-RA note Unles s other torres noted testi ng perfo rmed at: [facility] [address] [place] [address] Chino souza MD Not Available [facility] (Pre[facility]Op Clinic) [address] [place] [address] [place], [address], 04/10/2025 09:12:41 04/09/20 25 04/10/2025 RHEUM ATOID ARTHR ITIS FACTO R-RA RA latex turbid. <10.0 IU/mL <14.0 Perfo rmed at: [facility] [address] [place], [place] [address] [place] [address] Lab Direc tor: Redd price PhD, Phone : [phone] Not Available [facility] (Pre-Op Clinic) [address] [place] [address] [place], [address], 04/10/2025 09:12:41 04/09/20 25 04/09/2025 ANDREY SCREE N W REFLE X note Unles s other torres noted testi ng perfo rmed at: [facility] [address] [place] [address] Chino souza MD Not Available [facility] (Pre[facility]Op Clinic) [address] [place] [address] [place], [address], 04/12/2025 14:16:00 04/09/20 25 04/12/2025 ANDREY SCREE N W REFLE X ANDREY direct Negati ve negati ve Perfo rmed at: [facility] [address] [place] [address] Lab Direc tor: Redd price PhD, Phone : [phone] Not Available [facility] (Pre[facility]Op [facility]) [address] [place] [address] [place], [address], 04/12/2025 14:16:00 04/09/20 25 04/09/2025 COMPL IANCE DRUG SCARLETT SIS, UR note Unles s other torres noted testi ng perfo rmed at: [facility] [address] [place] [address] Chino souza MD Not Available [facility] (Pre[facility]Op [facility]) [address] [place] [address] [place], [address], 04/18/2025 16:15:51 04/09/20 25 04/18/2025 COMPL IANCE DRUG SCARLETT SIS, UR summary [...] ===== ===== ===== ===== === Not Available [facility] ([facility]) [address] [place] [address] [place], [address], 04/18/2025 16:15:51 04/09/2004/18/2025 COMPL IANCE DRUG SCARLETT SIS, UR pdf . Perfo rmed at: [facility] [address] [address] Lab Direc tor: Lorena burris [facility] , Phone : [phone] Not Available [facility] (Pre[facility]Op [facility]) [address] [place] [address] [place], [address], 04/18/2025 16:15:51 11/18/1911/18/2024 XR, abdom en, [facility] view [facility] [address] [place] [address] Phone: Fax: Name: MARIE REYNA Exam Date: : 985 Age 39 years Gender : F Access ion: [id number] Physic juan manuel: SERENE PATEL Facili ty: [facility] Facili ty HSV: Outpat ient [...] Stewart Transc ribed By: Transc ribed On: 025 12:36 PM Electr onical ly signed by: Obed Stewart 025 Thank you for referr MARIE Ramirez to [facility]. Legall y authen ticate d by ANGEL KHAN 11-18 12:36: 27 CC'ed Logic: Eugenei ng Provid er: AMANDA CAST Attend ing Provid er: AMANDA CAST Admitt ing Provid er: AMANDA CAST [email or web address] [facility] [address] [facility], [place], [address], 11/25/2024 14:39:03 03/11/20 25 12/08/2024 XR, lumba r spine , 2 view No observ ation record ed. [email or web address] Not Available 2024 16:15:28 03/11/20 25 12/22/2024 MRI, lumba r spine , w/o contr ast No observ ation record ed. [email or web address] Not Available 2024 16:16:19 04/09/20 25 04/09/2025 XR, sacro iliac joint (s), 3 or more view [facility] [address] [place] [address] [phone] (Phone ) KALYANI Parrish REPORT Name: MARIE REYNA : 1984 Accoun t #: [id number] Age: 40 Years Patien t Type: Outpat ient Sex: F Access ion#: [id number] Exam Descri ption: SACROI LIAC JOINTS 3V Exam Reason : M53.3 SACROC OCCYGE AL DISORD ERS NOT ELSEWH ERE CLASSI FIED Order Date/T tanner: 2024 12:34: 57 PM Dictat ed By: MD Blake Parks Physic juan manuel: MICHELLE VILLAGOMEZ Attend ing Physic juan manuel: MICHELLE VILLAGOMEZ Sacroi liac joints HISTOR Y: Chroni c [...] Princi pal Interp reter Name: Ciaran Roberson Provid er ID: [id number] PAGE 1 OF 1 CC'ed Logic: Orderi ng Provid er: YAMINI MARTINEZ CC Provid er: CAM REIS Attend ing Provid er: YAMINI MARTINEZ Referr ing Provid er: YAMINI MARTINEZ Admitt ing Provid er: YAMINI MARTINEZ [facility] ([facility]) [address] [place] [address] [place], [address], 04/12/2025 09:02:53 Result Notes Documentation Provider Name and Address Organization Details Recorded Time Xr, Abdomen, 1 View : [address] [address] Name: FEDERICO SHARP Exam Date: 11/18/2024 : 1985 Age 39 years Gender: F Physician: SERENE PATEL Facility: [facility] Facility HSV: Outpatient Exam: ABD KUB 1V [...] by: Obed Stewart MD 11/18/2024 02:40 PM [facility] Dictated By: Obed Stewart Transcribed By: Transcribed On: 11/18/2024 12:36 PM Electronically signed by: Obed Stewart 11/18/2024 Thank you for referring FEDERICO SHARP to [facility]. Legally authenticated by ANGEL KHAN 2024-11-18 12:36:27 CC'ed Logic: Ordering Provider: AMANDA CAST Attending Provider: AMANDA CAST Admitting Provider: PHILLIP Amezcua - [facility] 11/25/2024 14:39:03 Xr, Sacroiliac Joint(s), 3 Or More View : [address] [address] (Phone) IMAGING REPORT ___ Name: FEDERICO [...] Ciaran Roberson MD 04/09/2025 04:55 PM EDT RP Principal Science Technician Name: Ciaran Roberson Provider ID: [id number] PAGE 1 OF 1 CC'ed Logic: Ordering Provider: MAGALY MARTINEZ CC Provider: LARA REIS Attending Provider: MAGALY MARTINEZ Referring Provider: MAGALY MARTINEZ Admitting Provider: PHILLIP [place] - [facility] - [place] & [place] 04/12/2025 09:02:53 Problems Name Problem SNOMED Code Status Onset Date Resolution Date Notes Provider Name and Address Organization Details Recorded Time Fibromyalgia 544193888 Active 2024 Michelle Mckenzie MD [facility] [address], [address], [place], [address], [place] - [facility] & [place] 5 11:41:42 Pain of sacroiliac joint 725609344 Active 2024 Michelle Mckenzie MD [address], [address], [place], [address], [place] - [facility] - [place] & [place] 5 11:42:21 Problem Notes None recorded. Procedures Surgical History Date Name Laterality Status Provider Name and Address Organization Details Recorded Time 09/23/2018 Other completed Scarlett Valente LPN T [facility] & [place] 04/08/2025 11:58:19 Imaging Results None recorded. Procedure [...] MOUTH FIVE TIMES DAILY FOR FOURTEEN DAYS 02/26 /2025 completed Not Available Not Available Not Available [...] active Not Available Not Available Not Avai shi amoxicillin 875 mg-yamila zafar clavulanate 125 mg [...] Updated DateTime 5 167.64 cm 34.8 kg/m2 71220.8 g 98 % 98 % 80 /min 97.8 [degF] 78 /min 110/79 mm[Hg] Letty Mckeon [facility] & [place] 5 11:22:19 Date Recorded Body height Body mass index (BMI) Body weight Body temperature Oxygen saturation Oxygen saturation in Arterial blood by Pulse oximetry Heart rate Systolic And Diastolic Provider Name and Address Organization Details Last Updated DateTime 5 167.64 cm 32.3 kg/m2 95291.9 1 g 97.3 [degF] 97 % 97 % 69 /min 101/74 mm[Hg] Scarlett FISHER [facility] & [place] 5 11:14:47 Date Recorded Body weight Body mass index (BMI) Body height Body temperature Heart rate Heart rate Systolic And Diastolic Provider Name and Address Organization Details Last Updated DateTime 4 64037.5 g 34.2 kg/m2 167.64 cm 97.9 [degF] 89 /min 87 /min 123/78 mm[Hg] [facility] [place] 4 11:02:16 Date Recorded Body height Body mass index (BMI) Body weight Oxygen saturation Oxygen saturation in Arterial blood by Pulse oximetry Heart rate Heart rate Body temperature Systolic And Diastolic Provider Name and Address Organization Details Last Updated DateTime 4 167.64 cm 34.9 kg/m2 19455.3 1 g 98 % 98 % 92 /min 86 /min 98.1 [degF] 108/72 mm[Hg] [facility]ryn [facility] [place] [facility] [place] 4 09:57:28 Social History Question Answer Notes LastModified by Organizat ion Details LastModified Time Tobacco Smoking Status Current Every Day Smoker Scarlett Roberson [facility] & [place] 04/08/2025 11:58:19 What Was The Date Of [...] Influenza, MDCK, quadrivalent, PF 07/22/2020 completed Scarlett Roberson null, [place] - [facility] - [place] & [place] 04/09/2025 11:15:04 COVID-19, mRNA, LNP-S, PF, 30 mcg/0.3 mL dose 01/20/2021 completed Scarlettveronica Roberson null, [place] [facility] [place] 04/09/2025 11:15:04 COVID-19, mRNA, LNP-S, PF, 30 mcg/0.3 mL dose 02/11/2021 completed Scarlett Roberson null, [place] - [facility] - [place] & [place] 04/09/2025 11:15:04 Tdap 10/21/2017 completed Scarlett Roberson null, [place] [facility] [place] 04/09/2025 11:15:04 Tdap 02/04/2012 completed Scarlettveronica Roberson null, [place] [facility] [place] 04/09/2025 11:15:04 Influenza, split virus, trivalent, PF 08/12/2017 completed Scarlettveronica Roberson null, [place] [facility] [place] 04/09/2025 11:15:04 Influenza, split virus, quadrivalent, PF 07/20/2021 completed Scarlett Roberson null, [place] - [facility] [place] & [place] 04/09/2025 11:15:04 Past Encounters Encounter ID Performer Location Encounter Start Date Encounter Closed Date Diagnosis/Indication Diagnosis SNOMED-CT Code Diagnosis ICD10 Code Diagnosis Note [id number] ALEXSANDRA FERREIRA NP [facility] [address] [address] 07/22/2024 10:55:33 07/22/2024 11:57:15 Chronic idiopathic constipation 71511808 K59.04 Abdominal pain 36368538 R10.9 Diverticul itis of colon 427952434 K57.32 Steatotic liver disease 681543157 K76.0 [id number] SERENE PATEL NP [facility] [address] [place] [address] 08/27/2024 09:41:08 08/27/2024 10:54:31 Chronic idiopathic constipation 87022274 K59.04 Decrease Linzess dose, advised to take daily.Cont inue 1 capsule Citrucel and discontinu e fiber-tab. Adjust dose as needed. Steatotic liver disease 922000842 K76.0 History of hepatic steatosis. Labs today. History of diverticulitis 1250439700 Z87.19 Colonoscop y recommende d, schedule today. Abdominal pain 19941299 R10.9 Okay to continue dicyclomin e. Discussed that constipati on is a side effect. [id number] SERENE PATEL NP [facility] [address] [place] [address] 11/18/2024 11:08:09 11/18/2024 12:07:53 Chronic idiopathic constipation 92680318 K59.04 Advised to take Linzess every day consistent ly. Okay to restart fiber, but dose and frequency can be adjusted if needed. Obtain KUB today to assess for constipati on. Consider motegrity if no improvemen t. Steatotic liver disease 321138774 K76.0 History of hepatic steatosis. Slight elevation in AST on most recent labs. History of diverticulitis [id number] Z87.19 Repeat colonoscop y scheduled. [id number] Michelle Mckenzie MD [facility] - [address] [place] [address] [phone] 04/09/2025 10:35:34 04/09/2025 11:45:22 Long-term drug therapy [id number] Z79.891 Will start the patient on NSAIDS. [...] oral opiates. Pain of sa croiliac joint [id number] M53.3 Bilateral sacroiliit isGreater trochanter ic bursitisStan calles has significan t pain in the low [...] Member ID Garcia Member ID Guarantor Name 04/14/2025 1 [employer] [facility] (MEDICAID HMO) Federico Sharp [id number] Federico Sharp OBGyn Episode No OBEpisode recorded.
--- OUTSIDE RECORDS SUMMARY | 2025-04-20 14:44 | XMS_ITS | Encounter Summary ---
Author Organization [facility] Address [address] [place] [address] Care Team Providers Care Screen Machine Operator Name Role Phone Unavailable Primary Care Provider Unavailabl e Reason for Referral * Consultation (Routine) - Authorized Specialty Diagnoses / Procedures Referred By Contac t Referred To Contact Oral Surgery Diagnoses Extraction of tooth needed Prem Hackett DMD [address] [address] Phone: tel: fax: [facility] staff radiation therapist [facility] [address] [place] [address] Phone: tel: Referral ID Status Reason Start Date Expiration Date Visits Requested Visits Authorized [id number] Authorized Specialty Services Required 12/08/2024 06/09/2026 1 1 Encounter Details Date Type Department Care Team (Late st Contact Info) Description 12/08/2024 Community [facility] [address] [place] [address] Prem Hackett DMD [address] [address] Extraction of tooth needed (Primary Dx) Social [...]
--- OUTSIDE RECORDS SUMMARY | 2025-04-20 14:44 | XMS_ITS | Data Portability ---
Author Organization [facility] Address [address] [place] [address] Assessment No assessment recorded. Plan of Treatment Reminders Order Date Submit Date Provider Last Modified By Organization Details Last Modified Time Details Appointments None recorded. Lab urinalysis , dipstick 2023 024 [facility], [address] [facility], [place], [address], 4 16:34:38 culture, urine 2023 024 [email or web address], [address], Omar [address], [place], [address], 4 09:47:26 urinalysis , dipstick 2019 020 [email or web address], [address] [place] [address], [place], [address], 0 13:42:28 unlisted lab - compliance drug analysis, ur 2017 018 MAYRA [facility], [address], [place] [address], [place], [address], 8 14:09:[address] referral 2023 024 MAYRA Torres MD, [address] [place] [address] [address], [place], [address], 4 10:58:43 cryptologic linguist referral 2018 019 MAYRA Palencia Konstantin DPM, [address], [place], [address], 9 16:43:03 Procedures None recorded. Surgeries None recorded. Imaging electrocar diogram 2023 024 [email or web address] [facility], [address] [facility], [place], [address], 4 16:55:26 Medication Orders erythromyc in 5 mg/gram (0.5 %) eye ointment 2019 020 [facility], [address] [place], [address], 4 15:56:23 Macrobid 100 mg capsule 2019 [email or web address], [address], 0 16:23:50 fluconazol e 150 mg tablet 2019 [email or web address], [address], 0 16:23:42 Patient TargetsNo targets recorded. Patient Instructions Encounter Date Encounter Id Patient Instructions Last Modified By Organization Details Last Modified Time 05/04/2019 [id number] hip bursitis: care instructions Not available 05/04/2019 16:36:37 Refer to podiart y for permament toenail removal. Discussed stretching exercises and ice packs for the L GTB, if not improving then may refer to ortho for evaluation and possible injection. Not available 05/04/2019 16:39:39 05/02/2020 [id number] Plan: - RTC if s/sx persist or worsen. [email or web address] Not available 05/02/2020 14:02:09 06/17/2020 [id number] use warm compresses 4 x daily, baby shampoo eye lash wash, ibuprofen for pain, abx ointment. f/u if no improvement Not available 06/17/2020 16:40:53 Reason for Referral Associate Financial Advisor Referral for Onyc hogryphosis Referring Physician: Abilio Muniz, Family Medicine, Encounter Date: 05/04/2019 Lead Clinical Research Coordinator Referral for Ch est pain Referring Physician: Adrien Machado Family [facility], Encounter Date: 06/22/2024 Results Created Date Observation Date Name Description Value Unit Range Abnormal Flag Note LastModifiedBy Organization Detail LastModifiedTime 05/02/2005/02/2020 urina lysis , dipst ick Leukocytes Small Not Available [facility] [place] [address] [facility], [place], [address], 05/02/2020 13:41:04 05/02/20 20 05/02/2020 urina lysis , dipst ick Nitrite negati ve Not Available [facility] [place] [address], [place], [address], 05/02/2020 13:41:04 05/02/2005/02/2020 urina lysis , dipst ick Urobilinogen .2 Not Available [facility] [place] [address], [place], [address], 05/02/2020 13:41:04 05/02/20 20 05/02/2020 urina lysis , dipst ick Protein Negati ve Not Available [facility] [place] [address], [place], [address], 05/02/2020 13:41:04 05/02/20 20 05/02/2020 urina lysis , dipst ick pH 7.[address] [facility] [place] [address], [place], [address], 05/02/2020 13:41:04 05/02/20 20 05/02/2020 urina lysis , dipst ick Blood Modera te Not Available [facility] [address], [place], [address], 05/02/2020 13:41:04 05/02/20 20 05/02/2020 urina lysis , dipst ick Specific [place] 1.025 Not Available [facility] [address], [place], [address], 05/02/2020 13:41:04 05/02/20 20 05/02/2020 urina lysis , dipst ick Ketone Negati ve Not Available [facility] [address], [place], [address], 05/02/2020 13:41:04 05/02/20 20 05/02/2020 urina lysis , dipst ick Bilirubin Negati ve Not Available [facility] [address], [place], [address], 05/02/2020 13:41:04 05/02/20 20 05/02/2020 urina lysis , dipst ick Glucose Negati ve Not Available [facility] [address], [place], [address], 05/02/2020 13:41:04 05/02/2005/02/2020 urina lysis , dipst ick Appearance Slight ly Cloudy Not Available [facility] [address], [place], [address], 05/02/2020 13:41:04 05/02/2005/02/2020 urina lysis , dipst ick Color Dark Yellow Not Available [facility] [address], [place], [address], 05/02/2020 13:41:04 05/06/20 18 05/10/2018 drug scree [...] [facility] [address], [place], [address], 05/10/2018 14:09:31 05/06/20 18 05/10/2018 drug scree n, urine pdf . Not Available [facility] [address], [place], [address], 05/10/2018 14:09:31 06/22/20 24 06/22/2024 urina lysis , dipst ick Leukocytes Negati ve Not Available [address], [address], 06/22/2024 15:57:39 06/22/20 24 06/22/2024 urina lysis , dipst ick Nitrite negati ve Not Available [address], [address], 06/22/2024 15:57:39 06/22/20 24 06/22/2024 urina lysis , dipst ick Urobilinogen .2 Not Available [facility] [address], [address], 06/22/2024 15:57:39 06/22/20 24 06/22/2024 urina lysis , dipst ick Protein Negati ve Not Available [address], [address], 06/22/2024 15:57:39 06/22/20 24 06/22/2024 urina lysis , dipst ick pH 6.5 Not Available [address], [address], 06/22/2024 15:57:39 06/22/20 24 06/22/2024 urina lysis , dipst ick Blood Modera te Not Available [address], [address], 06/22/2024 15:57:39 06/22/20 24 06/22/2024 urina lysis , dipst ick Specific [place] 1.025 Not Available [address], [address], 06/22/2024 15:57:39 06/22/20 24 06/22/2024 urina lysis , dipst ick Ketone Negati ve Not Available [address], [address], 06/22/2024 15:57:39 06/22/20 24 06/22/2024 urina lysis , dipst ick Bilirubin Negati ve Not Available [address], [address], 06/22/2024 15:57:39 06/22/20 24 06/22/2024 urina lysis , dipst ick Glucose Negati ve Not Available [address], [address], 06/22/2024 15:57:39 06/22/20 24 06/22/2024 urina lysis , dipst ick Appearance Clear Not Available [address], [address], 06/22/2024 15:57:39 06/22/20 24 06/22/2024 urina lysis , dipst ick Color Yellow Not Available [address], [address], 06/22/2024 15:57:39 07/11/20 18 07/10/2018 US, obste tric, 2nd or 3rd trime ster No observ ation record ed. [facility] [address] [facility] [address], [place], [id number], 07/15/2018 08:45:20 10/25/19 19 10/24/2018 [place], obste tric No observ ation record ed. [email or web address] [facility] [address] [place], [id number], 10/25/2018 11:49:03 04/21/20 19 08/17/2016 pulmo nary funct ion test* No observ ation record ed. [facility] Not Available 2018 12:18:10 06/22/20 24 06/22/2024 elect rocar diogr am No observ ation record ed. [email or web address] [address], [place], [address], 06/22/2024 16:37:23 06/22/20 24 06/22/2024 CT, abdom en + pelvi s, w/ contr ast No observ ation record ed. [email or web address], [place], [address], 06/23/2024 08:31:13 06/23/20 24 06/22/2024 elect sandeep diogr am No observ ation record ed. [email or web address] [address], [place], [address], 07/01/2024 09:00:20 Result Notes None recorded. Problems Name Problem SNOMED Code Status Onset Date Resolution Date Notes Provider Name and Address Organization Details Recorded Time Anxiety 51084925 Active 2015 Michelle Berry null, [place] - [facility] 0 13:22:08 Non-alcoholic fatty liver 499510194 Active 2015 Michelle Berry null, [place] - [facility] 0 13:22:08 Obesity 615230328 Active 2015 Michelle Berry null, [place] - [facility] 0 13:22:08 Onychogryphosi s 00255418 Active 2015 Michelle Berry null, [place] - [facility] 0 13:22:08 Smoker 14635084 Active 2015 [place] - [facility] 0 13:22:08 Problem Notes None recorded. Procedures Surgical History Date Name Laterality Status Provider Name and Address Organization Details Recorded Time 06/17/20 20 Systolic B/P less than 130 mm Hg completed Chantel Emerson CT - [facility] 06/17/2020 16:24:28 06/17/20 20 Diastolic B/P 80-89 mm Hg completed Chantel Emerson [facility] 06/17/2020 16:24:32 05/02/20 20 Systolic B/P less than 130 mm Hg completed Michelle Berry [facility] 05/02/2020 13:25:09 05/02/20 20 Diastolic B/P 80-89 mm Hg completed Michelle Berry [facility] 05/02/2020 13:25:11 11/04/19 19 delivery completed Shirley Nancy [facility] 05/04/2019 16:09:28 06/20/20 15 Date of Last Pap Smear completed Mercedez Chung CT - [facility] 02/12/2017 13:24:04 09/23/19 06 delivery completed Enma Fletcher [facility] 08/13/2016 12:51:06 09/23/19 01 delivery completed Enma Fletcher [facility] 08/13/2016 12:51:12 Tonsillectomy completed Enma Fletcher [facility] 08/13/2016 12:51:25 foot repair completed Mis Doll [facility] 06/22/2024 16:05:10 Imaging Results None recorded. Procedure [...] Updated DateTime 0 170.18 cm 28.3 kg/m2 01161.7 3 g 98.5 [degF] 74 /min 98 % 98 % 17 /min 124/82 mm[Hg] Michelle Berry [facility] 0 13:25:08 Date Recorded Body height Body mass index (BMI) Body weight Heart rate Oxygen saturation Oxygen saturation in Arterial blood by Pulse oximetry Body temperature Respiratory rate Systolic And Diastolic Provider Name and Address Organization Details Last Updated DateTime 9 170.18 cm 29.4 kg/m2 58174.3 7 g 77 /min 99 % 99 % 98.3 [degF] 17 /min 116/74 mm[Hg] Shirley Nancy [facility] 9 16:10:22 Date Recorded Body height Body mass index (BMI) Body weight Body temperature Heart rate Oxygen saturation Oxygen saturation in Arterial blood by Pulse oximetry Respiratory rate Systolic And Diastolic Provider Name and Address Organization Details Last Updated DateTime 8 170.18 cm 30.5 kg/m2 48818.7 2 g 98.4 [degF] 91 /min 97 % 97 % 16 /min 122/74 mm[Hg] Chantel Emerson [facility] 8 16:41:42 Date Recorded Body height Body mass index (BMI) Body weight Heart rate Oxygen saturation Oxygen saturation in Arterial blood by Pulse oximetry Respiratory rate Systolic And Diastolic Provider Name and Address Organization Details Last Updated DateTime 0 170.18 cm 27.9 kg/m2 22780.5 4 g 76 /min 94 % 94 % 17 /min 124/84 mm[Hg] Chantel Emerson [facility] 0 16:23:21 Date Recorded Body weight Body mass index (BMI) Body height Body temperature Respiratory rate Oxygen saturation Oxygen saturation in Arterial blood by Pulse oximetry Heart rate Systolic And Diastolic Provider Name and Address Organization Details Last Updated DateTime 4 93009.9 9 g 33 kg/m2 170.18 cm 98.4 [degF] 18 /min 96 % 96 % 88 /min 136/84 mm[Hg] Mis Doll [place] - [facility] 4 16:02:12 Social History Question Answer Notes LastModified by Organizat ion Details LastModified Time Tobacco Smoking Status Current Every Day [facility]oker Not [facility] 07/08/2020 03:13:31 Able To Swim? Yes [email or web address] Information not available 04/09/2017 Do You Have An Advance Directive? No [id number] Information not available 07/08/2020 Do You Wear A Helmet When Biking? Yes [id number] Information not available 07/08/2020 Are You Blind Or Do You Have Difficulty Seeing? No [id number] Information not available 07/08/2020 What Is Your Level Of Caffeine Consumption? Moderate Information not available 06/22/2024 How Much Tobacco Do You Chew? None [id number] Information not available 07/08/2020 Are You Deaf Or Do You Have Serious Difficulty Hearing? No [id number] Information not available 07/08/2020 What Type Of Diet Are You Following? REGULAR Information not available 06/22/2024 Which Illicit Or Recreational Drugs Have You Used? None [id number] Information not available 07/08/2020 What Is The Highest Grade Or Level Of School You Have Completed Or The Highest Degree You Have Received? [id number] Information not available 06/22/2024 Swimming/diving Yes [email or web address] Informati on not available 04/09/2017 Have There Been Any Changes To Your Family Or Social Situation? No Information no t available 06/22/2024 What Is The Fluoride Status Of Your Home? Unknown Information not available 06/22/2024 Hard Of Hearing Or Deaf In One Or Both Ears? No [email or web address] Information not available 04/09/2017 Legally Blind In One Or Both Eyes? No [email or web address] Information no t available 04/09/2017 Live Alone Or With Others? With Others [email or web address] Information not available 08/13/2016 Do You Have A Medical Power Of Print Graphic Designer? No Information not available 06/22/2024 What Was The Date Of Your Most Recent Tobacco Screening? 06/22/2024 Information not available 06/22/2024 How Many Children Do You Have? 3 Information not available 06/22/2024 What Is Your Current Pack Years? 10-19packyear s Information not available 06/22/2024 What Is Your Relationship Status? [id number] Information not available 07/08/2020 Seat Belts Used Routinely Yes Information not available 04/09/2017 Smoke Alarm In Home Yes [email or web address] Information not available 04/09/2017 Do You Have Smoke And Carbon Monoxide Detectors In Your Home? Yes Information not available 06/22/2024 At What Age Did You Start Smoking Tobacco? 13 Information not available 06/22/2024 Are You Passively Exposed To Smoke? Yes [email or web address] Information no t available 04/09/2017 How Much Tobacco Do You Smoke? 0.5 PPD [id number] Information not available 07/08/2020 General Stress Level Medium [email or web address] Information not available 04/09/2017 Do You Use Sunscreen Routinely? Yes [id number] Information not available 07/08/2020 Has Tobacco Cessation Counseling Been Provided? Yes [id number] Information not available 07/08/2020 On What Date Was Tobacco Cessation Counseling Provided? 06/22/2024 Information not available 06/22/2024 How Many Years Have You Smoked Tobacco? 26 Information not available 06/22/2024 Do You Have Difficulty Walking Or Climbing Stairs? No [id number] Information not available 07/08/2020 Sex: Female Functional Status Question Answer Note LastModified by Organizat ion Details LastModified Time Do you use any illicit or recreational drugs? No Information not available 06/22/2024 Do you or have you ever used any other forms of tobacco or nicotine? No Information not available 06/22/2024 What is your level of alcohol consumption? None [id number] Information not available 07/08/2020 Are you currently employed? Yes Information not available 06/22/2024 Do you have transportation difficulties? No Information not available 06/22/2024 Are you able to walk? YESWOREST [id number] Information not available 07/08/2020 Do you have difficulty doing errands alone? No [id number] Information not available 07/08/2020 Are you able to care for yourself independently? Yes [id number] Information not available 07/08/2020 What is your occupation? [employer] Information not available 06/22/2024 Do you have difficulty dressing, bathing, grooming, or toileting? No [id number] Information not available 07/08/2020 Do you or have you ever used e-cigarettes or vape? Never used electronic cigarettes [id number] Information not available 07/08/2020 What is your exercise level? None [id number] Information not available 07/08/2020 Mental Status Question Answer Note LastModified by Organizat ion Details LastModified Time Do you feel stressed (tense, restless, nervous, or anxious, or unable to sleep at night)? [id number] Information not available 06/22/2024 Do you have difficulty concentrating, remembering or making decisions? No [id number] Information no t available 07/08/2020 Family History Relationship Description Onset Age of this Age Resolved Age Notes LastModified by Organization Details LastModified Time Father Asthma [email or web address] Not available 1 10/13/2015 12:51:59 Father Chronic obstructive pulmonary disease [email or web address] Not available 2015 12:52:06 Father Type 2 diabetes mellitus without complication [email or web address] Not available 12:52:29 Paternal Grandfather Asthma Not available 08/13 12:52:15 Maternal Grandmother Type 2 diabetes mellitus without complication [email or web address] Not available 12:53:06 Unspecified Relation Essential hypertension [email or web address] Not available 12:53:18 Medical History No medical history recorded. Gynecological History Statement/Question Response Last Annual Exam/Provider 06/20/15 w/DT Date of Last Mammogram Date of Last Colonoscopy Date of LMP 06/10/2024 Most Recent Bone Density Sexually Active? Y Menses Monthly N Date of Last Pap Smear 06/20/2015 Sexual Problems? N Current Control Method Depo-Damage Appraiser a LMP Approximate Obstetrics History GPAL:G 0 P 0 0 0 0 Type Value Living 0 Total 0 Immunizations Vaccine Type Date Status Note Provider Nam e and Address Organization Details Recorded Time influenza, unspecified formulation 5 completed Michelle Berry null, [place] - [facility] 05/02/2020 13:20:36 Tdap 8 completed Not Available [facility] 10/10/2019 03:54:55 Influenza, split virus, quadrivalent, preservative 6 completed Michelle Berry null, [place] - [facility] 05/02/2020 13:20:36 Influenza, split virus, quadrivalent, preservative 9 completed Michelle Berry null, [place] - [facility] 05/02/2020 13:20:36 Influenza, MDCK, quadrivalent, PF 0 completed Mis Stears null, [place] - [facility] 06/22/2024 15:56:08 COVID-19, mRNA, LNP-S, PF, 30 mcg/0.3 mL dose 1 completed Mis Stears null, [place] - [facility] 06/22/2024 15:56:08 COVID-19, mRNA, LNP-S, PF, 30 mcg/0.3 mL dose 1 completed Mis Stears null, [place] - [facility] 06/22/2024 15:56:08 Tdap 2 completed Mis Stears null, [place] - [facility] 06/22/2024 15:56:08 Influenza, split virus, trivalent, PF 7 completed Mis Stears null, [place] - [facility] 06/22/2024 15:56:08 Influenza, split virus, quadrivalent, PF 1 completed Mis Stears null, [place] - [facility] 06/22/2024 15:56:08 Past Encounters Encounter ID Performer Location Encounter Start Date Encounter Closed Date Diagnosis/Indication Diagnosis SNOMED-CT Code Diagnosis ICD10 Code Diagnosis Note [id number] Abilio Marcial [facility] [address] [place] [address] 08/13/2016 16:04:28 08/13/2016 17:51:41 Chest pain 79575139 R07.9 tightness, not pain Gastroesop hageal reflux disease without esophagitis 102293342 K21.9 Cough 41867615 R05 Dyspnea 676475266 R06.02 [id number] Abilio Foyacaciatiara [place] [address] [address] [place] [address] 11/19/2016 16:23:51 11/19/2016 16:38:05 Uses depot contraception 799281370 Z30.42 Gynecologi c examination 38299371 Z01.662 [id number] Milton Carlson APRN [facility] [place] [address] [address] [place] [address] 11/28/2016 09:59:23 11/28/2016 10:29:59 Acute urinary tract infection 155332413 N39.0 [id number] ADRIANA Zambrano [place] [address] [address] [facility] [place] [address] 02/21/2017 15:49:53 02/21/2017 16:46:10 Conjunctivitis 8335648 H10.9 [id number] ADRIANA Zambranojamaltiara [place] [address] [address] [facility] [facility] [place] [address] 04/04/2017 15:46:43 04/04/2017 17:18:08 Body mass index 30+ - obesity 702862188 Z68.30 Tobacco us e cessation education 702626235 Z71.6 Acute urin francisco javier tract infection 737789501 N39.0 [id number] ADRIANA Zambrano [place] [address] [address] [facility] [place] [address] 04/09/2017 15:46:13 04/09/2017 17:25:13 Dysuria 18930872 R30.0 Blood in urine 66543722 R31.9 Candidiasis of vagina 72 867671 B37.3 Low back pain 094529631 M54.5 Amenorrhea 79308088 N91. 2 [id number] ADRIANA Zambrano [place] [address] [address] [place], [place] [address] 10/21/2017 08:17:32 10/21/2017 08:43:18 Body mass index 25-29 - overweight 829093943 Z68.29 Sinusitis 11133994 J32.9 [id number] Jaymie Ledezma APRN Aggie [facility] [address] [place], [place] [address] 10/25/2017 14:17:23 10/25/2017 15:24:08 Otalgia 86986033 H92.01 [id number] Abilio Foyacaciamalik [facility] [address] [place], [place] [address] 03/03/2018 15:39:07 03/03/2018 17:32:52 Low back pain 180070147 M54.5 [id number] Jaymie Ledezma APRN Agg[facility] [address] [place], [place] [address] 03/18/2018 16:03:51 03/18/2018 16:44:47 Amenorrhea 98105149 N91.2 Low back pain 208839156 M54.5 Pruritic rash 73961831 L 28.2 Acute urin francisco javier tract infection 798124475 N39.0 [id number] Jaymie Ledezma APRN Aggie [facility] [address] [place] [place], [place] [address] 05/06/2018 16:09:09 05/06/2018 17:40:42 History and physical examination, pre-employment 909455310 Z02.1 [id number] Abilio Marcial [facility] [address] [place] [place], [place] [address] 05/04/2019 16:00:38 05/04/2019 16:42:46 Onychogryphosis 30612355 L60.2 Greater tr ochanteric pain syndrome 5624890 M70.62 [id number] Milton Carlson APRN Kyreetiara [facility] [address] [place] [place], [place] [address] 05/02/2020 13:13:58 05/02/2020 13:44:45 Left flank pain 164751804 R10.9 [id number] ADRIANA Gonzalez [facility] [address] [place] [address] 06/17/2020 16:10:56 06/17/2020 16:39:05 Hordeolum externum of lower eyelid 761130349 H00.194 [id number] Adrien Machado APRN [facility] [address] [place] [address] 06/22/2024 15:47:20 06/22/2024 16:55:26 Chest pain 16538962 R07.9 Left flank pain 09440168 9 R10.9 sent to ed for eval Health Concerns Section Related Observation LastModified by Organization Detai ls LastModified Time None Recorded Concern Status LastModified by Organization Details LastModified Time None Recorded Advance Directives Directive N: Payers Insurance Date Sequence Insurance Name Policy Number Policy Garcia Covered Member ID Garcia Member ID Guarantor Name 01/11/2017 1 UNSPECIFIED REMIT PAYOR Laila Herrera 06/17/2020 MEDICAID-[facility] WRAP BILLING (MEDICAID) Laila Bonilla Workman [id number] Laila Bonilla Workmarlen 10/21/2017 [address] [employer]. (MEDICAID REPLACEMENT - HMO) MEDICAID Laila Bonilla Workman [id number] Laila Bonilla Workman 06/22/[address]24 [address] [employer] (MEDICAID REPLACEMENT - HMO) [facility] Laila Bonilla Workman [id number] Laila Bonilla Workman 06/29/2024 1 [employer] [facility] (MEDICAID HMO) Laila Bonilla Workman [id number] Laila Bonilla Workmarlen OBGyn Episode No OBEpisode recorded.
--- OUTSIDE RECORDS SUMMARY | 2025-04-20 14:44 | XMS_ITS | Encounter Summary ---
Author Organization [facility] Address [address] [place] [address] Care Team Providers Care Safety Director Name Role Phone Delaney Ochoa APRN Primary Care Provider + [phone] Encounter Details Date Type Department Care Team (Latest Contact Info) Description 03/10/2025 Travel Social History Tobacco Use Types Packs/Day Years Used Date Smoking Tobacco: Every Day Cigarettes Started: 2001 Smokeless Tobacco: Never Alcohol Use Standard Drinks/Week Comments Never 0 (1 standard drink = 0.6 oz pur e alcohol) Comments Unknown Sex and Gender Information Value Date Recorded Sex Assigned at Not on file Legal Sex Female 12:37 PM EDT Gender Identity Not on file Sexual Orientation Not on file documented as of this encounter Plan of Treatment Not on file documented as of this encounter Visit Diagnoses Not on filedocumented in this encounter Care Teams Safety Director Relationship Specialty Start Date End Date Delaney Ochoa APRN [address] [place] [address] PCP - General Internal Medicine 02/22/25 documented as of this encounter
== END 2025-04-19 23:59 | disposition home or self-care (01) ==
LOC: LAB.DROPOF 04-20 14:41
PROVIDERS: PCP Urology; Visit Provider Urology
DX: N89.8 Other specified noninflammatory disorders of vagina (principal); R31.9 Hematuria, unspecified
CPT/HCPCS: 81001; 87086; 87491; 87529; 87591; 87661; 87798; 87801

== ENCOUNTER 2025-05-11 13:54 | Outpatient (CLI) | payer OTHER, SELFPAY ==
--- NOTE | 2025-05-11 13:58 | XR_ITS ---
FINAL REPORT CLINICAL HISTORY: flank pain, dysuria FINDINGS: A single view of the abdomen was obtained. There is a nonobstructive bowel gas pattern. There are no abnormally dilated loops of small bowel. There is a moderate amount of retained stool. IMPRESSION: 1. Nonobstructive bowel gas pattern. 2. Moderate amount of retained stool. Reviewed, Interpreted and Dictated by Bora Goldstein MD Transcribed by Ladan Hooks Authenticated and [facility]
--- OUTSIDE RECORDS SUMMARY | 2025-05-11 14:04 | XMS_ITS | Encounter Summary ---
Author Organization Healthcare Address [address] [place] [address] Care Team Providers Care Ordnance Technician Name Role Phone Unavailable Primary Care Provider Unavailabl e Encounter Details Date Type Department Care Team (Late st Contact Info) Description 10/15/2024 Orders Only External Location [address] [place] [address] Provider, External Social History Tobacco Use Types Packs/Day Years Used Date Smoking Tobacco: Never Assessed Comments Unknown Sex and Gender Information Value Date Recorded Sex Assigned at Not on file Legal Sex Female 8:41 PM EDT Gender Identity Not on file Sexual Orientation Not on file documented as of this encounter Plan of Treatment Upcoming Encounters Date Type Department Care Team (Late st Contact Info) Description 08/16/2025 10:20 AM EST Consult [facility]rology [address] [place] [address] Lilly Arnold, CLINICAL MICROBIOLOGIST, DNP [address] [place] [address] documented as of this encounter Procedures Procedure Name Priority Date/Time Associated Diagnosis Comments CT OUTSIDE IMAGES 10/15/2024 9:22 PM EST documented in this encounter Results * CT OUTSIDE IMAGES (10/15/2024 9:22 PM EST) Anatomical Region Laterality Modality Computed Tomogra phy 10/15/2024 9:22 PM EST us External Provider IMG CT PROCEDURES Final Result documented in this encounter Visit Diagnoses Not on filedocumented in this encounter
--- OUTSIDE RECORDS SUMMARY | 2025-05-11 14:04 | XMS_ITS | Clinical Summary ---
Author Organization Healthcare Address [address] [place] [address] Care Team Providers Care Fuel Cell Repairer Name Role Phone Unavailable Primary Care Provider Unavailabl e Social History Tobacco Use Types Packs/Day Years Used Date Smoking Tobacco: Never Assessed Comments Unknown Sex and Gender Information Value Date Recorded Sex Assigned at Not on file Legal Sex Female 8:41 PM EDT Gender Identity Not on file Sexual Orientation Not on file Plan of Treatment Upcoming Encounters Date Type Department Care Team (Late st Contact Info) Description 08/16/2025 10:20 AM EST Consult [facility] [address] [place] [address] Lilly Arnold, AIRCRAFT SEAT UPHOLSTERER, DNP [address] [place] [address] Health Maintenance Due Date Last Done Comments [facility]-Depression Screening 1985 [facility]-Infant/Child/Adol SDOH Screenings 1985 [facility]-Varicella Vaccines (1 of 2 - 13+ 2-dose series) 1998 [facility]- SDOH Screenings 2003 [facility]-Adult SDOH Screenings 2003 [facility]-Hepatitis B Vaccines (1 of 3 - 19+ 3-dose series) 2004 [facility]-Pap Smear 2006 HPV Vaccines (1 - 3-dose SCDM series) 2012 [facility]-Cervical Cancer Screening 2015 [facility]-HPV/Cotest 2015 [id number] Vaccine (3 - season) 2024 02/11/2021, 01/20/2021 [facility]-Influenza Vaccine (#1) 05/24/202507/20, 07/22/2020, 08/12/2017 [facility]-DTaP,Tdap,and Td Vaccines (3 - Td or Tdap) 10/21/2027 10/21/2017, 02/04/2012 [facility]-Zoster Vaccines (1 of 2) 2035 [facility]-HIB Vaccines Aged Out No longer e ligible based on patient's age to complete this topic [facility]-Hepatitis A Vaccines Aged Out No longer eligible based on patient's age to complete this topic [facility]-IPV Vaccines Aged Out No longer e ligible based on patient's age to complete this topic [facility]-Pneumococcal Vaccine: Pediatrics (0 to 5 Years) and At-Risk Patients (6 to 49 Years) Aged Out No longer eligible b ased on patient's age to complete this topic [facility]-Rotavirus Vaccines Aged Out No lo nger eligible based on patient's age to complete this topic Insurance [employer]
--- OUTSIDE RECORDS SUMMARY | 2025-05-11 14:04 | XMS_ITS | Encounter Summary ---
Author Organization Healthcare Address [address] [place] [address] Care Team Providers Care Member Of Parliament Name Role Phone Unavailable Primary Care Provider Unavailabl e Reason for Referral * Consultation (Routine) - Authorized Specialty Diagnoses / Procedures Referred By Contac t Referred To Contact Oral Surgery Diagnoses Extraction of tooth needed Prem Hackett DMD [address] [place] [address] Phone: tel: fax: [facility] facilities project manager [facility] [address] [place] [address] Phone: tel: Referral ID Status Reason Start Date Expiration Date Visits Requested Visits Authorized [id number] Authorized Specialty Services Required 12/08/2024 06/09/2026 1 1 Encounter Details Date Type Department Care Team (Late st Contact Info) Description 12/08/2024 [facility] [address] [place] [address] Prem Hackett DMD [address] [place] [address] Extraction of tooth needed (Primary Dx) Social [...] Info) Description 08/16/2025 10:20 AM EST Consult [facility] [address] [place] [address] Lilly Arnold, ENGINE DESIGNER, DNP [address] [place] [address] Scheduled Referrals Name Type Priority Associated Diagnoses Order Schedule Ambulatory referral to Oral Maxillofacial Surgery Outpatient Referral Routine Extraction of tooth needed Ordered: 12/08/2024 documented as of this encounter Visit Diagnoses Diagnosis Extraction of tooth needed- Primary documented in this encounter
[2025-05-11 14:47] LABS: Hematocrit 43.2 % (37.0-47.0); Hemoglobin 14.9 g/dL (12.2-16.2); Immature Granulocytes % 0.1 %; Mean Corpuscular HGB Conc 34.5 g/dL (31.8-35.4); Mean Corpuscular Hemoglobin 35.0 pg (27.0-31.2); Mean Corpuscular Volume 101.4 fl (81-99); Nucleated Red Blood Cells % 0 %; Platelet Count 176 K/mm3 (142-424); Red Blood Count 4.26 M/mm3 (4.20-5.40); Red Cell Distribution Width-SD 45.3 fL; White Blood Count 8.5 K/mm3 (4.8-10.8)
[2025-05-11 15:41] LABS: Albumin Level 4.1 g/dl (3.5-5.0); Chloride 106 mmol/L (98-107); Sodium 139 mmol/L (136-145)
[2025-05-11 15:42] LABS: Potassium 4.2 mmoL/L (3.5-5.1)
[2025-05-11 15:44] LABS: Alanine Aminotransferase 86 U/L (12-78); Albumin/Globulin Ratio 1.6 (1.1-1.8); Alkaline Phosphatase 75 U/L (38-126); Anion Gap 10.2 mEq/L (5-15); Aspartate Amino Transferase 60 U/L (14-36); Bilirubin,Total 0.3 mg/dl (0.2-1.3); Blood Urea Nitrogen 15 mg/dl (7-17); Calcium 9.5 mg/dl (8.4-10.2); Carbon Dioxide 27 mmol/L (22.0-30.0); Creatinine,Serum 0.70 mg/dl (0.52-1.04); Estimated Glomerular Filt Rate 93 ml/min (>60); GFR (African American) 112 ML/MIN (>60); Globulin 2.5 g/dL (1.3-3.2); Glucose 71 mg/dl (74-100); Total Protein,Serum 6.6 g/dl (6.3-8.2)
[2025-05-11 16:16] LABS: Thyroid Stimulating Hormone 1.22 uIU/mL (0.465-4.68)
[2025-05-11 16:20] LABS: Ferritin 106 ng/ml (6.24-137)
[2025-05-11 16:43] LABS: Vitamin B12 654 pg/mL (239-931)
== END 2025-05-11 23:59 | disposition home or self-care (01) ==
LOC: LAB 13:55
PROVIDERS: PCP Nurse Practitioner Family; Visit Provider Nurse Practitioner Family
DX: K59.00 Constipation, unspecified (principal); R93.3 Abnormal findings on diagnostic imaging of other parts of digestive tract; N23 Unspecified renal colic; M54.9 Dorsalgia, unspecified; R20.0 Anesthesia of skin; R20.2 Paresthesia of skin; R30.0 Dysuria
CPT/HCPCS: 36415; 74018; 80053; 82607; 82728; 84443; 85025; 87086; 87088; 87186

== ENCOUNTER 2025-05-31 12:00 | Outpatient (CLI) | payer OTHER, SELFPAY ==
[2025-05-31 16:05] LABS: Microscopic, Urine URINE MICROSCOPIC (MICROSCOPIC)
[2025-05-31 20:41] LABS: Bilirubin,Urine Negative (Negative); Color,Urine YELLOW (Yellow); Glucose,Urine (UA) Negative (Negative); Ketones,Urine Negative (Negative); Leukocyte Esterase,Urine Negative (Negative); PH,Urine 6.5 (5.0-8.5); Protein,Urine Negative (Negative); Specific Gravity, Urine 1.020 (1.005-1.030); Urobilinogen,Urine 0.2 EU/dl (0.2)
[2025-05-31 21:05] LABS: Bacteria,Urine 3+ /lpf
--- OUTSIDE RECORDS SUMMARY | 2025-06-01 10:07 | XMS_ITS | Encounter Summary ---
Author Organization Healthcare Address [address] [place] [address] Care Team Providers Care Crane Hooker Name Role Phone Unavailable Primary Care Provider Unavailabl e Encounter Details Date Type Department Care Team (Late st Contact Info) Description 10/15/2024 Orders Only External Location [address] [place] [address] Provider, External Social History Tobacco Use Types [...] Info) Description 08/16/2025 10:20 AM EST Consult [facility] [address] [place] [address] Lilly Arnold, MACHINE BURRER, DNP [address] [place] [address] documented as of this encounter Procedures Procedure [...]
--- OUTSIDE RECORDS SUMMARY | 2025-06-01 10:07 | XMS_ITS | Clinical Summary ---
Author Organization Healthcare Address [address] [place] [address] Care Team Providers Care Back Tender Cloth Printing Name Role Phone Unavailable Primary Care Provider [...] Info) Description 08/16/2025 10:20 AM EST Consult [facility] [address] [place] [address] Lilly Arnold, MERCHANT MILLER, DNP [address] [place] [address] Health Maintenance Due Date Last Done Comments [facility]-Depression Screening 1985 [facility]-HIV Screening 1985 [facility]-Hepatitis C Screening 1985 [facility]-/Child/Adol SDOH Screenings 1985 [facility]-Varicella Vaccines (1 of 2 - 13+ 2-dose series) 1998 [facility]- SDOH Screenings 2003 [facility]-Adult SDOH Screenings 2003 [facility]-Hepatitis B Vaccines (1 of 3 - 19+ 3-dose series) 2004 [facility]-Pap Smear 2006 HPV Vaccines (1 - 3-dose SCDM series) 2012 [facility]-Cervical Cancer Screening 2015 [facility]-HPV/Cotest 2015 [id number] Vaccine (3 - 2024- season) 2025 02/11/2021, 01/20/2021 [facility]-Influenza Vaccine (#1) 05/24/202507/20, 07/22/2020, [...]
--- OUTSIDE RECORDS SUMMARY | 2025-06-01 10:07 | XMS_ITS | Clinical Summary ---
Author Organization [facility] Address [address] [place] [address] Care Team Providers Care Nursery Teacher Name Role Phone OchoaDelaney ADRIANA Primary Care Provider + [phone] Allergies Active Allergy Reactions Criticality Noted Date [...] Description 03/10/2025 12:45 PM EDT Office Visit [facility] NEUR[facility] [address] BEDS AT [facility] [address] [place] [address] Mendy Chaidez, OSIRIS Degeneration of [...] 2 - PCV) 2004 PAP SMEAR 2006 ANNUAL PHYSICAL 03/10/2025 HEPATITIS C SCREENING 03/10/2025 MAMMOGRAM 2025 COVID-19 Vaccine (3 - 2024-2 6 season) 2025 02/11/2021, 01/20/2021 INFLUENZA VACCINE 06/23/2025 07/20/2021, , 07/31/2019, Additional history exists TDAP/TD VACCINES (3 - Td or Tdap) 10/21/2027 018, 02/04/2012 Insurance [facility] Care Teams Nursery Teacher Relationship Specialty Start Date End Date Delaney Ochoa APRN [address] [place] [address] [facility] [address] PCP - General Internal Medicine 02/22/25
--- OUTSIDE RECORDS SUMMARY | 2025-06-01 10:07 | XMS_ITS | Encounter Summary ---
Author Organization Healthcare Address [address] [place] [address] Care Team Providers Care Menhaden Fishing Crew Member Name Role Phone Unavailable Primary Care Provider Unavailabl e Reason for Referral * Consultation (Routine) - Authorized Specialty Diagnoses / Procedures Referred By Contac t Referred To Contact Oral Surgery Diagnoses Extraction of tooth needed Prem Hackett DMD [address] [place] [address] Phone: tel: fax: [facility] american history professor [facility] [address] [place] [address] Phone: tel: Referral ID Status Reason Start Date Expiration Date Visits Requested Visits Authorized [id number] Authorized Specialty Services Required 12/08/2024 06/09/2026 1 1 Encounter Details Date Type Department Care Team (Late st Contact Info) Description 12/08/2024 [facility] [address] [place] [address] Prem Hackett DMD [address] [place] [address] Extraction of tooth needed (Primary Dx) Social [...] Info) Description 08/16/2025 10:20 AM EST Consult [facility] [address] [place] [address] Lilly Arnold, TRAVELER CHANGER, DNP [address] [place] [address] Scheduled Referrals Name Type Priority Associated Diagnoses Order Schedule Ambulatory referral to Oral Maxillofacial Surgery Outpatient Referral Routine Extraction of tooth needed Ordered: 12/08/2024 documented as of this encounter Visit Diagnoses Diagnosis Extraction of tooth needed- Primary documented in this encounter
== END 2025-05-31 23:59 ==
LOC: LAB.DROPOF 06-01 10:02
PROVIDERS: PCP Urology; Visit Provider Urology
DX: N34.2 Other urethritis (principal); R10.9 Unspecified abdominal pain
CPT/HCPCS: 81001; 87086; 87088

== ENCOUNTER 2025-07-23 11:40 | Outpatient (CLI) | payer OTHER, SELFPAY ==
--- NOTE | 2025-07-23 11:30 | CA_ITS ---
FINAL REPORT TECHNIQUE: Graded compression, spectral analysis and ultrasound images of the venous system of the upper extremity were obtained. CLINICAL HISTORY: PT C/O PAIN AND KNOTS LEFT FOREARM X 3 DAYS,NKI FINDINGS: The jugular vein, subclavian vein, axillary vein, brachial vein, cephalic vein and basilic venous system are fully compressible and demonstrate no evidence of thrombosis. IMPRESSION: No evidence of thrombosis of the venous system of the left upper extremity. Reviewed, Interpreted and Dictated by Bora Goldstein MD Transcribed by Erika Avila Authenticated and . [facility]
--- OUTSIDE RECORDS SUMMARY | 2025-07-23 11:43 | XMS_ITS | Clinical Summary ---
Author Organization [facility] Address [address] [place] [address] Care Team Providers Care Soda Clerk Name Role Phone OchoaDelaney ADRIANA Primary Care Provider + [phone] Allergies Active Allergy Reactions Criticality Noted Date [...] back pain and lower extremity pain 03/10/2025 Social History Tobacco Use Types Packs/Day Years [...] C SCREENING 03/10/2025 MAMMOGRAM 2025 INFLUENZA VACCINE 04/23/2025 07/20/2021, , 07/31/2019, Additional history exists TDAP/TD VACCINES (3 - Td or Tdap) 10/21/2027 018, 02/04/2012 Insurance [facility] Care Teams Soda Clerk Relationship Specialty Start Date End Date Delaney Ochoa APRN [facility] [address] [address] PCP - General Internal Medicine 02/22/25
--- OUTSIDE RECORDS SUMMARY | 2025-07-23 11:43 | XMS_ITS | Encounter Summary ---
Author Organization Healthcare Address [address] [place] [address] Care Team Providers Care Auto Motor Mechanic Name Role Phone Unavailable Primary Care Provider Unavailabl e Reason for Referral * Consultation (Routine) - Authorized Specialty Diagnoses / Procedures Referred By Contac t Referred To Contact Oral Surgery Diagnoses Extraction of tooth needed Prem Hackett DMD [address] [place] [address] [address] Phone: tel: fax: [facility] carding utility tender [facility] [address] [place] [address] Phone: tel: Referral ID Status Reason Start Date Expiration Date Visits Requested Visits Authorized [id number] Authorized Specialty Services Required 12/08/2024 06/09/2026 1 1 Encounter Details Date Type Department Care Team (Late st Contact Info) Description 12/08/2024 [facility] [address] [place] [address] Prem Hackett DMD [address] [place] [address] Extraction of tooth needed (Primary Dx) Social [...] Info) Description 08/16/2025 10:20 AM EST Consult [facility] [address] [place] [address] Lilly Arnold, ON AWAKE COUNSELOR, DNP [address] [place] [address] Scheduled Referrals Name Type Priority Associated Diagnoses Order Schedule Ambulatory referral to Oral Maxillofacial Surgery Outpatient Referral Routine Extraction of tooth needed Ordered: 12/08/2024 documented as of this encounter Visit Diagnoses Diagnosis Extraction of tooth needed- Primary documented in this encounter
--- OUTSIDE RECORDS SUMMARY | 2025-07-23 11:43 | XMS_ITS | Continuity of Care Document ---
Author Organization [place] [facility] [address] [place] [address] Care Team Providers Care Project Estimator Name Role Phone CHATO BERMUDEZ Primary Care Provider Assessment No assessment recorded. Plan of Treatment Reminders Order Date Submit Date Provider Last Modified By Organization Details Last Modified Time Details Appointments Procedure 30 min 2024 04:00P M Michelle Marroquin MD Not available Not available Not available OV EST 15 2024 10:45A M Michelle Marroquin MD Not available Not available Not available Lab None recorded. Referral None recorded. Procedures epidural steroid injection , lumbar transfora moriah (PROC) - L4 2024 025 [email or web address] Michelle Marroquin MD, [address] [place] [address] [address] [address], [place], [address], 07/19/2025 13:05:05 Surgeries None recorded. Imaging XR, cervical spine, 2 or 3 view 2024 025 [facility] (Lab Registration) , [address] [place] [address] [place], [address], 07/19/2025 15:09:12 Medication Orders None recorded. Patient TargetsNo targets recorded. Patient InstructionsNo instructions recorded. Reason for Referral None Reported. Results Created Date Observation Date Name Description Value Unit Range Abnormal Flag Note LastModifiedBy Organization Detail LastModifiedTime 07/19/2007/19/2025 XR, cervi ulysses spine , 2 or 3 view [facility] [address] [place], [place] [address] [phone] (Phone ) KALYANI Parrish REPORT Name: MARIE REYNA : 1984 Accoun t #: [id number] Age: 40 Years Patien t Type: Outpat ient Sex: F Access ion#: [id number] Exam Descri ption: SP CERVIC AL 2 TO 3V - PARTIA L Exam Reason : m54.2 cervic algia Order Date/T tanner: 2024 11:58: 46 AM Dictat ed By: Ciaran Roberson MD Orderi Physic juan manuel: MICHELLE VILLAGOMEZ Attend [facility] Physic juan manuel: MICHELLE VILLAGOMEZ XR CERVIC AL SPINE 2-3 VIEWS Reason For Study: m54.2 cervic algia COMPAR ELVIS: None availa ble TECHNI QUE: 3 views of the cervic al spine were obtain ed. FINDIN GS: There is mild retrol isthes is C5-6 approx imatel y 2 mm. There is also modera te severe DJD at this level. Mild degene rative change s at the other disc space levels and there is modera te DJD in the lower facet joints . Soft tissue s unrema rkable . No defini te fractu res. CT scan may be benefi cial. IMPRES GIL: Modera te severe DJD C5-6 with mild retrol isthes is likely arthri tic relate d. Consid er CT correl ation exclud e underl davion fractu re. Electr onical ly signed by: Ciaran Roberson MD 2024 03:04 PM EDT RP Workst ation: [id number] PAGE 1 OF 2 Name: MARIE REYNA : 1984 Accoun t #: [id number] Age: 40 Years Patien t Type: Outpat ient Sex: F Access ion#: [id number] Exam Descri ption: SP CERVIC AL 2 TO 3V - PARTIA L Exam Reason : m54.2 cervic algia Order Date/T tanner: 2024 11:58: 46 AM Princi pal Interp reter Name: Ciaran Roberson Provid er ID: [id number] PAGE 2 OF 2 CC'ed Logic: Orderi ng Provid er: YAMINI MARTINEZ CC Provid er: CAM REIS Attend ing Provid er: YAMINI MARTINEZ Referr ing Provid er: YAMINI MARTINEZ Admitt ing Provid er: YAMINI MARTINEZ [facility] [address] [place] [address] [place], [address], 07/20/2025 08:11:24 Result Notes None recorded. Problems Name Problem SNOMED Code Status Onset Date Resolution Date Notes Provider Name and Address Organization Details Recorded Time Fibromyalgia 810439677 Active 2024 Michelle Marroquin MD [address], [address], [place], [address], [facility] - [place] - [place] & [place] 11:41:42 Pain of sacroiliac joint 567386341 Active 2024 Michelle Marroquin MD [address], [address], [place], [address], [place] - [facility] - [place] & [place] 5 11:42:21 Lumbar spondylosis 231851166 Active 2024 Michelle Marroquin MD [address], [address], [place], [address], [place] - [facility] & [place] 5 11:24:09 Neck pain 92299558 Active 2024 Michelle Marroquin MD [address], [address], [place], [address], [place] - [facility] & [place] 5 10:40:14 Problem Notes None recorded. Procedures Surgical History Date Name Laterality Status Provider Name and Address Organization Details Recorded Time 09/23/2018 Other completed Scarlett Da Valente LPN [facility] & [place] 04/08/2025 11:58:19 Imaging Results None recorded. Procedure [...] TAKE ONE TABLET BY MOUTH EVERY DAY FOR 3 DAYS THEN take ONCE WEEKLY active Not Available Not Available No t [...] Available methocarbam ol 750 mg tablet TAKE ONE TABLET BY MOUTH THREE TIMES DAILY MAY CAUSE [...] B-12) 1,000 mcg/mL injection solution INJECT 1000mcg (1 ML) SUBCUTANE OUSLY EVERY MONTH active Not Available Not Available No [...] REMOVE AND LEAVE OFF FOR 12 HOURS USE ON MOST PAINFUL AREA active Not Available Not Available No t Available promethazin e 25 mg tablet TAKE ONE TABLET BY MOUTH EVERY 4 TO 6 HOURS NEEDED FOR NAUSEA 04/09 completed Not Available Not Available Not Available gabapentin 300 mg capsule Take 1 capsule every day by oral route. active Not Available Not Available No t [...] estradiol 0.01% (0.1 mg/gram) vaginal cream USE finger technique TO apply cream vaginally 3 times WEEKLY active Not Available Not Available No t [...] Not Available Not Avai shi amoxicillin 875 mg-jasminu m clavulanate 125 mg tablet TAKE 1 TABLET BY MOUTH EVERY 12 HOURS -- FINISH ALL MEDICINE -- 07/13 completed Not Available Not Available Not Available Fiber-Lax 625 mg tablet TAKE TWO TABLETS BY MOUTH EVERY DAY DIRECTED FOR constipat ion active Not Available Not Available No t Available nitrofurant oin monohydrate /macrocryst als 100 mg capsule TAKE ONE CAPSULE BY MOUTH TWICE DAILY FOR 3 DAYS --TAKE WITH FOOD-- 07/13 completed Not Available Not Available Not Available duloxetine 30 mg capsule,del ayed release TAKE 1 CAPSULE BY MOUTH EVERY DAY active Not Available [...] completed Not Available Not Available Not Available Citrucel active Not Available Not Avai lable Not Available Linzess 72 mcg capsule TAKE ONE CAPSULE BY MOUTH EVERY MORNING 04/09 completed Not Available Not Available Not Available Gemtesa 75 mg tablet TAKE ONE TABLET BY MOUTH EVERY DAY active Not Available Not Available No t Available Airsupra 90 mcg-80 mcg/actuati on HFA aerosol inhaler INHALE TWO PUFFS BY MOUTH 6 times a DAY NEEDED FOR COUGHING AND WHEEZING active Not Available Not Available No t Available Vitals Date Recorded Body height Body mass index (BMI) Body weight Body temperature Oxygen saturation Oxygen saturation in Arterial blood by Pulse oximetry Heart rate Systolic And Diastolic Provider Name and Address Organization Details Last Updated DateTime 167.64 cm 32.2 kg/m2 93293.3 2 g 98.1 [degF] 98 % 98 % 73 /min 111/76 mm[Hg] Scarlett FISHER [facility] & [place] 10:24:34 Social History Question Answer Notes LastModified by Organizat ion Details LastModified Time Tobacco Smoking Status Current Every Day Smoker Scarlett [facility] 04/08/2025 11:58:19 What Was The Date Of [...] completed Scarlett lara, [place] - [facility] - [place] & [place] 07/16/2025 10:25:04 COVID-19, mRNA, LNP-S, PF, 30 mcg/0.3 mL dose 01/20/2021 completed Scarlett Roberson null, [place] - [facility] - [place] & [place] 07/16/2025 10:25:04 COVID-19, mRNA, LNP-S, PF, 30 mcg/0.3 mL dose 02/11/2021 completed Scarlett Roberson null, [place] - [facility] - [place] & [place] 07/16/2025 10:25:04 Tdap 10/21/2017 completed Scarlett Roberson null, [place] [facility] & [place] 07/16/2025 10:25:04 Tdap 02/04/2012 completed Scarlett Robreson null, [place] - [facility] - [place] & [place] 04/09/2025 11:15:04 Influenza, split virus, trivalent, PF 08/12/2017 completed Scarlett Roberson null, [place] - [facility] - [place] & [place] 07/16/2025 10:25:04 Influenza, split virus, quadrivalent, PF 07/20/2021 completed Scarlett Roberson null, [place] - [facility] - [place] & [place] 07/16/2025 10:25:04 Past Encounters Encounter ID Performer Location Encounter Start Date Encounter Closed Date Diagnosis/Indication Diagnosis SNOMED-CT Code Diagnosis ICD10 Code Diagnosis IMO Codes Diagnosis Note [id number] Michelle Marroquin MD [facility] [address] [place] [address] [place] [id number] 07/16/2025 09:52:44 07/16/2025 10:42:12 Long-term drug therapy 160057230 Z79.891 Will start the patient on NSAIDS. [...] oral opiates. Pain of sa croiliac joint 154703935 M53.3 Bilateral sacroiliit isGreater trochanter ic bursitisPa tient has significan t pain in the low back.Signi ficant tenderness on the sacroiliac joint bilaterall yNo radicular signs.+ve FABERS testExamin ation, history consistent with bilateral sacroiliit isLeft leg is 1-1/2 inch shorter than right likely contributi ng to the sacroiliit is.Encoura ged her to consider heel lift. Fibromyalgia 326344045 M 79.7 40626 Examinatio n history is consistent with fibromyalg ia.Tender points could be due to underlying sleep apnea. Lumbar spondylosis 14715 0009 M47.816 95287 Assessment and plan Lumbar radiculiti s Bilateral L5 S1 radiculiti s Examinatio n history consistent with lumbar radiculiti s. Patient has history of lower back pain radiating down the legs bilaterall y, examinatio n has positive SLR, recent MRI of lumbar spine also supports the diagnosis. She has been doing exercises almost 2 to 3 times a week since April 09, 2025 without much benefitWil l schedule a patient for caudal epidural steroid injection as soon as possible. Meanwhile treat the patient right oral opioids and membrane stabilizer s. Caudal epidural steroid injection May 25, 2025. Did not help her much. Will schedule the patient for bilateral L4 lumbar transforam inal epidural steroid injection. Lumbar radiculopathy 128 677101 M54.16 36971 Neck pain 96805377 M54.2 15478 Cervical facet arthritisS ignificant pain in the neck and radiating to the shoulders onlyNo radicular signs+ve Sp[place]No [facility] Neck pain exercisesN winter pain exercises were suggested to the patient. Instructio n were given to the patient in writing. Patient was clearly educated about importance of neck exercises. Patient was suggested the following1 ) cervical flexion exercises2 ) cervical extension exercises3 ) Chin tuck4) Upper Trapezius Stretch5) Levator scapulae Stretch6) Cervical lateral flexion7) Sub occipital stretch.Pa aartint asked to repeat 5 timesHold time 5 secPatient was asked to start with 5 repetition each day and gradually work up to 30Patient agreed to follow the instructio ns and and agreed to call us back if any questions or concerns Health Concerns Section Related Observation LastModified by Organization Detai ls LastModified Time None Recorded Concern Status LastModified by Organization Details LastModified Time None Recorded Payers Encounter Date Sequence Insurance Name Policy Number Policy Garcia Covered Member ID Garcia Member ID Guarantor Name 07/16/2025 1 [facility] (MEDICAID HMO) Laila Herrera [id number] Laila Herrera Notes Date Note Type Note Provider Name and Address Organization Details Recorded Time 07/16/2025 text/html ROS as noted in the HPI 40-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 Right-sided. Radiate done right buttock more than leftaggravated activity that getting in and out of the car.Has been taking pain medications, still having significant pain. Try to might OTC medications too. Quite frustrated about pain.Patient has significant fatigue, difficulty sleeping at night,significant neck, low back, shoulder pains. Patient also gets frequentheadaches. She gets at least couple of attacks per week.Patient wakes up tired in the morning.Patient occasionally gets abdominal bloating on and off.Denies any family history of fibromyalgia. Denies any history of rheumatoid arthritis or SLE. Follow-up visit July 16, 2025 Complaints of lower back pain. Severe pain in the low back radiatingdown the legs. Lower back pain has been going on for a while, recentlyhas gotten significantly worse. Patient having difficulty keepingactivities of daily living and difficulty at work. Describes the painis constant, severe, 7/10 with activity. Lower back pain radiates downboth the legs when bending forward. Adalberto any difficulty withurination or stool. Adalberto any trauma to the low back recently.Lower back pain aggravated with activity like bending, standing toolong or carrying weight's. Lower back pain improves when the patient'sstretches are lies down. She has a 6-year-old. She has problems sleeping at night. The child is extremely active and demanding. Complaints of neck pain radiating down the left arm 6/10. On and off. Aggravated with activity.Patient has tried multiple medications for the lower back painincluding Tylenol, NSAIDs, multiple OTC medications, physical therapy,bed rest without any improvement. Quite frustrated about the low backpain.Caudal epidural steroid injection May 25, 2025. Did not help her much. X-ray lumbar spine November 2024Mild degenerative changes at L4-L5.MRI of lumbar spine December 2024Mild degenerative changes without any nerve root compression.L1-L2 no disc protrusion.L2-L3 unremarkable.L3-L4 unremarkable.L4-L5 mild annular disc bulge with mild facet arthropathy.L5-S1 mild annular disc bulge with mild facet arthropathy. X-ray SI joint April 09, 2025No significant arthritic changes. Unremarkable SI jointsRheumatoid factor, ANDREY ESR CRP negativeLFTs AST and ALT highMCV 102 Michelle Marroquin MD [address] [place] [address], [address], [place], [address], [facility] [place] [facility] [place] & [place] 07/16/2025 10:40:37 OBGyn Episode No OBEpisode recorded.
--- OUTSIDE RECORDS SUMMARY | 2025-07-23 11:43 | XMS_ITS | Data Portability ---
Author Organization Pending sale to [facility] Address [address] [place] [address] Assessment No assessment recorded. Plan of Treatment Reminders Order Date Submit Date Provider Last Modified By Organization Details Last Modified Time Details Appointments None recorded. Lab urinalysis , dipstick 2023 024 [facility], [address], [place], [address], 4 16:34:38 culture, urine 2023 024 [email or web address], [address], Omar [address], [place], [address], 4 09:47:26 urinalysis , dipstick 2019 020 [email or web address] [facility], [address] [place] [address], [place], [address], 0 13:42:28 unlisted lab - compliance drug analysis, ur 2017 018 MAYRA [facility], [address], Omar [address], [place], [address], 8 14:09:[address] referral 2023 024 MAYRA Torres MD, [address] [place] [address] [address], [place], [address], 4 10:58:43 ammonia operator referral 2018 019 MAYRA Palencia Konstantin DPM, [address], [place], [address], 9 16:43:03 Procedures None recorded. Surgeries None recorded. Imaging electrocar diogram 2023 024 [email or web address] [facility], [address], [place], [address], 4 16:55:26 Medication Orders erythromyc in 5 mg/gram (0.5 %) eye ointment 2019 020 [facility], [address] [place], [address], 4 15:56:23 Macrobid 100 mg capsule 2019 [email or web address], [address], 0 16:23:50 fluconazol e 150 mg tablet 2019 [email or web address], [address], 0 16:23:42 Patient TargetsNo targets recorded. Patient Instructions Encounter Date Encounter Id Patient Instructions Last Modified By Organization Details Last Modified Time 05/04/2019 [id number] hip bursitis: care instructions Not available 05/04/2019 16:36:37 Refer to podiart y for permament toenail removal. Discussed stretching exercises and ice packs for the L GTB, if not improving then may refer to ortho for evaluation and possible injection. Not available 05/04/2019 16:39:39 05/02/2020 [id number] Plan: - RTC if s/sx persist or worsen. [email or web address] Not available 05/02/2020 14:02:09 06/17/2020 [id number] use warm compresses 4 x daily, baby shampoo eye lash wash, ibuprofen for pain, abx ointment. f/u if no improvement [email or web address] Not available 06/17/2020 16:40:53 Reason for Referral Offc Spec Referral for Onyc hogryphosis Referring Physician: Abilio Muniz, Family Medicine, Encounter Date: 05/04/2019 Global Marketing Manager Referral for Ch est pain Referring Physician: Adrien Machado [facility], Encounter Date: 06/22/2024 Results Created Date Observation Date Name Description Value Unit Range Abnormal Flag Note LastModifiedBy Organization Detail LastModifiedTime 05/02/2005/02/2020 urina lysis , dipst ick Leukocytes Small Not Available [facility] [place] [address] [facility], [place], [address], 05/02/2020 13:41:04 05/02/20 20 05/02/2020 urina lysis , dipst ick Nitrite negati ve Not Available [facility] [place] [address], [place], [address], 05/02/2020 13:41:04 05/02/2005/02/2020 urina lysis , dipst ick Urobilinogen .2 Not Available [facility] [place] [address], [place], [address], 05/02/2020 13:41:04 05/02/20 20 05/02/2020 urina lysis , dipst ick Protein Negati ve Not Available [facility] [place] [address], [place], [address], 05/02/2020 13:41:04 05/02/20 20 05/02/2020 urina lysis , dipst ick pH 7.[address] [facility] [place] [address], [place], [address], 05/02/2020 13:41:04 05/02/20 20 05/02/2020 urina lysis , dipst ick Blood Modera te Not Available [facility] [address], [place], [address], 05/02/2020 13:41:04 05/02/20 20 05/02/2020 urina lysis , dipst ick Specific [place] 1.025 Not Available [facility] [address], [place], [address], 05/02/2020 13:41:04 05/02/20 20 05/02/2020 urina lysis , dipst ick Ketone Negati ve Not Available [facility] [address], [place], [address], 05/02/2020 13:41:04 05/02/20 20 05/02/2020 urina lysis , dipst ick Bilirubin Negati ve Not Available [facility] [address], [place], [address], 05/02/2020 13:41:04 05/02/20 20 05/02/2020 urina lysis , dipst ick Glucose Negati ve Not Available [facility] [address], [place], [address], 05/02/2020 13:41:04 05/02/2005/02/2020 urina lysis , dipst ick Appearance Slight ly Cloudy Not Available [facility] [address], [place], [address], 05/02/2020 13:41:04 05/02/2005/02/2020 urina lysis , dipst ick Color Dark Yellow Not Available [facility] [address], [place], [address], 05/02/2020 13:41:04 05/06/20 18 05/10/2018 drug scree [...] [facility] [address], [place], [address], 05/10/2018 14:09:31 05/06/20 18 05/10/2018 drug scree n, urine pdf . Not Available [facility] [address], [place], [address], 05/10/2018 14:09:31 06/22/20 24 06/22/2024 urina lysis , dipst ick Leukocytes Negati ve Not Available [address], [address], 06/22/2024 15:57:39 06/22/20 24 06/22/2024 urina lysis , dipst ick Nitrite negati ve Not Available [address], [address], 06/22/2024 15:57:39 06/22/20 24 06/22/2024 urina lysis , dipst ick Urobilinogen .2 Not Available [facility] [address], [address], 06/22/2024 15:57:39 06/22/20 24 06/22/2024 urina lysis , dipst ick Protein Negati ve Not Available [address], [address], 06/22/2024 15:57:39 06/22/20 24 06/22/2024 urina lysis , dipst ick pH 6.5 Not Available [address], [address], 06/22/2024 15:57:39 06/22/20 24 06/22/2024 urina lysis , dipst ick Blood Modera te Not Available [address], [address], 06/22/2024 15:57:39 06/22/20 24 06/22/2024 urina lysis , dipst ick Specific [place] 1.025 Not Available [address], [address], 06/22/2024 15:57:39 06/22/20 24 06/22/2024 urina lysis , dipst ick Ketone Negati ve Not Available [address], [address], 06/22/2024 15:57:39 06/22/20 24 06/22/2024 urina lysis , dipst ick Bilirubin Negati ve Not Available [address], [address], 06/22/2024 15:57:39 06/22/20 24 06/22/2024 urina lysis , dipst ick Glucose Negati ve Not Available [address], [address], 06/22/2024 15:57:39 06/22/20 24 06/22/2024 urina lysis , dipst ick Appearance Clear Not Available [address], [address], 06/22/2024 15:57:39 06/22/20 24 06/22/2024 urina lysis , dipst ick Color Yellow Not Available [address], [address], 06/22/2024 15:57:39 07/11/20 18 07/10/2018 US, obste tric, 2nd or 3rd trime ster No observ ation record ed. [facility] [address] [facility] [address], [place], [id number], 07/15/2018 08:45:20 10/25/19 19 10/24/2018 US, obste tric No observ ation record ed. [email or web address] [facility] [address] [place], [id number], 10/25/2018 11:49:03 04/21/20 19 08/17/2016 pulmo nary funct ion test* No observ ation record ed. [facility] Not Available 2018 12:18:10 06/22/20 24 06/22/2024 elect rocar diogr am No observ ation record ed. [email or web address] [address], [place], [address], 06/22/2024 16:37:23 06/22/20 24 06/22/2024 CT, abdom en + pelvi s, w/ contr ast No observ ation record ed. [email or web address], [place], [address], 06/23/2024 08:31:13 06/23/20 24 06/22/2024 elect sandeep diogr am No observ ation record ed. [email or web address] [address], [place], [address], 07/01/2024 09:00:20 Result Notes None recorded. Problems Name Problem SNOMED Code Status Onset Date Resolution Date Notes Provider Name and Address Organization Details Recorded Time Anxiety 97202684 Active 2015 Michelle Berry null, [place] - [facility] 0 13:22:08 Non-alcoholic fatty liver 764350595 Active 2015 Michelle Berry null, [place] - [facility] 0 13:22:08 Obesity 621901079 Active 2015 Michelle Berry null, [place] - [facility] 0 13:22:08 Onychogryphosi s 46016792 Active 2015 Michelle Berry null, [place] - [facility] 0 13:22:08 Smoker 77403552 Active 2015 [place] - [facility] 0 13:22:08 Problem Notes None recorded. Procedures Surgical History Date Name Laterality Status Provider Name and Address Organization Details Recorded Time 06/17/20 20 Systolic B/P less than 130 mm Hg completed Chantel Emerson [place] - [facility] 06/17/2020 16:24:28 06/17/20 20 Diastolic B/P 80-89 mm Hg completed Chantel Emerson [facility] 06/17/2020 16:24:32 05/02/20 20 Systolic B/P less than 130 mm Hg completed Michelle Berry [facility] 05/02/2020 13:25:09 05/02/20 20 Diastolic B/P 80-89 mm Hg completed Michelle Berry [facility] 05/02/2020 13:25:11 11/04/19 19 delivery completed Shirley Nancy [facility] 05/04/2019 16:09:28 06/20/20 15 Date of Last Pap Smear completed Mercedez Chung [place] - [facility] 02/12/2017 13:24:04 09/23/19 06 delivery completed Enma Fletcher [facility] 08/13/2016 12:51:06 09/23/19 01 delivery completed Enma Fletcher [facility] 08/13/2016 12:51:12 Tonsillectomy completed Enma Fletcher [facility] 08/13/2016 12:51:25 foot repair completed Mis Doll [facility] 06/22/2024 16:05:10 Imaging Results None recorded. Procedure [...] Status: Recorded on: 06/20/20 15 9:23AM;U ser: bcerd; Printed: 06/20/20 15 Not Available Not Available [...] Updated DateTime 0 170.18 cm 28.3 kg/m2 57144.7 3 g 98.5 [degF] 74 /min 98 % 98 % 17 /min 124/82 mm[Hg] Michelle Berry [facility] 0 13:25:08 Date Recorded Body height Body mass index (BMI) Body weight Heart rate Oxygen saturation Oxygen saturation in Arterial blood by Pulse oximetry Body temperature Respiratory rate Systolic And Diastolic Provider Name and Address Organization Details Last Updated DateTime 9 170.18 cm 29.4 kg/m2 67387.3 7 g 77 /min 99 % 99 % 98.3 [degF] 17 /min 116/74 mm[Hg] Shirley Nancy [facility] 9 16:10:22 Date Recorded Body height Body mass index (BMI) Body weight Body temperature Heart rate Oxygen saturation Oxygen saturation in Arterial blood by Pulse oximetry Respiratory rate Systolic And Diastolic Provider Name and Address Organization Details Last Updated DateTime 8 170.18 cm 30.5 kg/m2 23381.7 2 g 98.4 [degF] 91 /min 97 % 97 % 16 /min 122/74 mm[Hg] Chantel Emerson [facility] 8 16:41:42 Date Recorded Body height Body mass index (BMI) Body weight Heart rate Oxygen saturation Oxygen saturation in Arterial blood by Pulse oximetry Respiratory rate Systolic And Diastolic Provider Name and Address Organization Details Last Updated DateTime 0 170.18 cm 27.9 kg/m2 39625.5 4 g 76 /min 94 % 94 % 17 /min 124/84 mm[Hg] Chantel Emerson [facility] 0 16:23:21 Date Recorded Body weight Body mass index (BMI) Body height Body temperature Respiratory rate Oxygen saturation Oxygen saturation in Arterial blood by Pulse oximetry Heart rate Systolic And Diastolic Provider Name and Address Organization Details Last Updated DateTime 4 52886.9 9 g 33 kg/m2 170.18 cm 98.4 [degF] 18 /min 96 % 96 % 88 /min 136/84 mm[Hg] Mis Doll [place] - [facility] 4 16:02:12 Social History Question Answer Notes LastModified by Organizat ion Details LastModified Time Tobacco Smoking Status Current Every Day Smoker Not Available [facility] 07/08/2020 03:13:31 Able To Swim? Yes [email or web address] Information not available 04/09/2017 Do You Have An Advance Directive? No [id number] Information not available 07/08/2020 Do You Wear A Helmet When Biking? Yes [id number] Information not available 07/08/2020 Are You Blind Or Do You Have Difficulty Seeing? No [id number] Information not available 07/08/2020 What Is Your Level Of Caffeine Consumption? Moderate Information not available 06/22/2024 How Much Tobacco Do You Chew? None [id number] Information not available 07/08/2020 Are You Deaf Or Do You Have Serious Difficulty Hearing? No [id number] Information not available 07/08/2020 What Type Of Diet Are You Following? REGULAR Information not available 06/22/2024 Which Illicit Or Recreational Drugs Have You Used? None [id number] Information not available 07/08/2020 What Is The Highest Grade Or Level Of School You Have Completed Or The Highest Degree You Have Received? [id number] Information not available 06/22/2024 Swimming/diving Yes [email or web address] Informati on not available 04/09/2017 Have There Been Any Changes To Your Family Or Social Situation? No Information no t available 06/22/2024 What Is The Fluoride Status Of Your Home? Unknown Information not available 06/22/2024 Hard Of Hearing Or Deaf In One Or Both Ears? No [email or web address] Information not available 04/09/2017 Legally Blind In One Or Both Eyes? No [email or web address] Information no t available 04/09/2017 Live Alone Or With Others? With Others Information not available 08/13/2016 Do You Have A Medical Power Of Traffic Recorder? No Information not available 06/22/2024 What Was The Date Of Your Most Recent Tobacco Screening? 06/22/2024 Information not available 06/22/2024 How Many Children Do You Have? 3 Information not available 06/22/2024 What Is Your Current Pack Years? 10-19packyear s Information not available 06/22/2024 What Is Your Relationship Status? [id number] Information not available 07/08/2020 Seat Belts Used Routinely Yes Information not available 04/09/2017 Smoke Alarm In Home Yes [email or web address] Information not available 04/09/2017 Do You Have Smoke And Carbon Monoxide Detectors In Your Home? Yes Information not available 06/22/2024 At What Age Did You Start Smoking Tobacco? 13 Information not available 06/22/2024 Are You Passively Exposed To Smoke? Yes [email or web address] Information no t available 04/09/2017 How Much Tobacco Do You Smoke? 0.5 PPD [id number] Information not available 07/08/2020 General Stress Level Medium Information not available 04/09/2017 Do You Use Sunscreen Routinely? Yes [id number] Information not available 07/08/2020 Has Tobacco Cessation Counseling Been Provided? Yes [id number] Information not available 07/08/2020 On What Date Was Tobacco Cessation Counseling Provided? 06/22/2024 Information not available 06/22/2024 How Many Years Have You Smoked Tobacco? 26 Information not available 06/22/2024 Do You Have Difficulty Walking Or Climbing Stairs? No [id number] Information not available 07/08/2020 Sex: Female Functional Status Question Answer Note LastModified by Organizat ion Details LastModified Time Do you use any illicit or recreational drugs? No Information not available 06/22/2024 Do you or have you ever used any other forms of tobacco or nicotine? No Information not available 06/22/2024 What is your level of alcohol consumption? None [id number] Information not available 07/08/2020 Are you currently employed? Yes Information not available 06/22/2024 Do you have transportation difficulties? No Information not available 06/22/2024 Are you able to walk independently without assistance or assistive devices? YESWOREST [id number] Information not available 07/08/2020 Do you have difficulty doing errands alone? No [id number] Information not available 07/08/2020 Are you able to care for yourself independently? Yes [id number] Information not available 07/08/2020 What is your occupation? [employer] Information not available 06/22/2024 Do you have difficulty dressing, bathing, grooming, or toileting? No [id number] Information not available 07/08/2020 Do you or have you ever used e-cigarettes or vape? Never used electronic cigarettes [id number] Information not available 07/08/2020 What is your exercise level? None [id number] Information not available 07/08/2020 Mental Status Question Answer Note LastModified by Organizat ion Details LastModified Time Do you feel stressed (tense, restless, nervous, or anxious, or unable to sleep at night)? [id number] Information not available 06/22/2024 Do you have difficulty concentrating, remembering or making decisions? No [id number] Information no t available 07/08/2020 Family History Relationship Description Onset Age of this Age Resolved Age Notes LastModified by Organization Details LastModified Time Father Asthma [email or web address] Not available 1 10/13/2015 12:51:59 Father Chronic obstructive pulmonary disease [email or web address] Not available 2015 12:52:06 Father Type 2 diabetes mellitus without complication [email or web address] Not available 12:52:29 Paternal Grandfather Asthma Not available 08/13 12:52:15 Maternal Grandmother Type 2 diabetes mellitus without complication [email or web address] Not available 12:53:06 Unspecified Relation Essential hypertension [email or web address] Not available 12:53:18 Medical History No medical history recorded. Gynecological History Statement/Question Response Last Annual Exam/Provider 06/20/15 w/DT Date of Last Mammogram Date of Last Colonoscopy Date of LMP 06/10/2024 Most Recent Bone Density Sexually Active? Y Menses Monthly N Date of Last Pap Smear 06/20/2015 Sexual Problems? 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 Approximate Obstetrics History GPAL:G 0 P 0 0 0 0 Type Value Living 0 Total 0 Immunizations Vaccine Type Date Status Note Provider Nam e and Address Organization Details Recorded Time influenza, unspecified formulation 5 completed Michelle Berry null, [place] - [facility] 05/02/2020 13:20:36 Tdap 8 completed Not Available [facility] 10/10/2019 03:54:55 Influenza, split virus, quadrivalent, preservative 6 completed Michelle Berry null[place] - [facility] 05/02/2020 13:20:36 Influenza, split virus, quadrivalent, preservative 9 completed Michelle Berry [place] - [facility] 05/02/2020 13:20:36 Influenza, MDCK, quadrivalent, PF 0 completed Mis Stears null[place] - [facility] 06/22/2024 15:56:08 COVID-19, mRNA, LNP-S, PF, 30 mcg/0.3 mL dose 1 completed Mis Stears null[place] - [facility] 06/22/2024 15:56:08 COVID-19, mRNA, LNP-S, PF, 30 mcg/0.3 mL dose 1 completed Mis Stears null[place] - [facility] 06/22/2024 15:56:08 Tdap 2 completed Mis Stears null, [place] - [facility] 06/22/2024 15:56:08 Influenza, split virus, trivalent, PF 7 completed Mis Stears null[place] - [facility] 06/22/2024 15:56:08 Influenza, split virus, quadrivalent, PF 1 completed Mis Stears null[place] - [facility] 06/22/2024 15:56:08 Past Encounters Encounter ID Performer Location Encounter Start Date Encounter Closed Date Diagnosis/Indication Diagnosis SNOMED-CT Code Diagnosis ICD10 Code Diagnosis IMO Codes Diagnosis Note [id number] Abilio Marcial [facility] [address] [place] [address] 08/13/2016 16:04:28 08/13/2016 17:51:41 Chest pain 49223987 R07.9 tightness, not pain Gastroesop hageal reflux disease without esophagitis 853394537 K21.9 Cough 03103429 R05 Dyspnea 939774997 R06.02 [id number] Abilio Muniz MD [place] [address] [place] [address] 11/19/2016 16:23:51 11/19/2016 16:38:05 Uses depot contraception 520478444 Z30.42 Gynecologi c examination 48241788 Z01.516 [id number] Milton [facility]son [facility] [address] [place] [address] 11/28/2016 09:59:23 11/28/2016 10:29:59 Acute urinary tract infection 873227875 N39.0 [id number] Jaymie Ledezma [facility]N [facility] [address] [place] [address] 02/21/2017 15:49:53 02/21/2017 16:46:10 Conjunctivitis 4248127 H10.9 [id number] Jaymie Ledezma [facility]N [facility] [address] [place] [address] 04/04/2017 15:46:43 04/04/2017 17:18:08 Body mass index 30+ - obesity 886720959 Z68.30 Tobacco us e cessation education 986332042 Z71.6 Acute urin francisco javier tract infection 435917188 N39.0 [id number] Jaymie Ledezma APRN [place] [address] [place] [address] 04/09/2017 15:46:13 04/09/2017 17:25:13 Dysuria 95208592 R30.0 Blood in urine 24374937 R31.9 Candidiasis of vagina 72 708621 B37.3 Low back pain 530632126 M54.5 Amenorrhea 69866152 N91. 2 [id number] Jaymie Ledezma APRN [facility] [place] [address] [place], [place] [address] 10/21/2017 08:17:32 10/21/2017 08:43:18 Body mass index 25-29 - overweight 988047390 Z68.29 Sinusitis 74190630 J32.9 [id number] Jaymie Darien ADRIANA [place] [address] [place], [place] [address] 10/25/2017 14:17:23 10/25/2017 15:24:08 Otalgia 96210895 H92.01 [id number] Abilio Ambrocioacaciamalik [place] [address] [place] [address] 03/03/2018 15:39:07 03/03/2018 17:32:52 Low back pain 356056288 M54.5 [id number] Jaymie Ledezma ALGORITHM DEVELOPER [place] [address] [place] [facility] [place] [address] 03/18/2018 16:03:51 03/18/2018 16:44:47 Amenorrhea 50067889 N91.2 Low back pain 363332195 M54.5 Pruritic rash 45177247 L 28.2 Acute urin francisco javier tract infection 579098071 N39.0 [id number] Jaymie Ledezma APRN [place] [address] [address] 05/06/2018 16:09:09 05/06/2018 17:40:42 History and physical examination, pre-employment 490264277 Z02.1 [id number] Abilio Marcial [place] [address] [place] [address] 05/04/2019 16:00:38 05/04/2019 16:42:46 Onychogryphosis 03238709 L60.2 Greater tr ochanteric pain syndrome 8948518 M70.62 [id number] Milton Cralson APRN [facility] [place] [address] [place] [address] 05/02/2020 13:13:58 05/02/2020 13:44:45 Left flank pain 275610198 R10.9 [id number] ADRIANA Gonzalez [facility] [address] [place] [address] 06/17/2020 16:10:56 06/17/2020 16:39:05 Hordeolum externum of lower eyelid 526174056 H00.250 [id number] Adrien Machado APRN [facility] [address] [place] [address] 06/22/2024 15:47:20 06/22/2024 16:55:26 Chest pain 94956464 R07.9 Left flank pain 06716518 9 R10.9 sent to ed for eval Health Concerns Section Related Observation LastModified by Organization Detai ls LastModified Time None Recorded Concern Status LastModified by Organization Details LastModified Time None Recorded Advance Directives Directive N: Payers Insurance Date Sequence Insurance Name Policy Number Policy Garcia Covered Member ID Garcia Member ID Guarantor Name 01/11/2017 1 UNSPECIFIED REMIT PAYOR Laila Bonilla Workman 06/17/2020 MEDICAID-[facility] WRAP BILLING (MEDICAID) Laila Bonilla Workman [id number] Laila Bonilla Workman 10/21/2017 1 PASSPORT BY [employer] (MEDICAID REPLACEMENT - HMO) MEDICAID Laila Bonilla Workman [id number] Laila Bonilla Workman 06/22/2024 1 PASSPORT BY [facility] (MEDICAID REPLACEMENT - HMO) [facility] Laila Bonilla Workman [id number] Laila Bonilla Workman 06/29/2024 1 [facility] (MEDICAID HMO) Laila Bonilla Workman [id number] Laila Bonilla Workmarlen Notes Date Note Type Note Provider Name and Address Organization Details Recorded Time 05/06/2018 text/html Pt is here for a work physical Jaymie Ledezma marco [place] - [facility] 05/11/2018 21:56:05 05/04/2019 text/html ROS as noted in the HPI Patient is here today for three ingrown [...] MRI. Abilio Muniz MD [address], [place], [address], [facility] 05/04/2019 16:42:13 05/02/2020 text/html Laila Herrera is in the office for ER f/u on 04/27/2020 for UTI s/sx. She went to [facility] ER, where keflex was given. Milton Carlson APRN [address], [place], [address], [facility] 05/02/2020 14:02:24 06/17/2020 text/html Eye PainReported by PatientHPIFor quality, patient reportsachingandthr obbing. For associated symptoms, patient reportsredness,itch ing, andswelling around eyesbut reportsno sensitivity to light,pain is not worse with eye movement,no diplopia,no photophobia,no headache,no blurred vision,no watery discharge,no mucous discharge,not seeing halos, andno drooping eyelid(s). For location, patient reportsright. For severity, patient reportsmild. Stacie Lara APRN [address], [place], [address], [facility] - [facility] 06/17/2020 16:41:06 06/22/2024 text/html ROS as noted in the HPI 39 year old female who presents to the office today with concerns ofleft side anterior/pelvic pain, lower back pain, urinary frequency, pain with urination, and pain in chest at night when laying down, after awhile pain stops. Adrien Machado APRN [address], [place], [address], [facility] - [facility] 06/23/2024 09:34:05 OBGyn Episode No OBEpisode recorded.
--- OUTSIDE RECORDS SUMMARY | 2025-07-23 11:43 | XMS_ITS | Encounter Summary ---
Author Organization Healthcare Address [address] [place] [address] Care Team Providers Care Beam Dyer Operator Name Role Phone Unavailable Primary Care Provider Unavailabl e Encounter Details Date Type Department Care Team (Late st Contact Info) Description 10/15/2024 Orders Only External Location [address] [place] [address] Provider, External Social History Tobacco Use Types [...] Info) Description 08/16/2025 10:20 AM EST Consult [facility] [address] [place] [address] Lilly Arnold, [employer] PL[employer] SWEATER OPERATOR, DNP [address] [place] [address] documented as of this encounter Procedures Procedure [...]
--- OUTSIDE RECORDS SUMMARY | 2025-07-23 11:44 | XMS_ITS | Clinical Summary ---
Author Organization Healthcare Address [address] [place] [address] Care Team Providers Care Satellite Instruction Facilitator Name Role Phone Unavailable Primary Care Provider [...] EST Consult [facility] [address] [place] [address] Lilly Arnold, CARBIDE DIE MAKER, DNP [address] [place] [address] Health Maintenance Due Date Last [...] 2012 [facility]-Cervical Cancer Screening 2015 [facility]-HPV/Cotest 2015 [id number] Vaccine (3 - 2024- season) 2025 02/11/2021, [...]
--- OUTSIDE RECORDS SUMMARY | 2025-07-23 11:44 | XMS_ITS | Data Portability ---
Author Organization [facility] & [facility] ADMIN Address [address] [place] [phone] Care Team Providers Care Area Intelligence Technician Name Role Phone CHATO BERMUDEZ Primary Care Provider Assessment Encounter Date Assessment Date Assessment LastModified by Organization Details LastModified Time 11/18/2024 11/18/2024 Follow up after colonoscopy. Patient to complete extended bowel prep. Not available 11/19/2024 13:13:53 Plan of Treatment Reminders Order Date Submit Date Provider Last Modified By Organization Details Last Modified Time Details Appointments Procedure 30 min 2024 04:00P M Michelle Mckenzie MD Not available Not available Not available OV EST 15 2024 10:45A M Michelle Mckenzie MD Not available Not available Not available Lab [facility] 2024 [email or web address] (Lab Registration) , [address] [place] [address] [place], [address], 04/09/2025 14:49:51 BMP, blood 2024 025 [email or web address] [facility] (Lab Registration) , [address] [place] [address] [place], [address], 04/09/2025 13:56:19 hepatic function panel, serum 2024 025 [email or web address] [facility] (Lab Registration) , [address] [place] [address] [place], [address], 04/09/2025 13:56:19 ANDREY + rf (antinucl ear antibodie s + rheumatoi d factor), quantitat anya, serum 2024 025 [facility] (Lab Registration) , [address] [place] [address] [place], [address], 04/13/2025 08:28:15 C-reactiv e protein, quantitat anya, serum or plasma 2024 025 [facility] (Lab Registration) , [address] [place] [address] [place], [address], 04/09/2025 14:49:52 ESR (erythroc yte sedimenta tion rate), blood 2024 025 [facility] (Lab Registration) , [address] [place] [address] [place], [address], 04/09/2025 15:07:26 drug confirmat ion, urine 2024 025 [facility] (Lab Registration) , [address] [place] [address] [place], [address], 04/19/2025 10:02:30 nonalcoho lic steatohep atitis + fibrosis panel, serum or plasma 2023 024 [email or web address] 4 [facility], [address], [address], [place], [address], 09/24/2024 12:42:21 hepatic function panel, serum 2023 024 MAYRA [facility], [address], [address], [place], [address], 09/03/2024 11:06:17 Referral None recorded. Procedures epidural steroid injection , lumbar transfora moriah (PROC) - L4 2024 025 [email or web address] Mckenzie MD, [address] [place] [address] , [address], [place], [address], 07/19/2025 13:05:05 epidural steroid injection , caudal (PROC) 2024 025 MAYRA Mckenzie MD, [address] [place] [address] [address], [place], [address], 05/26/2025 09:27:28 Surgeries None recorded. Imaging XR, cervical spine, 2 or 3 view 2024 025 MAYRA [facility] (Lab Registration) , [address] [place] [address] [place], [address], 07/19/2025 15:09:12 XR, sacroilia c joint(s) 2024 025 [email or web address] [facility] (Lab Registration) , [address] [place] [address] [place], [address], 04/12/2025 09:02:58 XR, kidney + ureter + bladder - constipat ion 2024 025 [email or web address] 4 [facility] (Registration ), [address] [place] [address], [place], [address], 12/04/2024 15:02:44 Medication Orders Fiber-Tab s 625 mg tablet 2024 025 [facility], [address] [place] [address] E [facility] [place] [address], [id number], 01/22/2025 08:42:28 Linzess 72 mcg capsule 2023 025 [facility] [employer] [facility], [address] [place] [address] E [facility], [place], [id number], 04/09/2025 13:48:08 Patient TargetsNo targets recorded. Patient InstructionsNo instructions recorded. Reason for Referral None Reported. Results Created Date Observation Date Name Description Value Unit Range Abnormal Flag Note LastModifiedBy Organization Detail LastModifiedTime 04/09/2004/09/2025 CBC NO DIFF (HEMO GRAM) WBC 7.00 K/uL 4.5-11 .5 Not Available [facility] (Pre-Op Clinic) [address] [place] [address] [place], [address], 04/09/2025 13:04:45 04/09/20 25 04/09/2025 CBC NO DIFF (HEMO GRAM) RBC 4.39 M/uL 4.0-5. 4 Not Available [facility] (Pre-Op Clinic) [address] [place] [address] [place], [address], 04/09/2025 13:04:45 04/09/20 25 04/09/2025 CBC NO DIFF (HEMO GRAM) HGB 15.5 g/dL 12.0-1 5.0 high Not Available [facility] (Pre-Op Clinic) [address] [place] [address] [place], [address], 04/09/2025 13:04:45 04/09/20 25 04/09/2025 CBC NO DIFF (HEMO GRAM) HCT 45.0 % 35-49 Not Available [facility] (Pre-Op Clinic) [address] [place] [address] [place], [address], 04/09/2025 13:04:45 04/09/20 25 04/09/2025 CBC NO DIFF (HEMO GRAM) MCV 102.5 fL 80.0-1 00.0 high Not Available [facility] (Pre-Op Clinic) [address] [place] [address] [place], [address], 04/09/2025 13:04:45 04/09/20 25 04/09/2025 CBC NO DIFF (HEMO GRAM) MCH 35.3 pg 26.0-3 2.0 high Not Available [facility] (Pre-Op Clinic) [address] [place] [address] [place], [address], 04/09/2025 13:04:45 04/09/20 25 04/09/2025 CBC NO DIFF (HEMO GRAM) MCHC 34.4 g/dL 32.0-3 6.0 Not Available [facility] (Pre-Op Clinic) [address] [place] [address] [place], [address], 04/09/2025 13:04:45 04/09/20 25 04/09/2025 CBC NO DIFF (HEMO GRAM) RDW 12.0 % 11.5-1 4.5 Not Available [facility] (Pre-Op Clinic) [address] [place] [address] [place], [address], 04/09/2025 13:04:45 04/09/20 25 04/09/2025 CBC NO DIFF (HEMO GRAM) platelet count 163 K/uL 142-42 4 Not Available [facility] (Pre-Op Clinic) [address] [place] [address] [place], [address], 04/09/2025 13:04:45 04/09/20 25 04/09/2025 CBC NO DIFF (HEMO GRAM) MPV 9.5 fL 6.8-10 .2 Not Available [facility] (Pre-Op Clinic) [address] [place] [address] [place], [address], 04/09/2025 13:04:45 04/09/20 25 04/09/2025 CBC NO DIFF (HEMO GRAM) note Unles s other torres noted testi ng perfo [facility]med at: [facility] [place] [address] [place] [address] Chino souza MD Not Available [facility] (Pre-Op Clinic) [address] [place] [address] [place], [address], 04/09/2025 13:04:45 04/09/20 25 04/09/2025 BASIC METAB OLIC PANEL sodium 137 mmol/ L 137-14 7 Not Available [facility] (Pre-Op Clinic) [address] [place] [address] [place], [address], 04/09/2025 13:31:06 04/09/20 25 04/09/2025 BASIC METAB OLIC PANEL potassium 4.2 mmol/ L 3.5-5. 1 Not Available [facility] (Pre-Op Clinic) [address] [place] [address] [place], [address], 04/09/2025 13:31:06 04/09/20 25 04/09/2025 BASIC METAB OLIC PANEL chloride 104 mmol/ L 98-110 Not Available [facility] (Pre-Op Clinic) [address] [place], [address], 04/09/2025 13:31:06 04/09/20 25 04/09/2025 BASIC METAB OLIC PANEL carbon dioxide 27 mmol/ L 21-30 Not Available [facility] (Pre-Op Clinic) [address] [place], [address], 04/09/2025 13:31:06 04/09/20 25 04/09/2025 BASIC METAB OLIC PANEL anion gap 6 mmol/ L 6-14 Not Available [facility] (Pre-Op Clinic) [address] [place], [address], 04/09/2025 13:31:06 04/09/20 25 04/09/2025 BASIC METAB OLIC PANEL glucose 78 mg/dL 70-115 Not Available [facility] (Pre-Op Clinic) [address] [place] [address] [place], [address], 04/09/2025 13:31:06 04/09/20 25 04/09/2025 BASIC METAB OLIC PANEL BUN 14 mg/dL 7-17 Not Available [facility] (Pre-Op Clinic) [address] [place] [address] [place], [address], 04/09/2025 13:31:06 04/09/20 25 04/09/2025 BASIC METAB OLIC PANEL creatinine 0.6 mg/dL 0.5-1. 5 Not Available [facility] (Pre-Op Clinic) [address] [place] [address] [place], [address], 04/09/2025 13:31:06 04/09/20 25 04/09/2025 BASIC METAB OLIC PANEL BUN/creatini ne ratio 23 10-20 high Not Available [facility] (Pre-Op Clinic) [address] [place] [address] [place], [address], 04/09/2025 13:31:06 04/09/20 25 04/09/2025 BASIC METAB [...] [facility] (Pre-Op Clinic) [address] [place] [address] [place], [address], 04/09/2025 13:31:06 04/09/20 25 04/09/2025 BASIC METAB [...] [facility] (Pre-Op Clinic) [address] [place] [address] [place], [address], 04/09/2025 13:31:06 04/09/20 25 04/09/2025 BASIC METAB OLIC PANEL calcium 9.4 mg/dL 8.5-10 .8 Not Available [facility] (Pre-Op Clinic) [address] [place] [address] [place], [address], 04/09/2025 13:31:06 04/09/20 25 04/09/2025 BASIC METAB OLIC PANEL note Unles s other torres noted testi ng perfo rmed at: [facility] [address] [place] [address] Chino souza MD Not Available [facility] (Pre-Op Clinic) [address] [place] [address] [place], [address], 04/09/2025 13:31:06 04/09/20 25 04/09/2025 HEPAT IC FUNCT ION PANEL total protein 6.8 g/dL 6.2-8. 2 Not Available [facility] (Pre-Op Clinic) [address] [place] [address] [place], [address], 04/09/2025 13:32:15 04/09/20 25 04/09/2025 HEPAT IC FUNCT ION PANEL albumin 4.1 g/dL 3.5-5. 0 Not Available [facility] (Pre-Op Clinic) [address] [place] [address] [place], [address], 04/09/2025 13:32:15 04/09/20 25 04/09/2025 HEPAT IC FUNCT ION PANEL bilirubin total 0.6 mg/dL 0.2-1. 3 Not Available [facility] (Pre-Op Clinic) [address] [place] [address] [place], [address], 04/09/2025 13:32:15 04/09/20 25 04/09/2025 HEPAT IC FUNCT ION PANEL bilirubin direct 0.20 mg/dL 0.0-0. 3 Not Available [facility] (Pre-Op Clinic) [address] [place] [address] [place], [address], 04/09/2025 13:32:15 04/09/20 25 04/09/2025 HEPAT IC FUNCT ION PANEL bilirubin indirect 0.40 Not Available [facility] (Pre-Op Clinic) [address] [place] [address] [place], [address], 04/09/2025 13:32:15 04/09/20 25 04/09/2025 HEPAT IC FUNCT ION PANEL AST (SGOT) 67 IU/L 14-36 high Not Available [facility] (Pre-Op Clinic) [address] [place] [address] [place], [address], 04/09/2025 13:32:15 04/09/20 25 04/09/2025 HEPAT IC FUNCT ION PANEL ALT (SGPT) 104 IU/L 0-35 high Pleas e note new refer ence inter pradeep for ALT. Due to a recen t manuf actur er metho dolog y frankel e, the refer ence inter pradeep for ALT is lower effec tive January 12, 2021. Not Available [facility] (Pre-Op Clinic) [address] [place] [address] [place], [address], 04/09/2025 13:32:15 04/09/20 25 04/09/2025 HEPAT IC FUNCT ION PANEL alk phosphatase 79 IU/L 38-126 Not Available [facility] (Pre-Op Clinic) [address] [place] [address] [place], [address], 04/09/2025 13:32:15 04/09/20 25 04/09/2025 HEPAT IC FUNCT ION PANEL note Unles s other torres noted testi ng perfo rmed at: [facility] [address] [place] [address] Chino souza MD Not Available [facility] (Pre-Op Clinic) [address] [place] [address] [place], [address], 04/09/2025 13:32:15 04/09/20 25 04/09/2025 C-ALLI CTIVE PROTE IN (CRP) C-reactive protein <5.0 mg/L -10 Not Available [facility] (Pre-Op Clinic) [address] [place] [address] [place], [address], 04/09/2025 13:38:42 04/09/20 25 04/09/2025 C-ALLI CTIVE PROTE IN (CRP) note Unles s other torres noted testi ng perfo rmed at: [facility] [address] [place] [address] Chino souza MD Not Available [facility] (Pre-Op Clinic) [address] [place] [address] [place], [address], 04/09/2025 13:38:42 04/09/20 25 04/09/2025 SED RATE WESTE RGREN sed rate westergren 5 mm/HR 0-15 Not Available [facility] (Pre-Op Clinic) [address] [place], [address], 04/09/2025 13:56:12 04/09/20 25 04/09/2025 SED RATE WESTE RGREN note Unles s other torres noted testi ng perfo rmed at: [facility] [address] [place] [address] Chino souza MD Not Available [facility] (Pre-Op Clinic) [address] [place] [address] [place], [address], 04/09/2025 13:56:12 04/09/2004/09/2025 RHEUM ATOID ARTHR ITIS FACTO R-RA note Unles s other torres noted testi ng perfo rmed at: [facility] [address] [place] [address] Chino souza MD Not Available [facility] (Pre-Op Clinic) [address] [place] [address] [place], [address], 04/10/2025 09:12:41 04/09/2004/10/2025 RHEUM ATOID ARTHR ITIS FACTO R-RA RA latex turbid. <10.0 IU/mL <14.0 Perfo rmed at: - [facility] [address] [address] Lab Direc tor: Redd price PhD, Phone : [phone] Not Available [facility] (Pre-Op Clinic) [address] [place] [address] [place], [address], 04/10/2025 09:12:41 04/09/2004/09/2025 ANDREY SCREE N W REFLE X note Unles s other torres noted testi ng perfo rmed at: [facility] [address] [place] [address] Chino souza MD Not Available [facility] (Pre-Op Clinic) [address] [place] [address] [place], [address], 04/12/2025 14:16:00 04/09/20 25 04/12/2025 ANDREY SCREE N W REFLE X ANDREY direct Negati ve negati ve Perfo rmed at: - [facility] [address] [facility] [address] [address] [facility] [address], [place] [address] Lab Direc tor: Redd price PhD, Phone : [phone] Not Available [facility] (Pre-Op Clinic) [address] [place] [address] [place], [address], 04/12/2025 14:16:00 04/09/20 25 04/09/2025 COMPL IANCE DRUG SCARLETT SIS, UR note Unles s other torres noted testi ng perfo rmed at: [facility] [address] [place] [address] Chino souza MD Not Available [facility] (Pre-Op Clinic) [address] [place] [address] [place], [address], 04/18/2025 16:15:51 04/09/20 25 04/18/2025 COMPL IANCE [...] ===== ===== ===== ===== === Not Available [facility] (Pre-Op Clinic) [address] [place] [address] [place], [address], 04/18/2025 16:15:51 04/09/20 25 04/18/2025 COMPL IANCE DRUG SCARLETT SIS, UR pdf . Perfo rmed at: [place] - [facility] [address] [facility] [address] [place] [address] Lab Direc tor: Lorean vogt [facility] , Phone : [phone] Not Available [facility] (Pre-Op Clinic) [address] [place] [address] [place], [address], 04/18/2025 16:15:51 11/18/19 25 11/18/2024 XR, abdom en, 1 view [facility] [address] [place] [address] Phone: Fax: Name: MARIE REYNA Exam Date: 025 : 985 Age 39 years Gender : F Access ion: [id number] Physic juan manuel: SERENE PATEL Facili [place]: [facility] Facili ty HSV: Outpat ient Exam: ABD KUB 1V PROCED URE: XR ABDOME N 1 VIEW (KUB) Techni que: 1 view abdome n Compar elvis: No simila r prior study HX: CHRONI [...] Obed Stewart 025 Thank you for referr ing MARIE REYNA to [facility]. Legall y authen ticate d by ANGEL HKAN 0 11-18 12:36: 27 CC'ed Logic: Orderi ng Provid er: AMANDA CAST Attend ing Provid er: AMANDA CAST Admitt ing Provid er: AMANDA valentinewell64 [facility] [address], [place], [address], 11/25/2024 14:39:03 03/11/20 25 12/08/2024 XR, lumba r spine , 2 view No observ ation record ed. [email or web address] Not Available 2024 16:15:28 03/11/20 25 12/22/2024 MRI, lumba r spine , w/o contr ast No observ ation record ed. [email or web address] Not Available 2024 16:16:19 04/09/20 25 04/09/2025 XR, sacro iliac joint (s), 3 or more view [facility] [address] [place] [address] [phone] (Phone ) KALYANI Parrish REPORT Name: MARIE REYNA : 1984 Accoun t #: [id number] Age: 40 Years Patien t Type: Outpat ient Sex: F Access ion#: [id number] Exam Descri ption: SACROI LIAC JOINTS 3V Exam Reason : M53.3 SACROC OCCYGE AL DISORD ERS NOT ELSEWH ERE CLASSI FIED Order Date/T tanner: 2024 12:34: 57 PM Dictat ed By: Ciaran Roberson MD Orderi Physic juan manuel: MICHELLE VILLAGOMEZ Attend [facility] Physic juan manuel: MICHELLE VILLAGOMEZ Sacroi liac [...] 1 CC'ed Logic: Orderi ng Provid er: MODADU KRISHNA MICHELLE CC Provid er: CAM REIS Attend ing Provid er: MODADU KRISHNA MARTINEZ Referr ing Provid er: MODADU KRISHNA MICHELLE Admitt ing Provid er: MODADU MICHELLE [email or web address] [facility] (Central Scheduling) [address] [place] [address] [place], [address], 04/12/2025 09:02:53 07/19/2007/19/2025 XR, cervi ulysses spine , 2 or 3 view [facility] [address] [place] [address] (Phone ) KALYANI Parrish REPORT Name: MARIE REYNA : 1984 Accoun t #: [id number] Age: 40 Years Patien t Type: Outpat ient Sex: F Access ion#: [id number] Exam Descri ption: SP CERVIC AL 2 TO 3V - PARTIA L Exam Reason : m54.2 cervic algia Order Date/T tanner: 2024 11:58: 46 AM Dictat ed By: Ciaran Roberson MD Orderi ng Physic juan manuel: MICHELLE VILLAGOMEZ Attend ing Physic juan manuel: MICHELLE VILLAGOMEZ XR CERVIC [...] MARIE REYNA : 1984 Accoun t #: [id number] Age: 40 Years Patien t Type: Outpat ient Sex: F Access ion#: [id number] Exam Descri ption: SP CERVIC AL 2 TO 3V - PARTIA L Exam Reason : m54.2 cervic algia Order Date/T tanner: 2024 11:58: 46 AM Princi pal Interp reter Name: Ciaran Roberson Provid er ID: [id number] PAGE 2 OF 2 CC'ed Logic: Orderi ng Provid er: YAMINI KELLER MICHELLE CC Provid er: CAM REIS Attend ing Provid er: YAMINI MARTINEZ Referr ing Provid er: YAMINI MARTINEZ Admitt ing Provid er: YAMINI MARTINEZ [facility] (Central Scheduling) [address] [place] [address] [place], [address], 07/20/2025 08:11:24 Result Notes Documentation Provider Name and Address Organization Details Recorded Time Xr, Abdomen, 1 View : [facility] [address] [place] [address] Name: FEDERICO SHARP Exam Date: 11/18/2024 : 1985 Age 39 years Gender: F Physician: SERENE PATEL Facility: [facility] Facility HSV: Outpatient Exam: ABD [...] by: Obed Stewart MD 11/18/2024 02:40 PM [facility] Dictated By: Obed Stewart Transcribed By: Transcribed On: 11/18/2024 12:36 PM Electronically signed by: Obed Stewart 11/18/2024 Thank you for referring FEDERICO SHARP to [facility]. Legally authenticated by ANGEL KHAN 2024-11-18 12:36:27 CC'ed Logic: Ordering Provider: AMANDA CAST Attending Provider: AMANDA CAST Admitting Provider: PHILLIP Amezcua - MIKNT [facility] & [place] 11/25/2024 14:39:03 Xr, Sacroiliac Joint(s), 3 Or More View : [address] [address] (Phone) IMAGING REPORT ___ Name: [...] MD 04/09/2025 04:55 PM EDT RP Principal Virtualization Consultant Name: Ciaran Roberson Provider ID: [id number] PAGE 1 OF 1 CC'ed Logic: Ordering Provider: MAGALY MARTINEZ CC Provider: LARA REIS Attending Provider: MAGALY MARTINEZ Referring Provider: MAGALY MARTINEZ Admitting Provider: PHILLIP [place] - GUS [facility] 04/12/2025 09:02:53 Xr, Cervical Spine, 2 Or 3 View : [address] [address] (Phone) IMAGING REPORT ___ Name: FEDERICO SHARP : 1985 Age: 40 Years Patient Type: Outpatient Sex: F Exam Description: SP CERVICAL 2 TO 3V - PARTIAL Exam Reason: m54.2 cervicalgia Order Date/Time: 07/19/2025 11:58:46 AM Dictated By: Ciaran Roberson MD Ordering Physician: MICHELLE MCKENZIE Attending Physician: MICHELLE MCKENZIE ___ XR CERVICAL SPINE 2-3 VIEWS Reason For Study: m54.2 cervicalgia COMPARISON: None available TECHNIQUE: 3 views of the cervical spine were obtained. FINDINGS: There is mild retrolisthesis C5-6 approximately 2 mm. There is also moderate severe DJD at this level. Mild degenerative changes at the other disc space levels and there is moderate DJD in the lower facet joints. Soft tissues unremarkable. No definite fractures. CT scan may be beneficial. 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 Consider CT correlation exclude underlying fracture. Electronically signed by: Ciaran Roberson MD 07/19/2025 03:04 PM EDT RP PAGE 1 OF 2 Name: FEDERICO SHARP : 1985 Age: 40 Years Patient Type: Outpatient Sex: F Exam Description: SP CERVICAL 2 TO 3V - PARTIAL Exam Reason: m54.2 cervicalgia Order Date/Time: 07/19/2025 11:58:46 AM ___ Principal Virtualization Consultant Name: Ciaran Roberson Provider ID: [id number] PAGE 2 OF 2 CC'ed Logic: Ordering Provider: MAGALY MARTINEZ CC Provider: LARA REIS Attending Provider: MAGALY MARTINEZ Referring Provider: MAGALY MARTINEZ Admitting Provider: MAGALY [place], [place] - [facility] - [place] & [place] 07/20/2025 08:11:24 Problems Name Problem SNOMED Code Status Onset Date Resolution Date Notes Provider Name and Address Organization Details Recorded Time Fibromyalgia 514373632 Active 2024 Michelle Mckenzie MD [address], [address], [place], [address], [place] [facility] [place] 5 11:41:42 Pain of sacroiliac joint 777313888 Active 2024 Michelle Mckenzie MD [address], [address], [place], [address], [place] [facility] [place] 5 11:42:21 Lumbar spondylosis 762596053 Active 2024 Michelle Mckenzie MD [address], [address], [place], [address], [place] [facility] [place] 5 11:24:09 Neck pain 85007936 Active 2024 Michelle Mckenzie MD [address], [address], [place], [address], [place] [facility] [place] 5 10:40:14 Problem Notes None recorded. Procedures Surgical History Date Name Laterality Status Provider Name and Address Organization Details Recorded Time 09/23/2018 Other completed Scarlett Roberson [place] - [employer]IOR [employer] T - [place] & [place] 04/08/2025 11:58:19 Imaging Results None recorded. Procedure [...] Not Available Not Avai lable amoxicillin 875 mg-yamila zafar clavulanate 125 mg tablet TAKE 1 TABLET [...] Last Updated DateTime 167.64 cm 34.8 kg/m2 13942.8 g 98 % 98 % 80 /min 97.8 [degF] 78 /min 110/79 mm[Hg] Letty FISHER - NT [facility] & [place] 5 11:22:19 Date Recorded Body height Body mass index (BMI) Body weight Body temperature Oxygen saturation Oxygen saturation in Arterial blood by Pulse oximetry Heart rate Systolic And Diastolic Provider Name and Address Organization Details Last Updated DateTime 5 167.64 cm 32.3 kg/m2 92535.9 1 g 97.3 [degF] 97 % 97 % 69 /min 101/74 mm[Hg] Scarlett FISHER - MIKNT [facility] & [place] 5 11:14:47 Date Recorded Body height Body mass index (BMI) Body weight Body temperature Oxygen saturation Oxygen saturation in Arterial blood by Pulse oximetry Heart rate Pain severity - 0-10 verbal numeric rating [Score] - Reported Respiratory rate Systolic And Diastolic Provider Name and Address Organization Details Last Updated DateTime 5 167.64 cm 32.4 kg/m2 57666.6 3 g 96.6 [degF] 100 % 100 % 65 /min 9 18 /min 101/66 mm[Hg] Marline Rebecca PHILLIP [facility] & [place] 5 11:13:53 Date Recorded Body height Body mass index (BMI) Body weight Body temperature Oxygen saturation Oxygen saturation in Arterial blood by Pulse oximetry Heart rate Systolic And Diastolic Provider Name and Address Organization Details Last Updated DateTime 5 167.64 cm 32.2 kg/m2 67627.3 2 g 98.1 [degF] 98 % 98 % 73 /min 111/76 mm[Hg] Scarlett FISHER - NT [facility] & [place] 5 10:24:34 Date Recorded Body height Body mass index (BMI) Body weight Oxygen saturation Oxygen saturation in Arterial blood by Pulse oximetry Heart rate Heart rate Body temperature Systolic And Diastolic Provider Name and Address Organization Details Last Updated DateTime 4 167.64 cm 34.9 kg/m2 54952.3 1 g 98 % 98 % 92 /min 86 /min 98.1 [degF] 108/72 mm[Hg] Letty FISHER - NT [facility] & [place] 09:57:28 Social History Question Answer Notes LastModified by Organizat ion Details LastModified Time Tobacco Smoking Status Current Every Day Smoker Scarlett lara, PHILLIP - [facility] & [place] 04/08/2025 11:58:19 What Was The Date Of [...] Influenza, MDCK, quadrivalent, PF 07/22/2020 completed Scarlett Da marco, PHILLIP - [facility] & [place] 07/16/2025 10:25:04 COVID-19, mRNA, LNP-S, PF, 30 mcg/0.3 mL dose 01/20/2021 completed Scarlettveronica Roberson marco, PHILLIP - [facility] & [place] 07/16/2025 10:25:04 COVID-19, mRNA, LNP-S, PF, 30 mcg/0.3 mL dose 02/11/2021 jazmín lara, PHILLIP - [facility] - [place] & [place] 07/16/2025 10:25:04 Tdap 10/21/2017 completed Scarlett lara, PHILLIP - [facility] - [place] & [place] 07/16/2025 10:25:04 Tdap 02/04/2012 completed Scarlett lara, PHILLIP - [facility] - [place] & [place] 04/09/2025 11:15:04 Influenza, split virus, trivalent, PF 08/12/2017 completed Scarlett lara, PHILLIP - [facility] - [place] & [place] 07/16/2025 10:25:04 Influenza, split virus, quadrivalent, PF 07/20/2021 completed Scarlett lara, PHILLIP [facility] - [place] & [place] 07/16/2025 10:25:04 Past Encounters Encounter ID Performer Location Encounter Start Date Encounter Closed Date Diagnosis/Indication Diagnosis SNOMED-CT Code Diagnosis ICD10 Code Diagnosis IMO Codes Diagnosis Note [id number] ALEXSANDRA MOGNE NP [facility] [address] [address] 07/22/2024 10:55:33 07/22/2024 11:57:15 Chronic idiopathic constipation 45507794 K59.04 Abdominal pain 32331428 R10.9 Diverticul itis of colon 933306297 K57.32 Steatotic liver disease 616901072 K76.0 [id number] SERENE PATEL NP [facility] [address] [address] 08/27/2024 09:41:08 08/27/2024 10:54:31 Chronic idiopathic constipation 53024515 K59.04 Decrease Linzess dose, advised to take daily.Cont inue 1 capsule Citrucel and discontinu e fiber-tab. Adjust dose as needed. Steatotic liver disease 902889819 K76.0 History of hepatic steatosis. Labs today. History of diverticulitis 8698833645 24616 Z87.19 Colonoscop y recommende d, schedule today. Abdominal pain 29928218 R10.9 Okay to continue dicyclomin e. Discussed that constipati on is a side effect. [id number] SERENE PATEL NP [facility] [address] [facility] [address] [facility] PHILLIP Colon [address] 11/18/2024 11:08:09 11/18/2024 12:07:53 Chronic idiopathic constipation 87448449 K59.04 Advised to take Linzess every day consistent ly. Okay to restart fiber, but dose and frequency can be adjusted if needed. Obtain KUB today to assess for constipati on. Consider motegrity if no improvemen t. Steatotic liver disease 642081028 K76.0 History of hepatic steatosis. Slight elevation in AST on most recent labs. History of diverticulitis 0360004381 92531 Z87.19 Repeat colonoscop y scheduled. [id number] Michelle Mckenzie MD [facility] [address] [place] [address] PHILLIP [place] [address] 04/09/2025 10:35:34 04/09/2025 11:45:22 Long-term drug therapy 626013652 Z79.891 Will start the patient on NSAIDS. [...] oral opiates. Pain of sa croiliac joint 145857599 M53.3 Bilateral sacroiliit isGreater trochanter ic bursitisPa [...] back if any questions or concerns Fibromyalgia 503956247 M 79.7 45552 Examinatio n history is consistent with fibromyalg [...] oral opioids and membraness tabilizers quite regularly [id number] Michelle Mckenzie MD [facility] - [address] [place] [address] 05/17/2025 10:50:55 05/17/2025 11:30:55 Long-term drug therapy 883446739 Z79.891 Will start the patient on NSAIDS. [...] oral opiates. Pain of sa croiliac joint 818300817 M53.3 Bilateral sacroiliit isGreater trochanter ic bursitisStan [...] back if any questions or concerns Fibromyalgia 294234160 M 79.7 46233 Examinatio n history is consistent with fibromyalg [...] oral opioids and membraness tabilizers quite regularly Lumbar radiculopathy 128 162757 M54.16 21940 Lumbar spondylosis 46418 0009 M47.816 64778 Assessment and plan Lumbar radiculiti s Bilateral [...] right oral opioids and membrane stabilizer s. [id number] Michelle Mckenzie MD [facility] - [address] [place] [address] [place] [address] 07/16/2025 09:52:44 07/16/2025 10:42:12 Long-term drug therapy 215333996 Z79.891 Will start the patient on NSAIDS. [...] oral opiates. Pain of sa croiliac joint 329001766 M53.3 Bilateral sacroiliit isGreater trochanter ic bursitisPa tient has significan t pain in the low back.Signi ficant tenderness on the sacroiliac joint bilaterall yNo radicular signs.+ve FABERS testExamin ation, history consistent with bilateral sacroiliit isLeft leg is 1-1/2 inch shorter than right likely contributi ng to the sacroiliit is.Encoura ged her to consider heel lift. Fibromyalgia 975620842 M 79.7 94783 Examinatio n history is consistent with fibromyalg ia.Tender points could be due to underlying sleep apnea. Lumbar spondylosis 30521 0009 M47.816 91680 Assessment and plan Lumbar radiculiti s Bilateral [...] inal epidural steroid injection. Lumbar radiculopathy 128 540157 M54.16 37006 Neck pain 48019368 M54.2 98070 Cervical facet arthritisS ignificant pain in the [...] scapulae Stretch6) Cervical lateral flexion7) Sub occipital stretch.Stan tient asked to repeat 5 timesHold time 5 [...] Member ID Garcia Member ID Guarantor Name 07/13/2025 1 [facility] (MEDICAID HMO) Federico Sharp [id number] Federico Sharp Notes Date Note Type Note Provider Name and Address Organization Details Recorded Time 08/27/2024 text/html PREVIOUS (07/22/24 VJaylon Monge): Ms. Sharp in his 39-year-old female referred to us by Chato Bermudez APRN for left lower quadrant pain and recent diverticulitis. cortney salas was seen at [facility] on July 11 for left upper quadrant [...] steatosis. SERENE PATEL NP [address], [place], [address], [facility] - [facility] & [place] 08/28/2024 14:23:17 11/18/2024 text/html PREVIOUS: Ms. Sharp [...] years ago. Recent CT showed steatosis. CURRENT: Federico Sharp is a 39-year-old female here today [...] resolved. 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 Follow-up visit May 17, 2025 Complaints of lower back pain. Severe [...] night. The child is extremely active and demanding.Patient has tried multiple medications for the lower back painincluding Tylenol, NSAIDs, multiple OTC medications, physical therapy,bed rest without any improvement. Quite frustrated about the low backpain. 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
== END 2025-07-23 23:59 | disposition home or self-care (01) ==
LOC: RT 11:41
PROVIDERS: PCP Nurse Practitioner Family; Visit Provider Nurse Practitioner Family
DX: M79.632 Pain in left forearm (principal); R22.32 Localized swelling, mass and lump, left upper limb
CPT/HCPCS: 93971